=== PATIENT | male | born 1960 | race Caucasian/White ===

== ENCOUNTER 2019-05-16 17:47 | Emergency (ER) | payer SELFPAY | END 2019-05-16 18:42 | disposition left against medical advice (07) | LOC: ER 05-26 13:35 | PROVIDERS: Emergency Provider Family Medicine; Family Provider Family Medicine | DX: Z53.21 Procedure and treatment not carried out due to patient leaving prior to being seen by health care provider (principal) | CPT/HCPCS: 99281 ==

== ENCOUNTER → 2020-08-29 16:24 | Outpatient (BNVA) | payer SELFPAY | PROVIDERS: Family Provider Family Medicine; Visit Provider Internal Medicine Cardiovascular Disease | DX: I10 Essential (primary) hypertension (principal); I50.9 Heart failure, unspecified; I50.42 Chronic combined systolic (congestive) and diastolic (congestive) heart failure; E78.5 Hyperlipidemia, unspecified; F17.200 Nicotine dependence, unspecified, uncomplicated; J43.9 Emphysema, unspecified; K21.9 Gastro-esophageal reflux disease without esophagitis | CPT/HCPCS: 80053; 83735; 83880; 84443; 85025 ==

== ENCOUNTER 2020-09-29 08:29 | Outpatient (CLI) | payer SELFPAY ==
--- NOTE | 2020-09-29 08:45 | USCV_ITS ---
Anurag Diaz Age: 59 Gender: M : 1960 Exam Date: 09/29/2020 08:51 Ordering Phys: Anuja Yao MD ([email or web address]) Technologist: Virgie Zhang Exam Location: [facility] [place] Indication: heart failure, unspecified BP: 121 / 84 HR: 68 Rhythm: Sinus Technical Quality: Good MEASUREMENTS (Male / Female) Normal Values 2D ECHO LV Diastolic Diameter PLAX 5.8 cm 4.2 - 5.9 / 3.9 - 5.3 cm LV Systolic Diameter PLAX 4.7 cm IVS Diastolic Thickness 0.8 cm 0.6 - 1.0 / 0.6 - 0.9 cm IVS Systolic Thickness 1.1 cm LVPW Diastolic Thickness 1.2 cm 0.6 - 1.0 / 0.6 - 0.9 cm LVPW Systolic Thickness 1.6 cm LVOT Diameter 2.0 cm LV Ejection Fraction 2D Teich 39.7 % LV Ejection Fraction MOD 2C 35.9 % LV Ejection Fraction 2C AL 36.6 % LA Diameter 2.4 cm LA Width 2.8 cm LA Height 4.3 cm RA Width 4.1 cm RA Height 3.8 cm Aorta at Sinotubular Diameter 4.0 cm M-MODE LV Diastolic Diameter MM 6.3 cm 4.2 - 5.9 / 3.9 - 5.3 cm LV Systolic Diameter MM 4.9 cm LV Ejection Fraction MM Teich 43.8 % IVS Diastolic Thickness MM 0.6 cm 0.6 - 1.0 / 0.6 - 0.9 cm IVS Systolic Thickness MM 0.9 cm LVPW Diastolic Thickness MM 1.2 cm 0.6 - 1.0 / 0.6 - 0.9 cm LVPW Systolic Thickness MM 1.7 cm Aortic Annulus Diameter 3.9 cm LA Ao Ratio MM 0.7 MV E Point Septal Separation 1.6 cm DOPPLER AV Peak Velocity 158.0 cm/s LVOT Peak Velocity 90.0 cm/s AV Area Cont Eq vti 1.8 cm squared AV Area Cont Eq pk 1.8 cm squared MV Peak Velocity 132.0 cm/s MV Area PHT 3.9 cm squared Mitral E to A Ratio 1.1 MV E' Velocity 56.0 cm/s Mitral E to MV E' Ratio 16.2 Mitral E to LV E' Lateral Ratio 14.6 Mitral E to LV E' Septal Ratio 18.1 PV Peak Velocity 64.0 cm/s RV Acceleration Time 0.1 s RV Ejection Time 0.3 s RV AcT/ET 0.4 FINDINGS Left Ventricle Mildly dilated left ventricle. Moderately decreased left ventricular systolic function. Left ventricular ejection fraction is estimated at 30%. Moderate global hypokinesis. Grade II diastolic dysfunction, moderately elevated filling pressures. Abnormal septal motion consistent with conduction abnormality. Right Ventricle Normal right ventricular size and systolic function. Normal right ventricle systolic pressure. Right Atrium Normal right atrial size. Right atrial pressure estimated at 3 mmHg. Left Atrium Mildly increased left atrial size. Mitral Valve Mildly thickened mitral valve. No mitral valve stenosis. Mild mitral valve regurgitation. Aortic Valve Structurally normal trileaflet aortic valve. No aortic valve stenosis. No aortic valve regurgitation. Tricuspid Valve Structurally normal tricuspid valve. Trace tricuspid valve regurgitation. Pulmonic Valve Structurally normal pulmonic valve. No pulmonary valve stenosis. Pericardium No pericardial effusion. Aorta Normal size aortic root and proximal ascending aorta. Normal descending aorta size. Normal-sized inferior vena cava with normal respiratory variation. CONCLUSIONS 1. Mildly dilated left ventricle. Moderately decreased left ventricular systolic function. Left ventricular ejection fraction is estimated at 30%. Moderate global hypokinesis. Grade II diastolic dysfunction, moderately elevated filling pressures. 2. Normal right ventricular size and systolic function. 3. Mildly increased left atrial size. 4. Mild mitral valve regurgitation. 5. When compared to previous echocardiogram dated 08/07/2018, left ocular systolic function may have improved slightly Anuja Yao MD (Electronically Signed) Final Date: 04 October 2020 12:36 S
== END 2020-09-29 08:30 | disposition home or self-care (01) ==
PROVIDERS: PCP Internal Medicine Cardiovascular Disease; Visit Provider Internal Medicine Cardiovascular Disease
DX: I50.9 Heart failure, unspecified (principal); I34.0 Nonrheumatic mitral (valve) insufficiency
CPT/HCPCS: C8929

== ENCOUNTER → 2020-11-23 12:59 | Outpatient (BNVA) | payer MEDICAID, SELFPAY | PROVIDERS: PCP Internal Medicine Cardiovascular Disease; Visit Provider Thoracic Surgery (Cardiothoracic Vascular Surgery) | DX: I42.9 Cardiomyopathy, unspecified (principal) | CPT/HCPCS: 87635 ==

== ENCOUNTER 2020-11-28 16:21 | Observation (INO) | payer MEDICAID, SELFPAY ==
[2020-11-23 12:02] VITALS: BMI 25.8
--- NOTE | 2020-11-23 12:07 | ECG_ITS ---
[facility] Test Date: 2020-11-23 Pat Name: Anurag Diaz Department: Room: Gender: Male Attendant Child Activity: : 1960 Requested By: Glo Kumar Order Number: [id number] Antony MD: Anuja Yao M.D. Measurements Intervals [place] Rate: 64 P: 25 ME: 172 QRS: -50 QRSD: 125 T: -83 QT: 395 QTc: 410 Interpretive Statements SINUS RHYTHM LEFT AXIS DEVIATION [QRS AXIS < -30] MODERATE INTRAVENTRICULAR CONDUCTION DELAY MODERATE T-WAVE ABNORMALITY, CONSIDER LATERAL ISCHEMIA MODERATE T-WAVE ABNORMALITY, CONSIDER INFERIOR ISCHEMIA Compared to ECG 08/06/2018 22:40:05 Intraventricular conduction delay now present Possible ischemia now present Ventricular premature complex(es) no longer present Atrial abnormality no longer present T-wave abnormality still present Electronically Signed On 11-24-2020 10:38:12 CDT by Anuja Yao M.D. [email or web address]
--- NOTE | 2020-11-23 12:39 | ANES.PREANE2 ---
Pre-Anesthetic Assessment Pre-Anesthetic Assessment: Height/Weight: Height 1.75 m Weight 79.379 kg Preop Diagnosis: heart failure Proposed Procedure: Operation Date: 11/28/20 10:45 Proposed Procedures p Defibrillator Placement(Not Applicable) - Shane Pineda MD Familial anesthetic complications: None Social: Social History: Tobacco and No alcohol Exam: Pre-Anes Outpt Exam: alert, oriented x 3, clear to auscultation bilaterally and regular rate & rhythm Airway: Cervical ROM: WNL MP: 1 Dentition: Full CV/HEM: CV/HEM: CHF and HTN Comments: EF 30% GI: GI: GERD Metabolic: Metabolic: Hyperlipidemia Anesthetic Plan: ASA status: 4 Anesthesia: MAC Risk of > 500 ml blood loss (7ml/kg in children): No PFSH Anesthesia PFSH: Medical History Dyslipidemia GERD (gastroesophageal reflux disease) Heart failure Smoker Family History Sister Heart disease Father Myocardial infarct Social History Smoking and tobacco status: current every day smoker cigarettes Packs smoked per day: 1.5 Alcohol intake: never Data Anesthesia CBC & Chem 7: 11/23/20 12:18 11/23/20 12:18 Cardiac Studies: Echocardiogram 09/29/20
[2020-11-23 12:48] LABS: Basophils # 0.1 10^3/uL (0.0-0.1); Basophils % 0.6 %; Eosinophils # 0.2 10^3/uL (0.0-0.8); Eosinophils % 2.1 %; Hematocrit 50.4 % (42.0-52.0); Hemoglobin 16.9 g/dL (11.7-16.6); Lymphocytes # 1.7 10^3/uL (0.8-4.8); Lymphocytes % 21.8 %; Mean Corpuscular HGB Conc 33.5 g/dL (30.0-36.0); Mean Corpuscular Hemoglobin 32.1 pg (28.0-34.0); Mean Corpuscular Volume 95.8 fl (80-94); Mean Platelet Volume 9.6 fL (7.4-10.4); Monocytes # 0.7 10^3/uL (0.2-0.9); Monocytes % 9.2 %; Neutrophils # 5.14 10^3/uL (1.8-7.7); Nucleated Red Blood Cells % 0 %; Platelet Count 222 10^3/cmm (130-400); Red Blood Count 5.26 10^6/uL (4.1-5.3); Red Cell Distribution Width 12.7 % (12.1-15.1); White Blood Count 7.8 10^3/uL (4.0-10.0)
[2020-11-23 13:16] LABS: Alanine Aminotransferase 19 U/L (0-41); Albumin Level 4.7 g/dL (3.5-5.2); Alkaline Phosphatase 50 IU/L (40-130); Anion Gap 14.2 (5-19); Aspartate Amino Transferase 20 U/L (0-40); Blood Urea Nitrogen 12 mg/dL (6-20); Calcium 9.8 mg/dL (8.5-10.5); Carbon Dioxide 30 mmol/L (22-29); Chloride 98 mmol/L (98-107); Creatinine Clr Calc Pharmacy 119.2044; Globulin 3.1 g/dL (1.3-4.6); Glomerular Filtration Rate 115.4 mL/min (90-130); Glucose 87 mg/dL (65-115); Osmolality Calculated 283 mOsm/kg (285-295); Potassium 5.2 mmol/L (3.5-5.1); Sodium 137 mmol/L (136-145); Total Bilirubin 0.4 mg/dL (0.15-1.2); Total Protein 7.8 g/dL (6.6-8.7)
[2020-11-23 14:33] LABS: Urine Appearance Clear (CLEAR); Urine Color Yellow (Yellow)
[2020-11-23 14:34] LABS: Add Urine Microscopic? YES; Bilirubin Urine Neg (Negative); Blood Urine 2+ (Negative); Glucose Urine UA Norm (Normal); Ketones Urine Negative (Negative); Leukocyte Esterase Urine Negative (Negative); Nitrate Urine Negative (Negative); Protein Urine Neg (Negative); Specific Gravity, Urine 1.015 (1.005-1.030); Urobilinogen Urine Norm (Negative); pH Urine 6 (5-7)
[2020-11-23 14:41] LABS: Add Urine Culture? No; RBC Urine 0-4 /hpf (0-2)
[2020-11-28] VITALS (9 sets, daily range): BP systolic 109–130; BP diastolic 67–100; PULSE 67–92; RESP 15–18; TEMP 36.2–36.6; O2SAT 94–100
--- NOTE | 2020-11-28 | SCC_ITS ---
Procedure Done: AICD implantation 155.6 seconds of fluoroscopic guidance, for a cumulative dose of 29.87 mGy, was provided to Dr. Pineda by the radiology department. C-arm images of the chest were saved for the patient's permanent record. MTDD
--- NOTE | 2020-11-28 10:02 | XR_ITS ---
WS: [id number] XR chest 1V portable [id number] REASON FOR EXAM: Preop for AICD implantation/cardiomyopathy FINDINGS: Compared to 08/06/2018 the enlarged cardiac silhouette has resolved with a normal heart size at this t kika. (CT at 08/06/2018 demonstrated cardiomegaly and pericardial effusion.) There is mild tortuosity the thoracic aorta. Calcified granulomatous disease with no active pulmonary parenchymal or pleural disease identified. The bony thorax is intact. XR/XR chest 1V portable [id number] IMPRESSION: No acute chest abnormality. Previously enlarged cardiac silhouette resolved as above.
--- NOTE | 2020-11-28 10:02 | SC_ITS ---
WS: [id number] C-arm FL for Pacemaker REASON FOR EXAM: AICD implantation FINDINGS: 2 images during AICD implantation. Battery pack placed in the anterolateral left chest wall. Transven ous left subclavian leads to the right atrium and right ventricle. SC/C-arm FL for Pacemaker IMPRESSION: AICD implantation as above.
[2020-11-28] MEDS: sodium chloride 0.9% 1,000 ML 30 ML IV (10:25)
--- NOTE | 2020-11-28 12:55 | P.ANESUD_ITS ---
Pre-Anesthetic Update Pre-Anesthetic Assessment: Date of Surgery/Procedure: 11/28/20 Preop Mirna gnosis: Medically refractory cardiomyopathy Proposed Procedure: Operation Date: 11/28/20 10:45 Proposed Procedures p Defibrillator Placement(Not Applicable) - Shane Pineda MD Any changes to Pre-Anesthetic Assessment?: No Last Intake: Intake Last Liquid Date 11/27/20 Last Liquid Time 23:00 Last Solid Date 11/27/20 Last Solid Time 22:00 Vitals: Temperature 97.9 F 11/28/20 10:15 Temperature Source Temporal Artery S can 11/28/20 10:15 Pulse Rate 79 11/28/20 10:15 Respiratory Rate 16 11/28/20 10:15 Blood Pressure 119/77 11/28/20 10:15 Blood Pressure Layla n 91 11/28/20 10:15 Pulse Oximetry 96 11/28/20 10:15 Oxygen Delivery Me thod 11/28/20 10:15 Exam: Pre-Anes Outpt Exam: alert, oriented x 3, clear to auscultation bilaterally and regular rate & rhythm Cardiac Studies: Echocardiogram 09/29/20
--- NOTE | 2020-11-28 12:55 | W.PM.OPSUD ---
Surgery/Procedure H&P Update DATE OF PROCEDURE: November 28, 2020 DATE H&P PERFORMED: 11/24/20 H&P UPDATE INFORMATION: I have reviewed H&P completed within last 30 days, I have examined patient prior to procedure and No changes to prior documentation PREOP DIAGNOSIS: Medically refractory cardiomyopathy PLANNED PROCEDURE: Operation Date: 11/28/20 10:45 Proposed Procedures p Defibrillator Placement(Not Applicable) - Shane Pineda MD
[2020-11-28] MEDS: lidocaine 1% INJ 20 mL SUBCUT (13:28)
[2020-11-28] MEDS: ceFAZolin 1,000 mg SDV 1000 MG IRRIGATION (13:28)
--- NOTE | 2020-11-28 14:37 | PM.OP ---
Operative Report Date of procedure: November 28, 2020 Pre-op Diagnosis: Medically refractory cardiomyopathy Post-op diagnosis: same Procedure Done: AICD implantation Implants: AICD generator Atrial and ventricular leads Pathology: none sent Surgeon: Shane Pineda Anesthesia: MAC and Local Complications: None: Post procedure chest x-ray pending Condition: stable Disposition: PACU Brief History: Mr. Diaz is a 60-year-old gentleman with likely refractory cardiomyopathy. He has a documented ejection fraction of less than 30% as noted from echocardiogram as well as Lexiscan. AICD implantation has been recommended by Dr. Yao as a cardioprotective mechanism. Rationale was carefully discussed. He does wish to proceed. Appropriate consents have been reviewed and signed. Procedure: Procedure: Mr. Diaz was taken to the OR suite and placed in the supine position over a shoulder roll. He received conscious sedation with continuous anesthesia monitoring by. His entire chest was sterilely prepped and draped. 1% lidocaine was infiltrated in the left subclavicular region. While in Trendelenburg position, utilizing modified seldinger technique, a guidewire was placed in the left subclavian vein. This was confirmed in position by fluoroscopy. Next, after infiltration with lidocaine, a subcutaneous pocket was created beginning from the exit point of the guidewire and extending laterally and inferiorly. Cautery was utilized to create the pocket just above the pectoralis musculature. Hemostasis was confirmed. An antibiotic-soaked sponge was placed in the wound. A dilator and tear-away sheath was placed over the guidewire and advanced under fluoroscopy. Guidewire and dilator were removed. Next using a combination of curved and straight stylettes, the right ventricular lead was placed in position by fluoroscopy. The distal screw was extended. Interrogation was then performed confirming appropriate parameters. The tear-away sheath was then removed and the ventricular lead was sewn to the floor of the subcutaneous pocket. Next, atrial lead was placed in a similar fashion with fluoroscopic guidance. Generator was brought into the field, and after confirmation of hemostasis in the subcutaneous pocket, the leads was connected to the generator with appropriate capture. The entire system was interrogated by fluoroscopy. Leads and generator were secured in the pocket. Sponge and needle count was correct. The wound was then closed in 2 layers of 3-0 Vicryl suture. Skin was reapproximated in a subcuticular manner with 4-0 Monocryl suture. A pressure dressing was applied. The left arm was placed in a sling. The patient had equal breath sounds bilaterally. Mr. Diaz was then transferred to the PACU, where chest x-ray is currently pending. I did equal opportunity counselor with the family at the completion of the procedure. Following are the specifics of this system: Right ventricular lead is a 62 cm and model 6935M. Serial number [id number] Ventricular lead had sensing of 8.1 mV with an impedance of 535 ohms. Threshold was 0.7 V Atrial lead is 52 cm and model #[id number]. Serial number #[id number] Atrial lead had a sensing of 7.9 mV and an impedance of 612 ohms. Threshold was 0.5 V [employer] generator: Model # [id number] Serial #[id number]
[2020-11-28] MEDS: fentaNYL 50 mcg/mL INJ 2mL IVP (15:24)
--- NOTE | 2020-11-28 15:26 | SUR.PHASEII ---
1500 fentanyl 50mcg given and iv leaking and not patent
--- NOTE | 2020-11-28 16:12 | ANE.PACU2 ---
Inpatient post-anesthesia follow up: Airway intact: Yes Vital signs: Temperature 97.8 F Pulse Rate 67 Respiratory Rate 16 Blood Pressure 130/86 Pulse Oximetry 99 Oxygen Delivery Me thod Room Air Oxygen Flow Rate Fraction of Inspir ed Oxygen Hydration adequate: Yes Nausea and vomiting: No Pain level: 2 Mental status: Baseline
[2020-11-28] MEDS: nicotine 21 mg Patch 1 PATCH TRANSDERMA (17:59)
[2020-11-28] MEDS: HYDROcodone-acetaminophen 5-325 mg Tablet 1 TAB PO ×2 (18:00→22:02)
[2020-11-28] MEDS: ceFAZolin 1,000 MG in sodium chloride 0.9% (plus) 50 ML 100 MG IV (21:09)
[2020-11-29 00:31] VITALS: BP 125/79; PULSE 80; RESP 18; TEMP 36.6; O2SAT 95
[2020-11-29] MEDS: HYDROcodone-acetaminophen 5-325 mg Tablet 1 TAB PO ×2 (02:11→06:34)
[2020-11-29 04:00] VITALS: BP 122/76; PULSE 80; RESP 18; TEMP 36.7; O2SAT 96
[2020-11-29] MEDS: ceFAZolin 1,000 MG in sodium chloride 0.9% (plus) 50 ML 100 MG IV (04:09)
[2020-11-29 06:00] VITALS: PULSE 67
--- NOTE | 2020-11-29 06:08 | PC.NURSE ---
PACEMAKER Pressure dressing removed with island dressing left in place. Pacemaker interrogation done
--- NOTE | 2020-11-29 06:51 | PM.DCS ---
Discharge Providers Date of Admission: 11/28/20 16:21 Date of Discharge: November 29, 2020 Attending Provider at Admission: Shane Pineda MD Attending Provider at Discharge: Shane Pineda MD Primary Care Provider: Luis Miguel Jenkins MD Diagnoses at Discharge Discharge Diagnosis (1) Cardiomyopathy: Status: Acute Reason for Visit Reason for Visit: Cardiomyopathy Hospital Course Hospital Course Mr. Diaz is a 60-year-old gentleman who was referred to our service for AICD implantation due to medically refractory cardiomyopathy felt to be ischemic as original etiology. He has been carefully evaluated by Dr. Yao. He was electively admitted on November 28 underwent dual-lead AICD implantation. Postoperatively, he is convalesced on the surgical bedolla where he has continued to do well. Surgical site is clean and dry. Postop discomfort is under good control. Interrogation of the device this morning reveals appropriate parameters. He will be discharged home today in stable condition. Physical Exam Chest: COMMONS NORMALS: normal inspection of the chest OTHER: Surgical site is clean and dry. Minimal swelling. Resp: COMMON NORMALS: normal respiratory effort and clear to auscultation bilaterally EFFORT & INSPECTION: Yes able to speak in complete sentences and Yes symmetric chest movement AUSCULTATION: clear to auscultation bilaterally Cardio: COMMON NORMALS: regular rate, regular rhythm and S1 normal heart sound present RATE: regular rate RHYTHM: regular rhythm HEART SOUNDS: S1 normal heart sound present Extremity: COMMON NORMALS: no clubbing, cyanosis or edema Discharge Data Data Completed and Pending: Completed Studies During Hospitalization Category Date Time Status XR chest 1V demetrius ble [id number] Routine Exams 11/28/20 10:02 Completed Vitals: Last Vital Signs Temp 98.0 F 11/29/20 04:00 Pulse 67 11/29/20 06:00 Resp 18 11/29/20 04:00 BP 122/76 11/29/20 04:00 Pulse Ox 96 11/29/20 04:00 Discharge Plan Discharge Patient Disposition: Home Condition: Stable Prescriptions: New hydrocodone-acetaminophen 5-325 mg Tablet 1 tab PO Q6H PRN (Reason: Moderate Pain) Qty: 12 RF: 0 Continued furosemide 20 mg tablet 20 mg PO DAILY PRN (Reason: edema) Qty: 30 RF: 6 metoprolol succinate 50 mg tablet extended release 24 hr 50 mg PO DAILY Qty: 30 RF: 5 simvastatin 20 mg tablet 20 mg PO DAILY Qty: 30 RF: 6 albuterol sulfate 90 mcg/actuation HFA aerosol inhaler 2 puff INHALATION Q6H PRN (Reason: Shortness Of Breath) RF: 0 omeprazole 20 mg capsule,delayed release(DR/EC) 20 mg PO DAILY RF: 0 lisinopril 5 mg tablet 5 mg PO DAILY RF: 0 aspirin [Aspirin Low Dose] 81 mg Tablet,Delayed Release (Dr/Ec) 81 mg PO DAILY RF: 0 Discharge Orders: Discharge Order (Routine); Ordered 11/29/20 Ordered By: Shane Pineda Referrals: [facility] [Provider Group] - 1 week (Pacemaker clinic) Discharge Diet: Usual diet Discharge Activity: Limit activity as instructed Patient Instructions: Opioid Safety Activity Restrictions/Additional Instructions: May remove bandage in 2 days May begin daily showers in 2 days No swimming or tub baths x 2 weeks No ointments on incision Report drainage, redness, heat, increased pain, or swelling to clinic Do not raise left arm above eye level for 1 week No heavy lifting or pulling with left arm x1 week Discharge Attestations Time Spent in Discharge Care*: less than 30 min Specific Discharge Activities: educating patient, discussing with family preservation caseworker/social workers/dc planners, documenting/other paperwork and evaluating patient/reviewing data Time Spent in Smoking Cessation: 3 to 10 minutes Status at Discharge: Cognitive status at discharge: cognitively intact, Behavioral status at discharge: cooperative, Functional status at discharge: independent ambulation Overall status at discharge: patient is back to baseline Quality Metrics Clinical Quality Measures During this hospital stay, did patient experience: None Coding Level of Care Code Acute g DC note Diagnoses Cardiomyopathy I42.9
[2020-11-29 08:00] VITALS: BP 120/78; PULSE 68; RESP 18; TEMP 36.4; O2SAT 94
[2020-11-29] MEDS: aspirin 81 mg EC Tablet PO (08:06)
[2020-11-29] MEDS: atorvastatin 40 mg Tablet 20 MG PO (08:06)
[2020-11-29] MEDS: nicotine 21 mg Patch 1 PATCH TRANSDERMA (08:06)
--- NOTE | 2020-11-29 09:07 | PC.NURSE ---
discharge instructions given to patient and patient verbalized understanding of instructions. patient's meds sent to pharmacy. patient walked to private vehicle with spouse.
[2020-11-29 09:08] VITALS: BP 120/78; PULSE 68; RESP 18; TEMP 36.4; O2SAT 94
--- NOTE | 2020-11-30 09:36 | PC.SOCIAL ---
discharge follow up call made. patient is feeling good, reports he is slightly sore. patient given discharge follow up appointment with Karen Plata. patient picked up prescriptions and is taking as prescribed. instructed patient to not lift or pull for the next week. patient reports he hasn't had a cigarette for 48 hours.
--- NOTE | 2020-12-02 16:38 | PC.RESP ---
SMOKING CESSATION INFORMATION SENT TO PATIENT.
== END 2020-11-29 09:09 | disposition home or self-care (01) ==
LOC: MEDSURG 16:21
PROVIDERS: Admitting Provider Thoracic Surgery (Cardiothoracic Vascular Surgery); PCP Internal Medicine Cardiovascular Disease; Visit Provider Thoracic Surgery (Cardiothoracic Vascular Surgery)
PROC: 0JH608Z Insertion of Defibrillator Generator into Chest Subcutaneous Tissue and Fascia, Open Approach (ICD-10-PCS; CPT 33249; principal; 2020-11-28 10:35)
DX: I42.9 Cardiomyopathy, unspecified (principal); I11.0 Hypertensive heart disease with heart failure; I50.9 Heart failure, unspecified; K21.9 Gastro-esophageal reflux disease without esophagitis; E78.5 Hyperlipidemia, unspecified; F17.210 Nicotine dependence, cigarettes, uncomplicated; Z82.49 Family history of ischemic heart disease and other diseases of the circulatory system; Z79.82 Long term (current) use of aspirin
CPT/HCPCS: 33249; 36415; 71045; 76000; 80053; 81001; 85025; 93005; C1721; C1777; C1779; G0378; J0690; J2704; J3010; J7030

== ENCOUNTER 2020-12-29 18:30 | Emergency (ER) | payer MEDICAID, SELFPAY ==
[2020-12-29 19:09] VITALS: BP 125/70; PULSE 72; RESP 16; TEMP 36.6; O2SAT 98; BMI 25.8
[2020-12-29 19:52] LABS: Basophils % 0.4 %; Eosinophils # 0.2 10^3/uL (0.0-0.8); Eosinophils % 3.4 %; Hemoglobin 14.4 g/dL (11.7-16.6); Lymphocytes # 1.5 10^3/uL (0.8-4.8); Lymphocytes % 20.7 %; Mean Corpuscular HGB Conc 35.1 g/dL (30.0-36.0); Mean Corpuscular Hemoglobin 32.4 pg (28.0-34.0); Mean Corpuscular Volume 92.1 fl (80-94); Mean Platelet Volume 9.8 fL (7.4-10.4); Monocytes # 0.9 10^3/uL (0.2-0.9); Monocytes % 12.3 %; Neutrophils # 4.44 10^3/uL (1.8-7.7); Neutrophils % 62.8 %; Nucleated Red Blood Cells % 0 %; Platelet Count 179 10^3/cmm (130-400); Red Blood Count 4.45 10^6/uL (4.1-5.3); Red Cell Distribution Width 12.4 % (12.1-15.1); White Blood Count 7.1 10^3/uL (4.0-10.0)
[2020-12-29 20:13] VITALS: BP 118/75; PULSE 74; RESP 18; O2SAT 95
[2020-12-29 20:13] LABS: Alanine Aminotransferase 13 U/L (0-41); Albumin Level 4.5 g/dL (3.5-5.2); Alkaline Phosphatase 50 IU/L (40-130); Anion Gap 12.6 (5-19); Aspartate Amino Transferase 16 U/L (0-40); Blood Urea Nitrogen 14 mg/dL (6-20); Calcium 9.3 mg/dL (8.5-10.5); Carbon Dioxide 26 mmol/L (22-29); Chloride 102 mmol/L (98-107); Creatinine Clr Calc Pharmacy 119.2044; Globulin 2.2 g/dL (1.3-4.6); Glomerular Filtration Rate 115.4 mL/min (90-130); Glucose 92 mg/dL (65-115); Lactic Sepsis W/Reflex 1.1 mmol/L (0.5-2.2); Osmolality Calculated 282 mOsm/kg (285-295); Potassium 4.6 mmol/L (3.5-5.1); Sodium 136 mmol/L (136-145); Total Bilirubin 0.3 mg/dL (0.15-1.2); Total Protein 6.7 g/dL (6.6-8.7)
--- NOTE | 2020-12-29 21:16 | XRR_ITS ---
PROCEDURE INFORMATION: Exam: XR Chest Exam date and time: 12/29/2020 9:16 PM Age: 60 years old Clinical indication: Pain; Left-sided; Prior surgery; Surgery date: <1 month; Surgery type: Pacemaker; Additional info: Chest pain, ivdc concern TECHNIQUE: Imaging protocol: XR of the chest. Views: 1 view. COMPARISON: CR XR chest 1V portable [id number] 11/28/2020 10:01 AM FINDINGS: Lungs: Mildly hyperinflated lungs. No consolidation. Pleural spaces: Unremarkable. No pleural effusion. No pneumothorax. Heart/Mediastinum: Interval placement of a 2 lead AICD/pacer device within the left chest wall. No cardiomegaly. Bones/joints: Unremarkable. XR/XR chest 1V portable [id number] IMPRESSION: No acute findings. Radiation Dose CTDIVOL = (mGy): DLP = (mGy-cm)
--- NOTE | 2020-12-29 21:17 | ED_ITS ---
HPI - Skin/Abscess/Foreign Bdy General: Chief complaint: Skin/Abscess/Foreign Body Stated complaint: oozing green from defibulator Time Seen by Provider: 12/29/20 21:10 History of Present Illness: HPI narrative: Patient comes to the emergency department the assistance of his spouse. He had a IV DC placed approximately on or about 28 November at this facility by cardiology. He had a history of cardiomyopathy with a decreased ejection fraction. He states that since that time he has noted some small amount of drainage from the incision site. States he has been keeping it open and clean but there is been still some persistent redness along the incision site with small amount of drainage. He states he is not been manipulating or messing with the pacemaker. He denies any fevers or chills or other constitutional complaints. He still very active. He states the defibrillator has not fired. He denies any ongoing chest pain shortness of breath etc. He saw his primary care doctor in the last 24 hours who consulted the freight delivery driver and they have started him on antibiotics. He is taken his second dose this evening. His still insisted he come to the emergency department. Associated symptoms: Reports no associated symptoms; Deny chills, fever(s), nausea or vomiting Review of Systems Const: Denies: fever(s) or chills Eyes: Denies: change in vision Card: Denies: chest pain, palpitations, irregular heart rhythm or edema GI: Denies: abdominal pain, nausea or vomiting Musc: Denies: neck pain, back pain, extremity pain or extremity swelling Skin/Breast: Reports: surgical incision Neuro: Denies: headache(s), numbness in extremities, weakness in extremities or dizziness Dwight/Lymph: Denies: easy bleeding or petechiae PFSH ED PFSH: Medical History Dyslipidemia GERD (gastroesophageal reflux disease) Heart failure Smoker Surgical History AICD (automatic cardioverter/defibrillator) present Family History Sister Heart disease Father Myocardial infarct Social History Alcohol intake: never Physical Exam Const: COMMON NORMALS: no acute distress, average body habitus and patient oriented x3 HENMT: MOUTH: Normal oral and palatal mucosa present Eye: COMMON NORMALS: Equal, round and reactive pupils present and no scleral icterus PUPIL: Yes Equal, round and reactive pupils present Neck/C-Spine: COMMON NORMALS: full ROM, no lymphadenopathy and no JVD Lymph: LYMPHATIC: no lymphadenopathy noted Chest: OTHER: Examination of the chest reveals obvious bio medical technician implanted in the left upper chest. The area is nontender. The in the surgical incision is superior to the implanted device. There is minimal erythema along the margin and just superior to the margin of the skin incision. The lateral 2 cm of the incision is slightly dehisced but only superficially. There is no active drainage. Resp: COMMON NORMALS: normal respiratory effort, No retractions and clear to auscultation bilaterally AUSCULTATION: clear to auscultation bilaterally Cardio: COMMON NORMALS: no JVD, regular rhythm and No murmurs present (Cardio) RHYTHM: regular rhythm Back/Pelvis: COMMON NORMALS: thoracic and lumbar spine normal to inspection and thoraco-lumbar ROM normal Extremity: COMMON NORMALS: normal to inspection and full ROM Neuro: COMMON NORMALS: patient oriented x3, moves all extremities, no focal motor deficits and no sensory deficits noted Skin: COMMON NORMALS: turgor normal and no petechiae NARRATIVE SKIN EXAM: Skin over the incision site noted in the chest exam. GENERAL SKIN EXAM: turgor normal Course Reevaluation(s): Reevaluation #1: Patient is clinical examination is reassuring. Does not appear to have any significant cellulitis he does have a small amount of incision erythema which may represent superficial cellulitis or certainly could be a retained suture causing some of his irritation. He is just started on Bactrim and has had received his second dose this evening. His white blood count is also normal I do not see anything to suggest that he has a significant abscess etc. at this time he requires removal of his bio medical technician. I have advised him to continue the current antibiotic regimen. He should give it at least another 48 hours of antibiotic coverage before determination whether he needs to be reevaluated and his coverage broadened. He voiced understanding of recommendations and plan of care. Stable for discharge at this time. Vital Signs: Vital signs: Vital Signs Temperature 97.8 F 12/29/20 19:09 Pulse Rate 74 12/29/20 20:13 Respiratory Rate 18 10/14/21 20:13 Blood Pressure 118/75 10/14/21 20:13 Pulse Oximetry 95 12/29/20 20:13 MDM - Skin/Abscess/Foreign Bdy Lab Data: Labs: Lab Results 12/29/20 12/29/20 12/29/20 19:40 19:40 19:40 WBC 7.1 10^3/uL 10^3/ uL (4.0-10.0) RBC 4.45 10^6/uL 10^6 /uL (4.1-5.3) Hgb 14.4 g/dL g/dL (11.7-16.6) Hct 41.0 % L % (42.0-52.0) MCV 92.1 fl fl (80-94) MCH 32.4 pg pg (28.0-34.0) MCHC 35.1 g/dL g/dL (30.0-36.0) RDW 12.4 % % (12.1-15.1) Plt Count 179 10^3/cmm 10^3 /cmm (130-400) MPV 9.8 fL fL (7.4-10.4) Neut % (Auto) 62.8 % % Lymph % (Auto) 20.7 % % [place] % (Auto) 12.3 % % Eos % (Auto) 3.4 % % Baso % (Auto) 0.4 % % Neut # (Auto) 4.44 10^3/uL 10^3 /uL (1.8-7.7) Lymph # (Auto) 1.5 10^3/uL 10^3/ uL (0.8-4.8) [place] # (Auto) 0.9 10^3/uL 10^3/ uL (0.2-0.9) Eos # (Auto) 0.2 10^3/uL 10^3/ uL (0.0-0.8) Baso # (Auto) 0.0 10^3/uL 10^3/ uL (0.0-0.1) Nucleated RBC % (a uto) 0 % % Nucleated RBCs # 0.0 /100WBC /100W BC Sodium 136 mmol/L mmol/L (136-145) Potassium 4.6 mmol/L mmol/L (3.5-5.1) Chloride 102 mmol/L mmol/L (98-107) Carbon Dioxide 26 mmol/L mmol/L (22-29) Anion Gap 12.6 (5-19) BUN 14 mg/dL mg/dL (6-20) Creatinine 0.7 mg/dL mg/dL (0.7-1.2) GFR Calculation 115.4 mL/min mL/m in (90-130) Glucose 92 mg/dL mg/dL (65-115) Calculated Osmolal ity 282 mOsm/kg L mOs m/kg (285-295) Lactic Acid 1.1 mmol/L mmol/L (0.5-2.2) Calcium 9.3 mg/dL mg/dL (8.5-10.5) Total Bilirubin 0.3 mg/dL mg/dL (0.15-1.2) AST 16 U/L U/L (0-40) ALT 13 U/L U/L (0-41) Alkaline Phosphata se 50 IU/L IU/L (40-130) Total Protein 6.7 g/dL g/dL (6.6-8.7) Albumin 4.5 g/dL g/dL (3.5-5.2) Globulin 2.2 g/dL g/dL (1.3-4.6) Discharge Plan Discharge Condition: Stable Prescriptions: No Action furosemide 20 mg tablet 20 mg PO DAILY PRN (Reason: edema) Qty: 30 RF: 6 metoprolol succinate 50 mg tablet extended release 24 hr 50 mg PO DAILY Qty: 30 RF: 5 simvastatin 20 mg tablet 20 mg PO DAILY Qty: 30 RF: 6 albuterol sulfate 90 mcg/actuation HFA aerosol inhaler 2 puff INHALATION Q6H PRN (Reason: Shortness Of Breath) RF: 0 omeprazole 20 mg capsule,delayed release(DR/EC) 20 mg PO DAILY RF: 0 lisinopril 5 mg tablet 5 mg PO DAILY RF: 0 aspirin [Aspirin Low Dose] 81 mg Tablet,Delayed Release (Dr/Ec) 81 mg PO DAILY RF: 0 hydrocodone-acetaminophen 5-325 mg Tablet 1 tab PO Q6H PRN (Reason: Moderate Pain) Qty: 12 RF: 0 nicotine 21 mg/24 hr patch 24 hour 1 patch transdermal DAILY Qty: 28 RF: 0 Discharge Orders: Discharge ED (Routine); Ordered 12/29/20 Ordered By: Eric Roberts Referrals: Senia Hansen FNP [Primary Care Provider] - Discharge Diet: Usual diet Discharge Activity: Resume usual activity Activity Restrictions/Additional Instructions: Continue the antibiotics that you have been prescribed. Continue to monitor the area of concern on a daily basis for any increasing redness, pain etc. Should you start having fever, increasing redness return to this or the nearest emergency department for reevaluation. We do not expect significant improvement for at least 2 to 3 days after beginning your antibiotics. Coding Level of Care Code ED Curb And Gutter Laborer for Pardeep Fwjeannine Exam Comprehensive
[2020-12-29 22:11] VITALS: BP 122/75; PULSE 74; RESP 18; O2SAT 97
== END 2020-12-29 22:00 ==
PROVIDERS: Nurse Practitioner Family; Emergency Provider Emergency Medicine; PCP Nurse Practitioner Family
DX: T81.49XA Infection following a procedure, other surgical site, initial encounter (principal); Z79.82 Long term (current) use of aspirin; E78.5 Hyperlipidemia, unspecified; F17.200 Nicotine dependence, unspecified, uncomplicated
CPT/HCPCS: 71045; 80053; 83605; 85025; 87040; 99281

== ENCOUNTER 2021-01-05 08:13 | Outpatient (CLI) | payer MEDICAID, SELFPAY | END 2021-01-05 08:14 | disposition home or self-care (01) | LOC: WOUND 08:14 | PROVIDERS: PCP Nurse Practitioner Family; Visit Provider Emergency Medicine | DX: T81.31XA Disruption of external operation (surgical) wound, not elsewhere classified, initial encounter (principal); Y83.8 Other surgical procedures as the cause of abnormal reaction of the patient, or of later complication, without mention of misadventure at the time of the procedure; Z87.891 Personal history of nicotine dependence | CPT/HCPCS: 11042; G0463 ==

== ENCOUNTER 2021-01-12 08:51 | Outpatient (CLI) | payer MEDICAID, SELFPAY | END 2021-01-12 08:52 | disposition home or self-care (01) | LOC: WOUND 08:52 | PROVIDERS: PCP Nurse Practitioner Family; Visit Provider Nurse Practitioner Family | DX: T81.31XA Disruption of external operation (surgical) wound, not elsewhere classified, initial encounter (principal); Y83.8 Other surgical procedures as the cause of abnormal reaction of the patient, or of later complication, without mention of misadventure at the time of the procedure; Z87.891 Personal history of nicotine dependence | CPT/HCPCS: 11042 ==

== ENCOUNTER 2021-01-13 10:44 | Day surgery (SDC) | payer BC, MEDICAID, SELFPAY ==
[2021-01-12 15:56] VITALS: BMI 26.2
--- NOTE | 2021-01-13 | SCC_ITS ---
Procedure Done: Removal of AICD generator and leads 13.4 seconds of fluoroscopic guidance, for a cumulative dose of 2.01 mGy, was provided to Dr. Pineda by the radiology department. C-arm images of the chest were saved for the patient's permanent record. [facility]
[2021-01-13 11:18] VITALS: BP 124/81; PULSE 60; RESP 16; TEMP 36.2; O2SAT 97
[2021-01-13] MEDS: sodium chloride 0.9% 1,000 ML 30 ML IV (11:50)
--- NOTE | 2021-01-13 11:55 | W.PM.OPSUD ---
Surgery/Procedure H&P Update DATE OF PROCEDURE: January 13, 2021 DATE H&P PERFORMED: 01/03/21 H&P UPDATE INFORMATION: I have reviewed H&P completed within last 30 days, I have examined patient prior to procedure and Changes to prior documentation as noted here CHANGES TO PREVIOUS DOCUMENTATION: Continued separation of the lateral margins of the original incisional insertion site. There hasnow been exposed a portion of the generator. Therefore, I have recommended exploration and probably explantation, though depending upon findings, there is a possibility that we may place generator in a Tyvek sleeve and perform submuscular implantation in an attempt to salvage the system. This was carefully discussed with Mr. Diaz and family. They are in agreement. Appropriate consents have been reviewed and signed. PREOP DIAGNOSIS: Status post AICD implantation with wound dehiscence and generator exposure PLANNED PROCEDURE: Operation Date: 01/13/21 12:10 Proposed Procedures p Defibrillator Removal(Not Applicable) - Shane Pineda MD
--- NOTE | 2021-01-13 11:57 | SC_ITS ---
WS: [id number] Exam: C-arm FL for Pacemaker Date/Time of Exam: 01/13/2021 11:57 AM Reason For Exam: defib Limited C-arm images of the chest are submitted for evaluation. The image labeled #1 shows cardiac le ads along the left margin and the inferior border of the heart. No other significant finding on this limited series.
--- NOTE | 2021-01-13 12:02 | ANES.PREANE2 ---
Pre-Anesthetic Assessment Pre-Anesthetic Assessment: Height/Weight: Height 1.75 m Weight 80.739 kg Temp Pulse Resp BP Pulse Ox 97.2 F L 60 16 124/81 97 01/13/21 11:18 01/13/21 11:18 01/13/21 11:18 01/13/21 11:18 01/13/21 11:18 Preop Diagnosis: Status post AICD implantation with wound dehiscence and generator exposure Proposed Procedure: Operation Date: 01/13/21 12:10 Proposed Procedures p Defibrillator Removal(Not Applicable) - Shane Pineda MD Was Beta Octaviano taken within 24 hours: Yes Was Clonidine taken within 24 hours: N/A Last intake: Intake Last Liquid Date 01/12/21 Last Liquid Time 23:00 Last Solid Date 01/12/21 Last Solid Time 20:00 Social: Social History: Alcohol and No tobacco Exam: Pre-Anes Outpt Exam: alert, oriented x 3, clear to auscultation bilaterally and regular rate & rhythm Airway: Submandibular: WNL Cervical ROM: WNL MP: 2 Dentition: Chipped Additional comments: Missing several Pulmonary: Pulmonary: COPD CV/HEM: CV/HEM: CHF (EF 30%) and HTN Comments: AICD GI: GI: GERD Metabolic: Metabolic: Hyperlipidemia Anesthetic Plan: ASA status: 3 Anesthesia: Choice Risk of > 500 ml blood loss (7ml/kg in children): No Meds/Allergies Current Medications: Current Medications Generic Name Dose Route Start Last Admin Trade Name Freq PRN Reason Stop Dose Admin Sodium Chloride 1,000 mls @ 30 ml s/hr 01/13/21 11:00 01/13/21 11:50 Sodium Chloride 0.9% IV 01/14/21 10:59 30 mls/hr .Q24H XUAN Administration PFSH Anesthesia PFSH: Medical History Dyslipidemia GERD (gastroesophageal reflux disease) Heart failure Smoker Surgical History AICD (automatic cardioverter/defibrillator) present Family History Sister Heart disease Father Myocardial infarct Social History Smoking and tobacco status: former smoker Alcohol intake: never History of recent travel: No Data Anesthesia Cardiac Studies: Echocardiogram 09/29/20
[2021-01-13] MEDS: vancomycin 1,000 MG in sodium chloride 0.9% 250 ML 250 MG IV (12:15)
[2021-01-13] MEDS: ceFAZolin 1,000 mg SDV 1000 MG IRRIGATION (13:05)
[2021-01-13] MEDS: lidocaine 1% INJ 20 mL XX (13:06)
[2021-01-13 13:30] VITALS: BP 124/74; PULSE 70; RESP 20; TEMP 36.2; O2SAT 97
[2021-01-13 13:35] VITALS: BP 119/80; PULSE 61; RESP 23; O2SAT 96
[2021-01-13 13:40] VITALS: BP 119/77; PULSE 65; RESP 12; O2SAT 99
[2021-01-13 13:45] VITALS: BP 152/93; PULSE 68; RESP 15; TEMP 36.2; O2SAT 100
[2021-01-13 14:01] VITALS: RESP 19; O2SAT 95
[2021-01-13] MEDS: morphine 4 mg/mL SDV 1 mL IVP (14:01)
--- NOTE | 2021-01-13 15:18 | P.OP_ITS ---
Operative Report Date of procedure: January 13, 2021 Pre-op Diagnosis: Status post AICD implantation with wound dehiscence and generator exposure Post-op diagnosis: same Procedure Done: Removal of AICD generator and leads Specimens removed/disposition: AICD generator and leads. Cultures of wound pocket and leads. Tissue culture of pocket pseudocapsule. Surgeon: Shane Pineda Anesthesia: MAC and Local Condition: stable Disposition: same day Brief History: Mr. Diaz is a 60-year-old gentleman with cardiomyopathy and is status post AICD generator, atrial and ventricular lead placement on November 28. He subs he developed early breakdown of the lateral margin of his AICD incision with subsequent exposure of the generator despite wound care management through our wound care services as well as oral antibiotics. 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 Despite meticulous wound care attention, the wound further dehisced down to where the generator was exposed in the pocket. Therefore, I recommended removal of the system. Rationale was carefully discussed. Details of risk of procedure reviewed. Appropriate consents have been reviewed and signed. Procedure: Mr. Diaz was taken to the operating room suite carefully position. Appropriate IV establishment was confirmed. He underwent IV conscious sedation with anesthesia monitoring. His entire upper left chest was sterilely prepped and draped. He received 1 g vancomycin preoperatively. The exposed portion of the lateral aspect of the wound underwent initial culture with swabs. After completion, 1% lidocaine was infiltrated and the incision was opened with a #15 scalpel blade. This continued down to the pseudocapsule which was opened where there was mildly turbid fluid in the AICD subcutaneous pocket. A second round of cultures were taken at this level. Subsequently, the generator was delivered from the pocket. Leads were released and removed from the generator. Distal fixation tines were reversed on both leads. Retention collars were released on each lead. Supple, Thin axial traction along with continuous fluoroscopic observation, of the atrial and ventricular leads were removed without excessive tension or evidence of myocardial tenting. There was no evidence for purulence in the lead tracts. Following this, utilizing sharp dissection with Metzenbaum scissors as well as the use of cautery, the pseudocapsule was removed from the pectoralis fascia as well as the subcutaneous tissues circumferentially. This material was sent as a third specimen for tissue culture. Hemostasis was confirmed with use of cautery. Wound was irrigated with large amounts of antibiotic laden saline solution. Hemostasis confirmed. Wet-to-dry dressing was then applied to the w ound. Pressure dressing was then applied. Mr. Joe Cotrés procedure well was awakened from conscious sedation and transferred to the PACU in stable condition. I did delinquency counselor with his family completion of the procedure. We have contacted home health services and have confirmed follow-up appointment early next week. We have also initiated arrangements for home health services.
== END 2021-01-13 14:28 | disposition home or self-care (01) ==
PROVIDERS: PCP Nurse Practitioner Family; Visit Provider Thoracic Surgery (Cardiothoracic Vascular Surgery)
PROC: 0JPT0PZ Removal of Cardiac Rhythm Related Device from Trunk Subcutaneous Tissue and Fascia, Open Approach (ICD-10-PCS; CPT 33241; principal; 2021-01-13 12:00)
PROC: (CPT 33241; 2021-01-13 12:00)
DX: T81.31XA Disruption of external operation (surgical) wound, not elsewhere classified, initial encounter (principal); I42.9 Cardiomyopathy, unspecified; K21.9 Gastro-esophageal reflux disease without esophagitis; Z95.810 Presence of automatic (implantable) cardiac defibrillator; Z87.891 Personal history of nicotine dependence; Z82.49 Family history of ischemic heart disease and other diseases of the circulatory system
CPT/HCPCS: 33241; 33272; 76000; 87070; 87075; 87077; 87176; 87186; 87205; 96365; J0690; J2250; J2270; J2704; J3010; J3370; J7030; J7050

== ENCOUNTER → 2021-01-14 11:02 | Day surgery (SDC) | payer BC, MEDICAID, SELFPAY ==
[2021-01-14 10:50] VITALS: BP 131/70; PULSE 71; RESP 17; TEMP 36.4; O2SAT 98
[2021-01-15 09:14] VITALS: BP 118/75; PULSE 59; RESP 18; TEMP 36.6; O2SAT 100
== END ==
PROVIDERS: PCP Nurse Practitioner Family; Visit Provider Thoracic Surgery (Cardiothoracic Vascular Surgery)
DX: T81.31XA Disruption of external operation (surgical) wound, not elsewhere classified, initial encounter (principal); Y83.8 Other surgical procedures as the cause of abnormal reaction of the patient, or of later complication, without mention of misadventure at the time of the procedure

== ENCOUNTER 2021-01-14 11:12 | Emergency (ER) | payer BC, MEDICAID, SELFPAY ==
[2021-01-14 12:18] VITALS: BP 116/76; PULSE 55; RESP 18; TEMP 36.8; O2SAT 99; BMI 25.8
--- NOTE | 2021-01-14 12:23 | PC.NURSE ---
EKG performed in triage and given to ERP Mu.
--- NOTE | 2021-01-14 12:50 | XRR_ITS ---
PROCEDURE INFORMATION: Exam: XR Chest Exam date and time: 01/14/2021 12:50 PM Age: 60 years old Clinical indication: Pain; Chest pressure; Additional info: Chest pain TECHNIQUE: Imaging protocol: XR of the chest. Views: 1 view. Total images: 1 COMPARISON: CR (CHEST, ) 12/29/2020 9:21 PM FINDINGS: Tubes, catheters and devices: Interval removal of a pacemaker. Lungs: No visible active interstitial or alveolar airspace disease. Pleural spaces: Unremarkable. No pleural effusion. No pneumothorax. Heart/Mediastinum: Cardiac structures and configuration with mild cardiomegaly. Bones/joints: Unremarkable. XR/XR chest 1V portable [id number] IMPRESSION: Nonacute. Radiation Dose CTDIVOL = (mGy): DLP = (mGy-cm)
--- NOTE | 2021-01-14 12:50 | ECG_ITS ---
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
--- NOTE | 2021-01-14 13:44 | ED_ITS ---
HPI - Nausea/Vomiting/Diarrhea General: Chief complaint: Nausea/Vomiting/Diarrhea Stated complaint: NAUSEOUS, CLAMMY Time Seen by Provider: 01/14/21 13:24 History of Present Illness: HPI Narrative: Patient is a 60-year-old male who comes to the ED with nausea. Patient was here at the hospital earlier this morning to have wound repacked and bandaged. Patient had a pacemaker that ended up getting infected and that had to be removed. He now has dressing changes on wound daily and is scheduled to have his wound dressing changed tomorrow as well. This morning he was here at the hospital and he had his wound dressing changed out. He thinks having that done today made him feel nauseous and generalized malaise. Patient also says he took his prescribed Bactrim and hydrocodone this morning before coming to the ED and he thinks that might of onset well with the stomach. Here in the ED he says the symptoms have completely resolved. He does not have any more nausea this does not feel unwell now. Denies any fever, chest pain or shortness of breath. Associated nausea: Yes Associated symtoms: Reports malaise and nausea; Denies change in vision, chest pain, dysuria, fatigue, headache(s) or palpitations Review of Systems Const: Reports: malaise; Denies: fever(s), chills or fatigue Eyes: Denies: change in vision or eye discomfort ENMT: Denies: throat pain, odynophagia, nasal discharge or nasal congestion Card: Denies: chest pain, palpitations, edema, swelling of feet/ankles, dyspnea on exertion or orthopnea Resp: Denies: dyspnea, productive cough or non-productive cough GI: Reports: nausea; Denies: abdominal pain, vomiting, diarrhea, constipation or hematochezia : Denies: flank pain, difficulty urinating, dysuria or hematuria Musc: Denies: neck pain, back pain or extremity swelling Skin/Breast: Denies: rash or new lesions Neuro: Denies: headache(s), numbness in extremities or weakness in extremities PFSH ED PFSH: Medical History Dyslipidemia GERD (gastroesophageal reflux disease) Heart failure Smoker Surgical History AICD (automatic cardioverter/defibrillator) present Family History Sister Heart disease Father Myocardial infarct Social History Smoking and tobacco status: former smoker Alcohol intake: never History of recent travel: No Physical Exam Const: COMMON NORMALS: no acute distress, patient oriented x3 and alert GENERAL APPEARANCE: cooperative and comfortable HENMT: COMMON NORMALS: normocephalic HEAD & SCALP: normocephalic MOUTH: Normal oral and palatal mucosa present THROAT: posterior oropharynx normal and uvula midline Eye: COMMON NORMALS: Equal, round and reactive pupils present and conjunctivae normal CONJUNCTIVA: Yes conjunctivae normal PUPIL: Yes Equal, round and reactive pupils present Neck/C-Spine: COMMON NORMALS: supple GENERAL: Yes normal visual inspection Chest: CHEST: Yes abnormal inspection of the chest (Patient has packing and bandage over left chest wall from pacemaker infecti) OTHER: Patient's bandage on chest wall was not removed since it had just been applied earlier this morning. Resp: COMMON NORMALS: normal respiratory effort, No retractions, No use of accessory muscles and clear to auscultation bilaterally AUSCULTATION: clear to auscultation bilaterally Cardio: COMMON NORMALS: regular rate, regular rhythm, S1 normal heart sound present, S2 normal heart sound present, No gallops present (Cardio), No clicks present (Cardio), No murmurs present (Cardio) and Peripheral pulses 2+ throughout RATE: regular rate RHYTHM: regular rhythm HEART SOUNDS: S1 normal heart sound present and S2 normal heart sound present PERIPHERAL PULSES: Peripheral pulses 2+ throughout GI: COMMON NORMALS: Normal to inspection, nondistended, normoactive bowel sounds present, Soft to palpation, non-tender and no masses PALPATION: Yes Soft to palpation : COMMON NORMALS: Yes no CVA tenderness BLADDER/KIDNEY EXAM: Yes no CVA tenderness Back/Pelvis: COMMON NORMALS: no CVA tenderness Extremity: COMMON NORMALS: normal to inspection Neuro: COMMON NORMALS: patient oriented x3 and moves all extremities SENSORIUM/ORIENTATION: Yes alert Skin: GENERAL SKIN EXAM: dry skin Course Reevaluation(s): Reevaluation #1: Patient says the symptoms have completely resolved. He denies any nausea. Time: 13:51 Vital Signs: Vital signs: Vital Signs Temperature 98.3 F 01/14/21 12:18 Pulse Rate 55 L 10/30/21 12:18 Respiratory Rate 18 01/14/21 12:18 Blood Pressure 116/76 01/14/21 12:18 Pulse Oximetry 99 01/14/21 12:18 MDM - Nausea/Vomiting/Diarrhea MDM Narrative: Medical decision making narrative: Patient is a 60-year-old male who comes to the ED with nausea. Patient was here at the hospital earlier this morning to have wound repacked and bandaged. Patient had a pacemaker that ended up getting infected and that had to be removed. He now has dressing changes on wound daily and is scheduled to have his wound dressing changed tomorrow as well. This morning he was here at the hospital and he had his wound dressing changed out. He thinks having that done today made him feel nauseous and generalized malaise. Patient also says he took his prescribed Bactrim and hydrocodone this morning before coming to the to the hospital for dressing change and he thinks that might have upset stomach. Here in the ED he says the symptoms have completely resolved. He does not have any more nausea this does not feel unwell now. Denies any fever, chest pain or shortness of breath. Vital stable labs were unremarkable, EKG showed no ST segment elevation or depression seen. Chest x-ray showed no acute findings. Patient was discharged home and told to follow-up with his next dressing change tomorrow morning as previously scheduled. Return to ED precautions given. Patient understood agree with plan. Lab Data: Attestation: I reviewed the patient's lab results. Labs: Lab Results 01/14/21 01/14/21 14:40 14:40 WBC 7.9 10^3/uL 10^3/ uL (4.0-10.0) RBC 4.52 10^6/uL 10^6 /uL (4.1-5.3) Hgb 14.2 g/dL g/dL (11.7-16.6) Hct 43.3 % % (42.0-52.0) MCV 95.8 fl H fl (80-94) MCH 31.4 pg pg (28.0-34.0) MCHC 32.8 g/dL g/dL (30.0-36.0) RDW 12.0 % L % (12.1-15.1) Plt Count 191 10^3/cmm 10^3 /cmm (130-400) MPV 9.1 fL fL (7.4-10.4) Neut % (Auto) 77.4 % % Lymph % (Auto) 13.6 % % Jewell % (Auto) 7.1 % % Eos % (Auto) 1.1 % % Baso % (Auto) 0.4 % % Neut # (Auto) 6.13 10^3/uL 10^3 /uL (1.8-7.7) Lymph # (Auto) 1.1 10^3/uL 10^3/ uL (0.8-4.8) Jewell # (Auto) 0.6 10^3/uL 10^3/ uL (0.2-0.9) Eos # (Auto) 0.1 10^3/uL 10^3/ uL (0.0-0.8) Baso # (Auto) 0.0 10^3/uL 10^3/ uL (0.0-0.1) Nucleated RBC % (a uto) 0 % % Nucleated RBCs # 0.0 /100WBC /100W BC Sodium 137 mmol/L mmol/L (136-145) Potassium 4.7 mmol/L mmol/L (3.5-5.1) Chloride 99 mmol/L mmol/L (98-107) Carbon Dioxide 27 mmol/L mmol/L (22-29) Anion Gap 15.7 (5-19) BUN 16 mg/dL mg/dL (6-20) Creatinine 0.8 mg/dL mg/dL (0.7-1.2) GFR Calculation 98.9 mL/min mL/mi n (90-130) Glucose 91 mg/dL mg/dL (65-115) Calculated Osmolal ity 285 mOsm/kg mOsm/ kg (285-295) Calcium 9.3 mg/dL mg/dL (8.5-10.5) Imaging Data^: CXR: Attestation: I personally reviewed and interpreted this imaging study as follows: My impression: Chest x-ray?no acute findings seen. [facility] [address] [id number] ReportSigned Patient: Marla Diaz #: [id number]: 0 2Acct#:[id number]/Sex: 60 / MADM Date: 01/14/21Loc: ERRoom/Bed:Attending Dr: Ordering Provider/Ordering MD: Yoko Fitzpatrick MD Date of Service: 01/14/21 Procedure(s): XR chest 1V portable [id number] Accession Number(s): [id number] Report Number: [id number] PROCEDURE INFORMATION: Exam: XR Chest Exam date and time: 01/14/2021 12:50 PM Age: 60 years old Clinical indication: Pain; Chest pressure; Additional info: Chest pain TECHNIQUE: Imaging protocol: XR of the chest. Views: 1 view. Total images: 1 COMPARISON: CR (CHEST, ) 12/29/2020 9:21 PM FINDINGS: Tubes, catheters and devices: Interval removal of a pacemaker. Lungs: No visible active interstitial or alveolar airspace disease. Pleural spaces: Unremarkable. No pleural effusion. No pneumothorax. Heart/Mediastinum: Cardiac structures and configuration with mild cardiomegaly. Bones/joints: Unremarkable. XR/XR chest 1V portable [id number] IMPRESSION: Nonacute. Radiation Dose CTDIVOL = (mGy): DLP = (mGy-cm) Dictated By:Hannah Chao By:Hannah Chao Date/Time:01/14/21 1622DD/ 1250 EKG Data^: EKG 1: Attestation: I personally reviewed and interpreted this EKG as follows: EKG interpretation date: 01/14/21 Interpretation: Normal sinus bradycardia. Rate [address] segment elevation or depression seen. Discharge Plan Discharge Patient Disposition: Home Clinical Impression: Nausea Condition: Stable Prescriptions: No Action furosemide 20 mg tablet 20 mg PO DAILY PRN (Reason: edema) Qty: 30 RF: 6 metoprolol succinate 50 mg tablet extended release 24 hr 50 mg PO DAILY Qty: 30 RF: 5 simvastatin 20 mg tablet 20 mg PO DAILY Qty: 30 RF: 6 albuterol sulfate 90 mcg/actuation HFA aerosol inhaler 2 puff INHALATION Q6H PRN (Reason: Shortness Of Breath) RF: 0 omeprazole 20 mg capsule,delayed release(DR/EC) 20 mg PO DAILY RF: 0 lisinopril 5 mg tablet 5 mg PO DAILY RF: 0 aspirin [Aspirin Low Dose] 81 mg Tablet,Delayed Release (Dr/Ec) 81 mg PO DAILY RF: 0 hydrocodone-acetaminophen 5-325 mg tablet 1 tab PO Q8H PRN (Reason: pain) Qty: 20 RF: 0 Bactrim DS 800-160 mg tablet 1 tab PO BID Qty: 20 RF: 0 Discharge Orders: Discharge ED (Routine); Ordered 01/14/21 Ordered By: Luis Miguel Longo Referrals: Senia Hansen FNP [Primary Care Provider] - Discharge Diet: Regular Discharge Activity: Resume usual activity Activity Restrictions/Additional Instructions: Follow-up with medical provider as directed. Return to have dressing change tomorrow at your scheduled appointment. Continue taking all previously prescribed medications. Return to the ER or your medical provider if condition worsens. Please read and understand discharge instructions. Thank you for choosing [facility] for your healthcare needs today. Please realize this is an emergency room and that we are providing you with a medical screening exam and this may not be complete and all inclusive of all the testing and or work up that you may need to determine your ailment or severity of your illness. It is very important that you follow up as instructed or that you return to the Emergency Department should you have concerns or if your condition changes or worsens in any way. Coding Level of Care Code ED Finish Painter for P[facility] Vargas Exam Comprehensive
[2021-01-14 14:50] LABS: Basophils % 0.4 %; Eosinophils # 0.1 10^3/uL (0.0-0.8); Eosinophils % 1.1 %; Hematocrit 43.3 % (42.0-52.0); Hemoglobin 14.2 g/dL (11.7-16.6); Lymphocytes # 1.1 10^3/uL (0.8-4.8); Lymphocytes % 13.6 %; Mean Corpuscular HGB Conc 32.8 g/dL (30.0-36.0); Mean Corpuscular Hemoglobin 31.4 pg (28.0-34.0); Mean Corpuscular Volume 95.8 fl (80-94); Mean Platelet Volume 9.1 fL (7.4-10.4); Monocytes # 0.6 10^3/uL (0.2-0.9); Monocytes % 7.1 %; Neutrophils # 6.13 10^3/uL (1.8-7.7); Neutrophils % 77.4 %; Nucleated Red Blood Cells % 0 %; Platelet Count 191 10^3/cmm (130-400); Red Blood Count 4.52 10^6/uL (4.1-5.3); White Blood Count 7.9 10^3/uL (4.0-10.0)
[2021-01-14 15:11] LABS: Anion Gap 15.7 (5-19); Blood Urea Nitrogen 16 mg/dL (6-20); Calcium 9.3 mg/dL (8.5-10.5); Carbon Dioxide 27 mmol/L (22-29); Chloride 99 mmol/L (98-107); Creatinine Clr Calc Pharmacy 104.3038; Glomerular Filtration Rate 98.9 mL/min (90-130); Glucose 91 mg/dL (65-115); Osmolality Calculated 285 mOsm/kg (285-295); Potassium 4.7 mmol/L (3.5-5.1); Sodium 137 mmol/L (136-145)
== END 2021-01-14 15:30 | disposition home or self-care (01) ==
PROVIDERS: Emergency Medicine; Emergency Provider Physician Assistant; PCP Nurse Practitioner Family
DX: R11.2 Nausea with vomiting, unspecified (principal); R19.7 Diarrhea, unspecified; Z98.890 Other specified postprocedural states; Z79.02 Long term (current) use of antithrombotics/antiplatelets; Z79.899 Other long term (current) drug therapy
CPT/HCPCS: 71045; 80048; 85025; 93005; 99282

== ENCOUNTER 2021-01-16 10:47 | Outpatient (CLI) | payer BC, MEDICAID, SELFPAY | END 2021-01-16 10:48 | disposition home or self-care (01) | LOC: WOUND 10:48 | PROVIDERS: PCP Nurse Practitioner Family; Visit Provider Emergency Medicine | DX: T81.31XS Disruption of external operation (surgical) wound, not elsewhere classified, sequela (principal) | CPT/HCPCS: 99212; A6219 ==

== ENCOUNTER 2021-01-17 09:17 | Outpatient (CLI) | payer BC, SELFPAY | END 2021-01-17 09:18 | disposition home or self-care (01) | PROVIDERS: PCP Nurse Practitioner Family; Visit Provider Thoracic Surgery (Cardiothoracic Vascular Surgery) | DX: T81.89XA Other complications of procedures, not elsewhere classified, initial encounter (principal); Y83.8 Other surgical procedures as the cause of abnormal reaction of the patient, or of later complication, without mention of misadventure at the time of the procedure | CPT/HCPCS: A6219; G0463 ==

== ENCOUNTER 2021-01-18 13:57 | Outpatient (CLI) | payer BC, SELFPAY | END 2021-01-18 13:58 | disposition home or self-care (01) | LOC: WOUND 13:58 | PROVIDERS: PCP Nurse Practitioner Family; Visit Provider Thoracic Surgery (Cardiothoracic Vascular Surgery) | DX: T81.31XA Disruption of external operation (surgical) wound, not elsewhere classified, initial encounter (principal); Y83.8 Other surgical procedures as the cause of abnormal reaction of the patient, or of later complication, without mention of misadventure at the time of the procedure; Z87.891 Personal history of nicotine dependence | CPT/HCPCS: 11042; 97605 ==

== ENCOUNTER 2021-01-20 13:38 | Outpatient (CLI) | payer BC, SELFPAY | END 2021-01-20 13:39 | disposition home or self-care (01) | LOC: WOUND 13:39 | PROVIDERS: PCP Nurse Practitioner Family; Visit Provider Surgery | DX: T81.31XS Disruption of external operation (surgical) wound, not elsewhere classified, sequela (principal) | CPT/HCPCS: A6250 ==

== ENCOUNTER 2021-01-24 14:31 | Outpatient (CLI) | payer BC, MEDICAID, SELFPAY | END 2021-01-24 14:32 | disposition home or self-care (01) | LOC: WOUND 14:31 | PROVIDERS: PCP Nurse Practitioner Family; Visit Provider Thoracic Surgery (Cardiothoracic Vascular Surgery) | DX: T81.31XA Disruption of external operation (surgical) wound, not elsewhere classified, initial encounter (principal); Y83.8 Other surgical procedures as the cause of abnormal reaction of the patient, or of later complication, without mention of misadventure at the time of the procedure; Z87.891 Personal history of nicotine dependence | CPT/HCPCS: 11042; A6250 ==

== ENCOUNTER 2021-01-31 13:59 | Outpatient (CLI) | payer BC, MEDICAID, SELFPAY | END 2021-01-31 14:00 | disposition home or self-care (01) | LOC: WOUND 14:01 | PROVIDERS: PCP Nurse Practitioner Family; Visit Provider Thoracic Surgery (Cardiothoracic Vascular Surgery) | DX: T81.31XA Disruption of external operation (surgical) wound, not elsewhere classified, initial encounter (principal); Y83.8 Other surgical procedures as the cause of abnormal reaction of the patient, or of later complication, without mention of misadventure at the time of the procedure; Z87.891 Personal history of nicotine dependence | CPT/HCPCS: 97597 ==

== ENCOUNTER 2021-02-15 14:38 | Outpatient (CLI) | payer BC, MEDICAID, SELFPAY | END 2021-02-15 14:39 | disposition home or self-care (01) | LOC: WOUND 14:39 | PROVIDERS: PCP Nurse Practitioner Family; Visit Provider Nurse Practitioner Family | DX: Z09 Encounter for follow-up examination after completed treatment for conditions other than malignant neoplasm (principal); Z87.891 Personal history of nicotine dependence | CPT/HCPCS: 99212 ==

== ENCOUNTER → 2021-06-09 10:15 | Outpatient (BNVA) | payer BC, MEDICAID, SELFPAY | PROVIDERS: PCP Nurse Practitioner Family; Visit Provider Internal Medicine Cardiovascular Disease | DX: I50.9 Heart failure, unspecified (principal); E78.5 Hyperlipidemia, unspecified; J43.9 Emphysema, unspecified; Z87.891 Personal history of nicotine dependence | CPT/HCPCS: 99214 ==

== ENCOUNTER → 2021-07-07 08:27 | Outpatient (BNVA) | payer BC, MEDICAID, SELFPAY | PROVIDERS: PCP Nurse Practitioner Family; Visit Provider Thoracic Surgery (Cardiothoracic Vascular Surgery) | DX: I42.9 Cardiomyopathy, unspecified (principal); F17.210 Nicotine dependence, cigarettes, uncomplicated | CPT/HCPCS: 99213 ==

== ENCOUNTER → 2021-10-09 07:59 | Outpatient (BNVA) | payer BC, MEDICAID, SELFPAY | PROVIDERS: PCP Nurse Practitioner Family; Referring Provider Nurse Practitioner Family; Visit Provider Specialist | DX: M17.0 Bilateral primary osteoarthritis of knee (principal); M25.561 Pain in right knee; M25.562 Pain in left knee | CPT/HCPCS: 73560; 73565; 99204 ==

== ENCOUNTER 2021-10-10 05:41 | Day surgery (SDC) | payer BC, MEDICAID, SELFPAY ==
[2021-10-09 10:40] VITALS: BMI 24.9
[2021-10-10 06:08] VITALS: BP 128/76; PULSE 70; RESP 18; TEMP 36.7; O2SAT 97
--- NOTE | 2021-10-10 06:22 | P.HP_ITS ---
Providers/Chief Complaint Admitting Physician: Dr. 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 AICD implantation is been recommended. This was initially performed back on November 28, 2020. He septa developed a localized infection that eventually proceeded down to the generator itself with exposure requiring explantation on January 13, 2021. 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 He now returns for attempt at placement of another AICD. Unfortunately, he has now resumed smoking up to 2 packs/day. Otherwise, he is feeling well. Review of Systems Const: Denies: fever(s) or change in appetite Card: Reports: dyspnea on exertion; Denies: irregular heart rhythm or orthopnea Resp: Reports: non-productive cough; Denies: productive cough or hemoptysis GI: Denies: nausea or vomiting Musc: Reports: neck pain; Denies: extremity pain Dwight/Lymph: Denies: easy bruising or easy bleeding Medications/Allergies Home Medications Medication Instructions Recorded Confirmed Last Taken Type albuterol sulfate 90 mcg/actuation 2 puff INHALATION Q6H PRN 03/25/19 10/09/21 1 Month Ago History aerosol inhaler ~12/14/20 omeprazole 20 mg capsule,delayed 20 mg PO DAILY cap 03/25/19 10/10/21 10/09/21 History release furosemide 20 mg tablet 20 mg PO DAILY PRN #30 tab 08/29/20 10/10/21 10/09/21 Rx aspirin 81 mg tablet,delayed 81 mg PO DAILY 11/23/20 10/09/21 10/09/21 History release (Avelino Low Dose Aspirin) metoprolol succinate 50 mg See Rx Instructions .ROUTE 02/21/21 10/10/21 10/09/21 Rx tablet,extended release 24 hr .COMPLEX #90 tab simvastatin 20 mg tablet 20 mg PO DAILY #30 tab 05/08/21 10/10/21 10/09/21 Rx lisinopril 5 mg tablet 7.5 mg PO DIRECTED #45 tab 07/20/21 10/10/21 10/09/21 Rx meloxicam 15 mg tablet 15 mg PO DAILY 10/09/21 10/10/2122 History Allergies Allergy/AdvReac Type Severity Reaction Status Date / Time No Known Allergies Allergy Verified 10/09/21 10:37 PFSH Acute PFSH: Medical History Dyslipidemia GERD (gastroesophageal reflux disease) Heart failure Smoker Surgical History AICD (automatic cardioverter/defibrillator) present Family History Sister Heart disease Father Myocardial infarct Social History Smoking and tobacco status: current every day smoker cigarettes Packs smoked per day: 1.5 Years cigarettes smoked: 50 Alcohol intake: never History of recent travel: No Vitals/I&O/Wt Last Vital Signs Temp 98.0 F 10/10/21 06:08 Pulse 70 10/10/21 06:08 Resp 18 10/10/21 06:08 BP 128/76 10/10/21 06:08 Pulse Ox 97 10/10/21 06:08 Weight last 48 hrs Weight 169 lb Physical Exam HENMT: COMMON NORMALS: normocephalic, atraumatic, hearing grossly normal bilaterally, external ears normal and Normal external nose present Neck/C-Spine: COMMON NORMALS: full ROM, no lymphadenopathy and No carotid bruits Chest: COMMONS NORMALS: normal palpation of entire chest wall OTHER: Previous AICD implantation site is well-healed Resp: COMMON NORMALS: normal respiratory effort, No use of accessory muscles and clear to auscultation bilaterally Cardio: COMMON NORMALS: regular rate, regular rhythm, S1 normal heart sound present and No murmurs present (Cardio) GI: COMMON NORMALS: Normal to inspection, nondistended, normoactive bowel sounds present Extremity: COMMON NORMALS: no clubbing, cyanosis or edema Neuro: COMMON NORMALS: patient oriented x3, moves all extremities, no focal motor deficits, no sensory deficits noted and gait normal Psych: COMMON NORMALS: mental status grossly normal and Normal thought process present A&P Assessment and plan (1) Cardiomyopathy: 60-year-old gentleman with medically refractory cardiomyopathy status post AICD implantation November 28, 2020 with subsequent dehiscence requiring explantation January 13, 2021. He continues to be followed by our cardiology service. He now represents for reattempt at AICD implantation. Unfortunately, he has resumed smoking up to 2 packs/day. I had a very careful, venessa, and detailed discussion with Mr. Diaz and his that he must completely refrain from all work duties until he is released from our service which may require several weeks. He is also refrain from any activities which require exposure to excessive heat, particularly in our current weather. Meticulous wound care will be required along with activity restrictions as have been previously discussed and reemphasized. He states he will comply. He states he will not smoke after today, though he clearly has a strong aroma of tobacco on today's exam. Again, rationale for AICD implantation was reviewed. Details and risks of the procedure were carefully and frankly discussed. Risks reviewed include the possibility of , stroke, heart attack, major bleeding, infection, pneumonia, pneumothorax requiring chest tube, organ failure, failure to benefit, migration of the leads requiring revision, prolonged hospital stay, pain after the procedure, need for further procedures, inability to complete the procedure, and possible need for long-term followup. All questions were answered. Appropriate consents have been provided for review and signature. He will stay overnight on outpatient basis for postoperative parenteral antibiotics and reinterrogation of his system tomorrow morning. Status: Acute Attestations Medical Necessity Statement*: Medically refractory cardiomyopathy with ejection fraction of 20 to 30% Coding Level of Care Code Acute Pharmacist Assistant for [facility] Diagnoses Cardiomyopathy I42.9
--- NOTE | 2021-10-10 06:28 | ANES.PREANE2 ---
Pre-Anesthetic Assessment Height/Weight: Height 1.75 m Weight 76.657 kg Temp Pulse Resp BP Pulse Ox 98.0 F 70 18 128/76 97 10/10/21 06:08 10/10/21 06:08 10/10/21 06:08 10/10/21 06:08 10/10/21 06:08 Preop Diagnosis: Cardiomyopathy Operation Date: 10/10/21 07:00 Proposed Procedures p Defibrillator Placement(Not Applicable) - Shane Pineda MD Last intake: Intake Last Liquid Date 10/09/21 Last Liquid Time 22:00 Last Solid Date 10/09/21 Last Solid Time 22:00 Pulmonary Chronic Obstructive Pulmonary Disease (emphysema) CV/HEM Hypertension 09/29/2020 Echocardiagram CONCLUSIONS ?1. Mildly dilated left ventricle. Moderately decreased left ventricular systolic function. Left ventricular ejection ?fraction is estimated at 30%.? Moderate global hypokinesis.? Grade II diastolic dysfunction, moderately elevated filling pressures. ?2. Normal right ventricular size and systolic function. ?3. Mildly increased left atrial size. ?4. Mild mitral valve regurgitation. ?5. When compared to previous echocardiogram dated 08/07/2018, left ocular systolic function may have improved slight # Lexiscan MPI (07/2018): Medium-size area of old myocardial infarction versus artifact noted in basal to distal inferoseptal wall. ?Medium-size area of old myocardial infarction versus artifact noted in basal to mid anterior wall. ?This study is negative for ischemia. LVEF-23%. # Echo (07/2018):? Moderately increased left ventricular cavity size. Severely decreased left ventricular systolic function. Global left ?ventricular hypokinesis. Left ventricular ejection fraction is estimated at 25 %. Grade IV/IV diastolic dysfunction ?(irreversible restrictive filling pattern), severely elevated filling pressures.? GI Gastroesophageal Reflux Disease Metabolic Hyperlipidemia Anesthetic Plan ASA status: 4 Anesthesia: MAC Risk of > 500 ml blood loss (7ml/kg in children): No Medications/Allergies Home Medications Medication Instructions Recorded Confirmed Last Taken Type albuterol sulfate 90 mcg/actuation 2 puff INHALATION Q6H PRN 03/25/19 10/09/21 1 Month Ago History aerosol inhaler ~12/14/20 omeprazole 20 mg capsule,delayed 20 mg PO DAILY cap 03/25/19 10/10/21 10/09/21 History release furosemide 20 mg tablet 20 mg PO DAILY PRN #30 tab 08/29/20 10/10/21 10/09/21 Rx aspirin 81 mg tablet,delayed 81 mg PO DAILY 11/23/20 10/09/21 10/09/21 History release (Avelino Low Dose Aspirin) metoprolol succinate 50 mg See Rx Instructions .ROUTE 02/21/21 10/10/21 10/09/21 Rx tablet,extended release 24 hr .COMPLEX #90 tab simvastatin 20 mg tablet 20 mg PO DAILY #30 tab 05/08/21 10/10/21 10/09/21 Rx lisinopril 5 mg tablet 7.5 mg PO DIRECTED #45 tab 07/20/21 10/10/21 10/09/21 Rx meloxicam 15 mg tablet 15 mg PO DAILY 10/09/21 10/10/21 10/09/21 History Allergies Allergy/AdvReac Type Severity Reaction Status Date / Time No Known Allergies Allergy Verified 10/09/21 10:37 [facility] Anesthesia Medical History Dyslipidemia GERD (gastroesophageal reflux disease) Heart failure Smoker Surgical History AICD (automatic cardioverter/defibrillator) present Family History Sister Heart disease Father Myocardial infarct Social History Smoking and tobacco status: current every day smoker cigarettes Packs smoked per day: 1.5 Years cigarettes smoked: 50 Alcohol intake: never History of recent travel: No Data Anesthesia Cardiac Studies: Echocardiogram 09/29/20
[2021-10-10 06:37] LABS: Add Urine Microscopic? NO; Charge for UA Resulting for Rev
[2021-10-10 06:39] LABS: Basophils % 0.5 %; Eosinophils # 0.2 10^3/uL (0.0-0.8); Eosinophils % 3.7 %; Hematocrit 47.8 % (42.0-52.0); Hemoglobin 16.1 g/dL (11.7-16.6); Lymphocytes # 1.6 10^3/uL (0.8-4.8); Lymphocytes % 27.4 %; Mean Corpuscular HGB Conc 33.7 g/dL (30.0-36.0); Mean Corpuscular Hemoglobin 31.9 pg (28.0-34.0); Mean Corpuscular Volume 94.8 fl (80-94); Mean Platelet Volume 9.7 fL (7.4-10.4); Monocytes # 0.6 10^3/uL (0.2-0.9); Monocytes % 10.4 %; Neutrophils # 3.27 10^3/uL (1.8-7.7); Neutrophils % 57.8 %; Nucleated Red Blood Cells % 0 %; Platelet Count 205 10^3/cmm (130-400); Red Blood Count 5.04 10^6/uL (4.1-5.3); Red Cell Distribution Width 12.5 % (12.1-15.1); White Blood Count 5.7 10^3/uL (4.0-10.0)
[2021-10-10 07:04] LABS: Blood Urea Nitrogen 21 mg/dL (6-20); Calcium 9.2 mg/dL (8.5-10.5); Carbon Dioxide 25 mmol/L (22-29); Chloride 102 mmol/L (98-107); Creatinine Clr Calc Pharmacy 102.7727; Glomerular Filtration Rate 98.9 mL/min (90-130); Glucose 101 mg/dL (65-115); Osmolality Calculated 287 mOsm/kg (285-295); Sodium 137 mmol/L (136-145)
[2021-10-10 07:06] LABS: Bilirubin Urine Neg (Negative); Blood Urine Neg (Negative); Glucose Urine UA Norm (Normal); Ketones Urine Negative (Negative); Leukocyte Esterase Urine Negative (Negative); Nitrate Urine Negative (Negative); Protein Urine Neg (Negative); Urine Appearance Clear (CLEAR); Urine Color Yellow (Yellow); Urobilinogen Urine Norm (Negative); pH Urine 5 (5-7)
[2021-10-10 07:16] LABS: Anion Gap 14.8 (5-19); Potassium 4.8 mmol/L (3.5-5.1)
--- NOTE | 2021-10-10 07:18 | SUR.PREOP ---
surgery cancelled as rep not here with device
--- NOTE | 2021-10-10 13:54 | ANE.PACU2 ---
Inpatient post-anesthesia follow up: Airway intact: Yes Vital signs: Temperature 98.0 F Pulse Rate 70 Respiratory Rate 18 Blood Pressure 128/76 Pulse Oximetry 97 Oxygen Delivery Me thod Room Air Oxygen Flow Rate Fraction of Inspir ed Oxygen Hydration adequate: Yes Nausea and vomiting: No Pain level: 1 Mental status: Baseline
== END 2021-10-10 09:25 | disposition home or self-care (01) ==
PROVIDERS: PCP Nurse Practitioner Family; Visit Provider Thoracic Surgery (Cardiothoracic Vascular Surgery)
PROC: 0JH608Z Insertion of Defibrillator Generator into Chest Subcutaneous Tissue and Fascia, Open Approach (ICD-10-PCS; CPT 33249; principal; 2021-10-10 07:00)
DX: I42.9 Cardiomyopathy, unspecified (principal); Z53.9 Procedure and treatment not carried out, unspecified reason; E78.5 Hyperlipidemia, unspecified; K21.9 Gastro-esophageal reflux disease without esophagitis; I50.9 Heart failure, unspecified; F17.210 Nicotine dependence, cigarettes, uncomplicated
CPT/HCPCS: 36415; 80048; 81003; 85025; J2704; J3010

== ENCOUNTER 2021-10-24 06:13 | Observation (INO) | payer BC, MEDICAID, SELFPAY ==
[2021-10-23 10:36] VITALS: BMI 25.1
[2021-10-24] VITALS (17 sets, daily range): BP systolic 126–144; BP diastolic 77–99; PULSE 66–83; RESP 16–18; TEMP 36.3–36.6; O2SAT 95–100; BMI 25.1
--- NOTE | 2021-10-24 | SCC_ITS ---
Procedure done: Automatic implantable cardiac defibrillator implantation 134.0 seconds of fluoroscopic guidance, for a cumulative dose of 37.52 mGy, was provided to Dr. Pineda by the radiology department. C-arm images of the chest were saved for the patient's permanent record. [facility]
--- NOTE | 2021-10-24 06:13 | SC_ITS ---
WS: [id number] C-ARM RADIOGRAPHS CHEST; 4 IMAGES HISTORY: Defibrillator implantation COMPARISON: None available. Intraoperative imaging during defibrillator placement an implantation. Defibrillator wires are noted over the midline. Defibrillator generator projects over the LEFT upper thorax. SC/C-arm FL for Pacemaker IMPRESSION: Intraoperative imaging during defibrillator placement.
[2021-10-24] MEDS: sodium chloride 0.9% 1,000 ML 30 ML IV (06:44)
[2021-10-24] MEDS: vancomycin 1,500 MG/300 ML PIGGYBACK 200 MG IV ×2 (06:45→17:27)
--- NOTE | 2021-10-24 07:37 | W.PM.OPSUD ---
Surgery/Procedure H&P Update DATE OF PROCEDURE: October 24, 2021 DATE H&P PERFORMED: 10/10/21 H&P UPDATE INFORMATION: I have reviewed H&P completed within last 30 days, I have examined patient prior to procedure and No changes to prior documentation PREOP DIAGNOSIS: Medically refractory cardiomyopathy PLANNED PROCEDURE: Operation Date: 10/24/21 07:45 Proposed Procedures p Defibrillator Placement/cardio myop(Not Applicable) - Shane Pineda MD
--- NOTE | 2021-10-24 07:38 | ANES.PREANE2 ---
Pre-Anesthetic Assessment Height/Weight: Height 1.75 m Weight 77.111 kg O2 Del Method 10/24/21 06:20 Preop Diagnosis: Cardiomyopathy Operation Date: 10/24/21 07:45 Proposed Procedures p Defibrillator Placement/cardio myop(Not Applicable) - Shane Pineda MD Familial anesthetic complications: none Was Beta Octaviano taken within 24 hours: Yes Was Clonidine taken within 24 hours: N/A Last intake: Intake Last Liquid Date 10/23/21 Last Liquid Time 23:00 Last Solid Date 10/23/21 Last Solid Time 23:00 Social Alcohol (6 beers a day ) and Tobacco Uses marijuana Exam alert, oriented x 3 and regular rate & rhythm Diminished lungs b/l Airway Submandibular: within normal limits Cervical ROM: within normal limits Mallampati: Class II Dentition: chipped Comments: Comments: Very poor dentition, multiple chips, missing teeth CV/HEM 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 Mildly dilated left ventricle. Moderately decreased left ventricular systolic function. Left ventricular ejection ?fraction is estimated at 30%.? Moderate global hypokinesis.? Grade II diastolic dysfunction, moderately elevated filling pressures. ?2. Normal right ventricular size and systolic function. ?3. Mildly increased left atrial size. ?4. Mild mitral valve regurgitation. ?5. When compared to previous echocardiogram dated 08/07/2018, left ocular systolic function may have improved slight # Lexiscan MPI (07/2018): Medium-size area of old myocardial infarction versus artifact noted in basal to distal inferoseptal wall. ?Medium-size area of old myocardial infarction versus artifact noted in basal to mid anterior wall. ?This study is negative for ischemia. LVEF-23%. # Echo (07/2018):? Moderately increased left ventricular cavity size. Severely decreased left ventricular systolic function. Global left ?ventricular hypokinesis. Left ventricular ejection fraction is estimated at 25 %. Grade IV/IV diastolic dysfunction ?(irreversible restrictive filling pattern), severely elevated filling pressures.? None reported Hepatic None reported GI Gastroesophageal Reflux Disease (Well controlled ) Metabolic Hyperlipidemia Musc/skel Osteoarthritis/DJD Neuropsych Denies hx of stroke or seizure Anesthetic Plan ASA status: 4 Anesthesia: Anesthesia Evaluation and MAC Other: We discussed risk and benefits of general anesthesia including PONV, sore throat (sometimes severe), corneal abrasion, positioning and peripheral nerve injuries, life threatening allergic reaction, post operative ICU admission requiring prolonged intubation, aspiration, stroke, heart attack, , and rare incidences of recall. Patient consents to proceed with general anesthesia. Risk of > 500 ml blood loss (7ml/kg in children): No Medications/Allergies Home Medications Medication Instructions Recorded Confirmed Last Taken Type albuterol sulfate 90 mcg/actuation 2 puff inhalation Q6H PRN 03/25/19 10/24/21 1 Month Ago History aerosol inhaler Shortness Of Breath ~12/14/20 omeprazole 20 mg capsule,delayed 20 mg PO DAILY 03/25/19 10/24/21 10/23/21 History release furosemide 20 mg tablet 20 mg PO DAILY PRN edema #30 tabs 08/29/20 10/23/21 10/09/21 Rx aspirin 81 mg tablet,delayed 81 mg PO DAILY 11/23/20 10/24/21 10/22/21 History release (Avelino Low Dose Aspirin) metoprolol succinate 50 mg See Rx Instructions .Route 02/21/21 10/24/21 10/23/21 Rx tablet,extended release 24 hr .COMPLEX #90 tabs simvastatin 20 mg tablet 20 mg PO DAILY #30 tabs 05/08/21 10/24/21 10/23/21 Rx lisinopril 5 mg tablet 7.5 mg PO DIRECTED #45 tabs 07/20/21 10/24/21 10/23/21 Rx meloxicam 15 mg tablet 15 mg PO DAILY 10/09/21 10/24/21 10/09/21 History Allergies Allergy/AdvReac Type Severity Reaction Status Date / Time No Known Allergies Allergy Verified 10/09/21 10:37 Current Medications Generic Name Dose Route Start Last Admin Trade Name Freq PRN Reason Stop Dose Admin Vancomycin/PEG/NADA/Lysine/Water 1,500 mg in 300 mls @ 200 mls/hr 10/24/21 06:13 10/24/21 06:45 Vancocin IV 10/24/21 07:42 200 mls/hr 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 Administration Protocol Sodium Chloride 1,000 mls @ 30 mls/hr 10/24/21 06:15 10/24/21 06:44 Sodium Chloride 0.9% IV 10/25/21 06:14 30 mls/hr .Q24H XUAN Administration PFSH Anesthesia Medical History Dyslipidemia GERD (gastroesophageal reflux disease) Heart failure Smoker Surgical History AICD (automatic cardioverter/defibrillator) present Family History Sister Heart disease Father Myocardial infarct Social History Smoking and tobacco status: current every day smoker cigarettes Packs smoked per day: 1.5 Years cigarettes smoked: 50 Alcohol intake: never History of recent travel: No Data Anesthesia Cardiac Studies: Echocardiogram 09/29/20
[2021-10-24] MEDS: ceFAZolin 1,000 mg SDV 1000 MG IRRIGATION (08:22)
[2021-10-24] MEDS: lidocaine 2% INJ 20 mL (08:34)
--- NOTE | 2021-10-24 10:06 | PC.CHAP ---
Pastoral Care Encounter/Spiritual Assessment Type of Contact [] Declined silk screener visit [] Patient/Family/Request visit [] Outpatient visit [] Follow-up visit [] Physician referral [] Code/Alert [x] Routine visit [] Staff referral [] Actively dying [] Patient sleeping [] Family support [] [x] Out of room [] Palliative care [] [] Receiving care in room [] Pre-surgical visit [] Trauma [] Long length of stay [] ICU visit [] Other: Relational/Emotional Strength [] Patient feels connected with others/family/visitors/staff [] Distress [] Loneliness/isolation [] Abandonment Spirituality of Patient [] Person of Yani [] Attends Jainism of their Yani [] Believes in Prayer [] Reads Bible or Scientologist materials [] There are Spiritual issues to be addressed Manganese Wheeler Interventions [] Prayer [] Active listening [] Non-anxious presence [] Spiritual/emotional support [] Crisis/trauma care [] Spiritual counseling [] Bereavement support [] Provided bereavement packet [] Provided Bible/devotional materials [] Provided toy/stuffed animal, coloring book to patient or family member [] Provided Communion [] Anointing/[place] [] Salvation [] Completed spiritual assessment [] Other: Impact on Illness or Injury [] Angry [] Fearful [] Anxious [] Often cries [] Exhaustion [] Unable to work [] Unable to attend synagogue [] Unable to walk/stand [] Unable to read [] Unable to drive [] Unable to eat/drink [] Unable to sleep [] Unable to be with family [] Patient intubated [] Other: Summary Time spent with patient
[2021-10-24] MEDS: hyDRALAzine 20 mg/mL INJ 1 mL 5 MG IVP (10:19)
--- NOTE | 2021-10-24 10:19 | PM.OP ---
Operative Report Date of procedure: October 24, 2021 Pre-op diagnosis: Preop Diagnosis Cardiomyopathy Post-op diagnosis: same Procedure done: Automatic implantable cardiac defibrillator implantation Implants: AICD generator Atrial and ventricular leads Pathology: none sent Surgeon: Shane Pineda Anesthesia: MAC and Local Complications: None: Post procedure chest x-ray pending Condition: stable Disposition: PACU Brief History: Mr. Diaz is a pleasant 61-year-old gentleman with medically refractory cardiomyopathy and an ejection fraction of 25 to 30%. He is status post AICD implantation November 28, 2020 developed a device pocket infection with subsequent required explantation on January 13. 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 He now represents for planned attempt at reimplantation. Activity restrictions were again carefully discussed preoperatively. Details of risk the procedure were carefully reviewed. Proper consents were signed. Procedure: Procedure: Mr. Diaz was taken to the OR suite and placed in the supine position over a shoulder roll. He received conscious sedation with continuous anesthesia monitoring by. His entire chest was sterilely prepped and draped. 1% lidocaine was infiltrated in the left subclavicular region. While in Trendelenburg position, utilizing modified seldinger technique, a guidewire was placed in the left subclavian vein. This was confirmed in position by fluoroscopy. Next, after infiltration with lidocaine, a subcutaneous pocket was created beginning from the exit point of the guidewire and extending laterally and inferiorly. Cautery was utilized to create the pocket just above the pectoralis musculature. Hemostasis was confirmed. An antibiotic-soaked sponge was placed in the wound. A dilator and tear-away sheath was placed over the guidewire and advanced under fluoroscopy. Guidewire and dilator were removed. Next using a combination of curved and straight stylettes, the right ventricular lead was placed in position by fluoroscopy. The distal screw was extended. Interrogation was then performed confirming appropriate parameters. The tear-away sheath was then removed and the ventricular lead was sewn to the floor of the subcutaneous pocket. Next, atrial lead was placed in a similar fashion with fluoroscopic guidance. Generator was brought into the field, and after confirmation of hemostasis in the subcutaneous pocket, the leads was connected to the generator with appropriate capture. The entire system was interrogated by fluoroscopy. Leads and generator were secured in the pocket. Sponge and needle count was correct. The wound was then closed in 2 layers of 3-0 Vicryl suture. Skin was reapproximated in a subcuticular manner with 4-0 Monocryl suture. A pressure dressing was applied. The left arm was placed in a sling. The patient had equal breath sounds bilaterally. He was then transferred to the PACU, where chest x-ray is currently pending. I did camp counselor with his at the completion of the procedure. Following are the specifics of this system: Right ventricular lead is 62 cm and model 6935M. Serial number [id number] Atrial lead is 52 cm and model 5076. Serial number [id number] Atrial lead had a sensing of 7.3 mV with an impedance of Biehler 96 ohms and a threshold of 1.1 V Ventricular lead had a sensing of 16.0 mV with an impedance of 876 ohms and a threshold of 0.7 V [place] Antibodies AICD generator: Model # [id number] Serial # [id number]
[2021-10-24] MEDS: morphine 4 mg/mL SDV 1 mL 2 MG IVP (11:04)
[2021-10-24] MEDS: oxyCODONE-APAP 5-325 mg Tablet 1 TAB PO ×3 (12:20→22:03)
--- NOTE | 2021-10-24 13:46 | PHA.FALL ---
A Pharmacy Consult Was Conducted For Anurag Diaz Jr Due To: Harris Fall Scale Risk Level: High Fall Risk On 10/24/21 10:47 And A Medication Fall Risk Score Greater Than 10. The Recommendations Are As Follows: BEERS LIST: alprazolam: Older adults have increased sensitivity to benzodiazepines and decreased metabolism of long-acting agents. In general, all benzodiazepines increase risk of cognitive impairment, delirium, falls, fractures, and motor vehicle accidents in older adults.May be appropriate for seizure disorders, rapid eye movement sleep disorders, benzodiazepine withdrawal, ethanol withdrawal, severe generalized anxiety disorder, periprocedural anesthesia, end-of-life care MEDICATIONS WITH POSSIBLE ADVERSE EFFECTS: effects could be compounded in combination, increasing risk of fall . lisinopril: Neurologic: Dizziness (12% to 19% ), lopressor: Neurologic: Dizziness (10% ) Morphine: Neurologic: Common: Dizziness (6% ), Lightheadedness, Somnolence (3% or greater ); Serious: Musculoskeletal: Myoclonus Oxycodone: Neurologic: Dizziness (1.6% to 5.7% ), Somnolence (Up to 8.8% ) Tramadol: Dizziness (7% to 33% ), Insomnia (1% to 10.9% ), Somnolence (4% to 25% )
[2021-10-24] MEDS: TRAMadol 50 mg Tablet PO (14:15)
--- NOTE | 2021-10-24 14:28 | ANE.PACU2 ---
Inpatient post-anesthesia follow up: Airway intact: Yes Vital signs: Temperature 97.3 F Pulse Rate 83 Respiratory Rate 18 Blood Pressure 141/89 Pulse Oximetry 100 Oxygen Delivery Me thod Room Air Oxygen Flow Rate Fraction of Inspir ed Oxygen Hydration adequate: Yes Nausea and vomiting: No Pain level: 4 Mental status: Baseline
[2021-10-24] MEDS: nicotine 21 mg Patch 1 PATCH TRANSDERMA (14:37)
[2021-10-24] MEDS: lisinopril 5 mg Tablet PO (17:27)
[2021-10-25 00:47] VITALS: BP 126/86; PULSE 65; RESP 16; TEMP 36.7; O2SAT 97
[2021-10-25 02:32] VITALS: RESP 18; O2SAT 95
[2021-10-25] MEDS: oxyCODONE-APAP 5-325 mg Tablet 1 TAB PO (02:32)
[2021-10-25 05:09] VITALS: BP 110/72; PULSE 63; RESP 14; TEMP 36.6; O2SAT 93
[2021-10-25] MEDS: lisinopril 2.5 mg Tablet PO (05:59)
[2021-10-25] MEDS: vancomycin 1,500 MG/300 ML PIGGYBACK 200 MG IV (05:59)
[2021-10-25 06:00] VITALS: PULSE 87
--- NOTE | 2021-10-25 06:48 | PM.DCS ---
Discharge Providers Date of Admission: 10/24/21 06:13 Date of Discharge: October 25, 2021 Attending Provider at Admission: Shane Pineda MD Attending Provider at Discharge: Shane Pineda MD Primary Care Provider: EFRAÍN Granda Reason for Visit Reason for Visit: cardio myopathy Hospital Course Hospital Course Mr. Diaz was electively admitted for planned AICD implantation. He has severe medically refractory cardiomyopathy with an ejection fraction of 25 to 30%. He originally had an AICD device implanted in November of last year but developed device pocket infection with very early heavy activity after his implantation. The device had to be removed about 1 month later. He underwent dual-lead AICD implantation on October 24, 2021. Postoperative, he has done well. Device interrogation this morning reveals appropriate function. Incision line is clean and dry. No evidence for fluid collection in the device pocket. He was treated with vancomycin prophylactically in the perioperative period. Discharge instructions and strict activity limitations have been carefully discussed with Mr. Diaz. He will be discharged to home today in stable condition. He will follow-up in my clinic in 1 week. Physical Exam Chest: COMMONS NORMALS: normal inspection of the chest and normal palpation of entire chest wall Resp: COMMON NORMALS: normal respiratory effort and clear to auscultation bilaterally AUSCULTATION: clear to auscultation bilaterally Cardio: COMMON NORMALS: regular rate, regular rhythm, S1 normal heart sound present and No murmurs present (Cardio) RATE: regular rate RHYTHM: regular rhythm HEART SOUNDS: S1 normal heart sound present Discharge Data Studies Completed and Pending Radiology Impressions C-Arm Fluoroscopy 10/24/21 06:13 IMPRESSION: Intraoperative imaging during defibrillator placement. Procedures Performed Dual-lead AICD implantation on October 24, 2021 Vitals Last Vital Signs Temp 98 F 10/25/21 05:09 Pulse 87 10/25/21 06:00 Resp 14 10/25/21 05:09 BP 110/72 10/25/21 05:09 Pulse Ox 93 10/25/21 05:09 O2 Del Method 10/24/21 12:25 Discharge Plan Discharge Patient Disposition: Home Condition: Stable Prescriptions: New oxycodone-acetaminophen 5-325 mg Tablet 1 tab PO Q6H PRN (Reason: Moderate Pain) Qty: 16 0RF sulfamethoxazole-trimethoprim [Bactrim DS] 800-160 mg tablet 1 tab PO BID Qty: 6 0RF Continued furosemide 20 mg tablet 20 mg PO DAILY PRN (Reason: edema) Qty: 30 6RF albuterol sulfate 90 mcg/actuation HFA aerosol inhaler 2 puff INHALATION Q6H PRN (Reason: Shortness Of Breath) omeprazole 20 mg capsule,delayed release(DR/EC) 20 mg PO DAILY meloxicam 15 mg tablet 15 mg PO DAILY metoprolol succinate 50 mg tablet extended release 24 hr See Rx Instructions .ROUTE .COMPLEX Qty: 90 3RF Dose Instruction: TAKE ONE TABLET BY MOUTH ONCE DAILY Rx Instructions: TAKE ONE TABLET BY MOUTH ONCE DAILY simvastatin 20 mg tablet 20 mg PO DAILY Qty: 30 6RF lisinopril 5 mg tablet 7.5 mg PO DIRECTED Qty: 45 3RF Rx Instructions: 2.5mg (0.5 tab) in AM and 5mg (1 tab) in PM aspirin [Avelino Low Dose Aspirin] 81 mg Tablet,Delayed Release (Dr/Ec) 81 mg PO DAILY Discharge Orders: Discharge Order (Routine); Ordered 10/25/21 Ordered By: Shane Pineda Referrals: Shane Pineda MD [Physician] - 1 week Discharge Diet: Usual diet Discharge Activity: Limit activity as instructed Patient Instructions: Opioid Safety Activity Restrictions/Additional Instructions: May remove bandage in 2 days. May begin daily showers without bandage in 2 days Dry incision completely after showers and may recover to prevent irritation from clothing Do not raise left hand above eye level for 1 week Do not perform any heavy lifting with left upper extremity for 2 weeks Report any redness, swelling, increasing pain, or drainage from incision Take antibiotics until completed Discharge Attestations Time Spent in Discharge Care*: less than 30 min Specific Discharge Activities: educating patient, discussing with case investigator/social workers/dc planners, documenting/other paperwork and evaluating patient/reviewing data Time Spent in Smoking Cessation: 3 to 10 minutes Status at Discharge: Cognitive status at discharge: cognitively intact, Behavioral status at discharge: cooperative, Functional status at discharge: independent ambulation, Overall status at discharge: patient is back to baseline Quality Metrics Clinical Quality Measures [ No reported AMI, CVA or VTE this stay] Coding Level of Care Code Acute Chg FW DC note
[2021-10-25 07:21] VITALS: BP 135/88; PULSE 64; RESP 18; O2SAT 98
== END 2021-10-25 08:51 | disposition home or self-care (01) ==
LOC: MEDSURG 13:22
PROVIDERS: Admitting Provider Thoracic Surgery (Cardiothoracic Vascular Surgery); PCP Nurse Practitioner Family; Visit Provider Thoracic Surgery (Cardiothoracic Vascular Surgery)
PROC: 0JH608Z Insertion of Defibrillator Generator into Chest Subcutaneous Tissue and Fascia, Open Approach (ICD-10-PCS; CPT 33249; principal; 2021-10-24 07:45)
DX: I42.9 Cardiomyopathy, unspecified (principal); E78.5 Hyperlipidemia, unspecified; K21.9 Gastro-esophageal reflux disease without esophagitis; I50.9 Heart failure, unspecified; F17.210 Nicotine dependence, cigarettes, uncomplicated; Z82.49 Family history of ischemic heart disease and other diseases of the circulatory system
CPT/HCPCS: 33270; 76000; C1721; C1777; C1779; G0378; J0360; J0690; J2250; J2270; J2704; J3010; J3370; J3490; J7030

== ENCOUNTER → 2021-11-02 10:28 | Outpatient (BNVA) | payer BC, MEDICAID, SELFPAY | PROVIDERS: PCP Nurse Practitioner Family; Visit Provider Nurse Practitioner Family | DX: Z95.810 Presence of automatic (implantable) cardiac defibrillator (principal) | CPT/HCPCS: 93283; 99214 ==

== ENCOUNTER 2021-11-29 19:40 | Emergency (ER) | payer BC, MEDICAID, SELFPAY ==
[2021-11-29 20:05] VITALS: BP 106/59; PULSE 99; RESP 16; TEMP 36.7; O2SAT 96; BMI 25.1
--- NOTE | 2021-11-29 20:12 | CTR_ITS ---
PROCEDURE INFORMATION: Exam: CT Head Without Contrast Exam date and time: 11/29/2021 8:39 PM Age: 61 years old Clinical indication: Stroke-like symptoms; Other: Severe AGUILA. ; Additional info: C/O severe AGUILA with fever. Discharged from outside facility yesterday for subdural hemorrhage. TECHNIQUE: Imaging protocol: Computed tomography of the head without contrast. Radiation optimization: All CT scans at this facility use at least one of these dose optimization techniques: automated exposure control; mA and/or kV adjustment per patient size (includes targeted exams where dose is matched to clinical indication); or iterative reconstruction. COMPARISON: No relevant prior studies available. RADIATION DOSE METRICS: Total DLP (mGy-cm): 1217.68 FINDINGS: Brain: A 3.3 cm area of hemorrhage is present in the anterior right frontal lobe, with moderate surrounding edema. A small right frontoparietal convexity subdural hematoma is also seen measuring up to 2.[address] evidence of acute infarction. No midline shift. A vertical linear radiodense CT artifact is seen just left of midline in the brain. Cerebral ventricles: No ventriculomegaly. Paranasal sinuses: Visualized sinuses are unremarkable. No fluid levels. Mastoid air cells: Visualized mastoid air cells are well aerated. Bones/joints: Unremarkable. No acute fracture. Soft tissues: Unremarkable. CT/CT head wo con* [id number] IMPRESSION: Right frontal lobe hemorrhage and small right frontoparietal convexity subdural hematoma. No midline shift.
--- NOTE | 2021-11-29 23:51 | W.ED.HA ---
Documented by User: MIGEL San 11/30/21 13:23 HPI - Headache General: Chief Complaint: Headache Stated Complaint: FEVER , CHILLS POST HEAD BLEED Time Seen by Provider: 11/29/21 23:40 History of Present Illness: Patient is a 61-year-old male comes to the ED with headache post head trauma. Several days ago he had a fall from the back of a truck hit his head and had loss of consciousness. He was hospitalized at [facility] in [place] for a subdural hemorrhage and was released yesterday. He had not been having any headaches since injury, but today woke up and he had a bad headache. Headache goes all around the top of his head. He rates it currently a 6 out of 10. Headache has episodes where it is more sharp and painful. Light makes headache worse. Patient says he has been sleeping a lot since released from hospital. He took some Tylenol at around 6 PM tonight because he also had a fever at home. Denies any new onset of neuro symptoms. Denies any new trauma or head injury to cause headache. Denies any cough, nasal congestion or drainage, sore throat, chest pain, shortness of breath, abdominal pain, nausea/vomiting, bladder or bowel symptoms. Associated symptoms: Reports fever(s); Deny chest pain, nausea, rash or vomiting Review of Systems Const: Reports: fever(s); Denies: chills or fatigue Eyes: Reports: photophobia; Denies: change in vision or eye discomfort ENMT: Denies: throat pain, odynophagia, nasal discharge or nasal congestion Card: Denies: chest pain, palpitations, edema, swelling of feet/ankles, dyspnea on exertion or orthopnea Resp: Denies: dyspnea, productive cough or non-productive cough GI: Denies: abdominal pain, nausea, vomiting, diarrhea, constipation or hematochezia : Denies: flank pain, difficulty urinating, dysuria or hematuria Musc: Denies: neck pain, back pain or extremity swelling Skin/Breast: Denies: rash or new lesions Neuro: Reports: headache(s); Denies: numbness in extremities or weakness in extremities [facility] ED PFSH: Medical History Dyslipidemia GERD (gastroesophageal reflux disease) Heart failure Smoker Surgical History AICD (automatic cardioverter/defibrillator) present Family History Sister Heart disease Father Myocardial infarct Social History Smoking and tobacco status: former smoker Alcohol intake: never History of recent travel: No Physical Exam Const: COMMON NORMALS: patient oriented x3 and alert GENERAL APPEARANCE: cooperative HENMT: COMMON NORMALS: normocephalic HEAD & SCALP: normocephalic MOUTH: Normal oral and palatal mucosa present THROAT: posterior oropharynx normal and uvula midline Eye: COMMON NORMALS: Equal, round and reactive pupils present and EOMs intact bilaterally GENERAL EYE: appearance normal, both eyes and all related structures PUPIL: Yes Equal, round and reactive pupils present Neck/C-Spine: COMMON NORMALS: supple GENERAL: Yes normal visual inspection Lymph: LYMPHATIC: no lymphadenopathy noted Resp: COMMON NORMALS: normal respiratory effort, No retractions, No use of accessory muscles and clear to auscultation bilaterally AUSCULTATION: clear to auscultation bilaterally Cardio: COMMON NORMALS: regular rate, regular rhythm, S1 normal heart sound present, S2 normal heart sound present, No gallops present (Cardio), No clicks present (Cardio), No murmurs present (Cardio) and Peripheral pulses 2+ throughout RATE: regular rate RHYTHM: regular rhythm HEART SOUNDS: S1 normal heart sound present and S2 normal heart sound present PERIPHERAL PULSES: Peripheral pulses 2+ throughout GI: COMMON NORMALS: Normal to inspection, nondistended, normoactive bowel sounds present, Soft to palpation, non-tender and no masses PALPATION: Yes Soft to palpation : COMMON NORMALS: Yes no CVA tenderness BLADDER/KIDNEY EXAM: Yes no CVA tenderness Back/Pelvis: COMMON NORMALS: no CVA tenderness Extremity: GENERAL: Yes normal exam except as noted Neuro: COMMON NORMALS: patient oriented x3, CN's II-XII intact bilaterally, moves all extremities, no focal motor deficits and no sensory deficits noted SENSORIUM/ORIENTATION: Yes alert SENSORY EXAM: Yes extremities (intact) MOTOR EXAM: 5/5 motor strength present throughout Skin: COMMON NORMALS: no rashes or lesions noted GENERAL SKIN EXAM: no rashes or lesions noted and dry skin Course Vital Signs: Vital signs: Vital Signs Temperature 98.0 F 11/29/21 20:05 Pulse Rate 75 09/15/22 02:53 Respiratory Rate 18 11/30/21 02:53 Blood Pressure 111/67 11/30/21 02:53 Pulse Oximetry 97 11/30/21 02:53 Oxygen Delivery Me thod 11/30/21 02:17 MDM - Headache Lab Data I reviewed the patient's lab results. : 11/29/21 00:07 11/29/21 00:[address] 11/29/21 20:12 IMPRESSION: Right frontal lobe hemorrhage and small right frontoparietal convexity subdural hematoma. No midline shift. ADDENDUM: 11/29/212109 Bethany Zachary was informed of exam results at 11/29/2021 9:09 PM CDT. Laboratory Results WBC 9.8 10^3/uL (4.0-10.0) 11/29/21 00:07 RBC 4.86 10^6/uL (4.1-5.3) 11/29/21 00:07 Hgb 15.3 g/dL (11.7-16.6) 11/29/21 00:07 Hct 44.9 % (42.0-52.0) 11/29/21 00:07 MCV 92.4 fl (80-94) 11/29/21 00:07 MCH 31.5 pg (28.0-34.0) 11/29/21 00:07 MCHC 34.1 g/dL (30.0-36.0) 11/29/21 00:07 RDW 12.5 % (12.1-15.1) 11/29/21 00:07 Plt Count 240 10^3/cmm (130-400) 11/29/21 00:07 MPV 9.5 fL (7.4-10.4) 11/29/21 00:07 Neut % (Auto) 68.2 % 11/29/21 00:07 Lymph % (Auto) 17.3 % 11/29/21 00:07 [place] % (Auto) 11.8 % 11/29/21 00:07 Eos % (Auto) 1.6 % 11/29/21 00:07 Baso % (Auto) 0.6 % 11/29/21 00:07 Neut # (Auto) 6.71 10^3/uL (1.8-7.7) 11/29/21 00:07 Lymph # (Auto) 1.7 10^3/uL (0.8-4.8) 11/29/21 00:07 [place] # (Auto) 1.2 10^3/uL (0.2-0.9) H 11/29/21 00:07 Eos # (Auto) 0.2 10^3/uL (0.0-0.8) 11/29/21 00:07 Baso # (Auto) 0.1 10^3/uL (0.0-0.1) 11/29/21 00:07 Nucleated RBC % (auto) 0 % 11/29/21 00:07 Nucleated RBCs # 0.0 /100WBC 11/29/21 00:07 Sodium 130 mmol/L (136-145) L 11/29/21 00:07 Potassium 4.8 mmol/L (3.5-5.1) 11/29/21 00:07 Chloride 95 mmol/L (98-107) L 11/29/21 00:07 Carbon Dioxide 22 mmol/L (22-29) 11/29/21 00:07 Anion Gap 17.8 (5-19) 11/29/21 00:07 BUN 21 mg/dL (8-23) 11/29/21 00:07 Creatinine 0.8 mg/dL (0.7-1.2) 11/29/21 00:07 GFR Calculation 98.6 mL/min (90-130) 11/29/21 00:07 Glucose 112 mg/dL (65-115) 11/29/21 00:07 Calculated Osmolality 274 mOsm/kg (285-295) L 11/29/21 00:07 Calcium 9.3 mg/dL (8.5-10.5) 11/29/21 00:07 Total Bilirubin 1.0 mg/dL (0.15-1.2) 11/29/21 00:07 AST 23 U/L (0-40) 11/29/21 00:07 ALT 21 U/L (0-41) 11/29/21 00:07 Alkaline Phosphatase 51 U/L (40-130) 11/29/21 00:07 Total Protein 7.4 g/dL (6.6-8.7) 11/29/21 00:07 Albumin 4.1 g/dL (3.5-5.2) 11/29/21 00:07 Globulin 3.3 g/dL (1.3-4.6) 11/29/21 00:07 SARS-CoV-2 Ag (Rapid) Negative (Negative) 11/30/21 01:37 Discharge Plan Discharge Patient Disposition: Home Clinical Impression: Postconcussion syndrome, Traumatic brain injury, Headache, Hyponatremia, Subdural hematoma, ICH (intracerebral hemorrhage) Condition: Stable Prescriptions: New Reglan 10 mg tablet 10 mg PO Q6H PRN (Reason: headache) Qty: 20 0RF Rx Instructions: take with 25 mg benadryl No Action albuterol sulfate 90 mcg/actuation HFA aerosol inhaler 2 puff INHALATION Q6H PRN (Reason: Shortness Of Breath) omeprazole 20 mg capsule,delayed release(DR/EC) 20 mg PO DAILY mupirocin 2 % ointment 1 applic topical BID Qty: 15 0RF Rx Instructions: Use for 7 days then stop meloxicam 15 mg tablet 15 mg PO DAILY simvastatin 20 mg tablet 20 mg PO DAILY Qty: 90 3RF metoprolol succinate 50 mg tablet extended release 24 hr See Rx Instructions .ROUTE .COMPLEX Qty: 90 3RF Dose Instruction: TAKE ONE TABLET BY MOUTH ONCE DAILY Rx Instructions: TAKE ONE TABLET BY MOUTH ONCE DAILY lisinopril 5 mg tablet 7.5 mg PO DIRECTED Qty: 45 3RF Rx Instructions: 2.5mg (0.5 tab) in AM and 5mg (1 tab) in PM furosemide 20 mg tablet 20 mg PO DAILY PRN (Reason: edema) Qty: 30 6RF aspirin [Avelino Low Dose Aspirin] 81 mg Tablet,Delayed Release (Dr/Ec) 81 mg PO DAILY oxycodone-acetaminophen 5-325 mg Tablet 1 tab PO Q6H PRN (Reason: Moderate Pain) Qty: 16 0RF Bactrim DS 800-160 mg tablet 1 tab PO BID Qty: 6 0RF Discharge Orders: Discharge ED (Routine); Ordered 11/30/21 Ordered By: Zachary Sims Discharge Diet: Usual diet Activity Restrictions/Additional Instructions: Thank you for visiting the emergency department. You were seen evaluated for headache and fever. The exact cause of your symptoms is unclear though likely related to prior head injury and postconcussive syndrome. In discussion with neurosurgery at [facility] your imaging appears similar. We are pleased that you had improvement with treatment. I will prescribe medication to help with headache, you should take Reglan with 25 mg of Benadryl as well as Tylenol 650 mg to 1000 mg not to exceed 4 g in a day. Also ensure that you are staying hydrated. Please follow-up with your primary care provider and have repeat labs done within 1 week to assess sodium. Return to the emergency department for worsening symptoms, new neurologic deficits, uncontrolled headache, or anything else that you are concerned about a feel needs emergency department evaluation. Sign Out Sign Out Data: Patient Sign Out occurred on 11/30/21 at 00:59. Patient's care was discussed, and care was transferred from to Zachary Sims MD. Coding Level of Care Code ED Data Sciences Director for Chg Fwd Exam Comprehensive Documented by User: Zachary Sims MD 11/30/21 04:20 HPI - Headache General: Chief Complaint: Headache Stated Complaint: FEVER , CHILLS POST HEAD BLEED Time Seen by Provider: 11/29/21 23:40 [facility] ED PFSH: Medical History Dyslipidemia GERD (gastroesophageal reflux disease) Heart failure Smoker Surgical History AICD (automatic cardioverter/defibrillator) present Family History Sister Heart disease Father Myocardial infarct Social History Smoking and tobacco status: former smoker Alcohol intake: never History of recent travel: No Course Vital Signs: Vital signs: Vital Signs Temperature 98.0 F 11/29/21 20:05 Pulse Rate 75 11/30/21 02:53 Respiratory Rate 18 11/30/21 02:53 Blood Pressure 111/67 11/30/21 02:53 Pulse Oximetry 97 11/30/21 02:53 Oxygen Delivery Me thod 11/30/21 02:17 MDM - Headache Medical Decision Making I discussed this case with MIGEL San. I have reviewed laboratory studies, imaging and personally reevaluated the patient and reperformed olmedo portions of E/M. I have reviewed documentation. I discussed case with Dr. Johnson with the neurosurgery service at [facility] in [facility] who reviewed patient's CT scan from today and it is grossly similar compared to prior. Upon reassessment patient still with headache and additional treatment ordered with significant improvement in symptoms. Based on patient history, evaluation, and testing as interpreted the most likely cause of the patient's condition is headache associated with prior traumatic brain injury The results of ED evaluation were discussed with the patient including prescriptions and/or symptomatic cares (if applicable) including appropriate and responsible use, followup plan, and return precautions. The patient verbalized understanding and felt safe for discharge. Patient discharged in satisfactory condition. Strict return precautions given. Zachary Sims MD Emergency Medicine Lab Data : 11/29/21 00:07 11/29/21 00:[address] 11/29/21 20:12 IMPRESSION: Right frontal lobe hemorrhage and small right frontoparietal convexity subdural hematoma. No midline shift. ADDENDUM: 11/29/212109 Zachary Sims was informed of exam results at 11/29/2021 9:09 PM CDT. Laboratory Results WBC 9.8 10^3/uL (4.0-10.0) 11/29/21 00:07 RBC 4.86 10^6/uL (4.1-5.3) 11/29/21 00:07 Hgb 15.3 g/dL (11.7-16.6) 11/29/21 00:07 Hct 44.9 % (42.0-52.0) 11/29/21 00:07 MCV 92.4 fl (80-94) 11/29/21 00:07 MCH 31.5 pg (28.0-34.0) 11/29/21 00:07 MCHC 34.1 g/dL (30.0-36.0) 11/29/21 00:07 RDW 12.5 % (12.1-15.1) 11/29/21 00:07 Plt Count 240 10^3/cmm (130-400) 11/29/21 00:07 MPV 9.5 fL (7.4-10.4) 11/29/21 00:07 Neut % (Auto) 68.2 % 11/29/21 00:07 Lymph % (Auto) 17.3 % 11/29/21 00:07 [place] % (Auto) 11.8 % 11/29/21 00:07 Eos % (Auto) 1.6 % 11/29/21 00:07 Baso % (Auto) 0.6 % 11/29/21 00:07 Neut # (Auto) 6.71 10^3/uL (1.8-7.7) 11/29/21 00:07 Lymph # (Auto) 1.7 10^3/uL (0.8-4.8) 11/29/21 00:07 [place] # (Auto) 1.2 10^3/uL (0.2-0.9) H 11/29/21 00:07 Eos # (Auto) 0.2 10^3/uL (0.0-0.8) 11/29/21 00:07 Baso # (Auto) 0.1 10^3/uL (0.0-0.1) 11/29/21 00:07 Nucleated RBC % (auto) 0 % 11/29/21 00:07 Nucleated RBCs # 0.0 /100WBC 11/29/21 00:07 Sodium 130 mmol/L (136-145) L 11/29/21 00:07 Potassium 4.8 mmol/L (3.5-5.1) 11/29/21 00:07 Chloride 95 mmol/L (98-107) L 11/29/21 00:07 Carbon Dioxide 22 mmol/L (22-29) 11/29/21 00:07 Anion Gap 17.8 (5-19) 11/29/21 00:07 BUN 21 mg/dL (8-23) 11/29/21 00:07 Creatinine 0.8 mg/dL (0.7-1.2) 11/29/21 00:07 GFR Calculation 98.6 mL/min (90-130) 11/29/21 00:07 Glucose 112 mg/dL (65-115) 11/29/21 00:07 Calculated Osmolality 274 mOsm/kg (285-295) L 11/29/21 00:07 Calcium 9.3 mg/dL (8.5-10.5) 11/29/21 00:07 Total Bilirubin 1.0 mg/dL (0.15-1.2) 11/29/21 00:07 AST 23 U/L (0-40) 11/29/21 00:07 ALT 21 U/L (0-41) 11/29/21 00:07 Alkaline Phosphatase 51 U/L (40-130) 11/29/21 00:07 Total Protein 7.4 g/dL (6.6-8.7) 11/29/21 00:07 Albumin 4.1 g/dL (3.5-5.2) 11/29/21 00:07 Globulin 3.3 g/dL (1.3-4.6) 11/29/21 00:07 SARS-CoV-2 Ag (Rapid) Negative (Negative) 11/30/21 01:37 Discharge Plan Discharge Patient Disposition: Home Clinical Impression: Postconcussion syndrome, Traumatic brain injury, Headache, Hyponatremia, Subdural hematoma, ICH (intracerebral hemorrhage) Condition: Stable Prescriptions: New Reglan 10 mg tablet 10 mg PO Q6H PRN (Reason: headache) Qty: 20 0RF Rx Instructions: take with 25 mg benadryl No Action albuterol sulfate 90 mcg/actuation HFA aerosol inhaler 2 puff INHALATION Q6H PRN (Reason: Shortness Of Breath) omeprazole 20 mg capsule,delayed release(DR/EC) 20 mg PO DAILY mupirocin 2 % ointment 1 applic topical BID Qty: 15 0RF Rx Instructions: Use for 7 days then stop meloxicam 15 mg tablet 15 mg PO DAILY simvastatin 20 mg tablet 20 mg PO DAILY Qty: 90 3RF metoprolol succinate 50 mg tablet extended release 24 hr See Rx Instructions .ROUTE .COMPLEX Qty: 90 3RF Dose Instruction: TAKE ONE TABLET BY MOUTH ONCE DAILY Rx Instructions: TAKE ONE TABLET BY MOUTH ONCE DAILY lisinopril 5 mg tablet 7.5 mg PO DIRECTED Qty: 45 3RF Rx Instructions: 2.5mg (0.5 tab) in AM and 5mg (1 tab) in PM furosemide 20 mg tablet 20 mg PO DAILY PRN (Reason: edema) Qty: 30 6RF aspirin [Avelino Low Dose Aspirin] 81 mg Tablet,Delayed Release (Dr/Ec) 81 mg PO DAILY oxycodone-acetaminophen 5-325 mg Tablet 1 tab PO Q6H PRN (Reason: Moderate Pain) Qty: 16 0RF Bactrim DS 800-160 mg tablet 1 tab PO BID Qty: 6 0RF Discharge Orders: Discharge ED (Routine); Ordered 11/30/21 Ordered By: Zachary Sims Discharge Diet: Usual diet Activity Restrictions/Additional Instructions: Thank you for visiting the emergency department. You were seen evaluated for headache and fever. The exact cause of your symptoms is unclear though likely related to prior head injury and postconcussive syndrome. In discussion with neurosurgery at [facility] your imaging appears similar. We are pleased that you had improvement with treatment. I will prescribe medication to help with headache, you should take Reglan with 25 mg of Benadryl as well as Tylenol 650 mg to 1000 mg not to exceed 4 g in a day. Also ensure that you are staying hydrated. Please follow-up with your primary care provider and have repeat labs done within 1 week to assess sodium. Return to the emergency department for worsening symptoms, new neurologic deficits, uncontrolled headache, or anything else that you are concerned about a feel needs emergency department evaluation. Sign Out Sign Out Data: Patient Sign Out occurred on 11/30/21 at 00:59. Patient's care was discussed, and care was transferred from to Zachary Sims MD. Coding Level of Care Code ED Data Sciences Director for Pardeep Fwd Exam Comprehensive
[2021-11-29] MEDS: HYDROcodone-acetaminophen 7.5-325 mg Tablet 1 TAB PO (23:58)
[2021-11-30 00:12] LABS: Basophils # 0.1 10^3/uL (0.0-0.1); Basophils % 0.6 %; Eosinophils # 0.2 10^3/uL (0.0-0.8); Eosinophils % 1.6 %; Hematocrit 44.9 % (42.0-52.0); Hemoglobin 15.3 g/dL (11.7-16.6); Lymphocytes # 1.7 10^3/uL (0.8-4.8); Lymphocytes % 17.3 %; Mean Corpuscular HGB Conc 34.1 g/dL (30.0-36.0); Mean Corpuscular Hemoglobin 31.5 pg (28.0-34.0); Mean Corpuscular Volume 92.4 fl (80-94); Mean Platelet Volume 9.5 fL (7.4-10.4); Monocytes # 1.2 10^3/uL (0.2-0.9); Monocytes % 11.8 %; Neutrophils # 6.71 10^3/uL (1.8-7.7); Neutrophils % 68.2 %; Nucleated Red Blood Cells % 0 %; Platelet Count 240 10^3/cmm (130-400); Red Blood Count 4.86 10^6/uL (4.1-5.3); Red Cell Distribution Width 12.5 % (12.1-15.1); White Blood Count 9.8 10^3/uL (4.0-10.0)
[2021-11-30 00:37] LABS: Alanine Aminotransferase 21 U/L (0-41); Albumin Level 4.1 g/dL (3.5-5.2); Alkaline Phosphatase 51 U/L (40-130); Anion Gap 17.8 (5-19); Aspartate Amino Transferase 23 U/L (0-40); Blood Urea Nitrogen 21 mg/dL (8-23); Calcium 9.3 mg/dL (8.5-10.5); Carbon Dioxide 22 mmol/L (22-29); Chloride 95 mmol/L (98-107); Creatinine Clr Calc Pharmacy 101.7561; Globulin 3.3 g/dL (1.3-4.6); Glomerular Filtration Rate 98.6 mL/min (90-130); Glucose 112 mg/dL (65-115); Osmolality Calculated 274 mOsm/kg (285-295); Potassium 4.8 mmol/L (3.5-5.1); Sodium 130 mmol/L (136-145); Total Protein 7.4 g/dL (6.6-8.7)
[2021-11-30] MEDS: sodium chloride 0.9% 1,000 ML 999 ML IV (01:29)
[2021-11-30] MEDS: dexamethasone 10 mg/mL INJ IVP (01:29)
[2021-11-30] MEDS: diphenhydrAMINE 50 mg/mL SDV 1mL 12.5 MG IVP (01:30)
[2021-11-30] MEDS: metoclopramide 5 mg/mL SDV 2 mL IVP (01:32)
[2021-11-30 02:17] VITALS: BP 118/64; PULSE 80; RESP 18; O2SAT 96
[2021-11-30 02:23] LABS: SARS Covid-2 Antigen Negative (Negative)
[2021-11-30 02:53] VITALS: BP 111/67; PULSE 75; RESP 18; O2SAT 97
== END 2021-11-30 02:54 | disposition home or self-care (01) ==
PROVIDERS: Physician Assistant; Emergency Provider Emergency Medicine
DX: S06.5X9A Traumatic subdural hemorrhage with loss of consciousness of unspecified duration, initial encounter (principal); S06.9X9A Unspecified intracranial injury with loss of consciousness of unspecified duration, initial encounter; F07.81 Postconcussional syndrome; R51.9 Headache, unspecified; I50.9 Heart failure, unspecified; E78.5 Hyperlipidemia, unspecified; Z79.82 Long term (current) use of aspirin; Z87.891 Personal history of nicotine dependence; Z95.810 Presence of automatic (implantable) cardiac defibrillator; V58.2XXA Person on outside of pick-up truck or van injured in noncollision transport accident in nontraffic accident, initial encounter
CPT/HCPCS: 70450; 80053; 85025; 87426; 96361; 96374; 96375; 99285; J1100; J1200; J2765; J7030

== ENCOUNTER 2022-08-21 14:40 | Emergency (ER) | payer BC, MEDICAID, SELFPAY ==
[2022-08-21 14:49] VITALS: BP 102/65; PULSE 61; RESP 18; TEMP 36.5; O2SAT 95; BMI 28.8
--- NOTE | 2022-08-21 14:57 | XRR_ITS ---
PROCEDURE INFORMATION: Exam: XR Chest Exam date and time: 08/21/2022 3:09 PM Age: 61 years old Clinical indication: Shortness of breath; Prior surgery; Surgery date: 6+ months; Surgery type: Pacer; Additional info: SOB TECHNIQUE: Imaging protocol: Radiologic exam of the chest. Views: 1 view. COMPARISON: CR XR chest 1V portable [id number] 01/14/2021 1:44 PM FINDINGS: Tubes, catheters and devices: AICD/pacer device noted in the left chest wall. Lungs: No consolidation. Pleural spaces: No pleural effusion. No pneumothorax. Heart/Mediastinum: No cardiomegaly. Bones/joints: ACDF hardware noted in the cervical spine. Visualized osseous structures are intact. XR/XR chest 1V portable [id number] IMPRESSION: No acute findings.
[2022-08-21 15:21] LABS: Basophils % 0.5 %; Eosinophils # 0.1 10^3/uL (0.0-0.8); Eosinophils % 1.2 %; Hematocrit 44.5 % (42.0-52.0); Hemoglobin 14.6 g/dL (11.7-16.6); Lymphocytes # 1.2 10^3/uL (0.8-4.8); Mean Corpuscular HGB Conc 32.8 g/dL (30.0-36.0); Mean Corpuscular Hemoglobin 31.3 pg (28.0-34.0); Mean Corpuscular Volume 95.3 fl (80-94); Mean Platelet Volume 9.8 fL (7.4-10.4); Monocytes # 0.5 10^3/uL (0.2-0.9); Neutrophils # 4.77 10^3/uL (1.8-7.7); Nucleated Red Blood Cells % 0 %; Platelet Count 186 10^3/cmm (130-400); Red Blood Count 4.67 10^6/uL (4.1-5.3); Red Cell Distribution Width 13.6 % (12.1-15.1); White Blood Count 6.6 10^3/uL (4.0-10.0)
[2022-08-21 15:51] LABS: Alanine Aminotransferase 18 U/L (0-41); Albumin Level 4.4 g/dL (3.5-5.2); Alkaline Phosphatase 46 U/L (40-130); Anion Gap 14.1 (5-19); Aspartate Amino Transferase 21 U/L (0-40); Blood Urea Nitrogen 22 mg/dL (8-23); Calcium 8.9 mg/dL (8.5-10.5); Carbon Dioxide 27 mmol/L (22-29); Chloride 102 mmol/L (98-107); Globulin 2.4 g/dL (1.3-4.6); Glomerular Filtration Rate 76.2 mL/min (90-130); Glucose 85 mg/dL (65-115); NT Pro B Type Natriuretic Pept 739 pg/mL (0-125); Osmolality Calculated 291 mOsm/kg (285-295); Potassium 4.1 mmol/L (3.5-5.1); Sodium 139 mmol/L (136-145); Total Bilirubin 0.5 mg/dL (0.15-1.2); Total Protein 6.8 g/dL (6.6-8.7)
--- NOTE | 2022-08-21 16:28 | ECG_ITS ---
[facility] Test Date: 2022-08-21 Pat Name: Anurag Diaz Department: Room: Gender: Male Cytotechnologist: : 1960 Requested By: Hoda Lincoln Order Number: [id number] Antony MD: Anuja Yao M.D. Measurements Intervals [place] Rate: 72 P: 67 IL: 223 QRS: 239 QRSD: 133 T: 0 QT: 386 QTc: 424 Interpretive Statements ELECTRONIC ATRIAL PACEMAKER INTRAVENTRICULAR CONDUCTION DELAY [130+ ms QRS DURATION] POSSIBLE RIGHT VENTRICULAR HYPERTROPHY [SOME/ALL OF: PROMINENT R IN V1, LATE TRANSITION, RAD, ALVERTO, SSS] LATERAL MYOCARDIAL INFARCTION , OF INDETERMINATE AGE [40+ ms Q WAVE AND/OR ST/T ABNORMALITY IN I/aVL/V5/V6] Compared to ECG 01/14/2021 12:23:31 Myocardial infarct finding now present T-wave abnormality no longer present Possible ischemia no longer present Electronically Signed On 08-21-2022 16:49:18 CDT by Anuja Yao M.D. [email or web address]
[2022-08-21 16:39] LABS: Troponin(5th) Baseline 19 ng/L (0-15)
--- NOTE | 2022-08-21 17:35 | ED_ITS ---
HPI - SOB/Dyspnea General: Chief Complaint: Shortness of Breath/Dyspnea Stated Complaint: sob, weakness Time Seen by Provider: 08/21/22 17:35 History of Present Illness: HPI Narrative: Patient complains of increasing intermittent short of breath over the last 3 weeks. Patient does have a pacemaker and with a low ejection fraction so is not for sure if is not his heart. Patient says he was started on Zoloft about 3 weeks ago by time this started. Patient does have symptoms of classical sleep apnea such as waking up feeling fatigued waking up with a headache snoring and gasping for breath in melanite. MD elicited complaint: shortness of breath Pertinent past history: congestive heart failure Onset (ago): week(s) (Worsening for the last 3 weeks) Timing: intermittent Severity: mild Exacerbating factors: lying flat Relieving factors: nothing Known history of: congestive heart failure Treatment prior to arrival: none Review of Systems General: Reports: 10 or more systems reviewed and unremarkable except in HPI and below PFSH ED PFSH: Medical History Dyslipidemia GERD (gastroesophageal reflux disease) Heart failure Smoker Surgical History AICD (automatic cardioverter/defibrillator) present Family History Sister Heart disease Father Myocardial infarct Social History Smoking and tobacco status: former smoker Alcohol intake: never Substance/Drug Use: former Physical Exam Const: COMMON NORMALS: no acute distress, average body habitus, patient oriented x3, no limitations, healthy appearing, alert and well nourished HENMT: COMMON NORMALS: normocephalic, atraumatic, hearing grossly normal bilaterally, external ears normal, Normal external nose present and moist oral mucous membranes HEAD & SCALP: normocephalic and atraumatic NOSE: Normal external nose present EXTERNAL EAR: Yes external ears normal Eye: COMMON NORMALS: Equal, round and reactive pupils present, EOMs intact bilaterally, conjunctivae normal and no scleral icterus CONJUNCTIVA: Yes conjunctivae normal PUPIL: Yes Equal, round and reactive pupils present Neck/C-Spine: COMMON NORMALS: full ROM, no lymphadenopathy, supple, no meningeal signs, no JVD and Thyroid normal THYROID: Thyroid normal Lymph: LYMPHATIC: no lymphadenopathy noted Chest: COMMONS NORMALS: normal inspection of the chest and normal palpation of entire chest wall Resp: COMMON NORMALS: normal respiratory effort, No retractions and No use of accessory muscles Cardio: COMMON NORMALS: no JVD GI: COMMON NORMALS: Normal to inspection, nondistended, normoactive bowel sounds present, Soft to palpation, non-tender, No hepatosplenomegaly present and no masses PALPATION: Yes Soft to palpation and Yes No hepatosplenomegaly present : COMMON NORMALS: Yes no CVA tenderness BLADDER/KIDNEY EXAM: Yes no CVA tenderness Back/Pelvis: COMMON NORMALS: no CVA tenderness Neuro: COMMON NORMALS: patient oriented x3 SENSORIUM/ORIENTATION: Yes alert MENINGEAL SIGNS: Yes no meningeal signs Course Vital Signs: Vital signs: Vital Signs Temperature 97.7 F 08/21/22 14:49 Pulse Rate 62 08/21/22 17:51 Respiratory Rate 16 08/21/22 17:51 Blood Pressure 154/91 08/21/22 17:51 Pulse Oximetry 96 08/21/22 17:51 Oxygen Delivery Me thod Room Air 08/21/22 17:51 MDM - SOB/Dyspnea Medical Decision Making Patient presented to the ER with worsening shortness of breath and signs of sleep apnea. Patient does have a cardiac history of CHF with low ejection frac tion. Lab work was obtained and imaging was obtained which showed benign findings. Except for BNP of 739 but patient has been higher and his chest x-ray is negative. This was explained to the patient and upon further talking to the patient sounds like he may have been recently started on Zoloft and having signs and symptoms of sleep apnea. Patient will be referred back to his PCP for further work-up and evaluation. Differential Diagnosis Unlikely acute exacerbation of chronic obstructive airways disease, congestive heart failure, community acquired pneumonia, asthma with exacerbation or pulmonary embolism Medical Records I reviewed the patient's medical records. Lab Data I reviewed the patient's lab results. 08/21/22 15:15 08/21/22 15:15 Labs/Radiology: Radiology Impressions Chest X-Ray 08/21/22 14:57 IMPRESSION: No acute findings. Laboratory Results WBC 6.6 10^3/uL (4.0-10.0) 08/21/22 15:15 RBC 4.67 10^6/uL (4.1-5.3) 08/21/22 15:15 Hgb 14.6 g/dL (11.7-16.6) 08/21/22 15:15 Hct 44.5 % (42.0-52.0) 08/21/22 15:15 MCV 95.3 fl (80-94) H 08/21/22 15:15 MCH 31.3 pg (28.0-34.0) 08/21/22 15:15 MCHC 32.8 g/dL (30.0-36.0) 08/21/22 15:15 RDW 13.6 % (12.1-15.1) 08/21/22 15:15 Plt Count 186 10^3/cmm (130-400) 08/21/22 15:15 MPV 9.8 fL (7.4-10.4) 08/21/22 15:15 Neut % (Auto) 72.0 % 08/21/22 15:15 Lymph % (Auto) 18.0 % 08/21/22 15:15 [place] % (Auto) 8.0 % 08/21/22 15:15 Eos % (Auto) 1.2 % 08/21/22 15:15 Baso % (Auto) 0.5 % 08/21/22 15:15 Neut # (Auto) 4.77 10^3/uL (1.8-7.7) 08/21/22 15:15 Lymph # (Auto) 1.2 10^3/uL (0.8-4.8) 08/21/22 15:15 [place] # (Auto) 0.5 10^3/uL (0.2-0.9) 08/21/22 15:15 Eos # (Auto) 0.1 10^3/uL (0.0-0.8) 08/21/22 15:15 Baso # (Auto) 0.0 10^3/uL (0.0-0.1) 08/21/22 15:15 Nucleated RBC % (auto) 0 % 08/21/22 15:15 Nucleated RBCs # 0.0 /100WBC 08/21/22 15:15 Sodium 139 mmol/L (136-145) 08/21/22 15:15 Potassium 4.1 mmol/L (3.5-5.1) 08/21/22 15:15 Chloride 102 mmol/L (98-107) 08/21/22 15:15 Carbon Dioxide 27 mmol/L (22-29) 08/21/22 15:15 Anion Gap 14.1 (5-19) 08/21/22 15:15 BUN 22 mg/dL (8-23) 08/21/22 15:15 Creatinine 1.0 mg/dL (0.7-1.2) 08/21/22 15:15 GFR Calculation 76.2 mL/min (90-130) L 08/21/22 15:15 Glucose 85 mg/dL (65-115) 08/21/22 15:15 Calculated Osmolality 291 mOsm/kg (285-295) 08/21/22 15:15 Calcium 8.9 mg/dL (8.5-10.5) 08/21/22 15:15 Total Bilirubin 0.5 mg/dL (0.15-1.2) 08/21/22 15:15 AST 21 U/L (0-40) 08/21/22 15:15 ALT 18 U/L (0-41) 08/21/22 15:15 Alkaline Phosphatase 46 U/L (40-130) 08/21/22 15:15 Troponin T Baseline 19 ng/L (0-15) H 08/21/22 15:15 Troponin T 120 Minute 20.39 ng/L (0-15) H 08/21/22 17:18 Delta Troponin T 1.39 ABS# (0-10) 08/21/22 17:18 NT-Pro-B Natriuret Pep 739 pg/mL (0-125) H 08/21/22 15:15 Total Protein 6.8 g/dL (6.6-8.7) 08/21/22 15:15 Albumin 4.4 g/dL (3.5-5.2) 08/21/22 15:15 Globulin 2.4 g/dL (1.3-4.6) 08/21/22 15:15 EKG Data EKG 1: I personally reviewed and interpreted this EKG as follows: EKG Interpretation Date: 08/21/22 EKG interpretation time: 17:27 Prior EKG tracings: not available for review Interpretation: EKG shows electronic atrial pacemaker, ventricular rate 73 bpm, [place] interval 231, QRS 142, QTc 429, left axis deviation, left bundle branch block, Discharge Plan Discharge Patient Disposition: Home Clinical Impression: Shortness of breath, Snoring Fatigue Qualifiers: Fatigue type: unspecified Qualified Code(s): R53.83 - Other fatigue Condition: Stable Prescriptions: No Action albuterol sulfate 90 mcg/actuation HFA aerosol inhaler 2 puff INHALATION Q6H PRN (Reason: Shortness Of Breath) omeprazole 20 mg capsule,delayed release(DR/EC) 20 mg PO DAILY pregabalin 100 mg capsule 100 mg PO TID meloxicam 15 mg tablet 15 mg PO DAILY simvastatin 20 mg tablet 20 mg PO DAILY Qty: 90 3RF metoprolol succinate 50 mg tablet extended release 24 hr See Rx Instructions .ROUTE .COMPLEX Qty: 90 3RF Dose Instruction: TAKE ONE TABLET BY MOUTH ONCE DAILY Rx Instructions: TAKE ONE TABLET BY MOUTH ONCE DAILY lisinopril 5 mg tablet 5 mg PO DAILY Qty: 90 3RF furosemide 20 mg tablet 20 mg PO DAILY PRN (Reason: edema) Qty: 90 1RF aspirin [Avelino Low Dose Aspirin] 81 mg Tablet,Delayed Release (Dr/Ec) 81 mg PO DAILY Discharge Orders: Discharge ED (Routine); Ordered 08/21/22 Ordered By: Santana Jim Referrals: Senia Hansen FNP [Primary Care Provider] - Patient Instructions: Shortness of Breath (ED), Obstructive Sleep Apnea Activity Restrictions/Additional Instructions: Your work-up to the ER was essentially benign. Upon further discussion it sounds like he may have sleep apnea. Please follow-up with your family practice doctor for further evaluation and treatment as you may benefit from a referral to a sleep study and/or a small engine mechanic. Coding Level of Care Code ED Rehabilitation Program Manager for Pardeep Vargas
[2022-08-21 17:47] LABS: Troponin 5 2HR 20.39 ng/L (0-15)
[2022-08-21 17:48] LABS: Troponin 5 2HR Delta 1.39 ABS# (0-10)
[2022-08-21 17:51] VITALS: BP 154/91; PULSE 62; RESP 16; O2SAT 96
[2022-08-21 18:51] VITALS: BP 128/76; PULSE 60; RESP 17; O2SAT 96
== END 2022-08-21 18:51 | disposition home or self-care (01) ==
PROVIDERS: Physician Assistant; Emergency Provider Emergency Medicine; PCP Nurse Practitioner Family
DX: R06.02 Shortness of breath (principal); R53.83 Other fatigue; R06.83 Snoring
CPT/HCPCS: 36415; 71045; 80053; 83880; 84484; 85025; 93005; 99285

== ENCOUNTER → 2022-09-03 14:52 | Outpatient (BNVA) | payer BC, MEDICAID, SELFPAY | PROVIDERS: PCP Nurse Practitioner Family; Visit Provider Specialist | DX: M17.0 Bilateral primary osteoarthritis of knee (principal) | CPT/HCPCS: 73560; 73565 ==

== ENCOUNTER 2023-07-23 13:26 | Inpatient (IN) | payer BC, SELFPAY ==
[2023-07-23] VITALS (8 sets, daily range): BP systolic 85–124; BP diastolic 59–67; PULSE 90–112; RESP 16–22; TEMP 36.7–36.8; O2SAT 94–99; BMI 27.3
--- NOTE | 2023-07-23 13:31 | ECG_ITS ---
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 Measurements Intervals [place] Rate: 90 P: 0 DE: 0 QRS: 257 QRSD: 126 T: 269 QT: 354 QTc: 435 Interpretive Statements ATRIAL FIBRILLATION INDETERMINATE AXIS MODERATE INTRAVENTRICULAR CONDUCTION DELAY [105+ ms QRS DURATION, 80+ ms Q/S IN V1/V2, NO Q AND 60+ ms R IN I/aVL/V5/V6] ST DEVIATION AND MODERATE T-WAVE ABNORMALITY, CONSIDER LATERAL ISCHEMIA [-0.1+ mV T-WAVE IN I/aVL/V5/V6] Compared to ECG 08/21/2022 16:28:05 Indeterminate axis now present.T-wave abnormality now present Possible ischemia now present. Atrial-paced complex(es) or rhythm no longer present Atrial abnormality no longer present Myocardial infarct finding no longer present Electronically Signed On 07-23-2023 22:56:49 CDT by London Vines M.D. [id number]
--- NOTE | 2023-07-23 13:38 | XRR_ITS ---
PROCEDURE INFORMATION: Exam: XR Chest Exam date and time: 07/23/2023 1:43 PM Age: 62 years old Clinical indication: Shortness of breath; Prior surgery; Surgery date: 6+ months; Surgery type: Defib; Additional info: SOB TECHNIQUE: Imaging protocol: Radiologic exam of the chest. Views: 1 view. COMPARISON: CR XR chest 1V portable [id number] 08/21/2022 3:09 PM FINDINGS: Tubes, catheters and devices: New stable intact pacemaker/AICD hardware. Lungs: Unremarkable. No consolidation. Pleural spaces: Unremarkable. No pleural effusion. No pneumothorax. Heart/Mediastinum: There is borderline enlargement of the cardiac silhouette. Bones/joints: Unremarkable. XR/XR chest 1V portable [id number] IMPRESSION: No acute findings. Borderline cardiomegaly.
--- NOTE | 2023-07-23 13:48 | ED_ITS ---
HPI - SOB/Dyspnea 2 General: Chief Complaint: Shortness of Breath/Dyspnea Stated Complaint: sob, fatigue, nausea Time Seen by Provider: 07/23/23 13:40 Source: patient Mode of arrival: ambulatory Limitations: no limitations History of Present Illness: HPI Narrative: 62-year-old male with history of chronic smoking and emphysema and cardiomyopathy states he had increasing shortness of breath for the last week he states it has been severe especially with exertion because of minute panic attacks states this morning he felt like he could not breath and denies any severe pain denies any cough or fevers had some slight wheezing he does use an inhaler at home. Associated symptoms: Deny abdominal pain, chest pain, fever(s), nausea or vomiting Review of Systems 2 Const: Reports: fatigue; Denies: fever(s) or chills ENMT: Denies: throat pain or dental pain Card: Denies: chest pain Resp: Reports: dyspnea GI: Denies: abdominal pain, nausea, vomiting or diarrhea Musc: Denies: neck pain or back pain Skin/Breast: Denies: rash Neuro: Denies: headache(s) PFSH ED 2 PFSH: Medical History Heart failure GERD (gastroesophageal reflux disease) Dyslipidemia Smoker Surgical History AICD (automatic cardioverter/defibrillator) present Family History Sister Heart disease Father Myocardial infarct Social History Smoking and tobacco/nicotine status: former use of tobacco/nicotine Alcohol intake: never Substance/Drug Use: current Substance/Drug use frequency: daily Physical Exam 2 Const: COMMON NORMALS: no acute distress, patient oriented x3 and healthy appearing HENMT: COMMON NORMALS: normocephalic and atraumatic HEAD & SCALP: n ormocephalic and atraumatic Eye: COMMON NORMALS: conjunctivae normal CONJUNCTIVA: Yes conjunctivae normal Neck/C-Spine: COMMON NORMALS: full ROM and supple Chest: COMMONS NORMALS: normal inspection of the chest Resp: COMMON NORMALS: normal respiratory effort, No retractions and No use of accessory muscles AUSCULTATION: wheezes Cardio: COMMON NORMALS: regular rate and No murmurs present (Cardio) RATE: regular rate RHYTHM: abnormal rhythm irregularly irregular GI: COMMON NORMALS: Normal to inspection, nondistended, normoactive bowel sounds present, Soft to palpation, non-tender and no masses PALPATION: Yes Soft to palpation Extremity: COMMON NORMALS: normal to inspection and full ROM Neuro: COMMON NORMALS: patient oriented x3, moves all extremities and no focal motor deficits Psych: COMMON NORMALS: mental status grossly normal, Normal thought process present and cooperative THOUGHT PROCESS: Normal thought process present Skin: COMMON NORMALS: no rashes or lesions noted and no wounds GENERAL SKIN EXAM: no rashes or lesions noted Course 2 Vital Signs: Vital signs: Vital Signs Temperature 98.0 F 07/23/23 13:31 Pulse Rate 94 07/23/23 15:03 Respiratory Rate 18 07/23/23 14:04 Blood Pressure 124/65 07/23/23 15:03 Pulse Oximetry 94 07/23/23 15:03 Oxygen Delivery Me thod Room Air 07/23/23 15:03 MDM - SOB/Dyspnea Medical Decision Making Patient presents here with new onset A-fib he has been having exertional dyspnea as well CTA showed no signs of PE spoke to hospitalist will admit to trend his troponins and to admit for his new onset A-fib. Medical Records I reviewed the patient's medical records. Lab Data I reviewed the patient's lab results. 07/23/23 13:52 07/23/23 13:52 Labs/Radiology: Radiology Impressions Chest X-Ray 07/23/23 13:38 IMPRESSION: No acute findings. Borderline cardiomegaly. Chest CTA 07/23/23 14:49 IMPRESSION: 1. No pulmonary embolism. 2. Slightly increased moderate cardiomegaly. 3. Additional details as above. COMMENTS: The presence of pulmonary emphysema on CT is an independent risk factor for lung cancer. In the absence of a history or active diagnosis of lung cancer, it is recommended that this patient with emphysema be evaluated for enrollment in a low dose CT lung cancer screening program. Laboratory Results WBC 5.83 10^3/uL (3.29-11.43) 07/23/23 13:52 RBC 3.93 10^6/uL (3.85-5.65) 07/23/23 13:52 Hgb 11.90 g/dL (11.27-16.99) 07/23/23 13:52 Hct 35.9 % (37-53) L 07/23/23 13:52 MCV 91.3 fl (82-101) 07/23/23 13:52 MCH 30.3 pg (27-33) 07/23/23 13:52 MCHC 33.1 g/dL (30-55) 07/23/23 13:52 RDW 13.8 % (12.1-15.1) 07/23/23 13:52 Plt Count 139 10^3/cmm (157-399) L 07/23/23 13:52 MPV 10.5 fL (7.4-10.4) H 07/23/23 13:52 Neut % (Auto) 82.1 % 07/23/23 13:52 Lymph % (Auto) 9.6 % 07/23/23 13:52 [place] % (Auto) 7.2 % 07/23/23 13:52 Eos % (Auto) 0.5 % 07/23/23 13:52 Baso % (Auto) 0.3 % 07/23/23 13:52 Neut # (Auto) 4.78 10^3/uL (1.8-7.7) 07/23/23 13:52 Lymph # (Auto) 0.6 10^3/uL (0.8-4.8) L 07/23/23 13:52 [place] # (Auto) 0.4 10^3/uL (0.2-0.9) 07/23/23 13:52 Eos # (Auto) 0.0 10^3/uL (0.0-0.8) 07/23/23 13:52 Baso # (Auto) 0.0 10^3/uL (0.0-0.1) 07/23/23 13:52 Nucleated RBC % (auto) 0 % 07/23/23 13:52 Nucleated RBCs # 0.0 /100WBC 07/23/23 13:52 PT 14.70 SECONDS (12.1-14.9) 07/23/23 13:52 INR 1.12 (0.8-1.2) 07/23/23 13:52 D-Dimer 2.06 ug/mLFEU (0-0.59) H 07/23/23 13:52 Sodium 136 mmol/L (136-145) 07/23/23 13:52 Potassium 4.0 mmol/L (3.5-5.1) 07/23/23 13:52 Chloride 100 mmol/L (98-107) 07/23/23 13:52 Carbon Dioxide 25 mmol/L (22-29) 07/23/23 13:52 Anion Gap 15.0 (5-19) 07/23/23 13:52 BUN 23 mg/dL (8-23) 07/23/23 13:52 Creatinine 0.8 mg/dL (0.7-1.2) 07/23/23 13:52 GFR Calculation 98.3 mL/min (90-130) 07/23/23 13:52 Glucose 134 mg/dL (65-115) H 07/23/23 13:52 Calculated Osmolality 288 mOsm/kg (285-295) 07/23/23 13:52 Lactic Acid 1.6 mmol/L (0.5-2.2) 07/23/23 13:52 Calcium 8.6 mg/dL (8.5-10.5) 07/23/23 13:52 Total Bilirubin 0.8 mg/dL (0.15-1.2) 07/23/23 13:52 AST 24 U/L (0-40) 07/23/23 13:52 ALT 49 U/L (0-41) H 07/23/23 13:52 Alkaline Phosphatase 51 U/L (40-130) 07/23/23 13:52 Troponin T Baseline 21 ng/L (0-15) H 07/23/23 13:52 NT-Pro-B Natriuret Pep 4135 pg/mL (0-125) H 07/23/23 13:52 Total Protein 5.8 g/dL (6.6-8.7) L 07/23/23 13:52 Albumin 3.7 g/dL (3.5-5.2) 07/23/23 13:52 Globulin 2.1 g/dL (1.3-4.6) 07/23/23 13:52 Lipase 16 U/L (13-60) 07/23/23 13:52 Urine Color Yellow (Yellow) 07/23/23 14:23 Urine Appearance Clear (CLEAR) 07/23/23 14:23 Urine pH 5 (5-7) 07/23/23 14:23 Ur Specific [place] 1.030 (1.005-1.030) 07/23/23 14:23 Urine Protein 1+ (Negative) H 07/23/23 14:23 Urine Glucose (UA) Norm (Normal) 07/23/23 14:23 Urine Ketones Negative (Negative) 07/23/23 14:23 Urine Blood Neg (Negative) 07/23/23 14:23 Urine Nitrate Negative (Negative) 07/23/23 14:23 Urine Bilirubin 1+ (Negative) H 07/23/23 14:23 Urine Urobilinogen 1 mg/dL (Negative) H 07/23/23 14:23 Ur Leukocyte Esterase Negative (Negative) 07/23/23 14:23 Urine RBC 0-4 /hpf (0-2) H 07/23/23 14:23 Urine WBC 0-4 /hpf (0-5) H 07/23/23 14:23 Ur Squamous Epith Cells 0-4 /hpf (0-5) H 07/23/23 14:23 Amorphous Sediment 1+ /hpf 07/23/23 14:23 Urine Bacteria Trace /hpf (NONE) 07/23/23 14:23 Urine Mucus 2+ /hpf 07/23/23 14:23 All radiology interpretation(s) finalized by discharge EKG Data EKG 1: I personally reviewed and interpreted this EKG as follows: EKG Interpretation Date: 07/23/23 EKG interpretation time: 13:31 Interpretation: afib hr [address] elevation qrs 126 qt c 402 EKG 2: I personally reviewed and interpreted this EKG as follows: EKG Interpretation Date: 07/23/23 EKG interpretation time: 15:50 Interpretation: afib hr [address] elevation qrs 125 qtc 418 Discharge Plan Discharge Patient Disposition: Placed in Observation Clinical Impression: New onset a-fib, Acute dyspnea Condition: Stable Prescriptions: No Action albuterol sulfate 90 mcg/actuation HFA aerosol inhaler 2 puff INHALATION Q6H PRN (Reason: Shortness Of Breath) omeprazole 20 mg capsule,delayed release(DR/EC) 20 mg PO DAILY sertraline [Zoloft] 100 mg tablet 200 mg PO DAILY meloxicam 15 mg tablet 15 mg PO DAILY metoprolol succinate 50 mg tablet extended release 24 hr 50 mg PO DAILY Qty: 90 3RF furosemide 20 mg tablet 20 mg PO DAILY PRN (Reason: edema) Qty: 90 3RF lisinopril 5 mg tablet 5 mg PO DAILY Qty: 90 3RF aspirin [Avelino Low Dose Aspirin] 81 mg Tablet,Delayed Release (Dr/Ec) 81 mg PO DAILY simvastatin 20 mg tablet 20 mg PO QPM tamsulosin 0.4 mg capsule 0.4 mg PO DAILY buspirone 10 mg tablet 10 mg PO TID PRN (Reason: Anxiety) ipratropium bromide 0.02 % solution 2.5 ml inhalation Q6H PRN (Reason: Shortness Of Breath) Symbicort 160-4.5 mcg/actuation HFA aerosol inhaler 2 puff INHALATION BID Referrals: Senia Hansen FNP [Primary Care Provider] - Coding Level of Care Code ED Injection Molding Machine Setter for Pardeep Vargas
[2023-07-23] MEDS: sodium chloride 0.9% 1,000 ML 999 ML IV (13:58)
[2023-07-23 14:28] LABS: Basophils % 0.3 %; Eosinophils % 0.5 %; Hematocrit 35.9 % (37-53); Lymphocytes # 0.6 10^3/uL (0.8-4.8); Lymphocytes % 9.6 %; Mean Corpuscular HGB Conc 33.1 g/dL (30-55); Mean Corpuscular Hemoglobin 30.3 pg (27-33); Mean Corpuscular Volume 91.3 fl (82-101); Mean Platelet Volume 10.5 fL (7.4-10.4); Monocytes # 0.4 10^3/uL (0.2-0.9); Monocytes % 7.2 %; Neutrophils # 4.78 10^3/uL (1.8-7.7); Neutrophils % 82.1 %; Nucleated Red Blood Cells % 0 %; Platelet Count 139 10^3/cmm (157-399); Red Blood Count 3.93 10^6/uL (3.85-5.65); Red Cell Distribution Width 13.8 % (12.1-15.1); White Blood Count 5.83 10^3/uL (3.29-11.43)
[2023-07-23 14:46] LABS: INR 1.12 (0.8-1.2)
[2023-07-23 14:48] LABS: D Dimer 2.06 ug/mLFEU (0-0.59)
--- NOTE | 2023-07-23 14:49 | CTR_ITS ---
PROCEDURE INFORMATION: Exam: CTA Chest With Contrast Exam date and time: 07/23/2023 3:11 PM Age: 62 years old Clinical indication: Shortness of breath; Prior surgery; Surgery date: 6+ months; Surgery type: Pacer; Additional info: SOB TECHNIQUE: Imaging protocol: Computed tomographic angiography of the chest with contrast. Exam focused on the arteries. 3D rendering (Not supervised by radiologist): MIP and/or 3D reconstructed images were created by the technologist. Radiation optimization: All CT scans at this facility use at least one of these dose optimization techniques: automated exposure control; mA and/or kV adjustment per patient size (includes targeted exams where dose is matched to clinical indication); or iterative reconstruction. Contrast material: OMNI 350; Contrast volume: 80 ml; Contrast route: INTRAVENOUS (IV); COMPARISON: CT angio chest PE protcl [id number] 08/06/2018 5:24 PM RADIATION DOSE METRICS: Total DLP (mGy-cm): 463 FINDINGS: Tubes, catheters and devices: New left pacemaker/AICD with leads projecting satisfactorily in central veins and right heart. Pulmonary arteries: Normal. No pulmonary emboli. Aorta: The aorta and systemic arteries are grossly unremarkable, but they are not opacified due to technique, so dissection cannot be excluded. Lungs: Unchanged mild bilateral bullous emphysema. Slightly increased atelectasis in both lower and dependent lungs. Otherwise, unremarkable. Pleural spaces: New tiny bilateral pleural effusions. No pneumothorax. Heart: Slightly increased moderate cardiomegaly. No evidence of right heart strain. The right ventricular to left ventricular ratio is 0.9. Coronary arteries: Unchanged small amount of coronary artery calcification. Lymph nodes: Unremarkable. No enlarged lymph nodes. Intraperitoneal space: Small amount of free intraperitoneal fluid in the upper abdomen is slightly decreased. No free air. Bones/joints: Unremarkable. No acute fracture. Soft tissues: Otherwise, unremarkable visualized body wall. Otherwise, unremarkable soft tissues. CT/CT angio chest PE protcl [id number] IMPRESSION: 1. No pulmonary embolism. 2. Slightly increased moderate cardiomegaly. 3. Additional details as above. COMMENTS: The presence of pulmonary emphysema on CT is an independent risk factor for lung cancer. In the absence of a history or active diagnosis of lung cancer, it is recommended that this patient with emphysema be evaluated for enrollment in a low dose CT lung cancer screening program.
[2023-07-23 14:51] LABS: Lactic Sepsis W/Reflex 1.6 mmol/L (0.5-2.2)
[2023-07-23 14:52] LABS: Troponin(5th) Baseline 21 ng/L (0-15)
[2023-07-23 15:00] LABS: Add Urine Microscopic? YES; Bilirubin Urine 1+ (Negative); Blood Urine Neg (Negative); Glucose Urine UA Norm (Normal); Ketones Urine Negative (Negative); Leukocyte Esterase Urine Negative (Negative); Nitrate Urine Negative (Negative); Protein Urine 1+ (Negative); Urine Appearance Clear (CLEAR); Urine Color Yellow (Yellow); Urobilinogen Urine 1 mg/dL (Negative); pH Urine 5 (5-7)
[2023-07-23 15:01] LABS: Bacteria Urine TRACE /hpf; Mucus Urine 2+ /hpf; RBC Urine 0-4 /hpf (0-2); Squamous Epithelial Cell Urine 0-4 /hpf (0-5); WBC Urine 0-4 /hpf (0-5)
[2023-07-23 15:02] LABS: Alanine Aminotransferase 49 U/L (0-41); Albumin Level 3.7 g/dL (3.5-5.2); Alkaline Phosphatase 51 U/L (40-130); Aspartate Amino Transferase 24 U/L (0-40); Blood Urea Nitrogen 23 mg/dL (8-23); Calcium 8.6 mg/dL (8.5-10.5); Carbon Dioxide 25 mmol/L (22-29); Chloride 100 mmol/L (98-107); Creatinine Clr Calc Pharmacy 101.9769; Globulin 2.1 g/dL (1.3-4.6); Glomerular Filtration Rate 98.3 mL/min (90-130); Glucose 134 mg/dL (65-115); Lipase 16 U/L (13-60); NT Pro B Type Natriuretic Pept 4135 pg/mL (0-125); Osmolality Calculated 288 mOsm/kg (285-295); Sodium 136 mmol/L (136-145); Total Bilirubin 0.8 mg/dL (0.15-1.2); Total Protein 5.8 g/dL (6.6-8.7)
[2023-07-23 15:02] LABS: Add Urine Culture? No; Amorphous Sediment Urine 1+ /hpf
[2023-07-23] MEDS: iohexol 350 mg/mL 500 mL Btl (per mL) IV (15:21)
--- NOTE | 2023-07-23 15:50 | ECG_ITS ---
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 Measurements Intervals [place] Rate: 87 P: 0 IN: 0 QRS: 230 QRSD: 125 T: -58 QT: 374 QTc: 450 Interpretive Statements ATRIAL FIBRILLATION MODERATE INTRAVENTRICULAR CONDUCTION DELAY [105+ ms QRS DURATION, 80+ ms Q/S IN V1/V2, NO Q AND 60+ ms R IN I/aVL/V5/V6] POSSIBLE RIGHT VENTRICULAR HYPERTROPHY [SOME/ALL OF: PROMINENT R IN V1, LATE TRANSITION, RAD, ALVERTO, SSS] ST DEVIATION AND MODERATE T-WAVE ABNORMALITY, CONSIDER LATERAL ISCHEMIA [-0.1+ mV T-WAVE IN I/aVL/V5/V6] Compared to ECG 07/23/2023 13:31:12 Indeterminate axis no longer present T-wave abnormality still present Possible ischemia still present Electronically Signed On 07-23-2023 23:10:19 CDT by London Vines M.D. [id number]
--- NOTE | 2023-07-23 16:46 | P.HP_ITS ---
Providers/Chief Complaint 2 Primary Care Provider: EFRAÍN Granda Chief Complaint: sob, fatigue, nausea History of Present Illness Anurag Diaz Jr is a 62 year old male with history of reduced ejection fraction EF 30% heart failure, presented with chief complaint of worsening shortness of breath. Patient has been experiencing shortness of breath on minimal activities after walking a few steps, in the ER he has been diagnosed with new onset A-fib heart rate is well-controlled, clinically does not look fluid overloaded No active chest pain Patient stating that he has neuropathy he uses marijuana he would not call his chest discomfort some pain, he is hemodynamically stable, Hospice has been requested to admit him for new onset A-fib with dyspnea on minimal exertion. CTA did not show any signs of PE Review of Systems 2 Const: Reports: fatigue; Denies: fever(s) Eyes: Denies: change in vision ENMT: Denies: throat pain Card: Reports: irregular heart rhythm Resp: Reports: dyspnea GI: Denies: abdominal pain Medications/Allergies Home Medications Medication Instructions Recorded Confirmed Last Taken Type albuterol sulfate 90 mcg/actuation 2 puff inhalation Q6H PRN 03/25/19 07/23/23 1 Month Ago History aerosol inhaler Shortness Of Breath ~12/14/20 omeprazole 20 mg capsule,delayed 20 mg PO DAILY 03/25/19 07/23/23 07/23/23 History release aspirin 81 mg tablet,delayed 81 mg PO DAILY 11/23/20 07/23/23 07/23/23 History release (Avelino Low Dose Aspirin) meloxicam 15 mg tablet 15 mg PO DAILY 10/09/21 07/23/23 07/23/23 History metoprolol succinate 50 mg 50 mg PO DAILY #90 tabs 11/12/22 07/23/23 07/23/23 Rx tablet,extended release 24 hr furosemide 20 mg tablet 20 mg PO DAILY PRN edema #90 tabs 12/11/22 07/23/23 Unknown Rx sertraline 100 mg tablet (Zoloft) 200 mg PO DAILY 03/27/23 07/23/23 07/23/23 History lisinopril 5 mg tablet 5 mg PO DAILY #90 tabs 03/28/23 07/23/23 07/23/23 Rx budesonide-formoterol HFA 160 2 puff inhalation BID 07/23/23 07/23/23 07/23/23 History mcg-4.5 mcg/actuation aerosol inhaler (Symbicort) buspirone 10 mg tablet 10 mg PO TID PRN Anxiety 07/23/23 07/23/23 Unknown History ipratropium bromide 0.02 % 2.5 ml inhalation Q6H PRN 07/23/23 07/23/23 Unknown History solution for inhalation Shortness Of Breath simvastatin 20 mg tablet 20 mg PO QPM 07/23/23 07/23/23 07/22/23 History tamsulosin 0.4 mg capsule 0.4 mg PO DAILY 07/23/23 07/23/23 07/22/23 History Allergies Allergy/AdvReac Type Severity Reaction Status Date / Time No Known Allergies Allergy Verified 07/05/23 12:37 PFSH Acute 2 PFSH: Medical History Sleep apnea Heart failure GERD (gastroesophageal reflux disease) Dyslipidemia Smoker Surgical History (Updated 07/23/23 @ 18:53 by Sha Murray MD) History of colon resection Dr. Álvarez History of inguinal hernia repair 20+ years ago AICD (automatic cardioverter/defibrillator) present Family History Sister Heart disease Father Myocardial infarct Social History Smoking and tobacco/nicotine status: former use of tobacco/nicotine Alcohol intake: never Substance/Drug Use: current Substance/Drug use frequency: daily Vitals/I&O/Wt Last Vital Signs Temp 98.0 F 07/23/23 13:31 Pulse 94 07/23/23 15:03 Resp 18 07/23/23 14:04 BP 124/65 07/23/23 15:03 Pulse Ox 94 07/23/23 15:03 O2 Del Method Room Air 07/23/23 15:03 07/23/23 07/23/23 07/23/23 06:59 14:59 22:59 Intake Total 1000 / 1000 Balance 1000 / 1000 Weight last 48 hrs Weight 79.832 kg Physical Exam 2 Narrative: Pleasant cooperative No active sign of heart failure You sepsis A-fib without RVR Pleasant cooperative Bilateral breath sounds Awake and alert Nonfocal neuroexam Currently on room air Appears stated age Data 07/23/23 13:52 07/23/23 13:52 Micro: Microbiology 07/23/23 14:00 Blood Culture - Preliminary Blood SPECIMEN COLLECTED 07/23/23 13:52 Blood Culture - Preliminary Blood SPECIMEN COLLECTED A&P Assessment and plan (1) Cardiomyopathy: Qualifiers: Cardiomyopathy type: dilated Qualified Code(s): I42.0 - Dilated cardiomyopathy (2) AICD (automatic cardioverter/defibrillator) present: (3) New onset a-fib: (4) GERD (gastroesophageal reflux disease): (5) Acute dyspnea: (6) Smoker: Plan New onset A-fib Not in RVR Start Eliquis Gerson Vascor 5 Rate control medication will be metoprolol Check TSH mag and D-dimer Rule out PE Reduced ejection fraction heart failure without acute exacerbation Echo showed EF 30% Patient likely has untreated sleep apnea Does not use oxygen or CPAP at night Does use marijuana for neuropathy Cardiac diet Full code Attestations 2 Medical Necessity Statement*: Most likely will be discharged within 48 hours Diagnoses Dilated cardiomyopathy I42.0 Cardiomyopathy type: dilated AICD (automatic cardioverter/defibrillator) present Z95.810 New onset a-fib I48.91 GERD (gastroesophageal reflux disease) K21.9 Acute dyspnea R06.00 Smoker F17.200
--- NOTE | 2023-07-23 17:05 | USCV_ITS ---
Joe Anurag Age: 62 Gender: M : 1960 Exam Date: 07/23/2023 18:01 Ordering Phys: Sha Murray MD Technologist: Jose G Gill Exam Location: [facility] – [place] Indication: CHF, Emphysema, long smoking history, quit 2021 after pacer/defibrillator. BP: 124 / 65 HR: 98 Rhythm: paced, atrial fibrillation Technical Quality: Adequate MEASUREMENTS (Male / Female) Normal Values 2D ECHO LV Diastolic Diameter PLAX 5.7 cm 4.2 - 5.9 / 3.9 - 5.3 cm IVS Diastolic Thickness 1.1 cm 0.6 - 1.0 / 0.6 - 0.9 cm IVS Systolic Thickness 1.3 cm LVPW Diastolic Thickness 0.9 cm 0.6 - 1.0 / 0.6 - 0.9 cm LVPW Systolic Thickness 1.4 cm LVOT Diameter 2.2 cm LV Ejection Fraction 2D Teich 17.0 % LV Ejection Fraction MOD 2C 28.5 % LV Ejection Fraction 2C AL 28.2 % LA Diameter 4.7 cm LA Sys Volume AL 129.7 cm cubed LA Sys Volume Index AL 65.4 cm cubed/m squared Aorta at Sinotubular Diameter 3.3 cm IVC Diameter 2.2 cm M-MODE LA Ao Ratio MM 1.7 AV Cusp Separation MM 2.0 cm DOPPLER AV Peak Velocity 155.0 cm/s LVOT Peak Velocity 101.0 cm/s AV Area Cont Eq vti 1.9 cm squared AV Area Cont Eq pk 2.5 cm squared MV Peak Velocity 155.0 cm/s MV Area PHT 3.9 cm squared Mitral E to A Ratio 0.0 TV Peak Velocity 252.0 cm/s TR Peak Velocity 268.0 cm/s TR Peak Gradient 28.7 mmHg TV Peak E Velocity 75.0 cm/s Right Atrial Pressure 10.0 mmHg Pulmonary Artery Systolic Pressu 38.7 mmHg PV Peak Velocity 75.0 cm/s FINDINGS Left Ventricle Severe diffuse hypokinesia of the left ventricle. Moderately dilated LV cavity. LV ejection fraction of 28% by MOD. Right Ventricle Normal RV size and ejection fraction. Defibrillator wire in the right ventricle Right Atrium Mildly increased right atrial size. Left Atrium Mildly increased left atrial size. Mitral Valve Mild mitral annular calcification. Moderate mitral valve regurgitation. Aortic Valve Thickened aortic valve. Tricuspid Valve Mild tricuspid valve regurgitation. Estimated pulmonary artery peak systolic pressure 39 mmHg Pulmonic Valve Pulmonic valve not well visualized. Pericardium No pericardial effusion. Aorta Normal aortic annulus size. IVC Normal inferior vena cava. CONCLUSIONS Severe diffuse hypokinesia of the left ventricle. Moderately dilated LV cavity. LV ejection fraction of 28% by MOD. Possibly normal RV size and ejection fraction Mild biatrial enlargement. Mild mitral annular calcification. Mild tricuspid valve regurgitation. Moderate mitral valve regurgitation. Estimated pulmonary artery peak systolic pressure 39 mmHg There is no pericardial effusion. There are no intracardiac masses. Defibrillator wire in the right ventricle Compared to the study from 09/29/2020, there may not be significant change Dr London Vines MD [facility] (Electronically Signed) Final Date: 23 Jul 2023 21:15 S
[2023-07-23 17:07] LABS: Troponin 5 2HR 22.36 ng/L (0-15); Troponin 5 2HR Delta 1.36 ABS# (0-10)
[2023-07-23 17:43] LABS: Glucose Point of Care 147 mg/dL (70-110)
--- NOTE | 2023-07-23 19:25 | USCV_ITS ---
Anurag Diaz Age: 62 Gender: M : 1960 Exam Date: 07/23/2023 20:58 Ordering Phys: Sha Murray MD Technologist: ZA Exam Location: [facility] – [place] Indication: chronic smoking, emphysema, SOB, mild BLE edema. No history of DVT per patient. HISTORY: chronic smoking, emphysema, SOB, mild BLE edema. No history of DVT per patient. PROCEDURES: Venous duplex imaging was performed in bilateral lower extremities. The following venous structures were evaluated: common femoral vein, profunda vein, proximal portion of the greater saphenous vein, superficial femoral vein, and the popliteal vein. In addition, the posterior tibial and peroneal veins were evaluated. FINDINGS: Normal 2-D Doppler and augmentation and compressibility throughout the lower extremity venous structures. Additional imaging through the proximal calf veins also reveals no thrombus. Limited evaluation of the greater saphenous vein is patent with no thrombus. CONCLUSIONS No DVT bilateral lower extremities. Dr. Dedra Lea DO (Electronically Signed) Final Date: 24 Jul 2023 07:24 S
[2023-07-23 20:08] LABS: Troponin 5 6HR 21.14 ng/L (0-15); Troponin 5 6HR Delta 0.14 ng/L (0-12)
[2023-07-23 20:18] LABS: Thyroid Stimulating Hormone 1.75 uIU/mL (0.27-4.20)
[2023-07-23 20:20] LABS: Estmated Average Glucose 123; Hemoglobin A1C 5.9 % (4.0-6.0)
[2023-07-23] MEDS: apixaban 5 mg Tablet PO (20:45)
[2023-07-23] MEDS: metoprolol tartrate 25 mg Tablet PO (20:45)
[2023-07-23 21:51] LABS: Glucose Point of Care 136 mg/dL (70-110)
[2023-07-23] MEDS: acetaminophen 500 mg Tablet PO (22:35)
[2023-07-23] MEDS: albuterol 2.5 mg/3 mL Neb INHALATION (23:39)
[2023-07-24] VITALS (12 sets, daily range): BP systolic 95–129; BP diastolic 69–86; PULSE 84–122; RESP 17–26; TEMP 36.2–36.9; O2SAT 89–99
[2023-07-24] MEDS: hyDROXYzine 25 mg Capsule PO (00:21)
[2023-07-24 01:13] LABS: Vitamin B12 340 pg/mL (232-1245)
[2023-07-24 05:38] LABS: Basophils % 0.1 %; Eosinophils # 0.1 10^3/uL (0.0-0.8); Eosinophils % 1.2 %; Hematocrit 39.4 % (37-53); Lymphocytes # 0.9 10^3/uL (0.8-4.8); Lymphocytes % 11.7 %; Mean Corpuscular HGB Conc 32.5 g/dL (30-55); Mean Corpuscular Hemoglobin 30.1 pg (27-33); Mean Corpuscular Volume 92.7 fl (82-101); Mean Platelet Volume 10.4 fL (7.4-10.4); Monocytes # 0.5 10^3/uL (0.2-0.9); Monocytes % 6.4 %; Neutrophils # 6.19 10^3/uL (1.8-7.7); Neutrophils % 80.3 %; Nucleated Red Blood Cells % 0 %; Platelet Count 154 10^3/cmm (157-399); Red Blood Count 4.25 10^6/uL (3.85-5.65); Red Cell Distribution Width 14.2 % (12.1-15.1)
[2023-07-24] MEDS: albuterol 2.5 mg/3 mL Neb INHALATION ×3 (05:43→19:23)
[2023-07-24 06:04] LABS: Anion Gap 16.6 (5-19); Blood Urea Nitrogen 22 mg/dL (8-23); C Reactive Protein 7.1 mg/L (0.0-4.9); Calcium 8.8 mg/dL (8.5-10.5); Carbon Dioxide 23 mmol/L (22-29); Chloride 102 mmol/L (98-107); Creatinine Clr Calc Pharmacy 119.5314; Glomerular Filtration Rate 114.6 mL/min (90-130); Glucose 131 mg/dL (65-115); Osmolality Calculated 289 mOsm/kg (285-295); Phosphorus 3.8 mg/dL (2.5-4.5); Potassium 4.6 mmol/L (3.5-5.1); Sodium 137 mmol/L (136-145)
[2023-07-24] MEDS: amiodarone 200 mg Tablet 400 MG PO ×2 (08:03→18:17)
[2023-07-24] MEDS: apixaban 5 mg Tablet PO ×2 (08:04→20:43)
[2023-07-24] MEDS: FUROsemide 20 mg Tablet PO (08:04)
[2023-07-24] MEDS: sennosides-docusate Tablet 1 TAB PO (08:04)
[2023-07-24] MEDS: aspirin 81 mg EC Tablet PO (08:04)
[2023-07-24] MEDS: pantoprazole DR 40 mg Tablet PO (08:04)
[2023-07-24] MEDS: tamsulosin 0.4 mg Capsule 0.400000000000000022 MG PO (08:04)
--- NOTE | 2023-07-24 08:54 | PC.CHAP ---
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 [] Patient/Family/Request visit [] Outpatient visit [] Follow-up visit [] Physician referral [] Code/Alert [x] Routine visit [] Staff referral [] Actively dying [] Patient sleeping [] Family support [] [] Out of room [] Palliative care [] [] Receiving care in room [] Pre-surgical visit [] Trauma [] Long length of stay [] ICU visit [] Other: Relational/Emotional Strength [x] Patient feels connected with others/family/visitors/staff [] Distress [] Loneliness/isolation [] Abandonment Spirituality of Patient [x] Person of Yani [] Attends Congregational of their Yani [x] Believes in Prayer [] Reads Bible or Yazidi materials [] There are Spiritual issues to be addressed Profile Shaper Operator Interventions [x] Prayer [x] Active listening [] Non-anxious presence [x] Spiritual/emotional support [] Crisis/trauma care [] Spiritual counseling [] Bereavement support [] Provided bereavement packet [] Provided Bible/devotional materials [] Provided toy/stuffed animal, coloring book to patient or family member [] Provided Communion [] Anointing/[place] [] Salvation [x] Completed spiritual assessment [] Other: Impact on Illness or Injury [] Angry [] Fearful [] Anxious [] Often cries [] Exhaustion [] Unable to work [] Unable to attend yarsani [] Unable to walk/stand [] Unable to read [] Unable to drive [] Unable to eat/drink [] Unable to sleep [] Unable to be with family [] Patient intubated [] Other: Summary Time spent with patient 5 min
--- NOTE | 2023-07-24 09:54 | PM.DCS ---
Discharge Providers Date of Admission: 07/23/23 17:33 Date of Discharge: July 24, 2023 Attending Provider at Admission: Sha Murray MD Attending Provider at Discharge: Sha Murray MD Primary Care Provider: EFRAÍN Granda Diagnoses at Discharge Discharge Diagnosis (1) Cardiomyopathy: Status: Acute Qualifiers: Cardiomyopathy type: dilated Qualified Code(s): I42.0 - Dilated cardiomyopathy (2) AICD (automatic cardioverter/defibrillator) present: Status: Acute (3) New onset a-fib: Status: Acute (4) GERD (gastroesophageal reflux disease): Status: Acute (5) Acute dyspnea: Status: Acute (6) Smoker: Status: Acute Reason for Visit Reason for Visit: sob, fatigue, nausea Hospital Course Hospital Course 62-year male with systolic CHF, reduced ejection fraction of 30% status post AICD present to the hospital for dyspnea on exertion, he was diagnosed with A-fib, he was put on Eliquis 5 mg twice a day along metoprolol however his blood pressure stays on the softer side we decided to put him on amiodarone 400 mg twice daily for 7 days and then 400 mg daily. Patient uses marijuana for his neuropathy. 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 I have counseled him regarding the side effects of using Eliquis. Watch for GI bleed and avoid falls and cuts. He is not requiring oxygen, D-dimer was high, CT chest did not show PE, venous Doppler did not show DVT. Patient is full code. Clinically does not look fluid overloaded he does take Lasix 20 mg daily. Physical Exam Narrative: Pleasant cooperative Euvolemic A-fib without RVR Hemodynamic stable Currently on room air Nonfocal neuroexam Discharge Data Studies Completed and Pending Completed Studies During Hospitalization Category Date Time Status CTA chest [CT angio chest PE protcl [id number]] Stat Cat Scan 07/23/23 14:49 Completed XR chest 1V portable [id number] Stat Exams 07/23/23 13:38 [place] [id number] Routine Ultrasound 07/23/23 19:25 Completed CV. echo complete* [id number] Stat Ultrasound 07/23/23 17:05 Completed Pending at discharge Category Date Time Status Blood Culture Stat Lab 07/23/23 14:00 Results Radiology Impressions Chest X-Ray 07/23/23 13:38 IMPRESSION: No acute findings. Borderline cardiomegaly. Chest CTA 07/23/23 14:49 IMPRESSION: 1. No pulmonary embolism. 2. Slightly increased moderate cardiomegaly. 3. Additional details as above. COMMENTS: The presence of pulmonary emphysema on CT is an independent risk factor for lung cancer. In the absence of a history or active diagnosis of lung cancer, it is recommended that this patient with emphysema be evaluated for enrollment in a low dose CT lung cancer screening program. Laboratory Results WBC 7.70 10^3/uL (3.29-11.43) 07/24/23 05:13 RBC 4.25 10^6/uL (3.85-5.65) 07/24/23 05:13 Hgb 12.80 g/dL (11.27-16.99) 07/24/23 05:13 Hct 39.4 % (37-53) 07/24/23 05:13 MCV 92.7 fl (82-101) 07/24/23 05:13 MCH 30.1 pg (27-33) 07/24/23 05:13 MCHC 32.5 g/dL (30-55) 07/24/23 05:13 RDW 14.2 % (12.1-15.1) 07/24/23 05:13 Plt Count 154 10^3/cmm (157-399) L 07/24/23 05:13 MPV 10.4 fL (7.4-10.4) 07/24/23 05:13 Neut % (Auto) 80.3 % 07/24/23 05:13 Lymph % (Auto) 11.7 % 07/24/23 05:13 [place] % (Auto) 6.4 % 07/24/23 05:13 Eos % (Auto) 1.2 % 07/24/23 05:13 Baso % (Auto) 0.1 % 07/24/23 05:13 Neut # (Auto) 6.19 10^3/uL (1.8-7.7) 07/24/23 05:13 Lymph # (Auto) 0.9 10^3/uL (0.8-4.8) 07/24/23 05:13 [place] # (Auto) 0.5 10^3/uL (0.2-0.9) 07/24/23 05:13 Eos # (Auto) 0.1 10^3/uL (0.0-0.8) 07/24/23 05:13 Baso # (Auto) 0.0 10^3/uL (0.0-0.1) 07/24/23 05:13 Nucleated RBC % (auto) 0 % 07/24/23 05:13 Nucleated RBCs # 0.0 /100WBC 07/24/23 05:13 PT 14.70 SECONDS (12.1-14.9) 07/23/23 13:52 INR 1.12 (0.8-1.2) 07/23/23 13:52 D-Dimer 2.06 ug/mLFEU (0-0.59) H 07/23/23 13:52 Sodium 137 mmol/L (136-145) 07/24/23 05:13 Potassium 4.6 mmol/L (3.5-5.1) 07/24/23 05:13 Chloride 102 mmol/L (98-107) 07/24/23 05:13 Carbon Dioxide 23 mmol/L (22-29) 07/24/23 05:13 Anion Gap 16.6 (5-19) 07/24/23 05:13 BUN 22 mg/dL (8-23) 07/24/23 05:13 Creatinine 0.7 mg/dL (0.7-1.2) 07/24/23 05:13 GFR Calculation 114.6 mL/min (90-130) 07/24/23 05:13 Glucose 131 mg/dL (65-115) H 07/24/23 05:13 POC Glucose 136 mg/dL (70-110) H 07/23/23 21:48 Estimat Average Glucose 123 07/23/23 13:52 Hemoglobin A1c 5.9 % (4.0-6.0) 07/23/23 13:52 Calculated Osmolality 289 mOsm/kg (285-295) 07/24/23 05:13 Lactic Acid 1.6 mmol/L (0.5-2.2) 07/23/23 13:52 Calcium 8.8 mg/dL (8.5-10.5) 07/24/23 05:13 Phosphorus 3.8 mg/dL (2.5-4.5) 07/24/23 05:13 Magnesium 2.0 mg/dL (1.7-2.3) 07/24/23 05:13 Total Bilirubin 0.8 mg/dL (0.15-1.2) 07/23/23 13:52 AST 24 U/L (0-40) 07/23/23 13:52 ALT 49 U/L (0-41) H 07/23/23 13:52 Alkaline Phosphatase 51 U/L (40-130) 07/23/23 13:52 Troponin T Baseline 21 ng/L (0-15) H 07/23/23 13:52 Troponin T 120 Minute 22.36 ng/L (0-15) H 07/23/23 16:22 Delta Troponin T 1.36 ABS# (0-10) 07/23/23 16:22 Troponin T Hi Sens 6Hr 21.14 ng/L (0-15) H 07/23/23 19:30 Troponin T Hi Sens 6Hr Delta 0.14 ng/L (0-12) 07/23/23 19:30 C-Reactive Protein 7.1 mg/L (0.0-4.9) H 07/24/23 05:13 NT-Pro-B Natriuret Pep 4135 pg/mL (0-125) H 07/23/23 13:52 Total Protein 5.8 g/dL (6.6-8.7) L 07/23/23 13:52 Albumin 3.7 g/dL (3.5-5.2) 07/23/23 13:52 Globulin 2.1 g/dL (1.3-4.6) 07/23/23 13:52 Lipase 16 U/L (13-60) 07/23/23 13:52 Vitamin B12 340 pg/mL (232-1245) 07/23/23 19:30 TSH 1.75 uIU/mL (0.27-4.20) 07/23/23 19:30 Urine Color Yellow (Yellow) 07/23/23 14:23 Urine Appearance Clear (CLEAR) 07/23/23 14:23 Urine pH 5 (5-7) 07/23/23 14:23 Ur Specific [place] 1.030 (1.005-1.030) 07/23/23 14:23 Urine Protein 1+ (Negative) H 07/23/23 14:23 Urine Glucose (UA) Norm (Normal) 07/23/23 14:23 Urine Ketones Negative (Negative) 07/23/23 14:23 Urine Blood Neg (Negative) 07/23/23 14:23 Urine Nitrate Negative (Negative) 07/23/23 14:23 Urine Bilirubin 1+ (Negative) H 07/23/23 14:23 Urine Urobilinogen 1 mg/dL (Negative) H 07/23/23 14:23 Ur Leukocyte Esterase Negative (Negative) 07/23/23 14:23 Urine RBC 0-4 /hpf (0-2) H 07/23/23 14:23 Urine WBC 0-4 /hpf (0-5) H 07/23/23 14:23 Ur Squamous Epith Cells 0-4 /hpf (0-5) H 07/23/23 14:23 Amorphous Sediment 1+ /hpf 07/23/23 14:23 Urine Bacteria Trace /hpf (NONE) 07/23/23 14:23 Urine Mucus 2+ /hpf 07/23/23 14:23 Vitals Last Vital Signs Temp 97.5 F L 07/24/23 08:08 Pulse 121 H 07/24/23 08:08 Resp 17 07/24/23 08:08 BP 119/72 07/24/23 08:08 Pulse Ox 99 07/24/23 08:08 O2 Del Method Room Air 07/24/23 08:08 O2 Flow Rate 2 07/23/23 23:48 Discharge Plan Discharge Patient Disposition: Home Condition: Stable Prescriptions: New Eliquis 5 mg Tablet 5 mg PO BID@0900,2100 Qty: 120 2RF amiodarone [Pacerone] 200 mg Tablet 400 mg PO BID Qty: 60 3RF Rx Instructions: 400 mg twice daily for 7 days then 400 mg daily metoprolol succinate [Toprol XL] 25 mg tablet extended release 24 hr 12.5 mg PO DAILY Qty: 60 1RF Continued albuterol sulfate 90 mcg/actuation HFA aerosol inhaler 2 puff INHALATION Q6H PRN (Reason: Shortness Of Breath) omeprazole 20 mg capsule,delayed release(DR/EC) 20 mg PO DAILY sertraline [Zoloft] 100 mg tablet 200 mg PO DAILY furosemide 20 mg tablet 20 mg PO DAILY PRN (Reason: edema) Qty: 90 3RF lisinopril 5 mg tablet 5 mg PO DAILY Qty: 90 3RF aspirin [Avelino Low Dose Aspirin] 81 mg Tablet,Delayed Release (Dr/Ec) 81 mg PO DAILY simvastatin 20 mg tablet 20 mg PO QPM tamsulosin 0.4 mg capsule 0.4 mg PO DAILY buspirone 10 mg tablet 10 mg PO TID PRN (Reason: Anxiety) ipratropium bromide 0.02 % solution 2.5 ml inhalation Q6H PRN (Reason: Shortness Of Breath) Symbicort 160-4.5 mcg/actuation HFA aerosol inhaler 2 puff INHALATION BID Discontinued meloxicam 15 mg tablet 15 mg PO DAILY metoprolol succinate 50 mg tablet extended release 24 hr 50 mg PO DAILY Qty: 90 3RF Referrals: Karen Plata FNP [Nurse Practitioner] - 2 weeks Senia Hansen FNP [Primary Care Provider] - Discharge Diet: Cardiac Discharge Activity: Limit activity as instructed Patient Instructions: Opioid Safety Activity Restrictions/Additional Instructions: Please avoid cuts and falls, you will be on a blood thinner Watch for any sign of dark-colored stools which could be a side effect of Eliquis which could present with dark-colored stools in that scenario stop taking Eliquis You probably will need an EGD to rule out if there is any stomach ulcer which is bleeding with use of Eliquis If your blood pressure stays above 110/90 mmHg please take metoprolol succinate at a lower dose along amiodarone If your blood pressure stays below 110/90 just take amiodarone and avoid metoprolol Discharge Attestations Time Spent in Discharge Care*: greater than 30 min Status at Discharge: Cognitive status at discharge: cognitively intact, Behavioral status at discharge: cooperative, Quality Metrics Clinical Quality Measures [ No reported AMI, CVA or VTE this stay] Coding Level of Care Code Acute Code for Chg Fwd Diagnoses Dilated cardiomyopathy I42.0 Cardiomyopathy type: dilated AICD (automatic cardioverter/defibrillator) present Z95.810 New onset a-fib I48.91 GERD (gastroesophageal reflux disease) K21.9 Acute dyspnea R06.00 Smoker F17.200
--- NOTE | 2023-07-24 10:39 | P.PN_ITS ---
Subjective 2 Subjective: There was plan to discharge him today when I evaluate the patient patient's heart rate was below 100 however on ambulation it got worse, discharge planning was discontinued Patient was given digoxin He has also been switched to amiodarone and low-dose metoprolol succinate He gets symptomatic with A-fib RVR Vitals/I&O/Wt Last Vital Signs Temp 97.5 F L 07/24/23 08:08 Pulse 121 H 07/24/23 08:08 Resp 17 07/24/23 08:08 BP 119/72 07/24/23 08:08 Pulse Ox 99 07/24/23 08:08 O2 Del Method Room Air 07/24/23 08:08 O2 Flow Rate 2 07/23/23 23:48 07/23/23 07/24/23 07/24/23 22:59 06:59 14:59 Intake Total 240 / 1240 240 / 1480 480 / 480 Balance 240 / 1240 240 / 1480 480 / 480 Weight last 48 hrs Weight 84.595 kg Weight 84.187 kg Weight 79.832 kg Physical Exam 2 Narrative: Clinically euvolemic A-fib RVR Pleasant cough This is sitting Sitting at the bedside Anxious appearing Abdomen soft Lower extremity no edema Data 07/24/23 05:13 07/24/23 05:13 Micro: Microbiology 07/23/23 14:00 Blood Culture - Preliminary Blood SPECIMEN COLLECTED 07/23/23 13:52 Blood Culture - Preliminary Blood SPECIMEN COLLECTED A&P Assessment and plan (1) Cardiomyopathy: Qualifiers: Cardiomyopathy type: dilated Qualified Code(s): I42.0 - Dilated cardiomyopathy (2) AICD (automatic cardioverter/defibrillator) present: (3) New onset a-fib: (4) Emphysema of lung: (5) Acute dyspnea: (6) Atrial fibrillation with RVR: Plan New onset A-fib At rest heart rate stays controlled however on ambulation gets worse Given him 250 Discharge planning discontinue Added digoxin and amiodarone Metoprolol dose changed to 12.5 mg extended release Magnesium is 2 potassium is above 4 No signs of PE or DVT Plan to watch him here 1 more day If he is asymptomatic with his current regimen we will see if we need to cardiovert him I will keep him n.p.o. after midnight Continue cardiac diet Continue Lasix Attestations 2 Medical Necessity Statement*: Continue medical management Diagnoses Dilated cardiomyopathy I42.0 Cardiomyopathy type: dilated AICD (automatic cardioverter/defibrillator) present Z95.810 New onset a-fib I48.91 Emphysema of lung J43.9 Acute dyspnea R06.00 Atrial fibrillation with RVR I48.91
[2023-07-24] MEDS: digoxin 250 mcg/ml INJ 2 mL 500 MCG IVP (11:07)
[2023-07-24] MEDS: guaiFENesin-dextromethorphan UDC 10 mL PO (18:55)
--- NOTE | 2023-07-24 20:21 | XRR_ITS ---
PROCEDURE INFORMATION: Exam: XR Chest Exam date and time: 07/24/2023 10:28 PM Age: 62 years old Clinical indication: Shortness of breath; Additional info: SOB TECHNIQUE: Imaging protocol: Radiologic exam of the chest. Views: 1 view. COMPARISON: CT angio chest PE protcl [id number] 07/23/2023 3:11 PM FINDINGS: Tubes, catheters and devices: Left-sided AICD device. Lungs: Irregular opacities in the right lung base. Pleural spaces: Unremarkable. No pleural effusion. No pneumothorax. Heart/Mediastinum: Unremarkable. No cardiomegaly. Bones/joints: Unremarkable. XR/XR chest 1V portable [id number] IMPRESSION: Irregular opacities in the right lung base.
[2023-07-24] MEDS: FUROsemide 10 mg/mL SDV 2mL 20 MG IVP (20:42)
[2023-07-24] MEDS: acetaminophen 500 mg Tablet PO (20:42)
[2023-07-24] MEDS: methylPREDNISolone sod succ 125 mg/2 mL INJ IVP (20:42)
[2023-07-24 21:45] LABS: NT Pro B Type Natriuretic Pept 3496 pg/mL (0-125)
[2023-07-25] VITALS (16 sets, daily range): BP systolic 93–124; BP diastolic 65–86; PULSE 80–108; RESP 16–30; TEMP 36.1–36.7; O2SAT 93–100
[2023-07-25] MEDS: ipratropium-albuterol 3 mL Neb INHALATION ×4 (02:03→20:05)
[2023-07-25 05:42] LABS: Anion Gap 13.7 (5-19); Blood Urea Nitrogen 15 mg/dL (8-23); Calcium 8.8 mg/dL (8.5-10.5); Carbon Dioxide 28 mmol/L (22-29); Chloride 101 mmol/L (98-107); Creatinine Clr Calc Pharmacy 93.8535; Glomerular Filtration Rate 85.8 mL/min (90-130); Glucose 145 mg/dL (65-115); Osmolality Calculated 289 mOsm/kg (285-295); Potassium 4.7 mmol/L (3.5-5.1); Sodium 138 mmol/L (136-145)
--- NOTE | 2023-07-25 07:42 | PM.PN ---
Subjective Subjective: Patient is still in A-fib with heart rate fluctuating between 98-1 16 at rest which gets worse on ambulation Spoke with reporting analyst Dr. Spence Patient will need evaluation of symptomatic A-fib will probably need electrical cardioversion Patient is currently n.p.o. No active chest pain or shortness of breath Vitals/I&O/Wt Last Vital Signs Temp 97.9 F 07/25/23 07:30 Pulse 108 H 07/25/23 07:30 Resp 30 H 07/25/23 07:30 BP 116/86 07/25/23 07:30 Pulse Ox 94 07/25/23 07:30 O2 Del Method Room Air 07/25/23 04:00 O2 Flow Rate 2 07/25/23 02:05 07/24/23 07/25/23 07/25/23 22:59 06:59 14:59 Intake Total 1179.419 / 2339.419 0 / 2339.419 Output Total 400 / 400 Balance 1179.419 / 2339.419 -400 / 1939.419 Weight last 48 hrs Weight 86.409 kg Weight 84.595 kg Weight 84.187 kg Weight 79.832 kg Physical Exam Narrative: Patient clinically euvolemic GCS 15 A-fib RVR Pleasant cooperative Nonfocal neuroexam Afebrile S1-S2 abdomen soft Currently on room air Data 07/24/23 05:13 07/25/23 05:02 Micro: Microbiology 07/23/23 14:00 Blood Culture - Preliminary Blood NEGATIVE TO DATE 07/23/23 13:52 Blood Culture - Preliminary Blood NEGATIVE TO DATE A&P Assessment and plan (1) Cardiomyopathy: Qualifiers: Cardiomyopathy type: dilated Qualified Code(s): I42.0 - Dilated cardiomyopathy (2) AICD (automatic cardioverter/defibrillator) present: (3) New onset a-fib: (4) Atrial fibrillation with RVR: (5) Acute dyspnea: (6) Smoker: Plan Symptomatic A-fib with RVR Dyspnea on exertion No active confusion chest pain or shortness of breath at rest Patient gets symptomatic with minimal exertion N.p.o. for today Will need evaluation for electrocardioversion Continue Eliquis along amiodarone, Will resume low-dose Lasix p.o. regimen at this point Considering reduced ejection fraction continue metoprolol succinate at a lower dose as well Patient is not hypotensive Patient was given 1 dose of digoxin which did not improve his heart rate In consideration of cardioversion I would hold off on resuming p.o. digoxin until he has been evaluated by reporting analyst Full code Attestations Medical Necessity Statement*: Continue medical management Coding Level of Care Code Acute Code for Chg Fwd Diagnoses Dilated cardiomyopathy I42.0 Cardiomyopathy type: dilated AICD (automatic cardioverter/defibrillator) present Z95.810 New onset a-fib I48.91 Atrial fibrillation with RVR I48.91 Acute dyspnea R06.00 Smoker F17.200
[2023-07-25] MEDS: budesonide 0.5 mg/2 mL Neb INHALATION ×2 (07:46→20:05)
[2023-07-25 08:15] LABS: Magnesium 1.8 mg/dL (1.7-2.3)
--- NOTE | 2023-07-25 08:26 | P.CONIM_ITS ---
Providers/Reason For Consult 2 Consulting Physician/Specialty*: Justin Spence MD/ Cardiology Reason for Consult*: Atrial fibrillation with RVR Requesting Physician: Dr Murray Attending Physician: Sha Murray MD Primary Care Provider: EFRAÍN Granda History of Present Illness History of Present Illness Anurag Diaz Jr is a 62 year old male with past medical history of nonischemic cardiomyopathy, ICD in place who presented to hospital with palpitations and shortness of breath. Also feeling significantly tired. He was found to be in A-fib with RVR. Echo shows EF of 28%. At rest heart rates were improved yesterday however on minimal exertion may cause him to feel with RVR. Review of Systems 2 Const: Reports: fatigue; Denies: fever(s) Eyes: Denies: change in vision ENMT: Denies: throat pain Card: Reports: irregular heart rhythm Resp: Reports: dyspnea GI: Denies: abdominal pain Medications/Allergies Home Medications Medication Instructions Recorded Confirmed Last Taken Type albuterol sulfate 90 mcg/actuation 2 puff inhalation Q6H PRN 03/25/19 07/23/23 1 Month Ago History aerosol inhaler Shortness Of Breath ~12/14/20 omeprazole 20 mg capsule,delayed 20 mg PO DAILY 03/25/19 07/23/23 07/23/23 History release aspirin 81 mg tablet,delayed 81 mg PO DAILY 11/23/20 07/23/23 07/23/23 History release (Avelino Low Dose Aspirin) sertraline 100 mg tablet (Zoloft) 200 mg PO DAILY 03/27/23 07/23/23 07/23/23 History lisinopril 5 mg tablet 5 mg PO DAILY #90 tabs 03/28/23 07/23/23 07/23/23 Rx buspirone 10 mg tablet 10 mg PO TID PRN Anxiety 07/23/23 07/23/23 Unknown History ipratropium bromide 0.02 % 2.5 ml inhalation Q6H PRN 07/23/23 07/23/23 Unknown History solution for inhalation Shortness Of Breath simvastatin 20 mg tablet 20 mg PO QPM 07/23/23 07/23/23 07/22/23 History tamsulosin 0.4 mg capsule 0.4 mg PO DAILY 07/23/23 07/23/23 07/22/23 History amiodarone 200 mg tablet (Pacerone) 400 mg (2 x 200 mg) PO BID #60 tabs 07/24/23 Unknown Rx apixaban 5 mg tablet (Eliquis) 5 mg PO BID@0900,2100 #120 tabs 07/24/23 Unknown Rx metoprolol succinate 25 mg 12.5 mg (1/2 x 25 mg) PO DAILY #60 07/24/23 Unknown Rx tablet,extended release 24 hr tabs (Toprol XL) amoxicillin 875 mg-potassium 1 tab PO BID #10 tabs 07/26/23 Unknown Rx clavulanate 125 mg tablet budesonide-formoterol HFA 160 2 puff inhalation BID #10.2 grams 07/26/23 Unknown Rx mcg-4.5 mcg/actuation aerosol inhaler (Symbicort) furosemide 20 mg tablet 20 mg PO DAILY PRN edema #90 tabs 07/26/23 Unknown Rx methylprednisolone 4 mg tablets in See Rx Instructions PO .COMPLEX 07/26/23 Unknown Rx a dose pack (Medrol (Fabio)) #21 ea Allergies Allergy/AdvReac Type Severity Reaction Status Date / Time No Known Allergies Allergy Verified 07/05/23 12:37 Current Medications Generic Name Dose Route Start Last Admin Trade Name Freq PRN Reason Stop Dose Admin Acetaminophen 500 mg 07/23/23 19:25 07/24/23 20:42 Acetaminophen 500 Mg Tablet PO 500 mg Q4H PRN Administration fever Albuterol Sulfate 2.5 mg 07/23/23 19:29 07/24/23 19:23 Albuterol 2.5 Mg/3 Ml Neb INHALATION 2.5 mg Q6H PRN Administration Shortness Of Breath Albuterol/Ipratropium 3 ml 07/23/23 19:25 07/25/23 07:46 Ipratropium-Albuterol 3 Ml Neb INHALATION 3 ml Q6H PRN Administration SHORTNESS OF BREATH Amiodarone HCl 400 mg 07/24/23 09:00 07/24/23 18:17 Amiodarone 200 Mg Tablet PO 400 mg BID XUAN Administration Apixaban 5 mg 07/23/23 21:00 07/24/23 20:43 Apixaban 5 Mg Tablet PO 5 mg BID@0900,2100 XUAN Administration Aspirin 81 mg 07/24/23 09:00 07/24/23 08:04 Aspirin 81 Mg Ec Tablet PO 81 mg DAILY XUAN Administration Budesonide 0.5 mg 07/25/23 08:00 07/25/23 07:46 Budesonide 0.5 Mg/2 Ml Neb INHALATION 0.5 mg BID.RESPIRATORY XUAN Administration Furosemide 20 mg 07/24/23 08:00 07/24/23 08:04 Furosemide 20 Mg Tablet PO 20 mg DAILY@0800 XUAN Administration Guaifenesin/Dextromethorphan 10 ml 07/24/23 18:35 07/24/23 18:55 Guaifenesin-Dextromethorphan Udc 10 Ml PO 10 ml Q4H PRN Administration COUGH Amiodarone HCl/Dextrose 360 mg in 200 mls @ 0 mls/hr 07/24/23 13:07 07/24/23 22:31 Nexterone IV 0.5 mg/min .Q0M XUAN 16.67 mls/hr Titration Protocol Per Protocol Pantoprazole Sodium 40 mg 07/24/23 09:00 07/24/23 08:[address] 40 Mg Tablet PO 40 mg DAILY XUAN Administration Senna/Docusate Sodium 1 tab 07/24/23 09:00 07/24/23 08:04 Sennosides-Docusate Tablet PO 1 tab DAILY XUAN Administration Tamsulosin HCl 0.4 mg 07/24/23 09:00 07/24/23 08:04 Tamsulosin 0.4 Mg Capsule PO 0.4 mg DAILY XUAN Administration PFSH Acute 2 PFSH: Medical History Acute dyspnea New onset a-fib Cardiomyopathy Sleep apnea Heart failure GERD (gastroesophageal reflux disease) Dyslipidemia Smoker Surgical History (Updated 07/27/23 @ 00:01 by CARSON Santos) History of colon resection Dr. Álvarez History of inguinal hernia repair 20+ years ago AICD (automatic cardioverter/defibrillator) present Family History Sister Heart disease Father Myocardial infarct Social History Smoking and tobacco/nicotine status: former use of tobacco/nicotine Alcohol intake: never Substance/Drug Use: current Substance/Drug use frequency: daily Vitals/I&O/Wt Last Vital Signs Temp 97.9 F 07/25/23 07:30 Pulse 96 05/09/24 08:06 Resp 20 H 07/25/23 07:48 BP 116/86 07/25/23 07:30 Pulse Ox 96 07/25/23 07:48 O2 Del Method Nasal Cannula 07/25/23 07:48 O2 Flow Rate 2 07/25/23 07:48 07/24/23 07/25/23 07/25/23 22:59 06:59 14:59 Intake Total 1179.419 / 2339.419 0 / 2339.419 Output Total 400 / 400 Balance 1179.419 / 2339.419 -400 / 1939.419 Weight last 48 hrs Weight 190 lb 8 oz Weight 186 lb 8 oz Weight 185 lb 9.6 oz Weight 176 lb Physical Exam 2 Narrative: GENERAL: Patient is alert, awake and oriented x3. [] NECK: No jugular vein distension. [] HEENT: No cyanosis. No icterus. No pallor. [] HEART: Tachycardia, irregularly irregular LUNGS: Clear to auscultate bilaterally. [] CENTRAL NERVOUS SYSTEM: Grossly nonfocal. [] EXTREMITIES: Lower extremities with 1+ edema bilaterally. Data 07/26/23 04:24 07/26/23 04:24 Micro: Microbiology 07/23/23 14:00 Blood Culture - Preliminary Blood NEGATIVE TO DATE 07/23/23 13:52 Blood Culture - Preliminary Blood NEGATIVE TO DATE A&P Assessment and plan (1) Cardiomyopathy: Qualifiers: Cardiomyopathy type: dilated Qualified Code(s): I42.0 - Dilated cardiomyopathy (2) AICD (automatic cardioverter/defibrillator) present: (3) New onset a-fib: (4) Atrial fibrillation with RVR: (5) Acute dyspnea: (6) Smoker: Plan Patient was found to have atrial fibrillation with RVR. No formal previous diagnosis. He is still in RVR. Continue amiodarone and Eliquis. Keep n.p.o.. Plan for TAZ/cardioversion Thank you for involving us with care of this patinet. We will continue to follow. Please call with questions. Consult Attestations 2 Medical Necessity Statement: Care expected to cross 2 midnights. Coding Level of Care Code Acute Code for [facility] Fwd Diagnoses Dilated cardiomyopathy I42.0 Cardiomyopathy type: dilated AICD (automatic cardioverter/defibrillator) present Z95.810 New onset a-fib I48.91 Atrial fibrillation with RVR I48.91 Acute dyspnea R06.00 Smoker F17.200
[2023-07-25] MEDS: sennosides-docusate Tablet 1 TAB PO (09:19)
[2023-07-25] MEDS: tamsulosin 0.4 mg Capsule 0.400000000000000022 MG PO (09:19)
[2023-07-25] MEDS: aspirin 81 mg EC Tablet PO (09:19)
[2023-07-25] MEDS: apixaban 5 mg Tablet PO ×2 (09:20→20:24)
[2023-07-25] MEDS: metoprolol succinate ER (24 HR) 25 mg Tablet 12.5 MG PO (09:20)
[2023-07-25] MEDS: amiodarone 200 mg Tablet 400 MG PO ×2 (09:20→18:21)
[2023-07-25] MEDS: pantoprazole DR 40 mg Tablet PO (09:20)
[2023-07-25] MEDS: FUROsemide 20 mg Tablet PO (09:20)
--- NOTE | 2023-07-25 11:52 | W.PM.OPSUD ---
Surgery/Procedure H&P Update DATE OF PROCEDURE: July 25, 2023 DATE H&P PERFORMED: 07/25/23 H&P UPDATE INFORMATION: I have reviewed H&P completed within last 30 days, I have examined patient prior to procedure and No changes to prior documentation PREOP DIAGNOSIS: Atrial fibrillation PRIMARY INDICATION FOR PROCEDURE: Atrial fibrillation PLANNED PROCEDURE: Operation Date: 07/25/23 12:00 Proposed Procedures p TAZ(Not Applicable) - Justin Spence M.D s Cardioversion(Not Applicable) - Justin Spence M.D Anesthesia team available for procedure
[2023-07-25] MEDS: sodium chloride 0.9% 1,000 ML 30 ML IV (11:58)
--- NOTE | 2023-07-25 12:00 | USCV_ITS ---
Anurag Diaz Age: 62 Gender: M : 1960 Exam Date: 07/25/2023 12:11 Ordering Phys: Justin Spence M.D ([email or web address]) Technologist: Salomón Rajan Exam Location: [facility] [place] Indication: card conversion BP: / HR: Rhythm: Sinus Technical Quality: MEASUREMENTS (Male / Female) Normal Values Medications Per anesthesia team. Complications None. Proc. Components After anesthesia team sedated patient, we proceeded with advancing TAZ probe. FINDINGS Left Ventricle LV systolic function appears to be severely reduced Right Ventricle Normal in size and function. Right Atrium Normal in size Left Atrium Dilated. LA Appendage No left atrial appendage thrombus seen. IA Septum Normal. Mitral Valve Structurally normal. Aortic Valve Structurally normal. Tricuspid Valve Grossly normal Pulmonic Valve Appears to be normal Pericardium Normal Aorta Normal in size CONCLUSIONS LV systolic function is severely reduced Left atrial dilation No left atrial appendage thrombus seen Justin Spence MD (Electronically Signed) Final Date: 28 Jul 2023 10:17 S
--- NOTE | 2023-07-25 12:53 | P.PCN_ITS ---
Procedure Note: Date of procedure: 07/25/23 Pre-procedure diagnosis: Atrial fibrillation with RVR Post-procedure diagnosis: other (Normal sinus rhythm) Procedure: Procedure detail: After anesthesia team sedated patient, we proceeded with t ransesophageal echocardiogram. No left atrial appendage thrombus was seen. We then performed successful cardioversion with 1 shock of 200 J. He was confirmed to be in normal sinus rhythm. Performing Provider: Justin Spence Complications: None Condition: stable Disposition: floor Coding Level of Care Code Acute Code for Pardeep Vargas
--- NOTE | 2023-07-25 18:02 | ECG_ITS ---
[facility] Test Date: 2023-07-25 Pat Name: Anurag Diaz Department: Room: 105 Gender: Male [employer]: : 1960 Requested By: Justin Spence Order Number: [id number] Antony MD: Justin Spence M.D. Measurements Intervals [place] Rate: 107 P: 67 PA: 200 QRS: 5 QRSD: 133 T: 66 QT: 349 QTc: 467 Interpretive Statements SINUS TACHYCARDIA LEFT ATRIAL ENLARGEMENT [-0.15mV P-WAVE IN V1/V2] INTRAVENTRICULAR CONDUCTION DELAY [130+ ms QRS DURATION] Compared to ECG 07/23/2023 15:50:25 Atrial fibrillation no longer present T-wave abnormality no longer present Possible ischemia no longer present Electronically Signed On 07-26-2023 9:21:58 CDT by Justin Spence M.D. [id number]
[2023-07-25] MEDS: metoprolol tartrate 25 mg Tablet 37.5 MG PO (20:23)
[2023-07-26] VITALS (7 sets, daily range): BP systolic 98–122; BP diastolic 64–76; PULSE 77–92; RESP 18–22; TEMP 36.5–36.8; O2SAT 91–97
[2023-07-26] MEDS: acetaminophen 500 mg Tablet PO (00:06)
[2023-07-26] MEDS: ipratropium-albuterol 3 mL Neb INHALATION (02:58)
[2023-07-26 04:39] LABS: Basophils % 0.2 %; Eosinophils # 0.1 10^3/uL (0.0-0.8); Eosinophils % 1.1 %; Hematocrit 40.7 % (37-53); Lymphocytes # 0.6 10^3/uL (0.8-4.8); Lymphocytes % 6.9 %; Mean Corpuscular HGB Conc 30.5 g/dL (30-55); Mean Corpuscular Hemoglobin 30.5 pg (27-33); Mean Platelet Volume 10.3 fL (7.4-10.4); Monocytes # 0.5 10^3/uL (0.2-0.9); Monocytes % 6.3 %; Neutrophils # 7.14 10^3/uL (1.8-7.7); Neutrophils % 85.3 %; Nucleated Red Blood Cells % 0 %; Platelet Count 174 10^3/cmm (157-399); Red Blood Count 4.07 10^6/uL (3.85-5.65); Red Cell Distribution Width 14.7 % (12.1-15.1); White Blood Count 8.38 10^3/uL (3.29-11.43)
[2023-07-26 04:56] LABS: Anion Gap 16.2 (5-19); Blood Urea Nitrogen 27 mg/dL (8-23); Calcium 8.9 mg/dL (8.5-10.5); Carbon Dioxide 24 mmol/L (22-29); Chloride 101 mmol/L (98-107); Creatinine Clr Calc Pharmacy 76.3595; Glomerular Filtration Rate 68.1 mL/min (90-130); Glucose 144 mg/dL (65-115); Osmolality Calculated 292 mOsm/kg (285-295); Potassium 4.2 mmol/L (3.5-5.1); Sodium 137 mmol/L (136-145)
--- NOTE | 2023-07-26 07:29 | P.DS_ITS ---
Discharge Providers Date of Admission: 07/25/23 11:15 Date of Discharge: July 26, 2023 Attending Provider at Admission: Sha Murray MD Attending Provider at Discharge: Sha Murray MD Primary Care Provider: EFRAÍN Granda Diagnoses at Discharge Discharge Diagnosis (1) Cardiomyopathy: Status: Acute Qualifiers: Cardiomyopathy type: dilated Qualified Code(s): I42.0 - Dilated cardiomyopathy (2) AICD (automatic cardioverter/defibrillator) present: Status: Acute (3) New onset a-fib: Status: Acute (4) Atrial fibrillation with RVR: Status: Acute (5) Acute dyspnea: Status: Acute (6) Smoker: Status: Acute Reason for Visit Reason for Visit: sob, fatigue, nausea Hospital Course Hospital Course 62-year male with systolic CHF, reduced ejection fraction of 30% status post AICD present to the hospital for dyspnea on exertion, he was diagnosed with new onset A-fib, he was put on Eliquis 5 mg twice a day along metoprolol however his blood pressure stays on the softer side we decided to put him on amiodarone 400 mg twice daily for 7 days and then 400 mg daily. Patient was getting symptomatic with his A-fib, decision was made to do cardioversion, status post cardioversion patient converted to sinus rhythm, patient uses marijuana for his neuropathy. 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 I have counseled him regarding the side effects of using Eliquis. Watch for GI bleed and avoid falls and cuts. He is not requiring oxygen will go for home oxygen evaluation before discharge, D-dimer was high, CTA chest did not show PE, venous Doppler did not show DVT. Patient is full code. Clinically does not look fluid overloaded he does take La six 20 mg daily. Which I have asked him to increase it to 40 mg daily for a few days, will also add levofloxacin for 5 days for irregular opacities of lower lung lobe Physical Exam Narrative: Awake and alert Sinus rhythm Hemodynamic stable Anxious appearing No active wheezing S1, S2 Discharge Data Studies Completed and Pending Completed Studies During Hospitalization Category Date Time Status CTA chest [CT angio chest PE protcl [id number]] Stat Cat Scan 07/23/23 14:49 Completed XR chest 1V portable [id number] Routine Exams 07/24/23 20:21 Completed XR chest 1V portable [id number] Stat Exams 07/23/23 13:38 [place] [id number] Routine Ultrasound 07/23/23 19:25 Completed CV. echo complete* [id number] Stat Ultrasound 07/23/23 17:05 Completed Pending at discharge Category Date Time Status Blood Culture Stat Lab 07/23/23 14:00 Results CV. echo transesophageal [id number] Routine Ultrasound 07/25/23 12:00 Taken Radiology Impressions Chest CTA 07/23/23 14:49 IMPRESSION: 1. No pulmonary embolism. 2. Slightly increased moderate cardiomegaly. 3. Additional details as above. COMMENTS: The presence of pulmonary emphysema on CT is an independent risk factor for lung cancer. In the absence of a history or active diagnosis of lung cancer, it is recommended that this patient with emphysema be evaluated for enrollment in a low dose CT lung cancer screening program. Chest X-Ray 07/24/23 20:21 IMPRESSION: Irregular opacities in the right lung base. Laboratory Results WBC 8.38 10^3/uL (3.29-11.43) 07/26/23 04:24 RBC 4.07 10^6/uL (3.85-5.65) 07/26/23 04:24 Hgb 12.40 g/dL (11.27-16.99) 07/26/23 04:24 Hct 40.7 % (37-53) 07/26/23 04:24 MCV 100.0 fl (82-101) 07/26/23 04:24 MCH 30.5 pg (27-33) 07/26/23 04:24 MCHC 30.5 g/dL (30-55) 07/26/23 04:24 RDW 14.7 % (12.1-15.1) 07/26/23 04:24 Plt Count 174 10^3/cmm (157-399) 07/26/23 04:24 MPV 10.3 fL (7.4-10.4) 07/26/23 04:24 Neut % (Auto) 85.3 % 07/26/23 04:24 Lymph % (Auto) 6.9 % 07/26/23 04:24 Zavala % (Auto) 6.3 % 07/26/23 04:24 Eos % (Auto) 1.1 % 07/26/23 04:24 Baso % (Auto) 0.2 % 07/26/23 04:24 Neut # (Auto) 7.14 10^3/uL (1.8-7.7) 07/26/23 04:24 Lymph # (Auto) 0.6 10^3/uL (0.8-4.8) L 07/26/23 04:24 Zavala # (Auto) 0.5 10^3/uL (0.2-0.9) 07/26/23 04:24 Eos # (Auto) 0.1 10^3/uL (0.0-0.8) 07/26/23 04:24 Baso # (Auto) 0.0 10^3/uL (0.0-0.1) 07/26/23 04:24 Nucleated RBC % (auto) 0 % 07/26/23 04:24 Nucleated RBCs # 0.0 /100WBC 07/26/23 04:24 PT 14.70 SECONDS (12.1-14.9) 07/23/23 13:52 INR 1.12 (0.8-1.2) 07/23/23 13:52 D-Dimer 2.06 ug/mLFEU (0-0.59) H 07/23/23 13:52 Sodium 137 mmol/L (136-145) 07/26/23 04:24 Potassium 4.2 mmol/L (3.5-5.1) 07/26/23 04:24 Chloride 101 mmol/L (98-107) 07/26/23 04:24 Carbon Dioxide 24 mmol/L (22-29) 07/26/23 04:24 Anion Gap 16.2 (5-19) 07/26/23 04:24 BUN 27 mg/dL (8-23) H 07/26/23 04:24 Creatinine 1.1 mg/dL (0.7-1.2) 07/26/23 04:24 GFR Calculation 68.1 mL/min (90-130) L 07/26/23 04:24 Glucose 144 mg/dL (65-115) H 07/26/23 04:24 POC Glucose 136 mg/dL (70-110) H 07/23/23 21:48 Estimat Average Glucose 123 07/23/23 13:52 Hemoglobin A1c 5.9 % (4.0-6.0) 07/23/23 13:52 Calculated Osmolality 292 mOsm/kg (285-295) 07/26/23 04:24 Lactic Acid 1.6 mmol/L (0.5-2.2) 07/23/23 13:52 Calcium 8.9 mg/dL (8.5-10.5) 07/26/23 04:24 Phosphorus 3.8 mg/dL (2.5-4.5) 07/24/23 05:13 Magnesium 1.8 mg/dL (1.7-2.3) 07/25/23 05:02 Total Bilirubin 0.8 mg/dL (0.15-1.2) 07/23/23 13:52 AST 24 U/L (0-40) 07/23/23 13:52 ALT 49 U/L (0-41) H 07/23/23 13:52 Alkaline Phosphatase 51 U/L (40-130) 07/23/23 13:52 Troponin T Baseline 21 ng/L (0-15) H 07/23/23 13:52 Troponin T 120 Minute 22.36 ng/L (0-15) H 07/23/23 16:22 Delta Troponin T 1.36 ABS# (0-10) 07/23/23 16:22 Troponin T Hi Sens 6Hr 21.14 ng/L (0-15) H 07/23/23 19:30 Troponin T Hi Sens 6Hr Delta 0.14 ng/L (0-12) 07/23/23 19:30 C-Reactive Protein 7.1 mg/L (0.0-4.9) H 07/24/23 05:13 NT-Pro-B Natriuret Pep 3496 pg/mL (0-125) H 07/24/23 05:13 Total Protein 5.8 g/dL (6.6-8.7) L 07/23/23 13:52 Albumin 3.7 g/dL (3.5-5.2) 07/23/23 13:52 Globulin 2.1 g/dL (1.3-4.6) 07/23/23 13:52 Lipase 16 U/L (13-60) 07/23/23 13:52 Vitamin B12 340 pg/mL (232-1245) 07/23/23 19:30 TSH 1.75 uIU/mL (0.27-4.20) 07/23/23 19:30 Urine Color Yellow (Yellow) 07/23/23 14:23 Urine Appearance Clear (CLEAR) 07/23/23 14:23 Urine pH 5 (5-7) 07/23/23 14:23 Ur Specific [place] 1.030 (1.005-1.030) 07/23/23 14:23 Urine Protein 1+ (Negative) H 07/23/23 14:23 Urine Glucose (UA) Norm (Normal) 07/23/23 14:23 Urine Ketones Negative (Negative) 07/23/23 14:23 Urine Blood Neg (Negative) 07/23/23 14:23 Urine Nitrate Negative (Negative) 07/23/23 14:23 Urine Bilirubin 1+ (Negative) H 07/23/23 14:23 Urine Urobilinogen 1 mg/dL (Negative) H 07/23/23 14:23 Ur Leukocyte Esterase Negative (Negative) 07/23/23 14:23 Urine RBC 0-4 /hpf (0-2) H 07/23/23 14:23 Urine WBC 0-4 /hpf (0-5) H 07/23/23 14:23 Ur Squamous Epith Cells 0-4 /hpf (0-5) H 07/23/23 14:23 Amorphous Sediment 1+ /hpf 07/23/23 14:23 Urine Bacteria Trace /hpf (NONE) 07/23/23 14:23 Urine Mucus 2+ /hpf 07/23/23 14:23 Vitals Last Vital Signs Temp 98.3 F 07/26/23 03:41 Pulse 92 07/26/23 04:12 Resp 18 07/26/23 03:41 BP 109/76 07/26/23 03:41 Pulse Ox 97 07/26/23 03:41 O2 Del Method Nasal Cannula 07/26/23 03:41 O2 Flow Rate 3 07/26/23 03:41 Discharge Plan Discharge Patient Disposition: Home Condition: Stable Prescriptions: New amoxicillin-pot clavulanate 875-125 mg tablet 1 tab PO BID Qty: 10 0RF Eliquis 5 mg Tablet 5 mg PO BID@0900,2100 Qty: 120 2RF amiodarone [Pacerone] 200 mg Tablet 400 mg PO BID Qty: 60 3RF Rx Instructions: 400 mg twice daily for 7 days then 400 mg daily metoprolol succinate [Toprol XL] 25 mg tablet extended release 24 hr 12.5 mg PO DAILY Qty: 60 1RF methylprednisolone [Medrol (Fabio)] 4 mg tablets,dose pack See Rx Instructions .ROUTE .COMPLEX Qty: 21 0RF Rx Instructions: orally per package directions Continued albuterol sulfate 90 mcg/actuation HFA aerosol inhaler 2 puff INHALATION Q6H PRN (Reason: Shortness Of Breath) omeprazole 20 mg capsule,delayed release(DR/EC) 20 mg PO DAILY sertraline [Zoloft] 100 mg tablet 200 mg PO DAILY lisinopril 5 mg tablet 5 mg PO DAILY Qty: 90 3RF aspirin [Avelino Low Dose Aspirin] 81 mg Tablet,Delayed Release (Dr/Ec) 81 mg PO DAILY simvastatin 20 mg tablet 20 mg PO QPM tamsulosin 0.4 mg capsule 0.4 mg PO DAILY buspirone 10 mg tablet 10 mg PO TID PRN (Reason: Anxiety) ipratropium bromide 0.02 % solution 2.5 ml inhalation Q6H PRN (Reason: Shortness Of Breath) furosemide 20 mg tablet 20 mg PO DAILY PRN (Reason: edema) Qty: 90 3RF Symbicort 160-4.5 mcg/actuation HFA aerosol inhaler 2 puff INHALATION BID Qty: 10.2 2RF Discontinued meloxicam 15 mg tablet 15 mg PO DAILY metoprolol succinate 50 mg tablet extended release 24 hr 50 mg PO DAILY Qty: 90 3RF Discharge Orders: Discharge Order (Routine); Ordered 07/26/23 Ordered By: Sha Murray Referrals: Karen Plata FNP [Nurse Practitioner] - 08/06/23 1:30 pm Senia Hansen FNP [Primary Care Provider] - 07/31/23 1:30 pm Discharge Diet: Cardiac Discharge Activity: Limit activity as instructed Patient Instructions: Metoprolol (By mouth) (Lopressor, Toprol XL), Amiodarone (By mouth) (Cordarone, Pacerone), Apixaban (By mouth) (Eliquis), Opioid Safety Activity Restrictions/Additional Instructions: Please avoid cuts and falls, you will be on a blood thinner Watch for any sign of dark-colored stools which could be a side effect of Eliquis which could present with dark-colored stools in that scenario stop taking Eliquis You probably will need an EGD to rule out if there is any stomach ulcer which is bleeding with use of Eliquis If your blood pressure stays above 110/90 mmHg please take metoprolol succinate at a lower dose along amiodarone If your blood pressure stays below 110/90 just take amiodarone and avoid metoprolol Discharge Attestations Time Spent in Discharge Care*: greater than 30 min Status at Discharge: Cognitive status at discharge: cognitively intact , Behavioral status at discharge: cooperative , Quality Metrics Clinical Quality Measures [ No reported AMI, CVA or VTE this stay] Coding Level of Care Code Acute Code for Chg Fwd Diagnoses Dilated cardiomyopathy I42.0 Cardiomyopathy type: dilated AICD (automatic cardioverter/defibrillator) present Z95.810 New onset a-fib I48.91 Atrial fibrillation with RVR I48.91 Acute dyspnea R06.00 Smoker F17.200
--- NOTE | 2023-07-26 07:50 | XR_ITS ---
WS: [id number] Portable AP upright chest, 07/26/2023 Clinical Data: increased SOB Comparison: Portable chest, 07/24/2023 Findings: The right basilar opacities have cleared almost entirely. There is a small residual right p leural effusion. The heart remains enlarged. There is minimal pulmonary vascular congestion unchanged . The cardiac pacemaker remains in the same position. No pneumonia or pneumothorax is present. There are no nodules or masses. Monitor leads are on the chest wall. XR/XR chest 1V portable [id number] Impression: 1. Significant clearing of right basilar opacity. 2. No change in cardiomegaly and position of cardiac pacemaker and defibrillato r.
--- NOTE | 2023-07-26 07:51 | PC.NURSE ---
Rounding performed with Dr Murray. Received verbal orders for CXR, Home O2 eval. and onetime dose of Xanax 0.25 PO now.
--- NOTE | 2023-07-26 07:52 | P.PN_ITS ---
Subjective 2 Subjective: Patient is staying in normal sinus rhythm after cardioversion yesterday. We had increased metoprolol dose to 37.5 mg twice daily. Vitals/I&O/Wt Last Vital Signs Temp 98.3 F 07/26/23 03:41 Pulse 92 07/26/23 04:12 Resp 18 07/26/23 03:41 BP 109/76 07/26/23 03:41 Pulse Ox 97 07/26/23 03:41 O2 Del Method Nasal Cannula 07/26/23 03:41 O2 Flow Rate 3 07/26/23 03:41 07/25/23 07/26/23 07/26/23 22:59 06:59 14:59 Intake Total 480 / 680 0 / 680 Output Total 400 / 800 Balance 80 / -120 0 / -120 Weight last 48 hrs Weight 188 lb 2 oz Weight 190 lb 8 oz Physical Exam 2 Narrative: GENERAL: Patient is alert, awake and oriented x3. [] NECK: No jugular vein distension. [] HEENT: No cyanosis. No icterus. No pallor. [] HEART: Regular rate and rhythm LUNGS: Clear to auscultate bilaterally. [] CENTRAL NERVOUS SYSTEM: Grossly nonfocal. [] EXTREMITIES: Lower extremities with 1+ edema bilaterally. Data 07/26/23 04:24 07/26/23 04:24 A&P Assessment and plan (1) Cardiomyopathy: Qualifiers: Cardiomyopathy type: dilated Qualified Code(s): I42.0 - Dilated cardiomyopathy (2) AICD (automatic cardioverter/defibrillator) present: (3) New onset a-fib: (4) Atrial fibrillation with RVR: (5) Acute dyspnea: (6) Smoker: Plan Patient is staying in sinus rhythm. Uptitrate metoprolol to 25 twice daily at discharge. Continue Eliquis and amiodarone. Follow-up with cardiology office Attestations 2 Medical Necessity Statement*: Care expected to cross 2 midnights. Coding Level of Care Code Acute Code for [facility] Fwd Diagnoses Dilated cardiomyopathy I42.0 Cardiomyopathy type: dilated AICD (automatic cardioverter/defibrillator) present Z95.810 New onset a-fib I48.91 Atrial fibrillation with RVR I48.91 Acute dyspnea R06.00 Smoker F17.200
[2023-07-26] MEDS: sennosides-docusate Tablet 1 TAB PO (07:59)
[2023-07-26] MEDS: tamsulosin 0.4 mg Capsule 0.400000000000000022 MG PO (07:59)
[2023-07-26] MEDS: aspirin 81 mg EC Tablet PO (07:59)
[2023-07-26] MEDS: ALPRAZolam 0.5 mg Tablet 0.25 MG PO (07:59)
[2023-07-26] MEDS: pantoprazole DR 40 mg Tablet PO (07:59)
[2023-07-26] MEDS: amiodarone 200 mg Tablet 400 MG PO (08:00)
[2023-07-26] MEDS: FUROsemide 20 mg Tablet PO (08:00)
[2023-07-26] MEDS: metoprolol tartrate 25 mg Tablet 37.5 MG PO (08:03)
[2023-07-26] MEDS: apixaban 5 mg Tablet PO (08:03)
[2023-07-26] MEDS: albuterol 2.5 mg/3 mL Neb INHALATION (08:35)
[2023-07-26] MEDS: budesonide 0.5 mg/2 mL Neb INHALATION (08:35)
[2023-07-26 09:25] LABS: ABG PCO2 38.6 mmHg (35-45); ABG PH Result 7.45 (7.35-7.45); Base Excess ABG 2.6 mmol/L (-2.0-2.0); Blood Gas Allen Test Pos; Blood Gas Operator Identificat glc; Blood Gas Sample Site Radial, left; Blood Gas Sample Type Arterial; HCO3 ABG 26.7 mmol/L (22-26); Oxygen Device ROOM AIR; PO2 ABG 72.5 mmHg (80.0-100.0); PO2 FiO2 Ratio Arterial Blood 0
[2023-07-26] MEDS: FUROsemide 10 mg/mL SDV 2mL 20 MG IVP (10:06)
[2023-07-26] MEDS: levoFLOXacin 750 mg Tablet PO (10:07)
--- NOTE | 2023-07-26 11:05 | PC.NURSE ---
Patient is able to lie in bed and rest presently.
--- NOTE | 2023-07-26 13:17 | PC.NURSE ---
Patient discharged to home. Information given regarding medications, follow-up appts and disease processes. Patient and spouse verbalized complete understanding. New medications sent to [facility]. Spouse will hot die picker prior to leaving. Patient taken by wheelchair to private vehicle.
== END 2023-07-26 12:45 | disposition home or self-care (01) | DRG 309 ==
LOC: ER 16:51 → MEDSURG 07-24 07:07 → CSU 07-24 13:46
PROVIDERS: Family Medicine; Internal Medicine; Admitting Provider Internal Medicine; Emergency Provider Emergency Medicine; PCP Nurse Practitioner Family; Visit Provider Internal Medicine
PROC: 5A2204Z Restoration of Cardiac Rhythm, Single (ICD-10-PCS; CPT 93312; principal; 2023-07-25 12:00)
PROC: 5A2204Z Restoration of Cardiac Rhythm, Single (ICD-10-PCS; 2023-07-25 12:00)
DX: I48.91 Unspecified atrial fibrillation (principal); I50.22 Chronic systolic (congestive) heart failure; I42.0 Dilated cardiomyopathy; Z95.810 Presence of automatic (implantable) cardiac defibrillator; J43.9 Emphysema, unspecified; Z72.0 Tobacco use; R06.00 Dyspnea, unspecified; G62.9 Polyneuropathy, unspecified; Z79.82 Long term (current) use of aspirin; K21.9 Gastro-esophageal reflux disease without esophagitis
CPT/HCPCS: 36415; 36416; 36600; 71045; 71275; 80048; 80053; 81001; 82607; 82803; 82962; 83036; 83605; 83690; 83735; 83880; 84100; 84443; 84484; 85025; 85378; 85610; 86140; 87040; 92960; 93005; 93306; 93312; 93320; 93325; 93970; 94640; 94760; 96376; 99285; A4222; G0378; J0283; J1160; J1940; J2704; J2919; J7030; J7613; J7626; Q9967

== ENCOUNTER → 2023-08-06 13:53 | Outpatient (BNVA) | payer BC, MEDICAID, SELFPAY | PROVIDERS: PCP Nurse Practitioner Family; Visit Provider Nurse Practitioner Family | DX: I48.91 Unspecified atrial fibrillation (principal) | CPT/HCPCS: 93005 ==

== ENCOUNTER 2023-11-04 06:21 | Inpatient (IN) | payer BC, SELFPAY ==
[2023-11-04] VITALS (171 sets, daily range): BP systolic 89–134; BP diastolic 56–87; PULSE 60–98; RESP 10–33; TEMP 35.1–36.3; O2SAT 83–100; BMI 25.2; BMI 24.3
--- NOTE | 2023-11-04 06:25 | XRR_ITS ---
PROCEDURE INFORMATION: Exam: XR Chest Exam date and time: 11/04/2023 6:31 AM Age: 63 years old Clinical indication: Pain; Shortness of breath; Chest pressure; Prior surgery; Surgery date: 6+ months; Surgery type: Pacer; Patient HX: C/O severe cp with SOB. History of chf. TECHNIQUE: Imaging protocol: Radiologic exam of the chest. Views: 1 view. COMPARISON: CR XR chest 1V portable [id number] 07/26/2023 9:31 AM FINDINGS: Tubes, catheters and devices: Stable dual lead electronic cardiac device projecting over the left chest. Lungs: Consolidative airspace opacity in the right perihilar lung. Pleural spaces: No large pleural effusion. No distinct pneumothorax. Heart/Mediastinum: Cardiomediastinal silhouette is midline and stable in size. Bones/joints: Osseous structures are unchanged. XR/XR chest 1V portable [id number] IMPRESSION: Consolidative airspace opacity in the right perihilar lung. This may represent chronic lung markings or edema but is compatible with an infectious infiltrate.
--- NOTE | 2023-11-04 06:25 | ECG_ITS ---
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 Measurements Intervals [place] Rate: 94 P: 73 UT: 201 QRS: -19 QRSD: 184 T: 73 QT: 427 QTc: 536 Interpretive Statements SINUS RHYTHM POSSIBLE LEFT ATRIAL ENLARGEMENT [-0.1mV P-WAVE IN V1/V2] INTERVENTRICULAR CONDUCTION DELAY Compared to ECG 08/06/2023 14:07:03 Atrial-paced complex(es) or rhythm no longer present Left-axis deviation no longer present Electronically Signed On 11-04-2023 12:07:59 CDT by Justin Spence M.D. [id number]
--- NOTE | 2023-11-04 06:30 | ECG_ITS ---
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 Measurements Intervals [place] Rate: 90 P: 67 MN: 220 QRS: 245 QRSD: 186 T: 76 QT: 441 QTc: 541 Interpretive Statements SINUS RHYTHM INTERVENTRICULAR CONDUCTION DELAY Electronically Signed On 11-04-2023 12:07:32 CDT by Justin Spence M.D. [id number]
[2023-11-04 06:42] LABS: Basophils # 0.1 10^3/uL (0.0-0.1); Basophils % 0.4 %; Eosinophils # 0.2 10^3/uL (0.0-0.8); Hematocrit 47.9 % (37-53); Lymphocytes # 1.8 10^3/uL (0.8-4.8); Lymphocytes % 8.5 %; Mean Corpuscular HGB Conc 32.6 g/dL (30-55); Mean Corpuscular Hemoglobin 30.5 pg (27-33); Mean Corpuscular Volume 93.7 fl (82-101); Mean Platelet Volume 9.5 fL (7.4-10.4); Monocytes # 1.5 10^3/uL (0.2-0.9); Monocytes % 6.8 %; Neutrophils # 17.82 10^3/uL (1.8-7.7); Neutrophils % 82.5 %; Nucleated Red Blood Cells % 0 %; Platelet Count 302 10^3/cmm (157-399); Red Blood Count 5.11 10^6/uL (3.85-5.65); Red Cell Distribution Width 13.5 % (12.1-15.1); White Blood Count 21.59 10^3/uL (3.29-11.43)
--- NOTE | 2023-11-04 06:43 | ECG_ITS ---
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 Measurements Intervals [place] Rate: 90 P: 63 HI: 229 QRS: 230 QRSD: 189 T: 76 QT: 437 QTc: 537 Interpretive Statements SINUS RHYTHM WITH FIRST DEGREE AV BLOCK INDETERMINATE AXIS INTRAVENTRICULAR CONDUCTION DELAY [130+ ms QRS DURATION] Compared to ECG 11/04/2023 06:30:13 First degree AV block now present Indeterminate axis now present Intraventricular conduction delay now present Ventricular-paced complex(es) or rhythm no longer present Electronically Signed On 11-04-2023 12:02:52 CDT by Justin Spence M.D. [id number]
[2023-11-04 06:46] LABS: ABG PH Result 7.23 (7.35-7.45); Arterial Blood Gas Hematocrit 46.5 % (42-52); Base Excess ABG -3.4 mmol/L (-2.0-2.0); Blood Gas Allen Test Pos; Blood Gas Sample Site Brachial, right; Blood Gas Sample Type Arterial; HCO3 ABG 25.4 mmol/L (22-26); Oxygen Device OXY MASK; PO2 ABG 63.5 mmHg (80.0-100.0)
[2023-11-04 06:47] LABS: ABG PCO2 60.1 mmHg (35-45)
--- NOTE | 2023-11-04 06:54 | ED_ITS ---
HPI - SOB/Dyspnea 2 General: Chief Complaint: Shortness of Breath/Dyspnea Stated Complaint: CP, SOB Time Seen by Provider: 11/04/23 06:25 Source: patient and EMS Mode of arrival: EMS Limitations: no limitations History of Present Illness: HPI Narrative: 63-year-old male has a history of conges tive heart failure, emphysema patient states he woke up at 4:00 with severe shortness of breath along with severe pain all over including chest pain. Patient's pulse ox on room air was in the 70s he is on a nonrebreather currently we will change him to a BiPAP. He denies any fever denies any cough. Associated symptoms: Deny abdominal pain, chest pain, fever(s), nausea or vomiting Related Data Home Medications Medication Instructions Recorded Confirmed albuterol sulfate 90 mcg/actuation 2 puff inhalation Q6H PRN 03/25/19 11/04/23 aerosol inhaler Shortness Of Breath omeprazole 20 mg capsule,delayed 20 mg PO DAILY 03/25/19 11/04/23 release aspirin 81 mg tablet,delayed 81 mg PO DAILY 11/23/20 11/04/23 release (Avelino Low Dose Aspirin) sertraline 100 mg tablet (Zoloft) 200 mg PO DAILY 03/27/23 11/04/23 buspirone 10 mg tablet 10 mg PO TID PRN Anxiety 07/23/23 11/04/23 ipratropium bromide 0.02 % 2.5 ml inhalation Q6H PRN 07/23/23 11/04/23 solution for inhalation Shortness Of Breath tamsulosin 0.4 mg capsule 0.4 mg PO DAILY 07/23/23 11/04/23 amiodarone 200 mg tablet (Pacerone) 400 mg PO DAILY 11/04/23 11/04/23 metoprolol succinate 50 mg 50 mg PO DAILY 11/04/23 11/04/23 tablet,extended release 24 hr Previous Rx's Medication Instructions Recorded lisinopril 5 mg tablet 5 mg PO DAILY #90 tabs 03/28/23 budesonide-formoterol HFA 160 2 puff inhalation BID #10.2 grams 07/26/23 mcg-4.5 mcg/actuation aerosol inhaler (Symbicort) furosemide 20 mg tablet 20 mg PO DAILY PRN edema #90 tabs 07/26/23 simvastatin 20 mg tablet 20 mg PO QPM #90 tabs 10/11/23 apixaban 5 mg tablet (Eliquis) See Rx Instructions .Route 10/16/23 .COMPLEX #90 tabs Allergies Allergy/AdvReac Type Severity Reaction Status Date / Time No Known Allergies Allergy Verified 11/04/23 06:35 Review of Systems 2 Const: Denies: fever(s), chills, body aches or change in appetite ENMT: Denies: throat pain or dental pain Card: Denies: chest pain Resp: Denies: dyspnea GI: Denies: abdominal pain, nausea, vomiting or diarrhea Musc: Denies: neck pain or back pain Skin/Breast: Denies: rash Neuro: Denies: headache(s) PFSH ED 2 PFSH: Medical History Hypertension Depression with anxiety BPH (benign prostatic hyperplasia) COPD (chronic obstructive pulmonary disease) History of cardioversion Acute dyspnea New onset a-fib Cardiomyopathy Sleep apnea Heart failure GERD (gastroesophageal reflux disease) Dyslipidemia Smoker Surgical History History of colon resection Dr. Álvarez History of inguinal hernia repair 20+ years ago AICD (automatic cardioverter/defibrillator) present Family History Sister Heart disease Father Myocardial infarct Social History Smoking and tobacco/nicotine status: current every day tobacco/nicotine user cigarettes Packs smoked per day: 1.5 Years cigarettes smoked: 50 Alcohol intake: former Substance/Drug Use: current Substance/Drug use frequency: daily Physical Exam 2 Const: COMMON NORMALS: patient oriented x3 GENERAL APPEARANCE: diaphoretic HENMT: COMMON NORMALS: normocephalic and atraumatic HEAD & SCALP: n ormocephalic and atraumatic Neck/C-Spine: COMMON NORMALS: full ROM and supple Chest: COMMONS NORMALS: normal inspection of the chest Resp: COMMON NORMALS: No retractions EFFORT & INSPECTION: Yes tachypneic and Yes respiratory distress AUSCULTATION: rales and wheezes Cardio: COMMON NORMALS: regular rate, regular rhythm and No murmurs present (Cardio) RATE: regular rate RHYTHM: regular rhythm Extremity: COMMON NORMALS: normal to inspection and full ROM Neuro: COMMON NORMALS: patient oriented x3, moves all extremities and no focal motor deficits Psych: COMMON NORMALS: mental status grossly normal, Normal thought process present and cooperative THOUGHT PROCESS: Normal thought process present Skin: COMMON NORMALS: no rashes or lesions noted and no wounds GENERAL SKIN EXAM: no rashes or lesions noted Course 2 Vital Signs: Vital signs: Vital Signs Temperature 97.3 F L 11/04/23 10:15 Pulse Rate 60 11/04/23 11:00 Respiratory Rate 21 H 11/04/23 10:15 Blood Pressure 101/65 11/04/23 11:00 Pulse Oximetry 98 11/04/23 11:00 Oxygen Delivery Me thod BiPAP 11/04/23 11:00 Oxygen Flow Rate 6 11/04/23 06:39 Fraction of Inspir ed Oxygen 40 11/04/23 09:38 MDM - SOB/Dyspnea Medical Decision Making Patient presents here shortness of breath along with chest pain he has been afebrile here but normotensive he did have an elevated white count his lactate is normal. Initially he is having chest pain EKG does show some changes from previous I did consult supervisor motor vehicle assembly Dr. Coreas who reviewed EKGs who agrees he is not an active ST elevation [place] patient's pain is improved. He is currently pain-free he was hypoxic requiring BiPAP CT showed pneumonia did give him IV fluids along with antibiotics spoke to the hospitalist will admit at this time Medical Records I reviewed the patient's medical records. Lab Data I reviewed the patient's lab results. 11/04/23 05:40 11/04/23 05:40 Labs/Radiology: Radiology Impressions Chest X-Ray 11/04/23 06:25 IMPRESSION: Consolidative airspace opacity in the right perihilar lung. This may represent chronic lung markings or edema but is compatible with an infectious infiltrate. Chest CTA 11/04/23 08:59 IMPRESSION: 1. Consolidative opacities in the iqezw-ydjvmub-rdkd-left lung bases. This likely represents multifocal pneumonia. Aspiration pneumonitis could have a similar appearance. 2. Small right and trace left pleural effusions. 3. Mild centrilobular emphysematous changes of the upper lungs. 4. 0.7 cm solid subpleural pulmonary nodule in the anterior right middle lobe (axial series 4, image 51). For patients at low risk (minimal or absent history of smoking and of other known risk factors), recommend CT Chest at 6-12 months, then consider CT Chest at 18-24 months. For patients at high risk (history of smoking or of other known risk factors), recommend CT Chest at 6-12 months, then CT Chest at 18-24 months. (Reference: Meghan) 5. Small amount of fluid in the esophagus. 6. Multi chamber cardiomegaly. COMMENTS: The presence of pulmonary emphysema on CT is an independent risk factor for lung cancer. In the absence of a history or active diagnosis of lung cancer, it is recommended that this patient with emphysema be evaluated for enrollment in a low dose CT lung cancer screening program. REFERENCES: Meghan Salinas, et al. Guidelines for Management of Incidental Pulmonary Nodules Detected on CT Images: From the Fleischner Society 2017. Radiology. 2017;284(1):228-243. Laboratory Results WBC 21.59 10^3/uL (3.29-11.43) H 11/04/23 05:40 RBC 5.11 10^6/uL (3.85-5.65) 11/04/23 05:40 Hgb 15.60 g/dL (11.27-16.99) 11/04/23 05:40 Hct 47.9 % (37-53) 11/04/23 05:40 MCV 93.7 fl (82-101) 11/04/23 05:40 MCH 30.5 pg (27-33) 11/04/23 05:40 MCHC 32.6 g/dL (30-55) 11/04/23 05:40 RDW 13.5 % (12.1-15.1) 11/04/23 05:40 Plt Count 302 10^3/cmm (157-399) 11/04/23 05:40 MPV 9.5 fL (7.4-10.4) 11/04/23 05:40 Neut % (Auto) 82.5 % 11/04/23 05:40 Lymph % (Auto) 8.5 % 11/04/23 05:40 Dyer % (Auto) 6.8 % 11/04/23 05:40 Eos % (Auto) 1.0 % 11/04/23 05:40 Baso % (Auto) 0.4 % 11/04/23 05:40 Neut # (Auto) 17.82 10^3/uL (1.8-7.7) H 11/04/23 05:40 Lymph # (Auto) 1.8 10^3/uL (0.8-4.8) 11/04/23 05:40 Dyer # (Auto) 1.5 10^3/uL (0.2-0.9) H 11/04/23 05:40 Eos # (Auto) 0.2 10^3/uL (0.0-0.8) 11/04/23 05:40 Baso # (Auto) 0.1 10^3/uL (0.0-0.1) 11/04/23 05:40 Nucleated RBC % (auto) 0 % 11/04/23 05:40 Nucleated RBCs # 0.0 /100WBC 11/04/23 05:40 Specimen Type Arterial 11/04/23 06:40 Sample Site Brachial, right 11/04/23 06:40 ABG pH 7.23 (7.35-7.45) L 11/04/23 06:40 ABG pCO2 60.1 mmHg (35-45) H* 11/04/23 06:40 ABG pO2 63.5 mmHg (80.0-100.0) L 11/04/23 06:40 ABG HCO3 25.4 mmol/L (22-26) 11/04/23 06:40 ABG Base Excess -3.4 mmol/L (-2.0-2.0) L 11/04/23 06:40 Osiel Test Pos 11/04/23 06:40 Hematocrit 46.5 % (42-52) 11/04/23 06:40 O2 Delivery Device Oxy mask 11/04/23 06:40 O2 Liters/Min 5.0 % 11/04/23 06:40 Global Technical Writer ID [email or web address] 11/04/23 06:40 Sodium 141 mmol/L (136-145) 11/04/23 05:40 Potassium 3.9 mmol/L (3.5-5.1) 11/04/23 05:40 Chloride 101 mmol/L (98-107) 11/04/23 05:40 Carbon Dioxide 24 mmol/L (22-29) 11/04/23 05:40 Anion Gap 19.9 (5-19) H 11/04/23 05:40 BUN 27 mg/dL (8-23) H 11/04/23 05:40 Creatinine 1.2 mg/dL (0.7-1.2) 11/04/23 05:40 GFR Calculation 61.3 mL/min (90-130) L 11/04/23 05:40 Glucose 227 mg/dL (65-115) H 11/04/23 05:40 Calculated Osmolality 304 mOsm/kg (285-295) H 11/04/23 05:40 Calcium 9.4 mg/dL (8.5-10.5) 11/04/23 05:40 Magnesium 2.1 mg/dL (1.7-2.3) 11/04/23 05:40 Total Bilirubin 0.5 mg/dL (0.15-1.2) 11/04/23 05:40 AST 33 U/L (0-40) 11/04/23 05:40 ALT 30 U/L (0-41) 11/04/23 05:40 Alkaline Phosphatase 59 U/L (40-130) 11/04/23 05:40 Troponin T Baseline 21 ng/L (0-15) H 11/04/23 05:40 Troponin T 120 Minute 34.18 ng/L (0-15) H 11/04/23 07:36 Delta Troponin T 13.18 ABS# (0-10) H* 11/04/23 07:36 NT-Pro-B Natriuret Pep 423 pg/mL (0-125) H 11/04/23 05:40 Total Protein 7.4 g/dL (6.6-8.7) 11/04/23 05:40 Albumin 4.8 g/dL (3.5-5.2) 11/04/23 05:40 Globulin 2.6 g/dL (1.3-4.6) 11/04/23 05:40 TSH 10.88 uIU/mL (0.27-4.20) H 11/04/23 05:40 All radiology interpretation(s) finalized by discharge Critical Care Time 2 Critical Care Time: Critical Care Time: Yes Total Critical Care Time: 40 Attestation: The high probability of a clinically significant, sudden or life threatening deterioration of the patient's resp system(s) required my full and direct attention, intervention and personal management. The critical care time is as shown. This time is in addition to time spent performing any reported procedures but includes the following: [x] Data and vital sign review and interpretation [x] Patient assessment, examination and intervention [x] Documentation [x] Medication orders and management Discharge Plan Discharge Patient Disposition: Admitted As Inpatient Admit Provider: Stewart Gibbons Clinical Impression: Pneumonia, Chest pain Condition: Stable Coding Level of Care Code ED Recovery Agent for Pardeep Vargas
[2023-11-04 07:00] LABS: Troponin(5th) Baseline 21 ng/L (0-15)
[2023-11-04 07:10] LABS: Alanine Aminotransferase 30 U/L (0-41); Albumin Level 4.8 g/dL (3.5-5.2); Alkaline Phosphatase 59 U/L (40-130); Aspartate Amino Transferase 33 U/L (0-40); Blood Urea Nitrogen 27 mg/dL (8-23); Calcium 9.4 mg/dL (8.5-10.5); Carbon Dioxide 24 mmol/L (22-29); Chloride 101 mmol/L (98-107); Creatinine Clr Calc Pharmacy 66.3051; Globulin 2.6 g/dL (1.3-4.6); Glomerular Filtration Rate 61.3 mL/min (90-130); Glucose 227 mg/dL (65-115); NT Pro B Type Natriuretic Pept 423 pg/mL (0-125); Osmolality Calculated 304 mOsm/kg (285-295); Sodium 141 mmol/L (136-145); Total Bilirubin 0.5 mg/dL (0.15-1.2); Total Protein 7.4 g/dL (6.6-8.7)
[2023-11-04 07:11] LABS: Anion Gap 19.9 (5-19); Potassium 3.9 mmol/L (3.5-5.1)
[2023-11-04] MEDS: methylPREDNISolone sod succ 125 mg/2 mL INJ IVP (07:15)
--- NOTE | 2023-11-04 07:15 | PC.NURSE ---
PT RECTAL TEMP 95.2. BEARHUGGER BLANKET PLACED ON PT.
[2023-11-04] MEDS: ondansetron 2 mg/ML SDV 2 mL 4 MG IVP (07:16)
[2023-11-04] MEDS: morphine 4 mg/mL SDV 1 mL IVP (07:16)
[2023-11-04] MEDS: ipratropium-albuterol 3 mL Neb INHALATION ×4 (07:43→23:09)
[2023-11-04 08:07] LABS: Troponin 5 2HR 34.18 ng/L (0-15)
[2023-11-04] MEDS: cefTRIAXone 1,000 mg SDV 1000 MG IVP (08:21)
[2023-11-04] MEDS: azithromycin 500 MG in sodium chloride 0.9% 250 ML 250 MG IV (08:21)
[2023-11-04 08:23] LABS: Troponin 5 2HR Delta 13.18 ABS# (0-10)
--- NOTE | 2023-11-04 08:59 | CTR_ITS ---
PROCEDURE INFORMATION: Exam: CTA Chest With Contrast Exam date and time: 11/04/2023 9:27 AM Age: 63 years old Clinical indication: Shortness of breath; Prior surgery; Surgery date: 6+ months; Surgery type: Pacemaker; Additional info: SOB TECHNIQUE: Imaging protocol: Computed tomographic angiography of the chest with contrast. Exam focused on the arteries. 3D rendering (Not supervised by radiologist): MIP and/or 3D reconstructed images were created by the technologist. Radiation optimization: All CT scans at this facility use at least one of these dose optimization techniques: automated exposure control; mA and/or kV adjustment per patient size (includes targeted exams where dose is matched to clinical indication); or iterative reconstruction. Contrast material: [id number]; Contrast volume: 100 ml; Contrast route: INTRAVENOUS (IV); COMPARISON: CT angio chest PE protcl [id number] 07/23/2023 3:11 PM RADIATION DOSE METRICS: Total DLP (mGy-cm): 467 FINDINGS: Tubes, catheters and devices: Multi lead electronic cardiac device implanted in the left chest. Pulmonary arteries: No evidence of pulmonary artery thromboembolism. Aorta: Mild scattered calcific disease of the thoracic aorta. Thyroid: Partially imaged thyroid is normal in appearance. Lungs: Consolidative opacities in the bzwvl-qyqdnvo-zpcq-left lung bases. Mild centrilobular emphysematous changes of the upper lungs. 0.7 cm solid subpleural pulmonary nodule in the anterior right middle lobe (axial series 4, image 51). Pleural spaces: Small right and trace left pleural effusions. Heart: Multi chamber cardiomegaly. Esophagus: Small amount of fluid in the esophagus. Lymph nodes: No distinct pathologically enlarged lymphadenopathy. Bones/joints: Multilevel spondylosis. No acute osseous findings. Soft tissues: Visualized superficial soft tissues are within normal limits. CT/CT angio chest PE protcl [id number] IMPRESSION: 1. Consolidative opacities in the yxbjb-zdqrglz-qoas-left lung bases. This likely represents multifocal pneumonia. Aspiration pneumonitis could have a similar appearance. 2. Small right and trace left pleural effusions. 3. Mild centrilobular emphysematous changes of the upper lungs. 4. 0.7 cm solid subpleural pulmonary nodule in the anterior right middle lobe (axial series 4, image 51). For patients at low risk (minimal or absent history of smoking and of other known risk factors), recommend CT Chest at 6-12 months, then consider CT Chest at 18-24 months. For patients at high risk (history of smoking or of other known risk factors), recommend CT Chest at 6-12 months, then CT Chest at 18-24 months. (Reference: Meghan) 5. Small amount of fluid in the esophagus. 6. Multi chamber cardiomegaly. COMMENTS: The presence of pulmonary emphysema on CT is an independent risk factor for lung cancer. In the absence of a history or active diagnosis of lung cancer, it is recommended that this patient with emphysema be evaluated for enrollment in a low dose CT lung cancer screening program. REFERENCES: Meghan Salinas, et al. Guidelines for Management of Incidental Pulmonary Nodules Detected on CT Images: From the Fleischner Society 2017. Radiology. 2017;284(1):228-243.
[2023-11-04] MEDS: iohexol 350 mg/mL 500 mL Btl (per mL) IV (09:46)
[2023-11-04] MEDS: sodium chloride 0.9% 1,000 ML 999 ML IV (10:20)
[2023-11-04 11:09] LABS: Lactic Sepsis W/Reflex 1.1 mmol/L (0.5-2.2)
--- NOTE | 2023-11-04 11:24 | P.HP_ITS ---
Providers/Chief Complaint 2 Admitting Physician: Stewart Gibbons MD Primary Care Provider: EFRAÍN Granda Chief Complaint: CP, SOB History of Present Illness Anurag Diaz Jr is a 63 year old male presenting to the emergency department with complaints of severe shortness of breath. He reports he was okay until today, and he became severely short of breath. He thought he was having a panic attack. He reports chest discomfort, in the lower part of his chest or his epigastric area. He reports no significant cough, fever. He reports he was doing okay yesterday. No nausea, vomiting. No issues with blood in stool or black or tarry stool. Does have prior history of myocardial for infarction associated with cocaine use in the distant past. Has known cardiomyopathy with last EF around 28%, atrial fibrillation on amiodarone, COPD with continued use of marijuana but not tobacco, and multiple other medical problems. He has had a defibrillator placed in the past but denies pacemaker placement. In the emergency department he received Rocephin, azithromycin, a breathing treatment, Solu-Medrol, morphine, Zofran, and 2 L of fluid. Review of Systems 2 General: Reports: 10 or more systems reviewed and unremarkable except in HPI and below Card: Reports: chest pain Resp: Reports: dyspnea; Denies: productive cough or non-productive cough GI: Denies: abdominal pain, nausea, vomiting, hematochezia or melena Medications/Allergies Home Medications Medication Instructions Recorded Confirmed Last Taken Type albuterol sulfate 90 mcg/actuation 2 puff inhalation Q6H PRN 03/25/19 11/04/23 1 Month Ago History aerosol inhaler Shortness Of Breath ~12/14/20 omeprazole 20 mg capsule,delayed 20 mg PO DAILY 03/25/19 11/04/23 11/03/23 History release aspirin 81 mg tablet,delayed 81 mg PO DAILY 11/23/20 11/04/23 11/03/23 History release (Avelino Low Dose Aspirin) sertraline 100 mg tablet (Zoloft) 200 mg PO DAILY 03/27/23 11/04/23 11/04/23 History lisinopril 5 mg tablet 5 mg PO DAILY #90 tabs 03/28/23 11/04/23 11/03/23 Rx buspirone 10 mg tablet 10 mg PO TID PRN Anxiety 07/23/23 11/04/23 11/03/23 History ipratropium bromide 0.02 % 2.5 ml inhalation Q6H PRN 07/23/23 11/04/23 Unknown History solution for inhalation Shortness Of Breath tamsulosin 0.4 mg capsule 0.4 mg PO DAILY 07/23/23 11/04/23 11/03/23 History budesonide-formoterol HFA 160 2 puff inhalation BID #10.2 grams 07/26/23 11/04/23 11/03/23 Rx mcg-4.5 mcg/actuation aerosol inhaler (Symbicort) furosemide 20 mg tablet 20 mg PO DAILY PRN edema #90 tabs 07/26/23 11/04/23 Unknown Rx simvastatin 20 mg tablet 20 mg PO QPM #90 tabs 10/11/23 11/04/23 11/03/23 Rx apixaban 5 mg tablet (Eliquis) See Rx Instructions .Route 10/16/23 11/04/23 11/03/23 Rx .COMPLEX #90 tabs amiodarone 200 mg tablet (Pacerone) 400 mg PO DAILY 11/04/23 11/04/23 11/03/23 History metoprolol succinate 50 mg 50 mg PO DAILY 11/04/23 11/04/23 11/03/23 History tablet,extended release 24 hr Allergies Allergy/AdvReac Type Severity Reaction Status Date / Time No Known Allergies Allergy Verified 11/04/23 06:35 PFSH Acute 2 PFSH: Medical History Hypertension Depression with anxiety BPH (benign prostatic hyperplasia) COPD (chronic obstructive pulmonary disease) History of cardioversion Acute dyspnea New onset a-fib Cardiomyopathy Sleep apnea Heart failure GERD (gastroesophageal reflux disease) Dyslipidemia Smoker Surgical History History of colon resection Dr. Álvarez History of inguinal hernia repair 20+ years ago AICD (automatic cardioverter/defibrillator) present Family History Sister Heart disease Father Myocardial infarct Social History Smoking and tobacco/nicotine status: current every day tobacco/nicotine user cigarettes Packs smoked per day: 1.5 Years cigarettes smoked: 50 Alcohol intake: former Substance/Drug Use: current Substance/Drug use frequency: daily Vitals/I&O/Wt Last Vital Signs Temp 97.3 F L 11/04/23 10:15 Pulse 60 11/04/23 11:00 Resp 21 H 11/04/23 10:15 BP 101/65 11/04/23 11:00 Pulse Ox 98 11/04/23 11:00 O2 Del Method BiPAP 11/04/23 11:00 O2 Flow Rate 6 11/04/23 06:39 FiO2 40 11/04/23 09:38 11/03/23 11/04/23 11/04/23 22:59 06:59 14:59 Intake Total 250 / 250 Balance 250 / 250 Weight last 48 hrs Weight 77.564 kg Physical Exam 2 Narrative: General exam is a white male, fully alert, on BiPAP and understandable. Reports his chest discomfort is now gone. HEENT: Atraumatic normocephalic. Pupils equally round. BiPAP is noted Neck is supple no lymphadenopathy thyromegaly Cardiovascular heart sounds are distant, regular, no murmur Lungs bilateral expiratory wheezing right greater than left. Diminished air movement both sides. No crackles. Abdomen is soft nontender positive bowel sounds. No obvious organomegaly exam is deferred Extremities no cyanosis, edema, cap refill brisk Skin no rash Neuro no obvious focal deficits. Data 11/04/23 05:40 11/04/23 05:40 Other Labs: ABG demonstrates pH 7.23, pCO2 60, pO2 63 on 5 L of oxygen. This was prior to his BiPAP. Lactic acid 1.1, calcium 9.4, albumin 4.8 TSH which I had ordered is 10.8 Troponin 21 with repeat of 34 LFTs normal I have ordered a urinalysis Blood cultures were collected Chest CTA demonstrates consolidation right greater than left lung bases with trace pleural effusions, emphysematous change, a pulmonary nodule, cardiomegaly. I reviewed this as well. Chest x-ray demonstrates a cardiac device presumably a defibrillator with a right sided infiltrate. Cardiac device has both atria and ventricular leads. Initial EKG which I reviewed demonstrates what appears to be sinus rhythm with a rate around 90 and a left bundle branch block. Other EKGs seem to show atrial pacing. Previous EKGs demonstrated intraventricular conduction delay but not occluding the left bundle. Last echo July 23, 2023 demonstrated an EF 28%, moderate MR Micro: Microbiology 11/04/23 07:36 Blood Culture - Preliminary Blood SPECIMEN COLLECTED 11/04/23 07:36 Blood Culture - Preliminary Blood SPECIMEN COLLECTED A&P Assessment and plan (1) Acute respiratory failure with hypoxia and hypercapnia: Patient presents with acute respiratory failure with hypoxia and hypercapnia This may be multifactorial. He has apparent pneumonia on chest x-ray, and CT. He has no obvious fluid overload on physical exam although his most recent echo demonstrates an EF of 28%. I will place him on Zosyn secondary to my concern with aspiration secondary to predominance of pneumonia on the right side and the fact that he has some fluid in his esophagus on CT. I will also place him on vancomycin, secondary to his past history of MRSA on culture results. Continue BiPAP and wean off as tolerated. Admission to ICU (2) Pneumonia: See above Sputum culture Respiratory panel Initiate vancomycin and Zosyn Wean BiPAP as tolerated Hold off on further fluids, secondary to his low EF CBC, CMP in the morning (3) Elevated troponin: Troponin is significantly elevated Patient is on apixaban at home, changed to Lovenox full dose anticoagulation here Continue aspirin Holding metoprolol secondary to lower blood pressures Echo was recently done and EF was significantly low. TAZ was done at that time as well. Cardiology consultation secondary to this, arrhythmia Check defibrillator (4) Hyperglycemia: Check hemoglobin A1c (5) Left bundle branch block: Patient with left bundle branch block. This intraventricular conduction delay seems more significant than last EKG in July Cardiology consultation If he does not have a pacemaker component, I need to exclude that his defibrillator is trying to pace him out of a rhythm as there seem to be some atrial paced beats present when his heart rate was higher than 90. (6) Arrhythmia: See notations under left bundle, elevated troponin Magnesium checked and normal. (7) COPD (chronic obstructive pulmonary disease): Patient with evidence of COPD exacerbation He received Solu-Medrol in the ER, continue 60 mg IV every 12 hours DuoNeb every 4 hours Budesonide twice daily Plan Pulmonary nodule. Will need outpatient follow-up Multiple other medical problems as outlined in past medical history full code Full code Lovenox will suffice for DVT prophylaxis Attestations 2 Medical Necessity Statement*: Will need greater than 2 midnight stay for evaluation and treatment of acute COPD exacerbation, respiratory failure, elevated troponin, etc. Critical Care Time: The high probability of a clinically significant, sudden or life threatening deterioration of the patient's [pulmonary, cardiac, infectious] system(s) required my full and direct attention, intervention and personal management. The critical care time is as shown. This time is in addition to time spent performing any reported procedures but includes the following: [x] Data and vital sign review and interpretation [x] Patient assessment, examination and intervention [x] Documentation [x] Medication orders and management Critical Care Time (min): 64 Coding Level of Care Code Critical Care >/= 30 minutes Critical care time (in minutes): 64 The high probability of a clinically significant, sudden or life threatening deterioration, as referenced in this documentation, required my full and direct attention, intervention and personal management. The critical care time shown is in addition to time spent performing any reported separately billable procedures and includes the following: [x] Data and vital sign review and interpretation [x ] Patient assessment, examination and intervention [x] Medication orders and management [x] Patient/Family updates as able [x] Care Coordination and Documentation. Diagnoses Acute respiratory failure with hypoxia and hypercapnia J96.01; J96.02 Pneumonia J18.9 Elevated troponin R79.89 Hyperglycemia R73.9 Left bundle branch block I44.7 Arrhythmia I49.9 COPD (chronic obstructive pulmonary disease) J44.9
[2023-11-04 11:25] LABS: Magnesium 2.1 mg/dL (1.7-2.3); Thyroid Stimulating Hormone 10.88 uIU/mL (0.27-4.20)
[2023-11-04 12:07] LABS: Estmated Average Glucose 123; Hemoglobin A1C 5.9 % (4.0-6.0)
[2023-11-04 12:20] LABS: Bilirubin Urine 1+ (Negative); Blood Urine Neg (Negative); Glucose Urine UA Norm (Normal); Ketones Urine Negative (Negative); Leukocyte Esterase Urine Negative (Negative); Nitrate Urine Negative (Negative); Protein Urine 3+ (Negative); Specific Gravity, Urine 1.025 (1.005-1.030); UA Manual Slide Review YES; Urine Appearance Clear (CLEAR); Urine Color Yellow (Yellow); Urobilinogen Urine 1 mg/dL (Negative); pH Urine 5 (5-7)
[2023-11-04 12:22] LABS: Bacteria Urine TRACE /hpf; Coarse Granular Casts Urine 0-4 /lpf
[2023-11-04 12:23] LABS: Add Urine Culture? No
--- NOTE | 2023-11-04 12:32 | P.PHAVANC_ITS ---
Vancomycin Goal - Goal Vancomycin Goal:: 15-20 mg/L Vancomycin Indication:: Pneumonia (PAST HISTORY OF MRSA) - Therapy Current therapy:: Pip/Tazo Day of therpy:: Day [1]of [] Actual body weight (kg): 165 lb [place] body weight: 70.7 kg Dosing weight (kg): 74.9 - Data Labs: WBC 21.59 10^3/uL (3.29-11.43) H 11/04/23 05:40 RBC 5.11 10^6/uL (3.85-5.65) 11/04/23 05:40 Hgb 15.60 g/dL (11.27-16.99) 11/04/23 05:40 Hct 47.9 % (37-53) 11/04/23 05:40 MCV 93.7 fl (82-101) 11/04/23 05:40 MCH 30.5 pg (27-33) 11/04/23 05:40 MCHC 32.6 g/dL (30-55) 11/04/23 05:40 RDW 13.5 % (12.1-15.1) 11/04/23 05:40 Sodium 141 mmol/L (136-145) 11/04/23 05:40 Potassium 3.9 mmol/L (3.5-5.1) 11/04/23 05:40 Chloride 101 mmol/L (98-107) 11/04/23 05:40 Carbon Dioxide 24 mmol/L (22-29) 11/04/23 05:40 Anion Gap 19.9 (5-19) H 11/04/23 05:40 BUN 27 mg/dL (8-23) H 11/04/23 05:40 Creatinine 1.2 mg/dL (0.7-1.2) 11/04/23 05:40 GFR Calculation 61.3 mL/min (90-130) L 11/04/23 05:40 Last dialysis session:: N/A Treatment plan:: new consult Regimen:: INITIAL DOSE 1250 MG Q18H Follow up:: TROUGH TO BE DRAWN PRIOR TO 4TH DOSE WILL CONTINUE TO MONITOR AND FOLLOW UP DAILY
[2023-11-04] MEDS: piperacillin-tazobactam 3.375 GM in sodium chloride 0.9% (plus) 50 ML IV ×2 (13:00→19:49)
[2023-11-04] MEDS: vancomycin 1,250 MG/250 ML PIGGYBACK 166.67 MG IV (13:00)
[2023-11-04] MEDS: enoxaparin 80 mg/0.8 mL Syringe 70 MG SUBCUT ×2 (13:00→23:50)
[2023-11-04 13:14] LABS: Troponin 5 6HR 56.13 ng/L (0-15)
[2023-11-04 13:19] LABS: Troponin 5 6HR Delta 35.13 ng/L (0-12)
[2023-11-04 13:55] LABS: Adenovirus Not Detected (NOT DETECT); Chlamydia Pneumoniae Not Detected (NOT DETECT); Coronavirus 229E,HKU1,NL63,OC4 Not Detected (NOT DETECT); Human Metapneumovirus Not Detected (NOT DETECT); Human Rhinovirus/Enterovirus Not Detected (NOT DETECT); Influenza A Not Detected (NOT DETECT); Influenza A H1 Not Detected (NOT DETECT); Influenza A H1-2009 Not Detected (NOT DETECT); Influenza A H3 Not Detected (NOT DETECT); Influenza B Not Detected (NOT DETECT); Mycoplasma Pneumoniae Not Detected (NOT DETECT); Parainfluenza Virus Type 1 Not Detected (NOT DETECT); Parainfluenza Virus Type 2 Not Detected (NOT DETECT); Parainfluenza Virus Type 3 Not Detected (NOT DETECT); Parainfluenza Virus Type 4 Not Detected (NOT DETECT); Respiratory Syncytial Virus A Not Detected (NOT DETECT); Respiratory Syncytial Virus B Not Detected (NOT DETECT); SARS-COV-2 Not Detected (NOT DETECT)
--- NOTE | 2023-11-04 14:22 | ECG_ITS ---
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 Measurements Intervals [place] Rate: 59 P: 237 [place]: 250 QRS: 73 QRSD: 185 T: 191 QT: 496 QTc: 495 Interpretive Statements ELECTRONIC ATRIAL PACEMAKER INTRAVENTRICULAR CONDUCTION DELAY [130+ ms QRS DURATION] Compared to ECG 11/04/2023 06:43:44 Sinus rhythm no longer present First degree AV block no longer present Indeterminate axis no longer present Electronically Signed On 11-04-2023 17:04:02 CDT by Justin Spence M.D. [id number]
[2023-11-04] MEDS: methylPREDNISolone sod succ 125 mg/2 mL INJ 60 MG IVP (19:48)
[2023-11-04] MEDS: amiodarone 200 mg Tablet 400 MG PO (19:48)
[2023-11-04] MEDS: aspirin 81 mg Chew Tablet PO (19:49)
[2023-11-04] MEDS: budesonide 0.5 mg/2 mL Neb INHALATION (20:01)
--- NOTE | 2023-11-04 20:54 | P.CONIM_ITS ---
Providers/Reason For Consult 2 Consulting Physician/Specialty*: OFELIA Vines MD/cardiology Reason for Consult*: Patient with elevated troponin T Requesting Physician: Dr. Gibbons Attending Physician: Stewart Gibbons MD Primary Care Provider: EFRAÍN Granda History of Present Illness History of Present Illness Anurag Diaz Jr is a 63 year old male is admitted to the hospital with hypoxic and hypercapnic respiratory failure. He was found to have possible multilobar pneumonia. He also was found to have elevated troponin T. He has a history of cardiomyopathy and atrial fibrillation. Cardiology consult is requested for further cardiac evaluation recommendations. This patient is diagnosed with a nonischemic cardiomyopathy. He apparently had a cardiac catheterization in the past revealing no significant blockages. He had a electrical cardioversion in July of this year after a TAZ. He is on long- term oral anticoagulation. He has no chest pain or chest tightness. He has a baseline shortness of breath with activities. No orthopnea. No leg swelling. He quit drinking a year ago. He has been smoking marijuana. Complaining of severe shaking chills as he gets up in the morning for the last year or so. According to him, this started ever since he quit drinking Patient was found to have elevated troponin T with a 2-hour delta of 13 and a 6- hour delta of 35. Patient has a dual-chamber ICD, implanted here in this hospital. The ICD function was found to be appropriate. No recent ICD discharges. Review of Systems 2 Narrative: CONSTITUTIONAL: No fever or chills. EYES: No blurring of vision or other visual disturbances lately. ENT: No hoarseness of voice, auditory disturbances or sore throat. CARDIOVASCULAR: As mentioned above. RESPIRATORY: Severe COPD GASTROINTESTINAL: No hematemesis or melena. GENITOURINARY: No dysuria or hematuria. INTEGUMENTARY: No skin rashes or history of skin cancer. NEURO: No transient ischemic attacks or amaurosis. PSYCHIATRIC: No history of psychosis or major depression. HEMATOLOGIC: No bleeding disorders or significant anemia. ENDOCRINE: No history of polyuria or polydipsia. MUSCULOSKELETAL: No recent joint pain or swelling. ALLERGY/IMMUNOLOGY: As mentioned above. Medications/Allergies Home Medications Medication Instructions Recorded Confirmed Last Taken Type albuterol sulfate 90 mcg/actuation 2 puff inhalation Q6H PRN 03/25/19 11/04/23 1 Month Ago History aerosol inhaler Shortness Of Breath ~12/14/20 omeprazole 20 mg capsule,delayed 20 mg PO DAILY 03/25/19 11/04/23 11/03/23 History release aspirin 81 mg tablet,delayed 81 mg PO DAILY 11/23/20 11/04/23 11/03/23 History release (Avelino Low Dose Aspirin) sertraline 100 mg tablet (Zoloft) 200 mg PO DAILY 03/27/23 11/04/23 11/04/23 History lisinopril 5 mg tablet 5 mg PO DAILY #90 tabs 03/28/23 11/04/23 11/03/23 Rx buspirone 10 mg tablet 10 mg PO TID PRN Anxiety 07/23/23 11/04/23 11/03/23 History ipratropium bromide 0.02 % 2.5 ml inhalation Q6H PRN 07/23/23 11/04/23 Unknown History solution for inhalation Shortness Of Breath tamsulosin 0.4 mg capsule 0.4 mg PO DAILY 07/23/23 11/04/23 11/03/23 History budesonide-formoterol HFA 160 2 puff inhalation BID #10.2 grams 07/26/23 11/04/23 11/03/23 Rx mcg-4.5 mcg/actuation aerosol inhaler (Symbicort) furosemide 20 mg tablet 20 mg PO DAILY PRN edema #90 tabs 07/26/23 11/04/23 Unknown Rx simvastatin 20 mg tablet 20 mg PO QPM #90 tabs 10/11/23 11/04/23 11/03/23 Rx apixaban 5 mg tablet (Eliquis) See Rx Instructions .Route 10/16/23 11/04/23 11/03/23 Rx .COMPLEX #90 tabs amiodarone 200 mg tablet (Pacerone) 400 mg PO DAILY 11/04/23 11/04/23 11/03/23 History meloxicam 7.5 mg tablet 7.5 mg PO DAILY 11/04/23 11/04/23 Unknown History Allergies Allergy/AdvReac Type Severity Reaction Status Date / Time No Known Allergies Allergy Verified 11/04/23 06:35 Current Medications Generic Name Dose Route Start Last Admin Trade Name Freq PRN Reason Stop Dose Admin Albuterol/Ipratropium 3 ml 11/04/23 16:00 11/04/23 20:01 Ipratropium-Albuterol 3 Ml Neb INHALATION 3 ml Q4H.RESPIRATORY XUAN Administration Amiodarone HCl 400 mg 11/04/23 20:00 11/04/23 19:48 Amiodarone 200 Mg Tablet PO 400 mg DAILY XUAN Administration Aspirin 81 mg 11/04/23 20:00 11/04/23 19:49 Aspirin 81 Mg Chew Tablet PO 81 mg DAILY XUAN Administration Budesonide 0.5 mg 11/04/23 20:00 11/04/23 20:01 Budesonide 0.5 Mg/2 Ml Neb INHALATION 0.5 mg BID.RESPIRATORY XUAN Administration Enoxaparin Sodium 70 mg 11/04/23 12:00 11/04/23 13:00 Enoxaparin 80 Mg/0.8 Ml Syringe SUBCUT 70 mg Q12H XUAN Administration Piperacillin Sod/Tazobactam 50 mls @ 12.5 mls/hr 11/04/23 12:00 11/04/23 19:49 Sod 3.375 gm/ Sodium Chloride IV 12.5 mls/hr Q8H XUAN Administration Vancomycin HCl 1,250 mg in 250 mls @ 166.667 mls/hr 11/04/23 12:00 11/04/23 14:30 Vancocin IV Infused Q18H XUAN Infusion Methylprednisolone Sodium Succinate 60 mg 11/04/23 19:00 11/04/23 19:48 Methylprednisolone Sod Succ 125 Mg/2 Ml Inj IVP 60 mg Q12H XUAN Administration PFSH Acute 2 PFSH: Medical History Hypertension Depression with anxiety BPH (benign prostatic hyperplasia) COPD (chronic obstructive pulmonary disease) History of cardioversion Acute dyspnea New onset a-fib Cardiomyopathy Sleep apnea Heart failure GERD (gastroesophageal reflux disease) Dyslipidemia Smoker Surgical History History of colon resection Dr. Álvarez History of inguinal hernia repair 20+ years ago AICD (automatic cardioverter/defibrillator) present Family History Sister Heart disease Father Myocardial infarct Social History Smoking and tobacco/nicotine status: current every day tobacco/nicotine user cigarettes Packs smoked per day: 1.5 Years cigarettes smoked: 50 Alcohol intake: former Substance/Drug Use: current Substance/Drug use frequency: daily Vitals/I&O/Wt Last Vital Signs Temp 97.0 F L 11/04/23 11:35 Pulse 78 11/04/23 20:35 Resp 23 H 11/04/23 20:35 BP 114/73 11/04/23 20:35 Pulse Ox 90 11/04/23 20:35 O2 Del Method BiPAP 11/04/23 20:04 O2 Flow Rate 6 11/04/23 06:39 FiO2 35 11/04/23 20:07 11/04/23 11/04/23 11/04/23 06:59 14:59 22:59 Intake Total 1979 530 / 2510 Balance 1979 530 / 2510 Weight last 48 hrs Weight 165 lb Weight 171 lb Data 11/04/23 05:40 11/04/23 05:40 Other Labs: Laboratory Last Values WBC 21.59 10^3/uL (3.29-11.43) H 11/04/23 05:40 RBC 5.11 10^6/uL (3.85-5.65) 11/04/23 05:40 Hgb 15.60 g/dL (11.27-16.99) 11/04/23 05:40 Hct 47.9 % (37-53) 11/04/23 05:40 MCV 93.7 fl (82-101) 11/04/23 05:40 MCH 30.5 pg (27-33) 11/04/23 05:40 MCHC 32.6 g/dL (30-55) 11/04/23 05:40 RDW 13.5 % (12.1-15.1) 11/04/23 05:40 Plt Count 302 10^3/cmm (157-399) 11/04/23 05:40 MPV 9.5 fL (7.4-10.4) 11/04/23 05:40 Neut % (Auto) 82.5 % 11/04/23 05:40 Lymph % (Auto) 8.5 % 11/04/23 05:40 [place] % (Auto) 6.8 % 11/04/23 05:40 Eos % (Auto) 1.0 % 11/04/23 05:40 Baso % (Auto) 0.4 % 11/04/23 05:40 Neut # (Auto) 17.82 10^3/uL (1.8-7.7) H 11/04/23 05:40 Lymph # (Auto) 1.8 10^3/uL (0.8-4.8) 11/04/23 05:40 [place] # (Auto) 1.5 10^3/uL (0.2-0.9) H 11/04/23 05:40 Eos # (Auto) 0.2 10^3/uL (0.0-0.8) 11/04/23 05:40 Baso # (Auto) 0.1 10^3/uL (0.0-0.1) 11/04/23 05:40 Nucleated RBC % (auto) 0 % 11/04/23 05:40 Nucleated RBCs # 0.0 /100WBC 11/04/23 05:40 Specimen Type Arterial 11/04/23 06:40 Sample Site Brachial, right 11/04/23 06:40 ABG pH 7.23 (7.35-7.45) L 11/04/23 06:40 ABG pCO2 60.1 mmHg (35-45) H* 11/04/23 06:40 ABG pO2 63.5 mmHg (80.0-100.0) L 11/04/23 06:40 ABG HCO3 25.4 mmol/L (22-26) 11/04/23 06:40 ABG Base Excess -3.4 mmol/L (-2.0-2.0) L 11/04/23 06:40 Osiel Test Pos 11/04/23 06:40 Hematocrit 46.5 % (42-52) 11/04/23 06:40 O2 Delivery Device Oxy mask 11/04/23 06:40 O2 Liters/Min 5.0 % 11/04/23 06:40 Salt Manager ID [email or web address] 11/04/23 06:40 Sodium 141 mmol/L (136-145) 11/04/23 05:40 Potassium 3.9 mmol/L (3.5-5.1) 11/04/23 05:40 Chloride 101 mmol/L (98-107) 11/04/23 05:40 Carbon Dioxide 24 mmol/L (22-29) 11/04/23 05:40 Anion Gap 19.9 (5-19) H 11/04/23 05:40 BUN 27 mg/dL (8-23) H 11/04/23 05:40 Creatinine 1.2 mg/dL (0.7-1.2) 11/04/23 05:40 GFR Calculation 61.3 mL/min (90-130) L 11/04/23 05:40 Glucose 227 mg/dL (65-115) H 11/04/23 05:40 Estimat Average Glucose 123 11/04/23 05:40 Hemoglobin A1c 5.9 % (4.0-6.0) 11/04/23 05:40 Calculated Osmolality 304 mOsm/kg (285-295) H 11/04/23 05:40 Lactic Acid 1.1 mmol/L (0.5-2.2) 11/04/23 10:45 Calcium 9.4 mg/dL (8.5-10.5) 11/04/23 05:40 Magnesium 2.1 mg/dL (1.7-2.3) 11/04/23 05:40 Total Bilirubin 0.5 mg/dL (0.15-1.2) 11/04/23 05:40 AST 33 U/L (0-40) 11/04/23 05:40 ALT 30 U/L (0-41) 11/04/23 05:40 Alkaline Phosphatase 59 U/L (40-130) 11/04/23 05:40 Troponin T Baseline 21 ng/L (0-15) H 11/04/23 05:40 Troponin T 120 Minute 34.18 ng/L (0-15) H 11/04/23 07:36 Delta Troponin T 13.18 ABS# (0-10) H* 11/04/23 07:36 Troponin T Hi Sens 6Hr 56.13 ng/L (0-15) H 11/04/23 12:51 Troponin T Hi Sens 6Hr Delta 35.13 ng/L (0-12) H* 11/04/23 12:51 NT-Pro-B Natriuret Pep 423 pg/mL (0-125) H 11/04/23 05:40 Total Protein 7.4 g/dL (6.6-8.7) 11/04/23 05:40 Albumin 4.8 g/dL (3.5-5.2) 11/04/23 05:40 Globulin 2.6 g/dL (1.3-4.6) 11/04/23 05:40 TSH 10.88 uIU/mL (0.27-4.20) H 11/04/23 05:40 Urine Color Yellow (Yellow) 11/04/23 12:00 Urine Appearance Clear (CLEAR) 11/04/23 12:00 Urine pH 5 (5-7) 11/04/23 12:00 Ur Specific [place] 1.025 (1.005-1.030) 11/04/23 12:00 Urine Protein 3+ (Negative) H 11/04/23 12:00 Urine Glucose (UA) Norm (Normal) 11/04/23 12:00 Urine Ketones Negative (Negative) 11/04/23 12:00 Urine Blood Neg (Negative) 11/04/23 12:00 Urine Nitrate Negative (Negative) 11/04/23 12:00 Urine Bilirubin 1+ (Negative) H 11/04/23 12:00 Urine Urobilinogen 1 mg/dL (Negative) H 11/04/23 12:00 Ur Leukocyte Esterase Negative (Negative) 11/04/23 12:00 Urine RBC None /hpf (0-2) 11/04/23 12:00 Urine WBC None /hpf (0-5) 11/04/23 12:00 Ur Squamous Epith Cells None /hpf (0-5) 11/04/23 12:00 Amorphous Sediment Not Reportable 11/04/23 12:00 Urine Bacteria Trace /hpf (NONE) 11/04/23 12:00 Hyaline Casts 5-10 /lpf H 11/04/23 12:00 Coarse Granular Casts 0-4 /lpf H 11/04/23 12:00 Adenovirus (PCR) Not detected (NOT DETECT) 11/04/23 11:45 C. pneumoniae DNA (PCR) Not detected (NOT DETECT) 11/04/23 11:45 Coronavirus 229E (PCR) Not detected (NOT DETECT) 11/04/23 11:45 Human Metapneumovir PCR Not detected (NOT DETECT) 11/04/23 11:45 Influenza A (H1) PCR Not detected (NOT DETECT) 11/04/23 11:45 Influ A (H1/09) PCR Not detected (NOT DETECT) 11/04/23 11:45 Influenza A (H3) PCR Not detected (NOT DETECT) 11/04/23 11:45 Influenza Type A (PCR) Not detected (NOT DETECT) 11/04/23 11:45 Influenza Type B (PCR) Not detected (NOT DETECT) 11/04/23 11:45 M. pneumoniae (PCR) Not detected (NOT DETECT) 11/04/23 11:45 Parainfluenza 1 (PCR) Not detected (NOT DETECT) 11/04/23 11:45 Parainfluenza 2 (PCR) Not detected (NOT DETECT) 11/04/23 11:45 Parainfluenza 3 (PCR) Not detected (NOT DETECT) 11/04/23 11:45 Parainfluenza 4 (PCR) Not detected (NOT DETECT) 11/04/23 11:45 RSV Type A (PCR) Not detected (NOT DETECT) 11/04/23 11:45 RSV Type B (PCR) Not detected (NOT DETECT) 11/04/23 11:45 Entero/Rhino (PCR) Not detected (NOT DETECT) 11/04/23 11:45 SARS-CoV-2 (PCR) Not detected (NOT DETECT) 11/04/23 11:45 Micro: Microbiology 11/04/23 07:36 Blood Culture - Preliminary Blood SPECIMEN COLLECTED 11/04/23 07:36 Blood Culture - Preliminary Blood SPECIMEN COLLECTED A&P Assessment and plan (1) Elevated troponin: Most likely related to type II PR. Patient is stable with no chest pain. Possibility of coronary event cannot be excluded but my clinical suspicion may be low. (2) Nonischemic congestive cardiomyopathy: Patient is known to have LV ejection fraction of 28% by echocardiogram. He need to be closely monitored for decompensated heart failure. His current symptoms are related to the multilobar pneumonia. (3) Acute respiratory failure with hypoxia and hypercapnia: Most likely related to the multilobar pneumonia. Continue on the current treatment. (4) Intermittent atrial fibrillation: Patient is currently in an AV paced rhythm. The abnormal EKG of LBBB pattern is related to the RV pacing (5) Pneumonia: Patient seems to have multilobar pneumonia. Management as per the primary Qualifiers: Aspiration pneumonia type: unspecified Laterality: bilateral Lung location: unspecified part of lung Pneumonia type: aspiration pneumonia Qualified Code(s): J69.0 - Pneumonitis due to inhalation of food and vomit Plan The abnormal EKG is because of the AV pacing. Elevated troponin T, most likely from type II PR. May consider doing a Myocardial perfusion imaging, once the pneumonia is properly treated and respiratory status is stable. In the meanwhile, he may continue on the current medications. Thank you for the opportunity to evaluate this patient and make these recommendations Consult Attestations 2 Medical Necessity Statement: Patient requires continued hospital stay for close monitoring and further management Coding Level of Care Code 16624 Diagnoses Elevated troponin R79.89 Nonischemic congestive cardiomyopathy I42.0 Acute respiratory failure with hypoxia and hypercapnia J96.01; J96.02 Intermittent atrial fibrillation I48.0 Aspiration pneumonia of both lungs, unspecified aspiration pneumonia type, unspecified part of lung J69.0 Aspiration pneumonia type: unspecified Laterality: bilateral Lung location: unspecified part of lung Pneumonia type: aspiration pneumonia
[2023-11-05] VITALS (100 sets, daily range): BP systolic 87–123; BP diastolic 49–83; PULSE 60–112; RESP 1–30; TEMP 36.1–36.8; O2SAT 82–100; BMI 25.5
[2023-11-05] MEDS: ipratropium-albuterol 3 mL Neb INHALATION ×6 (03:33→23:57)
[2023-11-05 04:05] LABS: Hematocrit 42.2 % (37-53); Lymphocytes # 0.3 10^3/uL (0.8-4.8); Lymphocytes % 2.6 %; Mean Corpuscular Hemoglobin 29.8 pg (27-33); Mean Corpuscular Volume 93.2 fl (82-101); Monocytes # 0.3 10^3/uL (0.2-0.9); Monocytes % 2.1 %; Nucleated Red Blood Cells % 0 %; Platelet Count 204 10^3/cmm (157-399); Red Blood Count 4.53 10^6/uL (3.85-5.65); Red Cell Distribution Width 13.6 % (12.1-15.1); White Blood Count 11.69 10^3/uL (3.29-11.43)
[2023-11-05] MEDS: piperacillin-tazobactam 3.375 GM in sodium chloride 0.9% (plus) 50 ML IV ×3 (04:14→20:25)
[2023-11-05 04:31] LABS: Alanine Aminotransferase 58 U/L (0-41); Albumin Level 4.2 g/dL (3.5-5.2); Alkaline Phosphatase 49 U/L (40-130); Blood Urea Nitrogen 25 mg/dL (8-23); Calcium 8.8 mg/dL (8.5-10.5); Carbon Dioxide 23 mmol/L (22-29); Chloride 101 mmol/L (98-107); Creatinine Clr Calc Pharmacy 87.0966; Globulin 2.7 g/dL (1.3-4.6); Glomerular Filtration Rate 85.5 mL/min (90-130); Glucose 151 mg/dL (65-115); Magnesium 2.1 mg/dL (1.7-2.3); Osmolality Calculated 293 mOsm/kg (285-295); Sodium 138 mmol/L (136-145); Total Bilirubin 0.4 mg/dL (0.15-1.2); Total Protein 6.9 g/dL (6.6-8.7)
[2023-11-05 04:34] LABS: Anion Gap 18.8 (5-19); Potassium 4.8 mmol/L (3.5-5.1)
[2023-11-05 04:35] LABS: Aspartate Amino Transferase 51 U/L (0-40)
[2023-11-05] MEDS: vancomycin 1,250 MG/250 ML PIGGYBACK 166.67 MG IV ×2 (06:06→23:55)
[2023-11-05] MEDS: methylPREDNISolone sod succ 125 mg/2 mL INJ 60 MG IVP (07:45)
--- NOTE | 2023-11-05 07:52 | P.PN_ITS ---
Subjective 2 Subjective: Patient feels much better. Still coughing and wheezing. Does not feel like he needs the BiPAP this morning. No fever noted overnight. Cough is not productive. Medications: Reviewed: Yes Vitals/I&O/Wt Last Vital Signs Temp 97.6 F 11/05/23 05:00 Pulse 78 11/05/23 06:10 Resp 25 H 11/05/23 06:10 BP 102/66 11/05/23 06:10 Pulse Ox 98 11/05/23 06:10 O2 Del Method BiPAP 11/05/23 03:34 O2 Flow Rate 6 11/04/23 06:39 FiO2 35 11/05/23 03:35 11/04/23 11/05/23 11/05/23 22:59 06:59 14:59 Intake Total 530 / 2510 50 / 2560 Output Total 525 / 525 125 / 650 Balance 1984 -1909 Weight last 48 hrs Weight 78.5 kg Weight 74.843 kg Weight 77.564 kg Physical Exam 2 Narrative: General exam no distress, occasional cough, on 2 L of oxygen Neck is supple no lymphadenopathy thyromegaly Cardiovascular heart sounds are distant, regular, no murmur Lungs bilateral expiratory wheezing right greater than left. Diminished air movement both sides. No crackles. Abdomen is soft nontender positive bowel sounds. No obvious organomegaly Extremities no cyanosis, edema, cap refill brisk Data 11/05/23 03:48 11/05/23 03:48 Micro: Microbiology 11/04/23 07:36 Blood Culture - Preliminary Blood NEGATIVE TO DATE 11/04/23 07:36 Blood Culture - Preliminary Blood NEGATIVE TO DATE A&P Assessment and plan (1) Acute respiratory failure with hypoxia and hypercapnia: Patient presents with acute respiratory failure with hypoxia and hypercapnia This may be multifactorial. He has apparent pneumonia on chest x-ray, and CT. He has no obvious fluid overload on physical exam although his most recent echo demonstrates an EF of 28%. I will place him on Zosyn secondary to my concern with aspiration secondary to predominance of pneumonia on the right side and the fact that he has some fluid in his esophagus on CT. I will also place him on vancomycin, secondary to his past history of MRSA on culture results. Overnight oximetry, to see if he qualifies for BiPAP Transfer out of ICU Continue Zosyn and vancomycin Await sputum culture (2) Pneumonia: See above Sputum culture Respiratory panel negative Continue vancomycin and Zosyn Wean BiPAP as tolerated CBC, CMP in the morning Qualifiers: Aspiration pneumonia type: unspecified Laterality: bilateral Lung location: unspecified part of lung Pneumonia type: aspiration pneumonia Qualified Code(s): J69.0 - Pneumonitis due to inhalation of food and vomit (3) Elevated troponin: Troponin is significantly elevated Patient is on apixaban at home, changed to Lovenox full dose anticoagulation here Continue aspirin Resume lisinopril Echo was recently done and EF was significantly low. TAZ was done at that time as well. Cardiology consultation secondary to this, arrhythmia. Appreciate consult. This was reviewed. Likely type II elevation. Consider for nuclear stress test when improved from a respiratory standpoint Defibrillator has been checked. Left bundle secondary to pacing capability of defibrillator generated from right ventricle as per cardiology note Secondary to significant cardiomyopathy with low EF we will reinstate Lasix at 20 mg IV every 24 hours. Check BMP and magnesium tomorrow. (4) Hyperglycemia: A1c was normal (5) Left bundle branch block: Patient with left bundle branch block. This intraventricular conduction delay seems more significant than last EKG in July Cardiology consultation appreciated (6) Arrhythmia: See notations under left bundle, elevated troponin Magnesium checked and normal. (7) COPD (chronic obstructive pulmonary disease): Patient with evidence of COPD exacerbation Add Mucinex Decrease Solu-Medrol to 60 mg every 24 hours Continue DuoNeb every 4 hours Continue budesonide twice daily Plan Pulmonary nodule. Will need outpatient follow-up Multiple other medical problems as outlined in past medical history full code Full code Lovenox will suffice for DVT prophylaxis Attestations 2 Medical Necessity Statement*: Needs continued hospitalization secondary to acute COPD exacerbation, need to institute IV Lasix, continue IV Solu-Medrol, and treatment of pneumonia with IV antibiotics. Diagnoses Acute respiratory failure with hypoxia and hypercapnia J96.01; J96.02 Aspiration pneumonia of both lungs, unspecified aspiration pneumonia type, unspecified part of lung J69.0 Aspiration pneumonia type: unspecified Laterality: bilateral Lung location: unspecified part of lung Pneumonia type: aspiration pneumonia Elevated troponin R79.89 Hyperglycemia R73.9 Left bundle branch block I44.7 Arrhythmia I49.9 COPD (chronic obstructive pulmonary disease) J44.9 Time Spent (min) 22
[2023-11-05] MEDS: budesonide 0.5 mg/2 mL Neb INHALATION ×2 (07:53→20:27)
--- NOTE | 2023-11-05 08:17 | P.PN_ITS ---
Subjective 2 Subjective: Patient is feeling better. No chest pain. Breathing is improving. Vitals/I&O/Wt Last Vital Signs Temp 97.6 F 11/05/23 05:00 Pulse 73 11/05/23 08:06 Resp 22 H 11/05/23 07:53 BP 102/66 11/05/23 06:10 Pulse Ox 96 11/05/23 07:53 O2 Del Method Nasal Cannula 11/05/23 07:53 O2 Flow Rate 2 11/05/23 07:53 FiO2 35 11/05/23 03:35 11/04/23 11/05/23 11/05/23 22:59 06:59 14:59 Intake Total 530 / 2510 50 / 2560 Output Total 525 / 525 125 / 650 Balance 1984 -1909 Weight last 48 hrs Weight 173 lb 1.006 oz Weight 165 lb Weight 171 lb Physical Exam 2 Narrative: GENERAL: Patient is alert, awake and oriented x3. [] NECK: No jugular vein distension. [] HEENT: No cyanosis. No icterus. No pallor. [] HEART: Regular rate and rhythm LUNGS: Clear to auscultate bilaterally. [] CENTRAL NERVOUS SYSTEM: Grossly nonfocal. [] EXTREMITIES: Lower extremities with 1+ edema bilaterally. Data 11/06/23 04:16 11/06/23 04:16 Micro: Microbiology 11/04/23 07:36 Blood Culture - Preliminary Blood NEGATIVE TO DATE 11/04/23 07:36 Blood Culture - Preliminary Blood NEGATIVE TO DATE A&P Assessment and plan (1) Elevated troponin: (2) Nonischemic congestive cardiomyopathy: (3) Acute respiratory failure with hypoxia and hypercapnia: (4) Intermittent atrial fibrillation: (5) Pneumonia: Qualifiers: Aspiration pneumonia type: unspecified Laterality: bilateral Lung location: unspecified part of lung Pneumonia type: aspiration pneumonia Qualified Code(s): J69.0 - Pneumonitis due to inhalation of food and vomit Plan Troponin elevation likely secondary to demand ischemia. Patient is chest pain- free. Plan for stress test today. Continue diuretics. Antibiotic therapy per primary team. Thank you for involving us with care of this patient. Will continue to follow. Please call with questions. Attestations 2 Medical Necessity Statement*: Care expected to cross 2 midnights. Coding Level of Care Code Acute Code for g Fwd Diagnoses Elevated troponin R79.89 Nonischemic congestive cardiomyopathy I42.0 Acute respiratory failure with hypoxia and hypercapnia J96.01; J96.02 Intermittent atrial fibrillation I48.0 Aspiration pneumonia of both lungs, unspecified aspiration pneumonia type, unspecified part of lung J69.0 Aspiration pneumonia type: unspecified Laterality: bilateral Lung location: unspecified part of lung Pneumonia type: aspiration pneumonia
[2023-11-05] MEDS: aspirin 81 mg Chew Tablet PO (09:11)
[2023-11-05] MEDS: guaiFENesin 600 mg Tablet PO ×2 (09:11→17:48)
[2023-11-05] MEDS: FUROsemide 10 mg/mL SDV 2mL 20 MG IVP (09:11)
[2023-11-05] MEDS: amiodarone 200 mg Tablet 400 MG PO (09:11)
[2023-11-05] MEDS: sertraline 100 mg Tablet 200 MG PO (09:12)
[2023-11-05] MEDS: pantoprazole DR 40 mg Tablet PO (09:12)
[2023-11-05] MEDS: tamsulosin 0.4 mg Capsule PO (09:12)
--- NOTE | 2023-11-05 09:38 | ECG_ITS ---
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 Interpretive Statements Lexiscan/sestamibi/sestamibi stress test PROCEDURE: At the baseline, the EKG revealed normal sinus rhythm with possible left atrial enlargement. Left axis deviation. Nonspecific IVCD. Nonspecific ST-T changes in the anterolateral leads. The baseline heart was 69 bpm with a blood pressue of 115/69 mm of Hg Lexiscan was infused over a period of 20 seconds. A total of 0.4 milligrams of Lexiscan was infused. The stress phase was continued for a total of 5 minutes. Heart rate at the end of the stress phase was 78 bpm with a blood pressure 113/85 mm of Hg. The EKG at the peak infusion revealed no significant changes. Sestamibi was injected 20 seconds after the Lexiscan infusion. Lung unchanged pre/post procedure; Intraprocedure shortess of breath; Symptoms resoled by discharge Heart rate at the end of the recovery phase was 77 bpm with a blood pressure of 122/86 mm of Hg. CONCLUSION: 1. No significant EKG changes with the LexiScan infusion 2. No LexiScan induced chest pain or cardiac arrhythmia 3. Normal blood pressure and heart rate response 4. Sestamibi/sestamibi perfusion scan pending; see separate report. Electronically Signed On 11-08-2023 8:57:55 CDT by London Vines M.D. [email or web address]
--- NOTE | 2023-11-05 11:33 | PC.NURSE ---
1115 Transfered patient to [facility] via wheelchair. 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 Patient alert and awake with no c/o's.
[2023-11-05] MEDS: lisinopril 5 mg Tablet PO (11:46)
[2023-11-05] MEDS: enoxaparin 80 mg/0.8 mL Syringe 70 MG SUBCUT ×2 (11:46→23:55)
[2023-11-05] MEDS: atorvastatin 40 mg Tablet PO (17:48)
--- NOTE | 2023-11-05 20:34 | PC.RESP ---
overnight pulse ox started on patient at 2036. Patient is on baseline room air at this time.
[2023-11-06] VITALS (8 sets, daily range): BP systolic 104–119; BP diastolic 58–79; PULSE 69–86; RESP 16–20; TEMP 36.7–36.8; O2SAT 90–98
[2023-11-06] MEDS: piperacillin-tazobactam 3.375 GM in sodium chloride 0.9% (plus) 50 ML IV (04:14)
[2023-11-06] MEDS: ipratropium-albuterol 3 mL Neb INHALATION (04:50)
[2023-11-06 05:27] LABS: Basophils % 0.1 %; Hematocrit 42.7 % (37-53); Lymphocytes # 0.4 10^3/uL (0.8-4.8); Mean Corpuscular HGB Conc 28.8 g/dL (30-55); Mean Corpuscular Volume 104.1 fl (82-101); Mean Platelet Volume 9.7 fL (7.4-10.4); Monocytes # 0.6 10^3/uL (0.2-0.9); Monocytes % 6.7 %; Neutrophils # 7.52 10^3/uL (1.8-7.7); Nucleated Red Blood Cells % 0 %; Platelet Count 179 10^3/cmm (157-399); White Blood Count 8.55 10^3/uL (3.29-11.43)
[2023-11-06 05:54] LABS: Alanine Aminotransferase 43 U/L (0-41); Albumin Level 3.2 g/dL (3.5-5.2); Alkaline Phosphatase 39 U/L (40-130); Blood Urea Nitrogen 23 mg/dL (8-23); Calcium 8.3 mg/dL (8.5-10.5); Carbon Dioxide 18 mmol/L (22-29); Chloride 106 mmol/L (98-107); Creatinine Clr Calc Pharmacy 88.1886; Globulin 2.8 g/dL (1.3-4.6); Glomerular Filtration Rate 85.5 mL/min (90-130); Glucose 112 mg/dL (65-115); Osmolality Calculated 286 mOsm/kg (285-295); Sodium 136 mmol/L (136-145); Total Bilirubin 0.4 mg/dL (0.15-1.2)
[2023-11-06 05:56] LABS: Anion Gap 16.4 (5-19); Aspartate Amino Transferase 31 U/L (0-40); Potassium 4.4 mmol/L (3.5-5.1)
[2023-11-06 06:14] LABS: Magnesium 2.1 mg/dL (1.7-2.3)
[2023-11-06] MEDS: regadenoson 0.4 Mg/5 ml Syringe IVP (07:38)
[2023-11-06] MEDS: LORazepam 2 mg/mL INJ 1 mL 0.5 MG IVP (08:05)
--- NOTE | 2023-11-06 08:48 | PC.NURSE ---
Pt returned back to unit after stress test at 0842. Patient resting comfortably at this time.
[2023-11-06] MEDS: amiodarone 200 mg Tablet 400 MG PO (08:53)
[2023-11-06] MEDS: guaiFENesin 600 mg Tablet PO (08:53)
[2023-11-06] MEDS: tamsulosin 0.4 mg Capsule PO (08:53)
[2023-11-06] MEDS: pantoprazole DR 40 mg Tablet PO (08:53)
[2023-11-06] MEDS: lisinopril 5 mg Tablet PO (08:53)
[2023-11-06] MEDS: sertraline 100 mg Tablet 200 MG PO (08:53)
[2023-11-06] MEDS: aspirin 81 mg Chew Tablet PO (08:53)
[2023-11-06] MEDS: methylPREDNISolone sod succ 125 mg/2 mL INJ 60 MG IVP (08:54)
--- NOTE | 2023-11-06 08:56 | P.PN_ITS ---
Subjective 2 Subjective: Patient is doing well. no chest pain. Vitals/I&O/Wt Last Vital Signs Temp 98.3 F 11/06/23 04:00 Pulse 77 11/06/23 07:49 Resp 17 11/06/23 04:50 BP 106/66 11/06/23 07:49 Pulse Ox 95 11/06/23 04:50 O2 Del Method Room Air 11/06/23 04:50 O2 Flow Rate 2 11/05/23 11:03 FiO2 35 11/05/23 03:35 11/05/23 11/06/23 11/06/23 22:59 06:59 14:59 Intake Total 290 / 1310 780 / 2090 290 / 290 Output Total 1250 / 2400 1200 / 3600 Balance -960 / -1090 -420 / -1510 290 / 290 Weight last 48 hrs Weight 170 lb Weight 173 lb 1.006 oz Weight 165 lb Physical Exam 2 Narrative: GENERAL: Patient is alert, awake and oriented x3. [] NECK: No jugular vein distension. [] HEENT: No cyanosis. No icterus. No pallor. [] HEART: Regular rate and rhythm LUNGS: Clear to auscultate bilaterally. [] CENTRAL NERVOUS SYSTEM: Grossly nonfocal. [] EXTREMITIES: Lower extremities with 1+ edema bilaterally. Data 11/06/23 04:16 11/06/23 04:16 Micro: Microbiology 11/04/23 21:20 Gram Stain - Final Sputum - Expectorated Sputum 11/04/23 07:36 Blood Culture - Preliminary Blood NEGATIVE TO DATE 11/04/23 07:36 Blood Culture - Preliminary Blood NEGATIVE TO DATE A&P Assessment and plan (1) Elevated troponin: (2) Nonischemic congestive cardiomyopathy: (3) Acute respiratory failure with hypoxia and hypercapnia: (4) Intermittent atrial fibrillation: (5) Pneumonia: Qualifiers: Aspiration pneumonia type: unspecified Laterality: bilateral Lung location: unspecified part of lung Pneumonia type: aspiration pneumonia Qualified Code(s): J69.0 - Pneumonitis due to inhalation of food and vomit Plan Patient's stress test showing 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 No significant ischemia. Continue medical therapy Thank you for involving us with care of this patient. Please call with questions. Attestations 2 Medical Necessity Statement*: Care expected to cross 2 midnights. Coding Level of Care Code Acute Code for Chg Fwd Diagnoses Elevated troponin R79.89 Nonischemic congestive cardiomyopathy I42.0 Acute respiratory failure with hypoxia and hypercapnia J96.01; J96.02 Intermittent atrial fibrillation I48.0 Aspiration pneumonia of both lungs, unspecified aspiration pneumonia type, unspecified part of lung J69.0 Aspiration pneumonia type: unspecified Laterality: bilateral Lung location: unspecified part of lung Pneumonia type: aspiration pneumonia
[2023-11-06] MEDS: FUROsemide 20 mg Tablet PO (09:17)
--- NOTE | 2023-11-06 09:39 | NMCV_ITS ---
NM sang perf SPECT r/s* [id number] Anurag Diaz Age: 63 Gender: M : 1960 Exam Date: 11/06/2023 06:33 Ordering Phys: Stewart Gibbons MD Technologist: KYRA Bearden Exam Location: [facility] Indications: Cardiomyopathy, SOB, CP STRESS TEST Please see separate stress test report in [facility] for full findings IMAGE PROTOCOL Rest/Stress 1 Lexiscan Day Radiopharmaceutical Dose (mCi) Administration Site Administered by Rest: Tc-99m 10.7 IV KYRA Bearden Sestamibi Stress:Tc-99m 32.6 IV KYRA Bearden Sestamibi Rest: 06-Nov-2023 60 Discovery 630 Stress: 06-Nov-2023 30 Discovery 630 0.4mg Lexiscan. Images obtained in supine and prone position. SPECT RESULTS Technical Quality: Poor Raw Data Analysis: Adequate Image Corrections: Patient motion artifact - motion correction applied to both stress and rest images Summed Stress Score: 12 Summed Rest Score: 16 Summed Difference Score: 0 PERFUSION FINDINGS Moderate area of moderately decreased tracer uptake involving the mid and apical inferior, mid inferoseptal, apical septal and LV apex. No significant reversibility was noted in these regions. Small area of slightly decreased tracer uptake was noted in the basal inferior and mid anteroseptal regions. No significant reversibility was noted in these regions as well FUNCTIONAL RESULTS (calculated via Gated SPECT) Stress Image LV EF (%): 28 Stress EDV (mL):299 TID: 1.01 Stress ESV (mL):215 FUNCTIONAL FINDINGS: Segmental wall motion analysis revealed a severe diffuse hypokinesia of the left ventricle with an ejection fraction of 28%. IMPRESSIONS 1. Myocardial perfusion imaging revealing moderate area of minimal to moderately decreased persistent tracer uptake involving the inferior, inferoseptal, anteroseptal and apical regions, suggestive of myocardial scarring in the distribution of the right coronary artery/left tiny descending artery. 2. Severely diminished LV ejection fraction of 28%. 3. LV wall motion analysis revealed severe diffuse hypokinesis left- ventricule. 4. Markedly elevated LV cavity with an end-systolic volume of 215 mL Low probability for coronary ischemia, based on the above findings. The features may suggest nonischemic form of cardiomyopathy. Clinical correlation is recommended Dr London Vines MD FACC (Electronically Signed) Final Date: 06 November 2023 09:58 S
--- NOTE | 2023-11-06 10:27 | PM.DCS ---
Discharge Providers Date of Admission: 11/04/23 10:33 Date of Discharge: November 06, 2023 Attending Provider at Admission: Stewart Gibbons MD Attending Provider at Discharge: Stewart Gibbons MD Primary Care Provider: EFRAÍN Granda Diagnoses at Discharge Discharge Diagnosis (1) Elevated troponin: Status: Acute (2) Nonischemic congestive cardiomyopathy: Status: Acute (3) Acute respiratory failure with hypoxia and hypercapnia: Status: Acute (4) Intermittent atrial fibrillation: Status: Acute (5) Pneumonia: Status: Acute Qualifiers: Aspiration pneumonia type: unspecified Laterality: bilateral Lung location: unspecified part of lung Pneumonia type: aspiration pneumonia Qualified Code(s): J69.0 - Pneumonitis due to inhalation of food and vomit Reason for Visit Reason for Visit: SARA OLIVARES Hospital Course Hospital Course Patient is a 63-year-old white male who presented to the hospital short of breath. He was found of a COPD exacerbation, pneumonia right greater than left, and an elevated troponin. He has a past history of a nonischemic cardiomyopathy. He was given IV antibiotics consisting of vancomycin and Zosyn. Vancomycin was initiated secondary to his past history of MRSA. He was given IV steroids. Aspirin was initiated. Statin was continued. With this treatment he improved significantly. Cardiology was consulted secondary to his defibrillator, and escalated troponin. A nuclear stress test was performed, which demonstrated no reversible ischemia, and a fixed defect mainly inferiorly. It was thought he could be safely discharged home, with doxycycline and Augmentin for his pneumonia. He will finish up a 4-day course of prednisone. He will continue his statin, aspirin, Eliquis and follow-up with cardiology regarding his low EF in 2 weeks. He was referred to pulmonary secondary to an incidental pulmonary nodule that was found. He will see his primary care provider in 3 to 5 days. He was given an opportunity to ask questions, and agreed with the plan. I encouraged him to take his Lasix daily. I clarified his Eliquis dose. Physical Exam Narrative: General Exam no distress Neck is supple Cardiovascular regular rate and rhythm Lungs coarse at the bases with occasional wheeze Abdomen is soft positive bowel sounds Extremities no cyanosis clubbing knee or edema Discharge Data Studies Completed and Pending Completed Studies During Hospitalization Category Date Time Status CTA chest [CT angio chest PE protcl [id number]] Stat Cat Scan 11/04/23 08:59 Completed Sestamibi Stress Test Request Routine Exams 11/05/23 09:38 Draft XR chest 1V portable [id number] Stat Exams 11/04/23 06:25 Completed NM sang perf SPECT r/s* [id number] Routine Nuc Med 11/06/23 09:39 Completed Pending at discharge Category Date Time Status Blood Culture Stat Lab 11/04/23 07:36 Results Sputum Culture and Gram Stain Routine Lab 11/04/23 21:20 Results Vancomycin Trough Routine Lab 11/06/23 17:00 Ordered Radiology Impressions Chest X-Ray 11/04/23 06:25 IMPRESSION: Consolidative airspace opacity in the right perihilar lung. This may represent chronic lung markings or edema but is compatible with an infectious infiltrate. Chest CTA 11/04/23 08:59 IMPRESSION: 1. Consolidative opacities in the pwjil-hlynmkr-cixj-left lung bases. This likely represents multifocal pneumonia. Aspiration pneumonitis could have a similar appearance. 2. Small right and trace left pleural effusions. 3. Mild centrilobular emphysematous changes of the upper lungs. 4. 0.7 cm solid subpleural pulmonary nodule in the anterior right middle lobe (axial series 4, image 51). For patients at low risk (minimal or absent history of smoking and of other known risk factors), recommend CT Chest at 6-12 months, then consider CT Chest at 18-24 months. For patients at high risk (history of smoking or of other known risk factors), recommend CT Chest at 6-12 months, then CT Chest at 18-24 months. (Reference: Meghan) 5. Small amount of fluid in the esophagus. 6. Multi chamber cardiomegaly. COMMENTS: The presence of pulmonary emphysema on CT is an independent risk factor for lung cancer. In the absence of a history or active diagnosis of lung cancer, it is recommended that this patient with emphysema be evaluated for enrollment in a low dose CT lung cancer screening program. REFERENCES: Meghan Salinas et al. Guidelines for Management of Incidental Pulmonary Nodules Detected on CT Images: From the Fleischner Society 2017. Radiology. 2017;284(1):228-243. Laboratory Results WBC 8.55 10^3/uL (3.29-11.43) 11/06/23 04:16 RBC 4.10 10^6/uL (3.85-5.65) 11/06/23 04:16 Hgb 12.30 g/dL (11.27-16.99) 11/06/23 04:16 Hct 42.7 % (37-53) 11/06/23 04:16 MCV 104.1 fl (82-101) H 11/06/23 04:16 MCH 30.0 pg (27-33) 11/06/23 04:16 MCHC 28.8 g/dL (30-55) L D 11/06/23 04:16 RDW 14.0 % (12.1-15.1) 11/06/23 04:16 Plt Count 179 10^3/cmm (157-399) 11/06/23 04:16 MPV 9.7 fL (7.4-10.4) 11/06/23 04:16 Neut % (Auto) 88.0 % 11/06/23 04:16 Lymph % (Auto) 5.0 % 11/06/23 04:16 Thayer % (Auto) 6.7 % 11/06/23 04:16 Eos % (Auto) 0.0 % 11/06/23 04:16 Baso % (Auto) 0.1 % 11/06/23 04:16 Neut # (Auto) 7.52 10^3/uL (1.8-7.7) 11/06/23 04:16 Lymph # (Auto) 0.4 10^3/uL (0.8-4.8) L 11/06/23 04:16 [place]ayer # (Auto) 0.6 10^3/uL (0.2-0.9) 11/06/23 04:16 Eos # (Auto) 0.0 10^3/uL (0.0-0.8) 11/06/23 04:16 Baso # (Auto) 0.0 10^3/uL (0.0-0.1) 11/06/23 04:16 Nucleated RBC % (auto) 0 % 11/06/23 04:16 Nucleated RBCs # 0.0 /100WBC 11/06/23 04:16 Specimen Type Arterial 11/04/23 06:40 Sample Site Brachial, right 11/04/23 06:40 ABG pH 7.23 (7.35-7.45) L 11/04/23 06:40 ABG pCO2 60.1 mmHg (35-45) H* 11/04/23 06:40 ABG pO2 63.5 mmHg (80.0-100.0) L 11/04/23 06:40 ABG HCO3 25.4 mmol/L (22-26) 11/04/23 06:40 ABG Base Excess -3.4 mmol/L (-2.0-2.0) L 11/04/23 06:40 Osiel Test Pos 11/04/23 06:40 Hematocrit 46.5 % (42-52) 11/04/23 06:40 O2 Delivery Device Oxy mask 11/04/23 06:40 O2 Liters/Min 5.0 % 11/04/23 06:40 Municipal Services Manager ID [email or web address] 11/04/23 06:40 Sodium 136 mmol/L (136-145) 11/06/23 04:16 Potassium 4.4 mmol/L (3.5-5.1) 11/06/23 04:16 Chloride 106 mmol/L (98-107) 11/06/23 04:16 Carbon Dioxide 18 mmol/L (22-29) L 11/06/23 04:16 Anion Gap 16.4 (5-19) 11/06/23 04:16 BUN 23 mg/dL (8-23) 11/06/23 04:16 Creatinine 0.9 mg/dL (0.7-1.2) 11/06/23 04:16 GFR Calculation 85.5 mL/min (90-130) L 11/06/23 04:16 Glucose 112 mg/dL (65-115) 11/06/23 04:16 Estimat Average Glucose 123 11/04/23 05:40 Hemoglobin A1c 5.9 % (4.0-6.0) 11/04/23 05:40 Calculated Osmolality 286 mOsm/kg (285-295) 11/06/23 04:16 Lactic Acid 1.1 mmol/L (0.5-2.2) 11/04/23 10:45 Calcium 8.3 mg/dL (8.5-10.5) L 11/06/23 04:16 Magnesium 2.1 mg/dL (1.7-2.3) 11/06/23 04:16 Total Bilirubin 0.4 mg/dL (0.15-1.2) 11/06/23 04:16 AST 31 U/L (0-40) 11/06/23 04:16 ALT 43 U/L (0-41) H 11/06/23 04:16 Alkaline Phosphatase 39 U/L (40-130) L 11/06/23 04:16 Troponin T Baseline 21 ng/L (0-15) H 11/04/23 05:40 Troponin T 120 Minute 34.18 ng/L (0-15) H 11/04/23 07:36 Delta Troponin T 13.18 ABS# (0-10) H* 11/04/23 07:36 Troponin T Hi Sens 6Hr 56.13 ng/L (0-15) H 11/04/23 12:51 Troponin T Hi Sens 6Hr Delta 35.13 ng/L (0-12) H* 11/04/23 12:51 NT-Pro-B Natriuret Pep 423 pg/mL (0-125) H 11/04/23 05:40 Total Protein 6.0 g/dL (6.6-8.7) L 11/06/23 04:16 Albumin 3.2 g/dL (3.5-5.2) L 11/06/23 04:16 Globulin 2.8 g/dL (1.3-4.6) 11/06/23 04:16 TSH 10.88 uIU/mL (0.27-4.20) H 11/04/23 05:40 Urine Color Yellow (Yellow) 11/04/23 12:00 Urine Appearance Clear (CLEAR) 11/04/23 12:00 Urine pH 5 (5-7) 11/04/23 12:00 Ur Specific [place] 1.025 (1.005-1.030) 11/04/23 12:00 Urine Protein 3+ (Negative) H 11/04/23 12:00 Urine Glucose (UA) Norm (Normal) 11/04/23 12:00 Urine Ketones Negative (Negative) 11/04/23 12:00 Urine Blood Neg (Negative) 11/04/23 12:00 Urine Nitrate Negative (Negative) 11/04/23 12:00 Urine Bilirubin 1+ (Negative) H 11/04/23 12:00 Urine Urobilinogen 1 mg/dL (Negative) H 11/04/23 12:00 Ur Leukocyte Esterase Negative (Negative) 11/04/23 12:00 Urine RBC None /hpf (0-2) 11/04/23 12:00 Urine WBC None /hpf (0-5) 11/04/23 12:00 Ur Squamous Epith Cells None /hpf (0-5) 11/04/23 12:00 Amorphous Sediment Not Reportable 11/04/23 12:00 Urine Bacteria Trace /hpf (NONE) 11/04/23 12:00 Hyaline Casts 5-10 /lpf H 11/04/23 12:00 Coarse Granular Casts 0-4 /lpf H 11/04/23 12:00 Adenovirus (PCR) Not detected (NOT DETECT) 11/04/23 11:45 C. pneumoniae DNA (PCR) Not detected (NOT DETECT) 11/04/23 11:45 Coronavirus 229E (PCR) Not detected (NOT DETECT) 11/04/23 11:45 Human Metapneumovir PCR Not detected (NOT DETECT) 11/04/23 11:45 Influenza A (H1) PCR Not detected (NOT DETECT) 11/04/23 11:45 Influ A (H1/09) PCR Not detected (NOT DETECT) 11/04/23 11:45 Influenza A (H3) PCR Not detected (NOT DETECT) 11/04/23 11:45 Influenza Type A (PCR) Not detected (NOT DETECT) 11/04/23 11:45 Influenza Type B (PCR) Not detected (NOT DETECT) 11/04/23 11:45 M. pneumoniae (PCR) Not detected (NOT DETECT) 11/04/23 11:45 Parainfluenza 1 (PCR) Not detected (NOT DETECT) 11/04/23 11:45 Parainfluenza 2 (PCR) Not detected (NOT DETECT) 11/04/23 11:45 Parainfluenza 3 (PCR) Not detected (NOT DETECT) 11/04/23 11:45 Parainfluenza 4 (PCR) Not detected (NOT DETECT) 11/04/23 11:45 RSV Type A (PCR) Not detected (NOT DETECT) 11/04/23 11:45 RSV Type B (PCR) Not detected (NOT DETECT) 11/04/23 11:45 Entero/Rhino (PCR) Not detected (NOT DETECT) 11/04/23 11:45 SARS-CoV-2 (PCR) Not detected (NOT DETECT) 11/04/23 11:45 Vitals Last Vital Signs Temp 98.3 F 11/06/23 04:00 Pulse 82 11/06/23 09:04 Resp 20 H 11/06/23 09:04 BP 119/79 11/06/23 09:04 Pulse Ox 95 11/06/23 09:04 O2 Del Method Room Air 11/06/23 09:04 O2 Flow Rate 2 11/05/23 11:03 FiO2 35 11/05/23 03:35 Discharge Plan Discharge Patient Disposition: Home Condition: Stable Prescriptions: New Eliquis 5 mg tablet 5 mg PO BID Qty: 60 0RF Mucinex 600 mg Tablet Extended Release 12hr 600 mg PO BID Qty: 14 0RF prednisone 20 mg tablet 40 mg PO DAILY 4 Days Qty: 8 0RF doxycycline hyclate 100 mg capsule 100 mg PO BID 8 Days Qty: 16 0RF amoxicillin-pot clavulanate 875-125 mg tablet 1 tab PO BID Qty: 16 0RF Continued albuterol sulfate 90 mcg/actuation HFA aerosol inhaler 2 puff INHALATION Q6H PRN (Reason: Shortness Of Breath) omeprazole 20 mg capsule,delayed release(DR/EC) 20 mg PO DAILY sertraline [Zoloft] 100 mg tablet 200 mg PO DAILY lisinopril 5 mg tablet 5 mg PO DAILY Qty: 90 3RF simvastatin 20 mg tablet 20 mg PO QPM Qty: 90 3RF aspirin [Avelino Low Dose Aspirin] 81 mg Tablet,Delayed Release (Dr/Ec) 81 mg PO DAILY tamsulosin 0.4 mg capsule 0.4 mg PO DAILY buspirone 10 mg tablet 10 mg PO TID PRN (Reason: Anxiety) ipratropium bromide 0.02 % solution 2.5 ml inhalation Q6H PRN (Reason: Shortness Of Breath) budesonide-formoterol [Symbicort] 160-4.5 mcg/actuation HFA aerosol inhaler 2 puff INHALATION BID Qty: 10.2 2RF amiodarone [Pacerone] 200 mg tablet 400 mg PO DAILY Changed furosemide 20 mg tablet 20 mg PO DAILY Qty: 30 3RF Discontinued Eliquis 5 mg tablet See Rx Instructions .ROUTE .COMPLEX Qty: 90 3RF Dose Instruction: TAKE 1 TABLET BY MOUTH TWICE DAILY, AT 9:00AM AND 9:00PM Rx Instructions: TAKE 1 TABLET BY MOUTH TWICE DAILY, AT 9:00AM AND 9:00PM meloxicam 7.5 mg Tablet 7.5 mg PO DAILY Discharge Orders: Discharge Order (Routine); Ordered 11/06/23 Ordered By: Stewart Gibbons Referrals: Glo Isbell MD [Physician] - Karen Plata FNP [Nurse Practitioner] - 2 weeks Senia Hansen FNP [Primary Care Provider] - 4-7 days Discharge Diet: Cardiac Discharge Activity: Increase activity as tolerated Patient Instructions: Bacterial Pneumonia (GEN), Opioid Safety Activity Restrictions/Additional Instructions: Take all medicine as prescribed Follow-up with cardiology in 2 weeks Follow-up with your primary care provider in 4 to 7 days Return for any concerns Please arrange pulmonary follow-up, regarding pulmonary nodule. I discussed this with the patient as well. Finish entire course of antibiotics If any significant diarrhea occurs that does not stop with antibiotic treatment seek evaluation. Stop smoking marijuana. No nicotine. Stop your meloxicam. Discharge Attestations Time Spent in Discharge Care*: greater than 30 min Status at Discharge: Cognitive status at discharge: cognitively intact, Behavioral status at discharge: cooperative, Quality Metrics Clinical Quality Measures [ No reported AMI, CVA or VTE this stay] Coding Level of Care Code 09428 Total time (in minutes) for Discharge: 31 Diagnoses Elevated troponin R79.89 Nonischemic congestive cardiomyopathy I42.0 Acute respiratory failure with hypoxia and hypercapnia J96.01; J96.02 Intermittent atrial fibrillation I48.0 Aspiration pneumonia of both lungs, unspecified aspiration pneumonia type, unspecified part of lung J69.0 Aspiration pneumonia type: unspecified Laterality: bilateral Lung location: unspecified part of lung Pneumonia type: aspiration pneumonia
--- NOTE | 2023-11-06 12:22 | PC.NURSE ---
This RN went over the discharge instructions and follow up appts with the pt. This RN educated pt and his on tri-pod breathing and purse breathing techniques. This RN provided education on all new medications, diagnosis, and COPD warning signs.
== END 2023-11-06 12:21 | disposition home or self-care (01) | DRG 190 ==
LOC: ER 06:56 → ICU 10:33 → MEDSURG 11-05 11:25
PROVIDERS: Emergency Medicine; Admitting Provider Internal Medicine; Emergency Provider Emergency Medicine; PCP Nurse Practitioner Family; Visit Provider Internal Medicine
DX: J44.1 Chronic obstructive pulmonary disease with (acute) exacerbation (principal); J69.0 Pneumonitis due to inhalation of food and vomit; J96.02 Acute respiratory failure with hypercapnia; J96.01 Acute respiratory failure with hypoxia; I42.8 Other cardiomyopathies; I50.22 Chronic systolic (congestive) heart failure; I11.0 Hypertensive heart disease with heart failure; I48.0 Paroxysmal atrial fibrillation; F32.A Depression, unspecified; F41.9 Anxiety disorder, unspecified; G47.33 Obstructive sleep apnea (adult) (pediatric); K21.9 Gastro-esophageal reflux disease without esophagitis; E78.5 Hyperlipidemia, unspecified; F17.210 Nicotine dependence, cigarettes, uncomplicated; R73.9 Hyperglycemia, unspecified; I44.7 Left bundle-branch block, unspecified; R91.8 Other nonspecific abnormal finding of lung field; R79.89 Other specified abnormal findings of blood chemistry; Z95.810 Presence of automatic (implantable) cardiac defibrillator; Z79.4 Long term (current) use of insulin; Z79.82 Long term (current) use of aspirin; Z79.01 Long term (current) use of anticoagulants; Z11.52 Encounter for screening for COVID-19; Z90.49 Acquired absence of other specified parts of digestive tract
CPT/HCPCS: 36415; 36600; 71045; 71275; 78452; 80053; 81001; 82803; 83036; 83605; 83735; 83880; 84443; 84484; 85025; 87040; 87070; 87205; 87486; 87581; 87633; 93005; 93017; 94640; 94660; 94762; 96365; 96372; 96374; 96375; 96376; 99291; A9500; J0456; J0696; J1650; J1940; J2060; J2270; J2405; J2543; J2785; J2919; J3370; J7030; J7050; J7626; Q9967

== ENCOUNTER 2024-02-17 13:43 | Emergency (ER) | payer BC, MEDICAID, SELFPAY ==
--- NOTE | 2024-02-17 13:46 | XRR_ITS ---
PROCEDURE INFORMATION: Exam: XR Chest Exam date and time: 02/17/2024 1:57 PM Age: 63 years old Clinical indication: Pain; Angina pectoris; Additional info: Cp TECHNIQUE: Imaging protocol: Radiologic exam of the chest. Views: 1 view. COMPARISON: CT angio chest PE protcl [id number] 11/04/2023 9:27 AM FINDINGS: Lungs: No focal consolidation. Pleural spaces: No evidence of pneumothorax. No evidence of pleural effusion. Heart/Mediastinum: Cardiomediastinal silhouette is within normal limits. Left subclavian approach dual-chamber pacemaker ICD. Bones/joints: No evidence of acute osseous abnormality. Cervical fusion hardware noted. XR/XR chest 1V portable [id number] IMPRESSION: 1. No acute cardiopulmonary abnormality.
--- NOTE | 2024-02-17 13:48 | ECG_ITS ---
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 Measurements Intervals [place] Rate: 65 P: 111 MD: 231 QRS: 231 QRSD: 190 T: 75 QT: 456 QTc: 476 Interpretive Statements ELECTRONIC ATRIAL PACEMAKER INDETERMINATE AXIS INTRAVENTRICULAR CONDUCTION DELAY [130+ ms QRS DURATION] Compared to ECG 11/04/2023 14:22:06 Indeterminate axis now present Electronically Signed On 02-18-2024 21:38:16 CLASS B TRUCK DRIVER by Justin Spence M.D. [email or web address]
[2024-02-17 13:57] VITALS: BP 111/72; PULSE 64; RESP 18; TEMP 37.1; O2SAT 96
[2024-02-17 14:35] LABS: Basophils % 0.2 %; Eosinophils % 0.5 %; Hematocrit 40.3 % (37-53); Lymphocytes # 0.7 10^3/uL (0.8-4.8); Lymphocytes % 8.1 %; Mean Corpuscular HGB Conc 31.5 g/dL (30-55); Mean Corpuscular Hemoglobin 28.5 pg (27-33); Mean Corpuscular Volume 90.6 fl (82-101); Mean Platelet Volume 9.4 fL (7.4-10.4); Monocytes # 0.5 10^3/uL (0.2-0.9); Monocytes % 5.9 %; Neutrophils # 7.32 10^3/uL (1.8-7.7); Nucleated Red Blood Cells % 0 %; Platelet Count 184 10^3/cmm (157-399); Red Blood Count 4.45 10^6/uL (3.85-5.65); Red Cell Distribution Width 14.1 % (12.1-15.1); White Blood Count 8.62 10^3/uL (3.29-11.43)
[2024-02-17 14:53] LABS: Troponin(5th) Baseline 22 ng/L (0-15)
[2024-02-17 14:54] LABS: Alanine Aminotransferase 43 U/L (0-41); Albumin Level 4.3 g/dL (3.5-5.2); Alkaline Phosphatase 44 U/L (40-130); Anion Gap 14.3 (5-19); Aspartate Amino Transferase 33 U/L (0-40); Blood Urea Nitrogen 20 mg/dL (8-23); Calcium 8.8 mg/dL (8.5-10.5); Carbon Dioxide 26 mmol/L (22-29); Chloride 99 mmol/L (98-107); Creatinine Clr Calc Pharmacy 83.8206; Glomerular Filtration Rate 85.5 mL/min (90-130); Glucose 106 mg/dL (65-115); Lipase 25 U/L (13-60); Osmolality Calculated 283 mOsm/kg (285-295); Potassium 4.3 mmol/L (3.5-5.1); Sodium 135 mmol/L (136-145); Total Bilirubin 0.5 mg/dL (0.15-1.2); Total Protein 6.3 g/dL (6.6-8.7)
--- NOTE | 2024-02-17 15:46 | ECG_ITS ---
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 Measurements Intervals [place] Rate: 63 P: 107 DC: 252 QRS: 109 QRSD: 196 T: -31 QT: 479 QTc: 491 Interpretive Statements ELECTRONIC ATRIAL PACEMAKER INDETERMINATE AXIS INTRAVENTRICULAR CONDUCTION DELAY [130+ ms QRS DURATION] Compared to ECG 02/17/2024 13:48:21 No significant changes Electronically Signed On 02-18-2024 21:57:29 RENTAL REPRESENTATIVE by Justin Spence M.D. [email or web address]
[2024-02-17 16:00] VITALS: BP 110/58; PULSE 61; RESP 12; O2SAT 96
--- NOTE | 2024-02-17 16:00 | ED_ITS ---
HPI - Chest Pain 2 General: Chief Complaint: Chest Pain Stated Complaint: CP Time Seen by Provider: 02/17/24 15:31 Source: patient Mode of arrival: ambulatory Limitations: no limitations History of Present Illness: 63-year-old male states over the last fe w weeks he has been having sharp chest pain states he is also had a cough and some mild dyspnea he states he gets shooting pains across his chest that are worse with palpation and movement. He denies any fever denies any diaphoresis. Associated symptoms: Reports dyspnea; Deny abdominal pain, fever(s), nausea or vomiting Related Data Home Medications Medication Instructions Recorded Confirmed omeprazole 20 mg capsule,delayed 20 mg PO DAILY 03/25/19 02/17/24 release aspirin 81 mg tablet,delayed 81 mg PO DAILY 11/23/20 02/17/24 release (Avelino Low Dose Aspirin) sertraline 100 mg tablet (Zoloft) 200 mg PO DAILY 03/27/23 02/17/24 buspirone 10 mg tablet 10 mg PO TID PRN Anxiety 07/23/23 02/17/24 ropinirole 1 mg tablet 1 mg PO BID 02/17/24 02/17/24 Previous Rx's Medication Instructions Recorded lisinopril 5 mg tablet 5 mg PO DAILY #90 tabs 03/28/23 simvastatin 20 mg tablet 20 mg PO QPM #90 tabs 10/11/23 apixaban 5 mg tablet (Eliquis) 5 mg PO BID #60 tabs 11/06/23 amiodarone 200 mg tablet (Pacerone) 400 mg (2 x 200 mg) PO DAILY #180 12/11/23 tabs Allergies Allergy/AdvReac Type Severity Reaction Status Date / Time No Known Allergies Allergy Verified 02/17/24 14:00 Review of Systems 2 Const: Denies: fever(s), chills, body aches or change in appetite ENMT: Denies: throat pain or dental pain Card: Reports: chest pain Resp: Reports: dyspnea and non-productive cough GI: Denies: abdominal pain, nausea, vomiting or diarrhea Musc: Denies: neck pain or back pain Skin/Breast: Denies: rash Neuro: Denies: headache(s) PFSH ED 2 PFSH: Medical History Hypertension Depression with anxiety BPH (benign prostatic hyperplasia) COPD (chronic obstructive pulmonary disease) History of cardioversion Acute dyspnea New onset a-fib Cardiomyopathy Sleep apnea Heart failure GERD (gastroesophageal reflux disease) Dyslipidemia Smoker Surgical History History of colon resection Dr. Álvarez History of inguinal hernia repair 20+ years ago AICD (automatic cardioverter/defibrillator) present Family History Sister Heart disease Father Myocardial infarct Social History Smoking and tobacco/nicotine status: former use of tobacco/nicotine Alcohol intake: former Substance/Drug Use: current Substance/Drug use frequency: daily Physical Exam 2 Const: COMMON NORMALS: no acute distress, patient oriented x3 and healthy appearing HENMT: COMMON NORMALS: normocephalic and atraumatic HEAD & SCALP: n ormocephalic and atraumatic Eye: COMMON NORMALS: conjunctivae normal CONJUNCTIVA: Yes conjunctivae normal Neck/C-Spine: COMMON NORMALS: full ROM and supple Chest: COMMONS NORMALS: normal inspection of the chest OTHER: chest wall tenderness Resp: COMMON NORMALS: normal respiratory effort, No retractions, No use of accessory muscles and clear to auscultation bilaterally AUSCULTATION: clear to auscultation bilaterally Cardio: COMMON NORMALS: regular rate, regular rhythm and No murmurs present (Cardio) RATE: regular rate RHYTHM: regular rhythm GI: COMMON NORMALS: Normal to inspection, nondistended, normoactive bowel sounds present, Soft to palpation, non-tender and no masses PALPATION: Yes Soft to palpation Extremity: COMMON NORMALS: normal to inspection and full ROM Neuro: COMMON NORMALS: patient oriented x3, moves all extremities and no focal motor deficits Psych: COMMON NORMALS: mental status grossly normal, Normal thought process present and cooperative THOUGHT PROCESS: Normal thought process present Skin: COMMON NORMALS: no rashes or lesions noted and no wounds GENERAL SKIN EXAM: no rashes or lesions noted Course 2 Vital Signs: Vital signs: Vital Signs Temperature 98.7 F 02/17/24 13:57 Pulse Rate 64 02/17/24 17:30 Respiratory Rate 19 H 02/17/24 17:00 Blood Pressure 96/76 02/17/24 17:30 Pulse Oximetry 93 02/17/24 17:30 Oxygen Delivery Me thod Room Air 12/02/24 17:30 MDM - Chest Pain Medical Decision Making Patient presents for chest pains atypical in nature likely muscular 2-hour troponins unchanged no signs of ACS chest x-ray is normal is no signs of PE or dissection he is stable for discharge follow-up with PCP return if worsening. Medical Records I reviewed the patient's medical records. Lab Data I reviewed the patient's lab results. 02/17/24 14:28 02/17/24 14:28 Radiology Impressions Chest X-Ray 02/17/24 13:46 IMPRESSION: 1. No acute cardiopulmonary abnormality. Laboratory Results WBC 8.62 10^3/uL (3.29-11.43) 02/17/24 14: RBC 4.45 10^6/uL (3.85-5.65) 02/17/24 14:28 Hgb 12.70 g/dL (11.27-16.99) 02/17/24 14: Hct 40.3 % (37-53) 02/17/24 14: MCV 90.6 fl (82-101) 02/17/24 14:28 MCH 28.5 pg (27-33) 02/17/24 14:28 MCHC 31.5 g/dL (30-55) 02/17/24 14:28 RDW 14.1 % (12.1-15.1) 02/17/24 14:28 Plt Count 184 10^3/cmm (157-399) 02/17/24 14:28 MPV 9.4 fL (7.4-10.4) 02/17/24 14:28 Neut % (Auto) 85.0 % 02/17/24 14:28 Lymph % (Auto) 8.1 % 02/17/24 14:28 [place] % (Auto) 5.9 % 02/17/24 14:28 Eos % (Auto) 0.5 % 02/17/24 14:28 Baso % (Auto) 0.2 % 02/17/24 14: Neut # (Auto) 7.32 10^3/uL (1.8-7.7) 02/17/24 14:28 Lymph # (Auto) 0.7 10^3/uL (0.8-4.8) L 02/17/24 14:28 [place] # (Auto) 0.5 10^3/uL (0.2-0.9) 02/17/24 14:28 Eos # (Auto) 0.0 10^3/uL (0.0-0.8) 02/17/24 14:28 Baso # (Auto) 0.0 10^3/uL (0.0-0.1) 02/17/24 14:28 Nucleated RBC % (auto) 0 % 02/17/24 14:28 Nucleated RBCs # 0.0 /100WBC 02/17/24 14:28 Sodium 135 mmol/L (136-145) L 02/17/24 14:28 Potassium 4.3 mmol/L (3.5-5.1) 02/17/24 14:28 Chloride 99 mmol/L (98-107) 02/17/24 14:28 Carbon Dioxide 26 mmol/L (22-29) 02/17/24 14:28 Anion Gap 14.3 (5-19) 02/17/24 14:28 BUN 20 mg/dL (8-23) 02/17/24 14:28 Creatinine 0.9 mg/dL (0.7-1.2) 02/17/24 14:28 GFR Calculation 85.5 mL/min (90-130) L 02/17/24 14:28 Glucose 106 mg/dL (65-115) 02/17/24 14:28 Calculated Osmolality 283 mOsm/kg (285-295) L 02/17/24 14:28 Calcium 8.8 mg/dL (8.5-10.5) 02/17/24 14:28 Total Bilirubin 0.5 mg/dL (0.15-1.2) 02/17/24 14:28 AST 33 U/L (0-40) 02/17/24 14:28 ALT 43 U/L (0-41) H 02/17/24 14:28 Alkaline Phosphatase 44 U/L (40-130) 02/17/24 14:28 Troponin T Baseline 22 ng/L (0-15) H 02/17/24 14:28 Troponin T 120 Minute 21.68 ng/L (0-15) H 02/17/24 16:46 Delta Troponin T -0.32 ABS# (0-10) L 02/17/24 16:46 Total Protein 6.3 g/dL (6.6-8.7) L 02/17/24 14:28 Albumin 4.3 g/dL (3.5-5.2) 02/17/24 14:28 Globulin 2.0 g/dL (1.3-4.6) 02/17/24 14:28 Lipase 25 U/L (13-60) 02/17/24 14:28 All radiology interpretation(s) finalized by discharge EKG Data EKG 1: I personally reviewed and interpreted this EKG as follows: EKG interpretation date: 02/17/24 EKG interpretation time: 15:51 Interpretation: paced hr [address] elevation qrs 196 qtc 486 Discharge Plan Discharge Patient Disposition: Home Clinical Impression: Chest pain Condition: Stable Prescriptions: No Action omeprazole 20 mg capsule,delayed release(DR/EC) 20 mg PO DAILY sertraline [Zoloft] 100 mg tablet 200 mg PO DAILY lisinopril 5 mg tablet 5 mg PO DAILY Qty: 90 3RF simvastatin 20 mg tablet 20 mg PO QPM Qty: 90 3RF amiodarone [Pacerone] 200 mg tablet 400 mg PO DAILY Qty: 180 3RF aspirin [Avelino Low Dose Aspirin] 81 mg Tablet,Delayed Release (Dr/Ec) 81 mg PO DAILY ropinirole 1 mg tablet 1 mg PO BID buspirone 10 mg tablet 10 mg PO TID PRN (Reason: Anxiety) Eliquis 5 mg tablet 5 mg PO BID Qty: 60 0RF Discharge Orders: Discharge ED (Routine); Ordered 02/17/24 Ordered By: Anthony Tamez Referrals: Senia Hansen FNP [Primary Care Provider] - 4-7 days Discharge Diet: Advance as tolerated Discharge Activity: Resume usual activity Patient Instructions: Chest Pain (ED) Coding Level of Care Code ED Hydroelectric Production Manager for Pardeep Vargas
[2024-02-17 16:30] VITALS: BP 90/60; PULSE 63; RESP 17; O2SAT 94
[2024-02-17] MEDS: aspirin 81 mg Chew Tablet 324 MG PO (16:43)
[2024-02-17 17:00] VITALS: BP 93/63; PULSE 61; RESP 19; O2SAT 93
[2024-02-17 17:30] VITALS: BP 96/76; PULSE 64; O2SAT 93
[2024-02-17 17:31] LABS: Troponin 5 2HR 21.68 ng/L (0-15)
[2024-02-17 17:37] LABS: Troponin 5 2HR Delta -0.32 ABS# (0-10)
== END 2024-02-17 18:07 | disposition home or self-care (01) ==
PROVIDERS: Emergency Provider Emergency Medicine; PCP Nurse Practitioner Family
DX: R07.9 Chest pain, unspecified (principal); Z79.82 Long term (current) use of aspirin; Z79.01 Long term (current) use of anticoagulants; Z87.891 Personal history of nicotine dependence; J44.9 Chronic obstructive pulmonary disease, unspecified; E78.5 Hyperlipidemia, unspecified; I10 Essential (primary) hypertension
CPT/HCPCS: 36415; 71045; 80053; 83690; 84484; 85025; 93005; 99285

== ENCOUNTER 2024-04-26 12:29 | Emergency (ER) | payer BC, MEDICAID, SELFPAY ==
[2024-04-26 12:32] VITALS: BP 97/62; PULSE 72; RESP 17; TEMP 36.4; O2SAT 98; BMI 21.7
[2024-04-26 15:23] LABS: Basophils % 0.1 %; Eosinophils % 0.2 %; Hematocrit 35.9 % (37-53); Lymphocytes # 0.3 10^3/uL (0.8-4.8); Lymphocytes % 3.6 %; Mean Corpuscular Hemoglobin 27.1 pg (27-33); Mean Corpuscular Volume 84.7 fl (82-101); Mean Platelet Volume 9.3 fL (7.4-10.4); Monocytes # 0.7 10^3/uL (0.2-0.9); Monocytes % 7.8 %; Neutrophils # 8.11 10^3/uL (1.8-7.7); Neutrophils % 87.5 %; Nucleated Red Blood Cells % 0 %; Platelet Count 260 10^3/cmm (157-399); Red Blood Count 4.24 10^6/uL (3.85-5.65); Red Cell Distribution Width 14.9 % (12.1-15.1); White Blood Count 9.26 10^3/uL (3.29-11.43)
[2024-04-26 15:49] LABS: Alanine Aminotransferase 151 U/L (0-41); Albumin Level 3.5 g/dL (3.5-5.2); Alkaline Phosphatase 63 U/L (40-130); Anion Gap 19.1 (5-19); Aspartate Amino Transferase 58 U/L (0-40); Blood Urea Nitrogen 18 mg/dL (8-23); Calcium 8.5 mg/dL (8.5-10.5); Carbon Dioxide 23 mmol/L (22-29); Chloride 98 mmol/L (98-107); Globulin 3.1 g/dL (1.3-4.6); Glomerular Filtration Rate 136.5 mL/min (90-130); Glucose 105 mg/dL (65-115); Magnesium 1.9 mg/dL (1.7-2.3); NT Pro B Type Natriuretic Pept 1650 pg/mL (0-125); Osmolality Calculated 284 mOsm/kg (285-295); Potassium 4.1 mmol/L (3.5-5.1); Sodium 136 mmol/L (136-145); Total Bilirubin 0.8 mg/dL (0.15-1.2); Total Protein 6.6 g/dL (6.6-8.7)
--- NOTE | 2024-04-26 16:31 | XRR_ITS ---
PROCEDURE INFORMATION: Exam: XR Chest Exam date and time: 04/26/2024 5:01 PM Age: 63 years old Clinical indication: Shortness of breath; Prior surgery; Surgery date: 6+ months; Surgery type: Defibulator; Additional info: SOB; Pneumonia; Chest congestion TECHNIQUE: Imaging protocol: Radiologic exam of the chest. Views: 1 view. COMPARISON: CR XR chest 1V portable [id number] 02/17/2024 1:57 PM FINDINGS: Tubes, catheters and devices: Stable left subclavian AICD. Lungs: Left perihilar interstitial and airspace opacities. Pleural spaces: Unremarkable. No pleural effusion. No pneumothorax. Heart/Mediastinum: Stable cardiomediastinal silhouette. Bones/joints: Unremarkable. XR/XR chest 1V portable [id number] IMPRESSION: Left perihilar opacities likely represent infiltrate.
--- NOTE | 2024-04-26 16:34 | W.ED.WEAKNES ---
HPI - Weakness General: Chief complaint: Weakness Stated complaint: abdominal pain Time Seen by Provider: 04/26/24 16:23 History of Present Illness: This patient is a 63-year-old presenting with abdominal pain. He was recently discharged from [facility] in [place] after a week of admission with CHF, pneumonia and during which time he was intubated and had a cardiac arrest. He had medications changed around and has a defibrillator in place. He was discharged on Saturday and since then has had some difficulty with abdominal discomfort and vomiting. He feels like his breathing has gotten somewhat worse as well. He is concerned that he has swelling coming back in his ankles. He denies fever. He does not think he could have the flu as he has been trying to stay isolated. He denies chest pain. He denies any prior episodes of this type of abdominal pain. He was put on amoxicillin/clavulanate for pneumonia and he wonders if perhaps that is causing his abdominal pain. He notes that his belly pain seems to be worse when he takes that. He was also started on Entresto and spironolactone. He had his lisinopril stopped. PFSH ED PFSH: Medical History Hypertension Depression with anxiety BPH (benign prostatic hyperplasia) COPD (chronic obstructive pulmonary disease) History of cardioversion Acute dyspnea New onset a-fib Cardiomyopathy Sleep apnea Heart failure GERD (gastroesophageal reflux disease) Dyslipidemia Smoker Surgical History History of colon resection Dr. Álvarez History of inguinal hernia repair 20+ years ago AICD (automatic cardioverter/defibrillator) present Family History Sister Heart disease Father Myocardial infarct Social History Smoking and tobacco/nicotine status: former use of tobacco/nicotine Alcohol intake: former Substance/Drug Use: current Substance/Drug use frequency: daily Physical Exam Const: COMMON NORMALS: no acute distress, patient oriented x3, no limitations and alert GENERAL APPEARANCE: cooperative and comfortable HENMT: HEAD & SCALP: normal to inspection FACE & SINUS: normal facial exam Eye: GENERAL EYE: appearance normal, both eyes and all related structures Neck/C-Spine: COMMON NORMALS: supple, no meningeal signs and no JVD Chest: COMMONS NORMALS: normal inspection of the chest Resp: COMMON NORMALS: normal respiratory effort, No use of accessory muscles and clear to auscultation bilaterally AUSCULTATION: clear to auscultation bilaterally Cardio: COMMON NORMALS: no JVD, regular rate, regular rhythm and No murmurs present (Cardio) RATE: regular rate RHYTHM: regular rhythm GI: COMMON NORMALS: Normal to inspection, nondistended, normoactive bowel sounds present, Soft to palpation and non-tender INSPECTION: Yes normal to inspection AUSCULTATION: Yes normoactive bowel sounds PALPATION: Yes Soft to palpation Back/Pelvis: COMMON NORMALS: thoracic and lumbar spine normal to inspection Extremity: COMMON NORMALS: normal to inspection Neuro: COMMON NORMALS: patient oriented x3, moves all extremities, no focal motor deficits and no sensory deficits noted SENSORIUM/ORIENTATION: Yes alert MENINGEAL SIGNS: Yes no meningeal signs Psych: COMMON NORMALS: mental status grossly normal, cooperative and normal affect Skin: COMMON NORMALS: no rashes or lesions noted and turgor normal GENERAL SKIN EXAM: no rashes or lesions noted and turgor normal Course Vital Signs: Vital signs: Vital Signs Temperature 97.5 F L 04/26/24 12:32 Pulse Rate 75 04/26/24 16:55 Respiratory Rate 17 04/26/24 12:32 Blood Pressure 112/71 04/26/24 16:55 Pulse Oximetry 95 04/26/24 16:55 Oxygen Delivery Me thod Room Air 04/26/24 16:55 MDM - Weakness Medical Decision Making This patient appears fairly comfortable. His respirations are nonlabored. His lungs are actually pretty clear. His O2 sat was 98% on room air on arrival. Blood pressures have been running low. In the ED he was 97 systolic and then 112 systolic. He also showed me his blood pressures from home and he is had some as low was in the 80s. He was told that was not unexpected with the new medications. He has had some episodes of feeling quite lightheaded with standing but has not had syncope. He overall feels tired. His BNP is slightly elevated which is not surprising with his history. His other labs look quite good. I did get a COVID/flu/RSV swab which is still pending. Chest x-ray does not show infiltrates. His abdominal exam is really quite benign. I suspect that his symptoms may be a combination of all the new medications and some anxiety. He has had a history of prior surgery on his abdomen having had a colon resection for diverticulitis in the remote past. Lab Data 04/26/24 15:08 04/26/24 15:08 Laboratory Results WBC 9.26 10^3/uL (3.29-11.43) 04/26/24 15:08 RBC 4.24 10^6/uL (3.85-5.65) 04/26/24 15:08 Hgb 11.50 g/dL (11.27-16.99) 04/26/24 15:08 Hct 35.9 % (37-53) L 04/26/24 15:08 MCV 84.7 fl (82-101) 04/26/24 15:08 MCH 27.1 pg (27-33) 04/26/24 15:08 MCHC 32.0 g/dL (30-55) 04/26/24 15:08 RDW 14.9 % (12.1-15.1) 04/26/24 15:08 Plt Count 260 10^3/cmm (157-399) 04/26/24 15:08 MPV 9.3 fL (7.4-10.4) 04/26/24 15:08 Neut % (Auto) 87.5 % 04/26/24 15:08 Lymph % (Auto) 3.6 % 04/26/24 15:08 [place] % (Auto) 7.8 % 04/26/24 15:08 Eos % (Auto) 0.2 % 04/26/24 15:08 Baso % (Auto) 0.1 % 04/26/24 15:08 Neut # (Auto) 8.11 10^3/uL (1.8-7.7) H 04/26/24 15:08 Lymph # (Auto) 0.3 10^3/uL (0.8-4.8) L 04/26/24 15:08 [place] # (Auto) 0.7 10^3/uL (0.2-0.9) 04/26/24 15:08 Eos # (Auto) 0.0 10^3/uL (0.0-0.8) 04/26/24 15:08 Baso # (Auto) 0.0 10^3/uL (0.0-0.1) 04/26/24 15:08 Nucleated RBC % (auto) 0 % 04/26/24 15:08 Nucleated RBCs # 0.0 /100WBC 04/26/24 15:08 Sodium 136 mmol/L (136-145) 04/26/24 15:08 Potassium 4.1 mmol/L (3.5-5.1) 04/26/24 15:08 Chloride 98 mmol/L (98-107) 04/26/24 15:08 Carbon Dioxide 23 mmol/L (22-29) 04/26/24 15:08 Anion Gap 19.1 (5-19) H 04/26/24 15:08 BUN 18 mg/dL (8-23) 04/26/24 15:08 Creatinine 0.6 mg/dL (0.7-1.2) L 04/26/24 15:08 GFR Calculation 136.5 mL/min (90-130) H 04/26/24 15:08 Glucose 105 mg/dL (65-115) 04/26/24 15:08 Calculated Osmolality 284 mOsm/kg (285-295) L 04/26/24 15:08 Calcium 8.5 mg/dL (8.5-10.5) 04/26/24 15:08 Magnesium 1.9 mg/dL (1.7-2.3) 04/26/24 15:08 Total Bilirubin 0.8 mg/dL (0.15-1.2) 04/26/24 15:08 AST 58 U/L (0-40) H 04/26/24 15:08 ALT 151 U/L (0-41) H 04/26/24 15:08 Alkaline Phosphatase 63 U/L (40-130) 04/26/24 15:08 NT-Pro-B Natriuret Pep 1650 pg/mL (0-125) H 04/26/24 15:08 Total Protein 6.6 g/dL (6.6-8.7) 04/26/24 15:08 Albumin 3.5 g/dL (3.5-5.2) 04/26/24 15:08 Globulin 3.1 g/dL (1.3-4.6) 04/26/24 15:08 Urine Color Yellow (Yellow) 04/26/24 16:59 Urine Appearance Clear (CLEAR) 04/26/24 16:59 Urine pH 5.5 (5-7) 04/26/24 16:59 Ur Specific [place] 1.036 (1.005-1.030) H 04/26/24 16:59 Urine Protein Trace (Negative) A 04/26/24 16:59 Urine Glucose (UA) 3+ (Normal) H 04/26/24 16:59 Urine Ketones Trace (Negative) 04/26/24 16:59 Urine Blood Negative (Negative) 04/26/24 16:59 Urine Nitrate Negative (Negative) 04/26/24 16:59 Urine Bilirubin Negative (Negative) 04/26/24 16:59 Urine Urobilinogen 0.2 mg/dL (Negative) 04/26/24 16:59 Ur Leukocyte Esterase Negative (Negative) 04/26/24 16:59 Urine RBC 0-2 /hpf (0-2) 04/26/24 16:59 Urine WBC 0-5 /hpf (0-5) 04/26/24 16:59 Ur Squamous Epith Cells 0-5 /hpf (0-5) 04/26/24 16:59 Amorphous Sediment Not Reportable 04/26/24 16:59 Urine Bacteria None seen /hpf (NONE) 04/26/24 16:59 Hyaline Casts 0.81 /lpf 04/26/24 16:59 Coronavirus (PCR) Negative (Negative) 04/26/24 16:58 Influenza A (PCR) Negative (Negative) 04/26/24 16:58 Influenza Type B (PCR) Negative (Negative) 04/26/24 16:58 RSV (PCR) Negative (Negative) 04/26/24 16:58 All radiology interpretation(s) finalized by discharge Discharge Plan Discharge Patient Disposition: Home Condition: Stable Prescriptions: No Action omeprazole 20 mg capsule,delayed release(DR/EC) 20 mg PO DAILY sertraline [Zoloft] 100 mg tablet 200 mg PO DAILY albuterol sulfate 90 mcg/actuation HFA aerosol inhaler 2 puff inhalation Q6H PRN (Reason: Shortness Of Breath Or Wheezing) budesonide-formoterol [Symbicort] 80-4.5 mcg/actuation HFA aerosol inhaler 2 puff inhalation BID simvastatin 20 mg tablet 20 mg PO QPM Qty: 90 3RF amiodarone [Pacerone] 200 mg tablet 400 mg PO DAILY Qty: 180 3RF lisinopril 5 mg tablet 5 mg PO DAILY Qty: 90 3RF aspirin [Avelino Low Dose Aspirin] 81 mg Tablet,Delayed Release (Dr/Ec) 81 mg PO DAILY buspirone 10 mg tablet 10 mg PO TID PRN (Reason: Anxiety) Eliquis 5 mg tablet 5 mg PO BID Qty: 60 0RF ropinirole 3 mg tablet 1.5 mg PO TID spironolactone 25 mg tablet 12.5 mg PO DAILY tamsulosin 0.4 mg capsule 0.4 mg PO DAILY amoxicillin-pot clavulanate 500-125 mg tablet 1 tab PO Q8H Discharge Orders: Discharge ED (Routine); Ordered 04/26/24 Ordered By: Shalini Fitzgerald Referrals: Senia Hansen FNP [Primary Care Provider] - Patient Instructions: Opioid Safety, Pain Management Print Language: [place] Islander Coding Level of Care Code ED Physical Fitness Teacher for Chg Fwd Related Data Home Medications ?Medication ?Instructions ?Recorded ?Confirmed omeprazole 20 mg capsule,delayed 20 mg PO DAILY 03/25/19 04/26/24 release aspirin 81 mg tablet,delayed 81 mg PO DAILY 11/23/20 04/26/24 release (Avelino Low Dose Aspirin) sertraline 100 mg tablet (Zoloft) 200 mg PO DAILY 03/27/23 04/26/24 buspirone 10 mg tablet 10 mg PO TID PRN Anxiety 07/23/23 04/26/24 albuterol sulfate 90 mcg/actuation 2 puff inhalation Q6H PRN 04/10/24 04/26/24 aerosol inhaler Shortness Of Breath Or Wheezing budesonide-formoterol HFA 80 2 puff inhalation BID 04/10/24 04/26/24 mcg-4.5 mcg/actuation aerosol inhaler (Symbicort) amoxicillin 500 mg-potassium 1 tab PO Q8H 04/26/24 04/26/24 clavulanate 125 mg tablet ropinirole 3 mg tablet 1.5 mg PO TID 04/26/24 04/26/24 spironolactone 25 mg tablet 12.5 mg PO DAILY 04/26/24 04/26/24 tamsulosin 0.4 mg capsule 0.4 mg PO DAILY 04/26/24 04/26/24 Previous Rx's ?Medication ?Instructions ?Recorded simvastatin 20 mg tablet 20 mg PO QPM #90 tabs 10/11/23 apixaban 5 mg tablet (Eliquis) 5 mg PO BID #60 tabs 11/06/23 amiodarone 200 mg tablet (Pacerone) 400 mg (2 x 200 mg) PO DAILY #180 12/11/23 tabs lisinopril 5 mg tablet 5 mg PO DAILY #90 tabs 03/09/24 Allergies Allergy/AdvReac Type Severity Reaction Status Date / Time No Known Allergies Allergy Verified 04/10/24 09:42
--- NOTE | 2024-04-26 16:43 | ECG_ITS ---
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1960 Requested By: Eric Roberts Order Number: [id number] Antony MD: TODD DENNIS Measurements Intervals Start Rate: 69 P: 110 KS: 216 QRS: -69 QRSD: 152 T: 101 QT: 425 QTc: 457 Interpretive Statements ELECTRONIC ATRIAL PACEMAKER LEFT AXIS DEVIATION [QRS AXIS < -30] INTRAVENTRICULAR CONDUCTION DELAY [130+ ms QRS DURATION] Compared to ECG 02/17/2024 15:51:55 Left-axis deviation now present Indeterminate axis no longer present Electronically Signed On 04-26-2024 20:46:25 BURLAP BAG SEWER by TODD DENNIS [id number]
[2024-04-26 16:55] VITALS: BP 112/71; PULSE 75; O2SAT 95
[2024-04-26 17:09] LABS: Bilirubin Urine Negative (Negative); Blood Urine Negative (Negative); Glucose Urine UA 3+ (Normal); Ketones Urine Trace (Negative); Leukocyte Esterase Urine Negative (Negative); Nitrate Urine Negative (Negative); Protein Urine Trace (Negative); Urine Appearance Clear (CLEAR); Urine Color Yellow (Yellow); Urobilinogen Urine 0.2 mg/dL (Negative); pH Urine 5.5 (5-7)
[2024-04-26 17:15] LABS: Add Urine Microscopic? YES; Bacteria Urine None Seen /hpf; Hyaline Casts Urine 0.81 /lpf; RBC Urine 0-2 /hpf (0-2); Specific Gravity, Urine 1.036 (1.005-1.030); Squamous Epithelial Cell Urine 0-5 /hpf (0-5); WBC Urine 0-5 /hpf (0-5)
[2024-04-26 17:43] LABS: Covid PCR NEGATIVE (Negative); Influenza A NEGATIVE (Negative); Influenza B NEGATIVE (Negative); Respiratory Syncytial Virus Ce NEGATIVE (Negative)
== END 2024-04-26 18:06 | disposition home or self-care (01) ==
PROVIDERS: Emergency Medicine; Emergency Provider Emergency Medicine; PCP Nurse Practitioner Family
DX: R10.9 Unspecified abdominal pain (principal); Z11.52 Encounter for screening for COVID-19; Z79.01 Long term (current) use of anticoagulants; Z79.82 Long term (current) use of aspirin
CPT/HCPCS: 36415; 71045; 80053; 81001; 83735; 83880; 85025; 87637; 93005; 99285

== ENCOUNTER 2024-08-19 22:18 | Emergency (ER) | payer BC, MEDICAID, SELFPAY ==
[2024-08-19] VITALS (10 sets, daily range): BP systolic 91–108; BP diastolic 53–71; PULSE 70–96; RESP 14–20; TEMP 36.8; O2SAT 92–98; BMI 21.4
--- NOTE | 2024-08-19 22:24 | ECG_ITS ---
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1960 Requested By: Chaz Lincoln Order Number: [id number] Antony MD: TODD DENNIS Measurements Intervals [place] Rate: 62 P: 159 AK: 232 QRS: 266 QRSD: 197 T: 71 QT: 490 QTc: 498 Interpretive Statements ELECTRONIC ATRIAL PACEMAKER RIGHT AXIS DEVIATION [QRS AXIS > 100] INTRAVENTRICULAR CONDUCTION DELAY [130+ ms QRS DURATION] Compared to ECG 04/26/2024 16:43:03 Right-axis deviation now present Left-axis deviation no longer present Electronically Signed On 08-19-2024 22:52:33 CDT by TODD DENNIS [id number]
--- NOTE | 2024-08-19 22:48 | CTR_ITS ---
PROCEDURE INFORMATION: Exam: CTA Chest With Contrast Exam date and time: 08/19/2024 11:50 PM Age: 63 years old Clinical indication: Shortness of breath TECHNIQUE: Imaging protocol: Computed tomographic angiography of the chest with contrast. Exam focused on the arteries. 3D rendering (Not supervised by radiologist): MIP and/or 3D reconstructed images were created by the technologist. Radiation optimization: All CT scans at this facility use at least one of these dose optimization techniques: automated exposure control; mA and/or kV adjustment per patient size (includes targeted exams where dose is matched to clinical indication); or iterative reconstruction. Contrast material: OMNI 350; Contrast volume: 100 ml; Contrast route: INTRAVENOUS (IV); COMPARISON: CT angio chest PE protcl [id number] 11/04/2023 9:27 AM RADIATION DOSE METRICS: Total DLP (mGy-cm): 231.7 FINDINGS: Tubes, catheters and devices: A defibrillator device is present, and its leads are in appropriate position. Pulmonary arteries: Normal. No pulmonary emboli. Aorta: Unremarkable. No aortic aneurysm. No aortic dissection. Lungs: Moderate centrilobular emphysematous changes are present. There is a 7 mm nodule in the right middle lobe (series 6, image 404) and a 3 mm nodule in the right lower lobe (series 6, image 358). There is no evidence of focal pulmonary consolidation. Pleural spaces: Unremarkable. No pneumothorax. No pleural effusion. Heart: The heart is enlarged. Lymph nodes: Unremarkable. No enlarged lymph nodes. Bones/joints: Mild curvature of the thoracic spine convex to the right. The thoracic spine demonstrates moderate degenerative changes at multiple levels. Soft tissues: Unremarkable. Other findings: The vasculature demonstrates diffuse mild atherosclerotic calcification. CT/CT angio chest PE protcl [id number] IMPRESSION: 1. No pulmonary embolism. 2. No acute infiltrates. 3. Multiple pulmonary nodules measuring up to 7 mm in the right middle lobe. For patients at low risk (minimal or absent history of smoking and of other known risk factors), recommend CT Chest at 3-6 months, then consider CT Chest at 18-24 months. For patients at high risk (history of smoking or of other known risk factors), recommend CT Chest at 3-6 months, then CT Chest at 18-24 months. (Reference: Meghan) References: MacMahon H, et al. Guidelines for Management of Incidental Pulmonary Nodules Detected on CT Images: From the Fleischner Society 2017. Radiology. 2017;284(1):228-243. COMMENTS: The presence of pulmonary emphysema on CT is an independent risk factor for lung cancer. In the absence of a history or active diagnosis of lung cancer, it is recommended that this patient with emphysema be evaluated for enrollment in a low dose CT lung cancer screening program.
[2024-08-19 22:57] LABS: Basophils % 0.1 %; Eosinophils # 0.1 10^3/uL (0.0-0.8); Eosinophils % 1.4 %; Hematocrit 37.7 % (37-53); Lymphocytes # 0.8 10^3/uL (0.8-4.8); Lymphocytes % 10.4 %; Mean Corpuscular Volume 76.6 fl (82-101); Mean Platelet Volume 10.2 fL (7.4-10.4); Monocytes # 0.5 10^3/uL (0.2-0.9); Monocytes % 6.9 %; Neutrophils # 5.97 10^3/uL (1.8-7.7); Neutrophils % 80.8 %; Nucleated Red Blood Cells % 0 %; Platelet Count 221 10^3/cmm (157-399); Red Blood Count 4.92 10^6/uL (3.85-5.65); Red Cell Distribution Width 17.3 % (12.1-15.1); White Blood Count 7.39 10^3/uL (3.29-11.43)
[2024-08-19 23:08] LABS: Troponin(5th) Baseline 19 ng/L (0-15)
[2024-08-19 23:11] LABS: Alanine Aminotransferase 71 U/L (0-41); Albumin Level 3.9 g/dL (3.5-5.2); Alkaline Phosphatase 50 U/L (40-130); Aspartate Amino Transferase 44 U/L (0-40); Blood Urea Nitrogen 25 mg/dL (8-23); Calcium 8.6 mg/dL (8.5-10.5); Carbon Dioxide 25 mmol/L (22-29); Chloride 102 mmol/L (98-107); Creatinine Clr Calc Pharmacy 82.7286; Globulin 2.5 g/dL (1.3-4.6); Glomerular Filtration Rate 85.5 mL/min (90-130); Glucose 113 mg/dL (65-115); Osmolality Calculated 289 mOsm/kg (285-295); Sodium 137 mmol/L (136-145); Total Bilirubin 0.5 mg/dL (0.15-1.2); Total Protein 6.4 g/dL (6.6-8.7)
[2024-08-19 23:12] LABS: Lactic Sepsis W/Reflex 0.6 mmol/L (0.5-2.2)
[2024-08-19] MEDS: ipratropium-albuterol 3 mL Neb 9 ML INHALATION (23:16)
[2024-08-19] MEDS: sodium chloride 0.9% 1,000 ML 999 ML IV (23:22)
[2024-08-19] MEDS: iohexol 350 mg/mL 500 mL Btl (per mL) IV (23:52)
[2024-08-20] VITALS (12 sets, daily range): BP systolic 84–121; BP diastolic 56–77; PULSE 66–84; RESP 16–24; O2SAT 92–97
--- NOTE | 2024-08-20 00:42 | W.ED.SOB ---
HPI - SOB/Dyspnea General: Chief Complaint: Shortness of Breath/Dyspnea Stated Complaint: SOB Time Seen by Provider: 08/19/24 22:28 History of Present Illness: HPI Narrative: Patient is a 63-year-old male from home accompanied by family by EMS seen for shortness of breath and cough and generalized weakness. He denies chest pain associated with it. He was recently diagnosed with pneumonia and hospitalized but has been home for roughly 1 month since then. There are no other sick contacts in the home. He notes frequent cough which is productive of clear sputum. He also endorses sinus pressure and mild sore throat. He has oxygen at home to be worn as needed and states that he has required it for the last few days much more so than usual. Related Data Home Medications ?Medication ?Instructions ?Recorded ?Confirmed omeprazole 20 mg capsule,delayed 20 mg PO DAILY 03/25/19 08/14/24 release sertraline 100 mg tablet (Zoloft) 200 mg PO DAILY 03/27/23 08/14/24 buspirone 10 mg tablet 10 mg PO TID PRN Anxiety 07/23/23 08/14/24 albuterol sulfate 90 mcg/actuation 2 puff inhalation Q6H PRN 04/10/24 08/14/24 aerosol inhaler Shortness Of Breath Or Wheezing budesonide-formoterol HFA 80 2 puff inhalation BID 04/10/24 08/14/24 mcg-4.5 mcg/actuation aerosol inhaler (Symbicort) ropinirole 3 mg tablet 1.5 mg PO TID 04/26/24 08/14/24 tamsulosin 0.4 mg capsule 0.4 mg PO DAILY 04/26/24 08/14/24 empagliflozin 10 mg tablet 10 mg PO DAILY 04/27/24 08/14/24 (Jardiance) sacubitril 24 mg-valsartan 26 mg 1 tab PO BID 04/27/24 08/14/24 tablet (Entresto) spironolactone 25 mg tablet 25 mg PO DAILY 04/27/24 08/14/24 (Aldactone) cephalexin 500 mg capsule mg PO 06/09/24 08/14/24 furosemide 20 mg tablet mg PO 06/09/24 08/14/24 mupirocin 2 % topical ointment topical 06/09/24 08/14/24 Previous Rx's ?Medication ?Instructions ?Recorded simvastatin 20 mg tablet 20 mg PO QPM #90 tabs 10/11/23 apixaban 5 mg tablet (Eliquis) 5 mg PO BID #60 tabs 11/06/23 amiodarone 200 mg tablet (Pacerone) 400 mg (2 x 200 mg) PO DAILY #180 12/11/23 tabs Allergies Allergy/AdvReac Type Severity Reaction Status Date / Time No Known Allergies Allergy Verified 08/14/24 07:18 PFS ED PFSH: Medical History Hypertension Depression with anxiety BPH (benign prostatic hyperplasia) COPD (chronic obstructive pulmonary disease) History of cardioversion Acute dyspnea New onset a-fib Cardiomyopathy Sleep apnea Heart failure GERD (gastroesophageal reflux disease) Dyslipidemia Smoker Surgical History History of colon resection Dr. Álvarez History of inguinal hernia repair 20+ years ago AICD (automatic cardioverter/defibrillator) present Family History Sister Heart disease Father Myocardial infarct Social History Smoking and tobacco/nicotine status: former use of tobacco/nicotine Alcohol intake: former Substance/Drug Use: current Substance/Drug use frequency: daily Physical Exam Const: COMMON NORMALS: no acute distress, patient oriented x3 and alert HENMT: COMMON NORMALS: normocephalic and atraumatic HEAD & SCALP: normocephalic and atraumatic Eye: COMMON NORMALS: Equal, round and reactive pupils present, EOMs intact bilaterally and no scleral icterus PUPIL: Yes Equal, round and reactive pupils present Resp: OTHER: Mild tachypnea, moderate wheezes in all lung clark, prolonged expiratory phase. Cardio: COMMON NORMALS: regular rate, regular rhythm and No murmurs present (Cardio) RATE: regular rate RHYTHM: regular rhythm GI: COMMON NORMALS: Normal to inspection, nondistended, normoactive bowel sounds present, Soft to palpation and non-tender PALPATION: Yes Soft to palpation Neuro: COMMON NORMALS: patient oriented x3 SENSORIUM/ORIENTATION: Yes alert Skin: COMMON NORMALS: no rashes or lesions noted GENERAL SKIN EXAM: no rashes or lesions noted Course Vital Signs: Vital signs: Vital Signs Temperature 98.2 F 08/19/24 22:19 Pulse Rate 66 08/20/24 02:45 Respiratory Rate 18 08/20/24 02:15 Blood Pressure 110/68 08/20/24 02:45 Pulse Oximetry 95 08/20/24 02:45 Oxygen Delivery Me thod Room Air 08/19/24 23:36 Oxygen Flow Rate 3 08/19/24 23:15 MDM - SOB/Dyspnea Medical Decision Making Patient had moderate wheezes in all lung clark on arrival but work of breathing decreased significantly after repeat DuoNeb treatments. He received 1 dose of Ativan as he was somewhat anxious. CT of the chest does not show evidence of PE, pneumonia, or other abnormality. Respiratory pathogen panel is positive for rhinovirus which I suspect is causing bronchitis leading to COPD exacerbation. He has plenty of bronchodilators at home and wishes to go home. I feel this is reasonable. He knows that he should return to the emergency department if symptoms get worse but otherwise will continue breathing treatments and inhaled steroids at home. Lab Data 08/19/24 22:34 08/19/24 22:34 Labs/Radiology: Radiology Impressions Chest CTA 08/19/24 22:48 IMPRESSION: 1. No pulmonary embolism. 2. No acute infiltrates. 3. Multiple pulmonary nodules measuring up to 7 mm in the right middle lobe. For patients at low risk (minimal or absent history of smoking and of other known risk factors), recommend CT Chest at 3-6 months, then consider CT Chest at 18-24 months. For patients at high risk (history of smoking or of other known risk factors), recommend CT Chest at 3-6 months, then CT Chest at 18-24 months. (Reference: Meghan) References: Meghan Salinas et al. Guidelines for Management of Incidental Pulmonary Nodules Detected on CT Images: From the Fleischner Society 2017. Radiology. 2017;284(1):228-243. COMMENTS: The presence of pulmonary emphysema on CT is an independent risk factor for lung cancer. In the absence of a history or active diagnosis of lung cancer, it is recommended that this patient with emphysema be evaluated for enrollment in a low dose CT lung cancer screening program. Laboratory Results WBC 7.39 10^3/uL (3.29-11.43) 08/19/24 22:34 RBC 4.92 10^6/uL (3.85-5.65) 08/19/24 22:34 Hgb 11.30 g/dL (11.27-16.99) 08/19/24:34 Hct 37.7 % (37-53) 08/19/24: MCV 76.6 fl (82-101) L 08/19/24: MCH 23.0 pg (27-33) L 08/19/24: MCHC 30.0 g/dL (30-55) 08/19/24: RDW 17.3 % (12.1-15.1) H 08/19/24:34 Plt Count 221 10^3/cmm (157-399) 08/19/24: MPV 10.2 fL (7.4-10.4) 08/19/24: Neut % (Auto) 80.8 % 08/19/24:34 Lymph % (Auto) 10.4 % 08/19/24:34 Shackelford % (Auto) 6.9 % 08/19/24:34 Eos % (Auto) 1.4 % 08/19/24:34 Baso % (Auto) 0.1 % 08/19/24: Neut # (Auto) 5.97 10^3/uL (1.8-7.7) 08/19/24: Lymph # (Auto) 0.8 10^3/uL (0.8-4.8) 08/19/24:34 Shackelford # (Auto) 0.5 10^3/uL (0.2-0.9) 08/19/24: Eos # (Auto) 0.1 10^3/uL (0.0-0.8) 08/19/24: Baso # (Auto) 0.0 10^3/uL (0.0-0.1) 08/19/24: Nucleated RBC % (auto) 0 % 08/19/24: Nucleated RBCs # 0.0 /100WBC 08/19/24 22:34 Specimen Type Arterial 08/20/24 01:15 Sample Site Radial, left 08/20/24 01:15 ABG pH 7.38 (7.35-7.45) 08/20/24 01:15 ABG pCO2 43.8 mmHg (35-45) 08/20/24 01:15 ABG pO2 72.8 mmHg (80.0-100.0) L 08/20/24 01:15 ABG PO2/FiO2 Ratio 242 08/20/24 01:15 ABG HCO3 25.7 mmol/L (22-26) 08/20/24 01:15 ABG Base Excess 0.2 mmol/L (-2.0-2.0) 08/20/24 01:15 Osiel Test Pos 08/20/24 01:15 Hematocrit 35.0 % (42-52) L 08/20/24 01:15 O2 Delivery Device Nc 08/20/24 01:15 O2 Liters/Min 2.5 % 08/20/24 01:15 FiO2 30.0 % 08/20/24 01:15 [employer] Retailer Sales Consultant ID [email or web address] 08/20/24 01:15 Sodium 137 mmol/L (136-145) 08/19/24 22:34 Potassium 4.0 mmol/L (3.5-5.1) 08/19/24 22:34 Chloride 102 mmol/L (98-107) 08/19/24 22:34 Carbon Dioxide 25 mmol/L (22-29) 08/19/24 22:34 Anion Gap 14.0 (5-19) 08/19/24 22:34 BUN 25 mg/dL (8-23) H 08/19/24 22:34 Creatinine 0.9 mg/dL (0.7-1.2) 08/19/24 22:34 GFR Calculation 85.5 mL/min (90-130) L 08/19/24 22:34 Glucose 113 mg/dL (65-115) 08/19/24 22:34 Calculated Osmolality 289 mOsm/kg (285-295) 08/19/24 22:34 Lactic Acid 0.6 mmol/L (0.5-2.2) 08/19/24 22:34 Calcium 8.6 mg/dL (8.5-10.5) 08/19/24 22:34 Total Bilirubin 0.5 mg/dL (0.15-1.2) 08/19/24 22:34 AST 44 U/L (0-40) H 08/19/24 22:34 ALT 71 U/L (0-41) H 08/19/24 22:34 Alkaline Phosphatase 50 U/L (40-130) 08/19/24 22:34 Troponin T Baseline 19 ng/L (0-15) H 08/19/24 22:34 Troponin T 120 Minute 19.58 ng/L (0-15) H 08/20/24 00:40 Delta Troponin T 0.58 ABS# (0-10) 08/20/24 00:40 Total Protein 6.4 g/dL (6.6-8.7) L 08/19/24 22:34 Albumin 3.9 g/dL (3.5-5.2) 08/19/24 22:34 Globulin 2.5 g/dL (1.3-4.6) 08/19/24 22:34 Adenovirus (PCR) Not detected (NOT DETECT) 08/19/24 23:11 C. pneumoniae DNA (PCR) Not detected (NOT DETECT) 08/19/24 23:11 Coronavirus 229E (PCR) Not detected (NOT DETECT) 08/19/24 23:11 Human Metapneumovir PCR Not detected (NOT DETECT) 08/19/24 23:11 Influenza A (H1) PCR Not detected (NOT DETECT) 08/19/24 23:11 Influ A (H1/09) PCR Not detected (NOT DETECT) 08/19/24 23:11 Influenza A (H3) PCR Not detected (NOT DETECT) 08/19/24 23:11 Influenza Type A (PCR) Not detected (NOT DETECT) 08/19/24 23:11 Influenza Type B (PCR) Not detected (NOT DETECT) 08/19/24 23:11 M. pneumoniae (PCR) Not detected (NOT DETECT) 08/19/24 23:11 Parainfluenza 1 (PCR) Not detected (NOT DETECT) 08/19/24 23:11 Parainfluenza 2 (PCR) Not detected (NOT DETECT) 08/19/24 23:11 Parainfluenza 3 (PCR) Not detected (NOT DETECT) 08/19/24 23:11 Parainfluenza 4 (PCR) Not detected (NOT DETECT) 08/19/24 23:11 RSV Type A (PCR) Not detected (NOT DETECT) 08/19/24 23:11 RSV Type B (PCR) Not detected (NOT DETECT) 08/19/24 23:11 Entero/Rhino (PCR) Detected (NOT DETECT) A 08/19/24 23:11 SARS-CoV-2 (PCR) Not detected (NOT DETECT) 08/19/24 23:11 All radiology interpretation(s) finalized by discharge EKG Data EKG 1: Interpretation: Time?2222?atrial paced rhythm, rate of 62, wide QRS complexes with negative Sgarbossa criteria, no T wave inversions, bifascicular block pattern. QTc = 494. Discharge Plan Discharge Patient Disposition: Home Clinical Impression: Acute bronchitis due to Rhinovirus, Acute exacerbation of chronic obstructive pulmonary disease Condition: Stable Prescriptions: No Action omeprazole 20 mg capsule,delayed release(DR/EC) 20 mg PO DAILY sertraline [Zoloft] 100 mg tablet 200 mg PO DAILY albuterol sulfate 90 mcg/actuation HFA aerosol inhaler 2 puff inhalation Q6H PRN (Reason: Shortness Of Breath Or Wheezing) budesonide-formoterol [Symbicort] 80-4.5 mcg/actuation HFA aerosol inhaler 2 puff inhalation BID Jardiance 10 mg tablet 10 mg PO DAILY sacubitril-valsartan [Entresto] 24-26 mg tablet 1 tab PO BID spironolactone [Aldactone] 25 mg tablet 25 mg PO DAILY furosemide 20 mg tablet PO cephalexin 500 mg capsule PO mupirocin 2 % ointment topical simvastatin 20 mg tablet 20 mg PO QPM Qty: 90 3RF amiodarone [Pacerone] 200 mg tablet 400 mg PO DAILY Qty: 180 3RF buspirone 10 mg tablet 10 mg PO TID PRN (Reason: Anxiety) Eliquis 5 mg tablet 5 mg PO BID Qty: 60 0RF ropinirole 3 mg tablet 1.5 mg PO TID tamsulosin 0.4 mg capsule 0.4 mg PO DAILY Discharge Orders: Discharge ED (Routine); Ordered 08/20/24 Ordered By: Chaz Dixon Referrals: Senia Hansen FNP [Primary Care Provider, Nurse Practitioner] Discharge Diet: Usual diet Discharge Activity: Increase activity as tolerated Activity Restrictions/Additional Instructions: As we discussed, please not hesitate to return to the emergency department if your work of breathing increases such that you do not feel safe at home. Frequent breathing treatments can help keep the wheezing and shortness of breath minimized. There is no evidence of pneumonia or blood clot in your lungs and your heart is safe. Your white blood cell count is normal. Symptoms should get better over the next few days with symptomatic treatment Print Language: Swedish Coding Level of Care Code ED Maintenance Apprentice for Pardeep Vargas
[2024-08-20] MEDS: LORazepam 1 MG/0.5 ML injection 0.5 MG IVP (01:02)
[2024-08-20 01:09] LABS: Adenovirus Not Detected (NOT DETECT); Chlamydia Pneumoniae Not Detected (NOT DETECT); Coronavirus 229E,HKU1,NL63,OC4 Not Detected (NOT DETECT); Human Metapneumovirus Not Detected (NOT DETECT); Human Rhinovirus/Enterovirus Detected (NOT DETECT); Influenza A Not Detected (NOT DETECT); Influenza A H1 Not Detected (NOT DETECT); Influenza A H1-2009 Not Detected (NOT DETECT); Influenza A H3 Not Detected (NOT DETECT); Influenza B Not Detected (NOT DETECT); Mycoplasma Pneumoniae Not Detected (NOT DETECT); Parainfluenza Virus Type 1 Not Detected (NOT DETECT); Parainfluenza Virus Type 2 Not Detected (NOT DETECT); Parainfluenza Virus Type 3 Not Detected (NOT DETECT); Parainfluenza Virus Type 4 Not Detected (NOT DETECT); Respiratory Syncytial Virus A Not Detected (NOT DETECT); Respiratory Syncytial Virus B Not Detected (NOT DETECT); SARS-COV-2 Not Detected (NOT DETECT)
[2024-08-20 01:20] LABS: Troponin 5 2HR 19.58 ng/L (0-15); Troponin 5 2HR Delta 0.58 ABS# (0-10)
[2024-08-20 01:27] LABS: ABG PCO2 43.8 mmHg (35-45); ABG PH Result 7.38 (7.35-7.45); Base Excess ABG 0.2 mmol/L (-2.0-2.0); Blood Gas Allen Test Pos; Blood Gas Operator Identificat gerca; Blood Gas Sample Site Radial, left; Blood Gas Sample Type Arterial; HCO3 ABG 25.7 mmol/L (22-26); Oxygen Device NC; PO2 ABG 72.8 mmHg (80.0-100.0)
[2024-08-20 01:28] LABS: Blood Gas LPM 2.5 %; PO2 FiO2 Ratio Arterial Blood 242
== END 2024-08-20 02:50 | disposition home or self-care (01) ==
PROVIDERS: Emergency Provider Student in an Organized Health Care Education/Training Program; PCP Nurse Practitioner Family
DX: J20.6 Acute bronchitis due to rhinovirus (principal); J44.1 Chronic obstructive pulmonary disease with (acute) exacerbation; Z11.52 Encounter for screening for COVID-19; Z79.01 Long term (current) use of anticoagulants; Z87.891 Personal history of nicotine dependence; E78.5 Hyperlipidemia, unspecified; I11.0 Hypertensive heart disease with heart failure; I50.9 Heart failure, unspecified
CPT/HCPCS: 36600; 71275; 80053; 82803; 83605; 84484; 85025; 87040; 87070; 87205; 87486; 87581; 87633; 93005; 94640; 96361; 96374; 99285; J2060; J7030; J9999

== ENCOUNTER → 2024-10-08 11:31 | Outpatient (BNVA) | payer BC, MEDICAID, SELFPAY | PROVIDERS: PCP Nurse Practitioner Family; Visit Provider Nurse Practitioner Family | DX: I42.0 Dilated cardiomyopathy (principal) | CPT/HCPCS: 36415; 80048; 83880; 85025 ==

== ENCOUNTER 2024-10-21 11:14 | Observation (INO) | payer BC, MEDICAID, SELFPAY ==
[2024-10-21] VITALS (26 sets, daily range): BP systolic 79–115; BP diastolic 44–90; PULSE 57–75; RESP 10–20; TEMP 36.6; O2SAT 90–99; BMI 22.1; BMI 22.3
--- OUTSIDE RECORDS SUMMARY | 2024-10-21 11:22 | XMS_ITS | Encounter Summary ---
Author Organization [facility] Address [address] [place] [address] Care Team Providers Care Teletypewriter Operator Name Role Phone Unavailable Primary Care Provider Unavailabl e Reason for Visit * Reason Comments Office Visit: Converted Data Conversion Encounter Details Date Type Department Care Team (Late Contact Info) Description 09/24/2023 Dental Interim Note [facility] [address] [place] [address] [facility] [place] Social History Tobacco Use Types Packs/Day Years Used Date Smoking Tobacco: Never Assessed Social Connections Answer Date Recorded Social Connections and Isolation 0 07/10/2023 Financial Resource Strain Answer Date R ecorded Financial Resource Strain 0 2023 Stress Answer Date Recorded Stress 0 07/10/2023 Physical Activity Answer Date Recorded Physical Activity 0 07/10/2023 Food Insecurity Answer Date Recorded Food 0 07/10/2023 Transportation Needs Answer Date Record ed Transportation 0 07/10/2023 Housing Stability Answer Date Recorded Housing 0 07/10/2023 Safety and Environment Answer Date Zeke rded Safety 0 07/10/2023 Utilities Answer Date Recorded Utilities 0 07/10/2023 Employment Answer Date Recorded Employment 0 07/10/2023 Sex and Gender Information Value Date Recorded Sex Assigned at Not on file Legal Sex Male 6:54 PM PDT Gender Identity Male 09/06/2023 4:47 PM PDT Sexual Orientation Straight 09/06/2023 4: 47 PM PDT documented as of this encounter Plan of Treatment Upcoming Encounters Date Type Department Care Team (Late Contact Info) Description 01/01/2025 4:00 PM CDT Office Visit [facility] [address] [place] [address] Kendra Pedro [address] [place] [id number] documented as of this encounter Visit Diagnoses Not on filedocumented in this encounter
--- OUTSIDE RECORDS SUMMARY | 2024-10-21 11:22 | XMS_ITS | Encounter Summary ---
Author Organization [facility] Address [address] [place] [address] Care Team Providers Care Radio Division Lieutenant Name Role Phone Unavailable Primary Care Provider Unavailabl e Encounter Details Date Type Department Care Team (Late st Contact Info) Description 09/26/2023 [facility] [address] [place] [address] Kendra Pedro [address] [place] [address] Social History Tobacco Use Types Packs/Day Years [...] Encounters Date Type Department Care Team (Late st Contact Info) Description 01/01/2025 4:00 PM CDT [facility] [address] [place] [phone] Kendra Pedro [address] [place] [address] documented as of this encounter Procedures Procedure Name Priority Date/Time Associated Diagnosis Comments 21 MODB(V) RESIN COMPOS - FOUR OR MORE SURFACES POSTERIOR Routine 05/31/2023 12:00 AM CDT 28 (V)L RESIN COMPOS - FOUR OR MORE SURFACES POSTERIOR Routine 01/24/2023 12:00 AM GOLF BALL COVER TREATER 14 MB(V)L(V) RESIN-BASED COMPOSITE - THREE SURFACES POSTERIOR Routine 01/24/2023 12:00 AM GOLF BALL COVER TREATER 9 DF(V) RESIN-BASED COMPOSITE TWO SURFACES ANTERIOR Routine 01/24/2023 12:00 AM GOLF BALL COVER TREATER 5 MOD RESIN-BASED COMPOSITE - THREE SURFACES POSTERIOR Routine 10/29/2022 12:00 AM CDT 3 MOB RESIN-BASED COMPOSITE - THREE SURFACES POSTERIOR Routine 10/29/2022 12:00 AM CDT 28 DO RESIN-BASED COMPOSITE - TWO SURFACES POSTERIOR Routine 03/08/2021 12:00 AM GOLF BALL COVER TREATER 23 F(V) RESIN-BASED COMPOSITE ONE SURFACE ANTERIOR Routine 02/22/2021 12:00 AM GOLF BALL COVER TREATER documented in this encounter Visit Diagnoses Not on filedocumented in this encounter
--- OUTSIDE RECORDS SUMMARY | 2024-10-21 11:22 | XMS_ITS | Encounter Summary ---
Author Organization [facility] Address [address] [place] [address] Care Team Providers Care Search Marketing Analyst Name Role Phone Unavailable Primary Care Provider Unavailabl e Encounter Details Date Type Department Care Team (Late st Contact Info) Description 10/20/2024 External Device Data [facility] ABSTRACTION Provider, Abstract NO ADDRESS ON FILE Social History Tobacco Use Types Packs/Day Years Used Date Smoking Tobacco: Former Cigarettes Alcohol Use Standard Drinks/Week Comments Not Currently 0 (1 standard drink = 0.6 oz pur e alcohol) Sex and Gender Information Value Date Recorded Sex Assigned at Not on file Legal Sex Male 1:13 PM CDT Gender Identity Not on file Sexual Orientation Not on file documented as of this encounter Plan of Treatment Not on file documented as of this encounter Visit Diagnoses Not on filedocumented in this encounter
--- OUTSIDE RECORDS SUMMARY | 2024-10-21 11:22 | XMS_ITS | Clinical Summary ---
Author Organization [facility] Address [address] [facility] [address] [place] [address] Phone Care Team Providers Care Teacher Physically Impaired Name Role Phone Unavailable Primary Care Provider Unavailabl e Allergies No known active allergies Medications amiodarone (CORDARONE) 200 mg tablet Take 2 Tablets by mouth daily. 5 Active Eliquis 5 mg tablet Take 5 mg by mouth 2 times daily. 5 Active Symbicort 160-4.5 mcg/actuation HFA Aerosol Inhaler Take 1 Puff by inhalation 2 times daily. 4 Active busPIRone (BUSPAR) 10 mg tablet Take 1 Tablet by mouth 3 times daily. 5 Active furosemide (LASIX) 20 mg tablet Take 20 mg by mouth daily. 5 Active rOPINIRole (REQUIP) 1 mg tablet Take 1 Tablet by mouth 2 times daily. 4 Active sertraline (ZOLOFT) 100 mg tablet Take 2 Tablets by mouth daily. 5 Active simvastatin (ZOCOR) 20 mg tablet Take 20 mg by mouth late in the day. 5 Active tamsulosin (FLOMAX) 0.4 mg capsule Take 1 Capsule by mouth daily. 5 Active empagliflozin (JARDIANCE) 10 mg tablet Take 1 Tablet (10 mg) by mouth daily in the morning. 90 Tablet 2 5 Active sacubitriL-vals wilda (ENTRESTO) 24-26 mg Tablet Take ONE-HALF Tablet by mouth 2 times daily. 90 Tablet 2 5 Active spironolactone (ALDACTONE) 25 mg tablet Take ONE-HALF Tablet (12.5 mg) by mouth daily. 90 Tablet Active Ventolin HFA 90 mcg/actuation inhaler take 1-2 puffs via spacer EVERY 6 HOURS NEEDED for WHEEZING, difficulty breathing, FOR SHORTNESS OF BREATH, UNTIL SYMPTOMS improve Active omeprazole (PriLOSEC) 20 mg Capsule, Delayed Release(E.C.) Take 1 Capsule by mouth daily. Active Active Problems Problem Noted Date Diagnosed Date Hypotension due to drugs 04/21/2024 Cardiac arrest 04/21/2024 Acute respiratory failure with hypoxia and hyper capnia 04/19/2024 HFrEF (heart failure with reduced ejection fract ion) 04/19/2024 COPD with exacerbation 04/19/2024 Pneumonia 04/19/2024 Shock 04/19/2024 Encounters Date Type Department Care Team Description 10/20/2024 External Device Data [facility] ABSTRACTION Provider, Abstract 10/20/2024 External Device Data [facility]STRA[facility] Provider, Abstract 09/30/2024 External Device Data [facility] Provider, Abstract 09/29/2024 External Device Data [facility] Provider, Abstract 09/22/2024 Telephone [place] [address] [place] [phone] Radha Lopez NP Question 09/11/2024 6:36 AM CDT - 09/11/2024 11:59 PM CDT Hospital Encounter [facility] [address] [place] [phone] Radha Lopez NP Discharge Disposition: Home or Self Care 09/11/2024 Telephone [facility] [address] [place] [phone] Camille Ureña, RN Results 09/11/2024 Telephone [place] [address] [place] [phone] Camille Ureña, RN Results 09/02/2024 External Device Data [facility] ABSTRACTION Provider, Abstract 09/01/2024 External Device Data [facility] ABSTRACTION Provider, Abstract 08/06/2024 External Device Data [facility] ABSTRACTION Provider, Abstract 08/05/2024 External Device Data [facility] ABSTRA[facility] Provider, Abstract 08/04/2024 External Device Data [facility] ABSTRACTION Provider, Abstract 07/22/2024 10:20 AM CDT Office Visit [facility] [address] [place] [phone] Radha Lopez NP HFrEF (heart failure with reduced ejection fraction) (CMS/HCC) (Primary Dx); Nonischemic cardiomyopathy (CMS/HCC); Acute respiratory failure with hypoxia and hypercapnia (CMS/HCC); Benign hypertension; Mixed hyperlipidemia 07/21/2024 External Device Data [facility] ABSTRACTION Provider, Abstract from Last 3 Months Immunizations Immunization Administration Dates Next Due (PREVNAR 20)(6 WKS UP) PNEUM OCOCCAL CONJUGATE VACCINE 20-VALENT (PCV20), POLYSACCHARIDE [id number] CONJUGATE, ADJUVANT 0.5 ML (PF) IM 04/24/2024 Social History Tobacco Use Types Packs/Day Years Used Date Smoking Tobacco: Former Cigarettes Tobacco Cessation:Counseling Given: Not Answered Alcohol Use Standard Drinks/Week Comments Not Currently 0 (1 standard drink = 0.6 oz pur e alcohol) Sex and Gender Information Value Date Recorded Sex Assigned at Not on file Legal Sex Male 1:13 PM CDT Gender Identity Not on file Sexual Orientation Not on file Last Filed Vital Signs Vital Sign Reading Time Taken Comments Blood Pressure 80/42 07/22/2024 10:55 AM CDT Pulse 61 07/22/2024 10:55 AM CDT Temperature 36.9 C (98.5 F) 04/24/2024 8:13 AM CLASSIFIED AD TAKER Respiratory Rate 18 04/24/2024 9:01 AM CLASSIFIED AD TAKER Oxygen Saturation 90% 07/22/2024 10:55 AM CDT Inhaled Oxygen Concentration - - Weight 72.7 kg (160 lb 3.2 oz) 07/22/2024 10:55 AM CDT Height 175.3 cm (5' 9 ) 07/22/2024 10:55 AM CDT Body Mass Index 23.66 07/22/2024 10:55 AM CDT Plan of Treatment Health Maintenance Due Date Last Done Comments DTAP/TDAP/TD VACCINES (1 - Tdap) 1980 COLORECTAL SCREENING 2006 Colorectal Cancer Screening 2006 FIT-DNA Q 3 years 2006 FIT/FOBT Q 1 year 2006 Flex Sig/CT Colonography Q 5 years 2006 ZOSTER VACCINE (1 of 2) 10/24/2011 RSV VACCINE (60+ or ) (1 - Risk 60-74 years 1-dose series) 2021 COVID-19 Vaccine ( season) 2023 04/28/2021, 07/29/2020, 07/01/2020 INFLUENZA VACCINE (#1) 2024 Procedures Procedure Name Priority Date/Time Associated Diagnosis Comments BLOOD CULTURE Routine 09/11/2024 1:41 PM CDT Aortic valve disease BLOOD CULTURE Routine 09/11/2024 1:39 PM CDT Aortic valve disease ECHO COMPLETE Routine 09/11/2024 8:34 AM CDT HFrEF (heart failure with reduced ejection fraction) (CMS/HCC) UT ECG ROUTINE ECG W/LEAST 12 LDS W/I&R Routine 07/22/2024 11:15 AM CDT Benign hypertension from Last 3 Months Results * BLOOD CULTURE (09/11/2024 1:41 PM CDT) Only the most recent of2 resultswithin the time period is included. BLOOD CULTURE SEE NOTE [facility] Comment: CULTURE, BLOOD Micro Number: [id number] Test Status: Final Specimen Source: Blood, left arm Specimen Quality: Adequate Result: No growth after 5 days TRANSPORT MEDIA: Aerobic and anaerobic bottle received. Test Performed at: [facility] [address] [place] [address] Rhianna Cardoso MD Blood (Peripheral) 09/11/2024 1:41 PM CDT 09/11/2024 1:42 PM CDT us Vijay Beth MD MICROBIOLOGY - GENERAL ORDERABL ES Final Result [facility] [phone] [facility] [address] [place] [address] * ECHO COMPLETE - CONTRAST AND STRAIN IF INDICATED (09/11/2024 8:34 AM CDT) EJECTION FRACTION 22 INTERFACE SYSTEM 09/11/2024 7:15 AM CDT Narrative INTERFACE SYSTEM - 09/11/2024 9:11 AM CDT [facility] [address] [place] [id number] Transthoracic Echocardiography Patient: Anurag Diaz Study ECHO COMPLETE - Kamari ID: Gender: Isabelle : 1960 Age: 63 Room: [facility] Study 09/11/2024 Pt Outpatient Date: Status: Study 07:15:57 AM CSN #: [id number] Time: Ordering:Radha Lopez Pick Up Worker: Juan Hansen Indications and History: Dx: HFrEF (heart failure with reduced ejection fraction) (CMS/[facility]) [I50.20 (ICD-10-CM)]. Summary and Conclusion: - Left ventricle: The cavity size is severely dilated. Wall thickness is normal. Global systolic function is severely reduced. For Epic reporting: the left ventricular ejection fraction is 22%. There is diffuse hypokinesis. Interventricular septum shows abnormal bouncy motion. Moderate diastolic dysfunction (grade II, pseudonormal filling pattern), suggestive of elevated LV filling pressures. The longitudinal strain is -9.1% (Normal range is -18 to -25). - Right ventricle: The cavity size is dilated. Pacer wire or catheter noted in right ventricle. Systolic function is reduced. Systolic pressure is moderately increased. The estimated peak pressure is 60mm Hg. - Left atrium: The atrium is severely dilated. - Right atrium: The atrium is severely dilated. - Atrial septum: There is a possible patent foramen ovale. - Aortic valve: The valve is trileaflet. The leaflets are thickened with possible small echodensity (etiology and significance unclear). Velocity is minimally increased. There is no stenosis. There is trace regurgitation. - Mitral valve: The annulus is mildly calcified. The leaflets are thickened. There is moderate regurgitation. - Tricuspid valve: There is mild regurgitation. - Pulmonic valve: There is mild regurgitation. Comparison: Compared to the prior study, there has been no significant interval change. Procedure information: Comparison is made to the study of 04/20/2024. Study status: Routine. Procedure: A transthoracic echocardiogram was performed. Image quality was adequate. Scanning was performed from the parasternal, apical, subcostal, and suprasternal notch acoustic windows. Study components: M-mode, 2D, complete spectral Doppler, and color Doppler. Height: 175.3cm. Height: 69in. Weight: 72.7kg. Weight: 160.2lb. BMI: 23.6kg/m^2. BSA: 1.89m^2. Blood pressure: 80/42 Study date: 09/11/2024. Study time: 07:15 AM. Location: Echo laboratory. Cardiac Anatomy: LEFT VENTRICLE: The cavity size is severely dilated. Wall thickness is normal. Global systolic function is severely reduced. For Epic reporting: the left ventricular ejection fraction is 22%. There is diffuse hypokinesis. Interventricular septum shows abnormal bouncy motion. The longitudinal strain is -9.1% (Normal range is -18 to -25). Moderate diastolic dysfunction (grade II, pseudonormal filling pattern), suggestive of elevated LV filling pressures. RIGHT VENTRICLE: The cavity size is dilated. Pacer wire or catheter noted in right ventricle. Systolic function is reduced. Systolic pressure is moderately increased. The estimated peak pressure is 60mm Hg. LEFT ATRIUM: The atrium is severely dilated. RIGHT ATRIUM: The atrium is severely dilated. ATRIAL SEPTUM: There is a possible patent foramen ovale. AORTIC VALVE: The valve is trileaflet. The leaflets are thickened with possible small echodensity (etiology and significance unclear). Mobility is not restricted. Velocity is minimally increased. There is no stenosis. There is trace regurgitation. MITRAL VALVE: The annulus is mildly calcified. The leaflets are thickened. Mobility is not restricted. No evidence for prolapse. There is no evidence for stenosis. There is moderate regurgitation. TRICUSPID VALVE: Structurally normal valve. Mobility is unrestricted. There is no evidence for stenosis. There is mild regurgitation. PULMONIC VALVE: Not well visualized. The valve appears to be grossly normal. There is no evidence for stenosis. There is mild regurgitation. PERICARDIUM: There is no pericardial effusion. AORTA: Aortic root: The root is not dilated. Aortic arch: The vessel is not dilated. Measurements Left ventricle Value Left atrium continued Value GLS, 2D -9.1 % Vol, ES, A/L 136 ml SATHISH, LAX 6.9 cm Vol/bsa, ES, A/L 72 ml/m^2 ESD, LAX 5.3 cm SATHISH/bsa, LAX 3.6 cm/m^2 Right atrium Value ESD/bsa, LAX 2.8 cm/m^2 Area, ES 33 cm^2 FS, LAX 22 % Area, ES, A4C 33 cm^2 FS, LAX chord 22 % IVS, ED 0.6 cm Aortic valve Value ESD 5.3 cm Peak v, S 190.45 cm/sec ESD/bsa 2.8 cm/m^2 Peak grad, S 15 mm Hg FS 22 % PW, ED 0.7 cm Mitral valve Value IVS/PW, ED 0.85 Mean v, D 85.27 cm/sec EF, 1-p A2C 35 % Peak E 123.92 cm/sec E', lat olivia, TDI 8.9 cm/sec Peak A 64.45 cm/sec E/e', lat olivia, TDI 18 VTI leaflet coapt 47.5 cm E', med olivia, TDI 3.1 cm/sec Decel slope 699.32 cm/s^2 E/e', med olivia, TDI 41 Decel time 177 ms E', avg, TDI 5.4 cm/sec Mean grad, D 4 mm Hg E/e', avg, TDI 23 Peak grad, D 9 mm Hg Peak E/A ratio 1.92 Right ventricle Value Vena contracta width 3.8 cm SATHISH, LAX 3.8 cm SATHISH, SAX 3.7 cm Tricuspid valve Value SATHISH minor ax, A4C 3.7 cm TR peak v 356.11 cm/sec SATHISH 3.8 cm Peak RV-RA grad, S 51 mm Hg TAPSE, 2D 2.5 cm TAPSE, MM 2.5 cm Aortic root Value S' lateral 11.8 cm/sec Root diam 3.4 cm Root diam/bsa 1.8 cm/m^2 Left atrium Value AP dim, ES 5.4 cm Ascending aorta Value AP dim index, ES 2.9 cm/m^2 AAo AP diam, S 3.9 cm SI dim, A4C 7.1 cm AAo AP diam/bsa, S 2.0 cm/m^2 Area ES, A4C 34 cm^2 Vol, ES, 1-p A4C 131 ml Inferior vena cava Value Vol/bsa, ES, 1-p A4C 69 ml/m^2 Diam 1.8 cm Legend: (L) and (H) haleigh values outside specified reference range. [facility] are accredited with the Intersocietal Accreditation Commission - Echocardiography. Prepared and Electronically Authenticated Vijay Beth Confirmed 09/11/2024 09:10 Procedure Note Vijay Beth MD - 09/11/2024 [facility] [address] [place] [id number] Transthoracic Echocardiography Patient: Anurag Diaz Study CHRISTA Benites ID: Gender: M : 1960 Age: 63 Room: [facility] Study 09/11/2024 PtOutpatient Date: Status: Study 07:15:57 AM CSN #: [id number] Time: Ordering:Radha Lopez Pick Up Worker: Juan Hansen Indications and History: Dx: HFrEF (heart failure with reducedejection fraction) (CMS/[facility]) [I50.20 (ICD-10-CM)]. Summary and Conclusion: - Left ventricle: The cavity size is severely dilated. Wall thickness is normal. Global systolic function is severely reduced. For Epicreporting: the left ventricular ejection fraction is 22%. There is diffusehypokinesis. Interventricular septum shows abnormal bouncy motion. Moderatediastolic dysfunction (grade II, pseudonormal filling pattern), suggestive ofelevated LV filling pressures. The longitudinal strain is -9.1% (Normal range is-18 to -25). - Right ventricle: The cavity size is dilated. Pacer wire or catheternoted in right ventricle. Systolic function is reduced. Systolic pressure is moderately increased. The estimated peak pressure is 60mm Hg. - Left atrium: The atrium is severely dilated. - Right atrium: The atrium is severely dilated. - Atrial septum: There is a possible patent foramen ovale. - Aortic valve: The valve is trileaflet. The leaflets are thickened with possible small echodensity (etiology and significance unclear). Velocityis minimally increased. There is no stenosis. There is traceregurgitation. - Mitral valve: The annulus is mildly calcified. The leaflets arethickened. There is moderate regurgitation. - Tricuspid valve: There is mild regurgitation. - Pulmonic valve: There is mild regurgitation. Comparison: Compared to the prior study, there has been no significant interval change. Procedure information: Comparison is made to the study of 04/20/2024.Study status: Routine. Procedure: A transthoracic echocardiogram wasperformed. Image quality was adequate. Scanning was performed from the parasternal, apical, subcostal, and suprasternal notch acoustic windows.Study components: M-mode, 2D, complete spectral Doppler, and color Doppler. Height: 175.3cm. Height: 69in. Weight: 72.7kg. Weight: 160.2lb.BMI: 23.6kg/m^2. BSA: 1.89m^2. Blood pressure: 80/42 Study date: 09/11/2024. Study time: 07:15 AM. Location: Echo laboratory. Cardiac Anatomy: LEFT VENTRICLE: The cavity size is severely dilated. Wall thickness is normal. Global systolic function is severely reduced. For Epic reporting:the left ventricular ejection fraction is 22%. There is diffuse hypokinesis. Interventricular septum shows abnormal bouncy motion. The longitudinalstrain is -9.1% (Normal range is -18 to -25). Moderate diastolic dysfunction(grade II, pseudonormal filling pattern), suggestive of elevated LV filling pressures. RIGHT VENTRICLE: The cavity size is dilated. Pacer wire or catheter notedin right ventricle. Systolic function is reduced. Systolic pressure ismoderately increased. The estimated peak pressure is 60mm Hg. LEFT ATRIUM: The atrium is severely dilated. RIGHT ATRIUM: The atrium is severely dilated. ATRIAL SEPTUM: There is a possible patent foramen ovale. AORTIC VALVE: The valve is trileaflet. The leaflets are thickened with possible small echodensity (etiology and significance unclear). Mobilityis not restricted. Velocity is minimally increased. There is no stenosis.There is trace regurgitation. MITRAL VALVE: The annulus is mildly calcified. The leaflets arethickened. Mobility is not restricted. No evidence for prolapse. There is noevidence for stenosis. There is moderate regurgitation. TRICUSPID VALVE: Structurally normal valve. Mobility isunrestricted. There is no evidence for stenosis. There is mild regurgitation. PULMONIC VALVE: Not well visualized. The valve appears to be grosslynormal. There is no evidence for stenosis. There is mild regurgitation. PERICARDIUM: There is no pericardial effusion. AORTA: Aortic root: The root is not dilated. Aortic arch: The vessel is not dilated. Measurements Left ventricle Value Left atrium continued Value GLS, 2D -9.1 % Vol, ES, A/L 136 ml SATHISH, LAX 6.9 cm Vol/bsa, ES, A/L 72ml/m^2 ESD, LAX 5.3 cm SATHISH/bsa, LAX 3.6 cm/m^2 Right atrium Value ESD/bsa, LAX 2.8 cm/m^2 Area, ES 33 cm^2 FS, LAX 22 % Area, ES, A4C 33 cm^2 FS, LAX chord 22 % IVS, ED 0.6 cm Aortic valve Value ESD 5.3 cm Peak v, S 190.45cm/sec ESD/bsa 2.8 cm/m^2 Peak grad, S 15 mm Hg FS 22 % PW, ED 0.7 cm Mitral valve Value IVS/PW, ED 0.85 Mean v, D 85.27cm/sec EF, 1-p A2C 35 % Peak E 123.92cm/sec E', lat olivia, TDI 8.9 cm/sec Peak A 64.45cm/sec E/e', lat olivia, TDI 18 VTI leaflet coapt 47.5 cm E', med olivia, TDI 3.1 cm/sec Decel slope 699.32cm/s^2 E/e', med olivia, TDI 41 Decel time 177 ms E', avg, TDI 5.4 cm/sec Mean grad, D 4 mm Hg E/e', avg, TDI 23 Peak grad, D 9 mm Hg Peak E/A ratio 1.92 Right ventricle Value Vena contracta width 3.8 cm SATHISH, LAX 3.8 cm SATHISH, SAX 3.7 cm Tricuspid valve Value SATHISH minor ax, A4C 3.7 cm TR peak v 356.11cm/sec SATHISH 3.8 cm Peak RV-RA grad, S 51 mm Hg TAPSE, 2D 2.5 cm TAPSE, MM 2.5 cm Aortic root Value S' lateral 11.8 cm/sec Root diam 3.4 cm Root diam/bsa 1.8cm/m^2 Left atrium Value AP dim, ES 5.4 cm Ascending aorta Value AP dim index, ES 2.9 cm/m^2 AAo AP diam, S 3.9 cm SI dim, A4C 7.1 cm AAo AP diam/bsa, S 2.0cm/m^2 Area ES, A4C 34 cm^2 Vol, ES, 1-p A4C 131 ml Inferior vena cava Value Vol/bsa, ES, 1-p A4C 69 ml/m^2 Diam 1.8 cm Legend: (L) and (H) haleigh values outside specified reference range. [facility] are accredited with theIntersocietal Accreditation Commission - Echocardiography. Prepared and Electronically Authenticated Vijay Beth Confirmed 09/11/2024 09:10 us Radha Lopez NP US ORDERABLES Final Result INTERFACE SYSTEM Refer to clinic/hospital department * UT ECG ROUTINE ECG W/LEAST 12 LDS W/I&R (07/22/2024 11:15 AM CDT) Narrative [facility] - 07/22/2024 11:15 AM CDT Radha Lopez NP 07/22/2024 11:15 AM Paced rhythm LBBB LAD Procedure Note Radha Lopez NP - 07/22/2024 11:15 AM CDT Paced rhythm LBBB LAD us Radha Lopez NP ECG ORDERABLES Final Result [facility] CLIA [id number] [address] [place] [address], [place] [phone] from Last 3 Months Insurance [facility] RX INFOCROSSING Medicaid Advance Directives For more information, please contact: [phone] * Full Code (Latest Code Status on File) Date Activated Date Inactivated Comments 04/19/2024 8:49 PM 04/24/2024 2:35 PM * Default Full Code - Needs Discussion Date Activated Date Inactivated Comments 04/19/2024 6:57 PM 04/19/2024 8:49 PM
--- OUTSIDE RECORDS SUMMARY | 2024-10-21 11:22 | XMS_ITS | Clinical Summary ---
Author Organization [facility] Address [address] [place] [address] Care Team Providers Care Oil Rig Driller Name Role Phone Unavailable Primary Care Provider Unavailabl e Source Comments PLEASE NOTE, if this patient is a minor, it may be UNLAWFUL to discuss sensitive information that is contained in these records (such as FAMILY PLANNING, MENTAL HEALTH or SUBSTANCE ABUSE) with the minor patient's parent or other person without the patient's specific authorization.[facility] Active Problems Problem Noted Date Diagnosed Date Dental caries 02/22/2021 Social History Tobacco Use Types Packs/Day Years Used Date Smoking Tobacco: Never Assessed Social Connections Answer Date Recorded Connectedness 0 12/02/2023 Financial Resource Strain Answer Date R ecorded Financial Resource Strain 0 2023 Stress Answer Date Recorded Stress 0 07/10/2023 Physical Activity Answer Date Recorded Physical Activity 0 07/10/2023 Food Insecurity Answer Date Recorded Food 0 12/12/2023 Transportation Needs Answer Date Record ed Transportation 0 07/10/2023 Housing Stability Answer Date Recorded Housing 0 07/10/2023 Safety and Environment Answer Date Zeke rded Safety 0 07/10/2023 Utilities Answer Date Recorded Utilities 0 07/10/2023 Employment Answer Date Recorded Stress 0 12/02/2023 Sex and Gender Information Value Date Recorded Sex Assigned at Not on file Legal Sex Male 6:54 PM PDT Gender Identity Male 09/06/2023 4:47 PM PDT Sexual Orientation Straight 09/06/2023 4: 47 PM PDT Last Filed Vital Signs Vital Sign Reading Time Taken Comments Blood Pressure 116/85 02/22/2021 9:01 AM GROCERY BAGGER Pulse - - Temperature - - Respiratory Rate - - Oxygen Saturation - - Inhaled Oxygen Concentration - - Weight - - Height - - Body Mass Index - - Plan of Treatment Upcoming Encounters Date Type Department Care Team (Late st Contact Info) Description 01/01/2025 4:00 PM CDT [facility] [address] [place] [address] Ronald Pedrolana [address] [place] [address] Health Maintenance Due Date Last Done Comments Anxiety Screening 1960 Diabetes Screening 1960 Hepatitis C Screening 1960 Lipid Screening 1960 Tobacco Screening [address] Colonography 2006 Colonoscopy 2006 Colorectal Cancer Screening 2006 FIT/gFOBT 2006 Fecal DNA 2006 Flexible Sigmoidoscopy 2006 Imm-Zoster, Recombinant (1 of 2) 10/24/2011 Hypertension Screening (#1) 02/22/2022 [id number] (4 - 2023- season) 2023 04/28/2021, 07/29/2020, 07/01/2020 Alcohol and Drug Screen 03/18/2024 Depression Annual Screen 03/18/2024 Imm-Influenza (#1) 2024 12/25/2023, 1 , 12/12/2021, Additional history exists Imm-DTaP/Tdap/Td (4 - Td or Tdap) 11/30/2032 11/30/2022, 11/24/2021, 01/08/2019 Imm-Pneumococcal 50+ Completed 04/24/2024 Insurance [employer]
--- OUTSIDE RECORDS SUMMARY | 2024-10-21 11:22 | XMS_ITS | Encounter Summary ---
Author Organization [facility] Address [address] [place] [address] Care Team Providers Care Cloth Examiner Name Role Phone Unavailable Primary Care Provider [...]
--- NOTE | 2024-10-21 11:36 | XR_ITS ---
WS: [id number] XR chest 1V portable [id number] REASON FOR EXAM: dyspnea/cough FINDINGS: Compared to the examination of 04/26/2024, there is parabronchial cuffing and reticular interstitial and horizontal linear opacities in the right lower lung field. Minimal blunting of the right costophrenic angle. There is moderate tortuosity and ectasia of the thoracic aorta and moderate cardiomegaly. Cardiac device of the left chest with trans left subclavian vein leads to the right atrium and right ventricular apex. Moderate degenerative spondylosis in the thoracic spine. XR/XR chest 1V portable [id number] IMPRESSION: Changes in the right lower lung of unknown chronicity but compatible with acute /subacute pulmonary edema/congestive heart failure. Less likely pneumonitis.
--- NOTE | 2024-10-21 11:53 | ECG_ITS ---
[facility] Test Date: 2024-10-21 Pat Name: Anurag Diaz Department: Room: Gender: Male Payroll Professional: : 1960 Requested By: Enmanuel Au Order Number: [id number] Antony MD: [place] Vines M.D. Measurements Intervals [place] Rate: 63 P: 141 VT: 256 QRS: -86 QRSD: 198 T: 70 QT: 495 QTc: 507 Interpretive Statements ELECTRONIC ATRIAL PACEMAKER LEFT AXIS DEVIATION [QRS AXIS < -30] LEFT BUNDLE BRANCH BLOCK [120+ ms QRS DURATION, 80+ ms Q/S IN V1/V2, 85+ ms R IN I/aVL/V5/V6] Compared to ECG 08/19/2024 22:23:45 Left-axis deviation now present Left bundle-branch block now present Right-axis deviation no longer present Intraventricular conduction delay no longer present Electronically Signed On 10-21-2024 22:49:19 CDT by [place] Vines M.D. [email or web address]
[2024-10-21 12:00] LABS: Glucose Urine UA 3+ (Normal); Nitrate Urine Negative (Negative); Specific Gravity, Urine 1.019 (1.005-1.030)
[2024-10-21 12:00] LABS: Hematocrit 36.2 % (37-53); Hemoglobin 10.70 g/dL (11.27-16.99); Mean Corpuscular HGB Conc 29.6 g/dL (30-55); Mean Corpuscular Hemoglobin 23.0 pg (27-33); Mean Corpuscular Volume 77.7 fl (82-101); Nucleated Red Blood Cells % 0 %; Platelet Count 196 10^3/cmm (157-399); Red Blood Count 4.66 10^6/uL (3.85-5.65); White Blood Count 8.19 10^3/uL (3.29-11.43)
[2024-10-21 12:05] LABS: Add Urine Microscopic? YES
--- NOTE | 2024-10-21 12:08 | W.ED.GENADLT ---
HPI - General Adult General: Chief complaint: General Medical Stated complaint: falls asleep out of no where Time Seen by Provider: 10/21/24 11:35 History of Present Illness: 64-year-old male presents to the emergency room with near syncopal episodes. He says he intermittently will just feel like he is going to fall asleep yesterday woke up on the ground. He has had swelling in his lower legs. Has not had any episodes of chest pain did not strike his head he does not recall any aura to these episodes. No fever sweats chills no abdominal pain Associated symptoms: Deny chest pain, dyspnea or rash Related Data Home Medications ?Medication ?Instructions ?Recorded ?Confirmed omeprazole 20 mg capsule,delayed 20 mg PO DAILY 03/25/19 10/21/24 release sertraline 100 mg tablet (Zoloft) 200 mg PO DAILY 03/27/23 10/21/24 buspirone 10 mg tablet 10 mg PO TID PRN Anxiety 07/23/23 10/21/24 albuterol sulfate 90 mcg/actuation 2 puff inhalation Q6H PRN 04/10/24 10/21/24 aerosol inhaler Shortness Of Breath Or Wheezing budesonide-formoterol HFA 80 2 puff inhalation BID 04/10/24 10/21/24 mcg-4.5 mcg/actuation aerosol inhaler (Symbicort) ropinirole 3 mg tablet 1.5 mg PO TID 04/26/24 10/21/24 tamsulosin 0.4 mg capsule 0.4 mg PO DAILY 04/26/24 10/21/24 empagliflozin 10 mg tablet 10 mg PO DAILY 04/27/24 10/21/24 (Jardiance) sacubitril 24 mg-valsartan 26 mg 1 tab PO BID 04/27/24 10/21/24 tablet (Entresto) Held on 10/22/24. Instructions: Resume on 11/05/24. please hold until follow up with PCP furosemide 20 mg tablet 20 mg PO DAILY PRN Edema 10/21/24 10/21/24 metoprolol succinate 25 mg 12.5 mg PO DAILY 10/21/24 10/21/24 tablet,extended release 24 hr simvastatin 20 mg tablet 20 mg PO QPM 10/21/24 10/21/24 Held on 10/22/24. Instructions: Resume on 10/22/24. Previous Rx's ?Medication ?Instructions ?Recorded apixaban 5 mg tablet (Eliquis) 5 mg PO BID #60 tabs 11/06/23 amiodarone 200 mg tablet (Pacerone) 400 mg (2 x 200 mg) PO DAILY #180 12/11/23 tabs tizanidine 4 mg tablet 2 mg (1/2 x 4 mg) PO TID PRN 10/22/24 Spasms 7 days #20 tabs Allergies Allergy/AdvReac Type Severity Reaction Status Date / Time No Known Allergies Allergy Verified 10/08/24 09:30 Review of Systems Const: Denies: fever(s) or chills Card: Denies: chest pain Resp: Denies: dyspnea GI: Denies: abdominal pain : Denies: dysuria, urinary frequency or urinary urgency Musc: Denies: neck pain or back pain Skin/Breast: Denies: rash PFSH ED PFSH: Medical History Hypertension Depression with anxiety BPH (benign prostatic hyperplasia) COPD (chronic obstructive pulmonary disease) History of cardioversion Acute dyspnea New onset a-fib Cardiomyopathy Sleep apnea Heart failure GERD (gastroesophageal reflux disease) Dyslipidemia Smoker Surgical History History of colon resection Dr. Álvarez History of inguinal hernia repair 20+ years ago AICD (automatic cardioverter/defibrillator) present Family History Sister Heart disease Father Myocardial infarct Social History Smoking and tobacco/nicotine status: former use of tobacco/nicotine (last tobacco use 4+ years) Alcohol intake: former Substance/Drug Use: current Substance/Drug use frequency: daily Physical Exam Const: GENERAL APPEARANCE: cooperative and comfortable ORIENTATION/CONSCIOUSNESS: Yes awake, Yes oriented to person, Yes oriented to place and Yes oriented to time HENMT: COMMON NORMALS: normocephalic, atraumatic and hearing grossly normal bilaterally HEAD & SCALP: normocephalic and atraumatic Resp: COMMON NORMALS: normal respiratory effort, No retractions, No use of accessory muscles and clear to auscultation bilaterally AUSCULTATION: clear to auscultation bilaterally Cardio: COMMON NORMALS: regular rate, regular rhythm and No murmurs present (Cardio) RATE: regular rate RHYTHM: regular rhythm GI: COMMON NORMALS: Soft to palpation and No hepatosplenomegaly present AUSCULTATION: Yes normoactive bowel sounds PALPATION: Yes Soft to palpation, No Tenderness to palpation present (GI), No Guarding due to palpation present (GI) and Yes No hepatosplenomegaly present Extremity: COMMON NORMALS: normal to inspection, capillary refill normal, no clubbing, cyanosis or edema, no calf tenderness and no pedal edema Neuro: SENSORIUM/ORIENTATION: Yes oriented to person, Yes oriented to place and Yes oriented to time Skin: COMMON NORMALS: no rashes or lesions noted GENERAL SKIN EXAM: no rashes or lesions noted Course Vital Signs: Vital signs: Vital Signs Temperature 97.7 F 10/22/24 09:30 Pulse Rate 69 10/22/24 18:26 Respiratory Rate 16 10/22/24 13:39 Blood Pressure 102/63 10/22/24 18:26 Pulse Oximetry 100 10/22/24 18:26 Oxygen Delivery Me thod Room Air 10/22/24 16:00 MDM - General Adult Medical Decision Making Changes in the right lower lung possible congestive heart failure x-ray of the knee does not show any acute fracture. Will admit for syncope intermittent atrial fibrillation nonischemic cardiomyopathy. Patient has daytime somnolence some of this may be related to sleep apnea. He is significantly hypotensive we will admit to ICU. Patient has a history of cardiomyopathy with an EF of 28%. Discussed with hospitalist orders written Medical Records I reviewed the patient's medical records. Lab Data I reviewed the patient's lab results. 10/22/24 02:47 10/22/24 02:47 Radiology Impressions Chest X-Ray 10/21/24 11:36 IMPRESSION: Changes in the right lower lung of unknown chronicity but compatible with acute/subacute pulmonary edema/congestive heart failure. Less likely pneumonitis. Knee X-Ray 10/21/24 12:18 IMPRESSION: Joint effusion without identifiable acute bone or joint abnormality. Cervical Spine X-Ray 10/21/24 15:49 IMPRESSION: Limited examination. No acute abnormality identified. Laboratory Results WBC 8.19 10^3/uL (3.29-11.43) 10/21/24 11:53 RBC 4.66 10^6/uL (3.85-5.65) 10/21/24 11:53 Hgb 10.70 g/dL (11.27-16.99) L 10/21/24 11:53 Hct 36.2 % (37-53) L 10/21/24 11:53 MCV 77.7 fl (82-101) L 10/21/24 11:53 MCH 23.0 pg (27-33) L 10/21/24 11:53 MCHC 29.6 g/dL (30-55) L 10/21/24 11:53 RDW 19.3 % (12.1-15.1) H 10/21/24 11:53 Plt Count 196 10^3/cmm (157-399) 10/21/24 11:53 MPV 9.0 fL (7.4-10.4) 10/21/24 11:53 Neut % (Auto) 81.2 % 10/21/24 11:53 Lymph % (Auto) 9.5 % 10/21/24 11:53 Door % (Auto) 7.6 % 10/21/24 11:53 Eos % (Auto) 1.1 % 10/21/24 11:53 Baso % (Auto) 0.2 % 10/21/24 11:53 Neut # (Auto) 6.65 10^3/uL (1.8-7.7) 10/21/24 11:53 Lymph # (Auto) 0.8 10^3/uL (0.8-4.8) 10/21/24 11:53 Door # (Auto) 0.6 10^3/uL (0.2-0.9) 10/21/24 11:53 Eos # (Auto) 0.1 10^3/uL (0.0-0.8) 10/21/24 11:53 Baso # (Auto) 0.0 10^3/uL (0.0-0.1) 10/21/24 11:53 Nucleated RBC % (auto) 0 % 10/21/24 11:53 Nucleated RBCs # 0.0 /100WBC 10/21/24 11:53 Specimen Type Arterial 10/21/24 12:12 Sample Site Radial, left 10/21/24 12:12 ABG pH 7.43 (7.35-7.45) 10/21/24 12:12 ABG pCO2 42.1 mmHg (35-45) 10/21/24 12:12 ABG pO2 71.8 mmHg (80.0-100.0) L 10/21/24 12:12 ABG PO2/FiO2 Ratio 341 10/21/24 12:12 ABG HCO3 27.6 mmol/L (22-26) H 10/21/24 12:12 ABG O2 Saturation 93.0 10/21/24 12:12 ABG Base Excess 2.9 mmol/L (-2.0-2.0) H 10/21/24 12:12 Osiel Test Pos 10/21/24 12:12 A-a O2 Gradient 3.5 mmHg (5-10) L 10/21/24 12:12 Hematocrit 33.4 % (42-52) L 10/21/24 12:12 Hgb O2 Saturation 90.7 % (95-100) L 10/21/24 12:12 Carboxyhemoglobin 1.6 %THgb (0.4-20.1) 10/21/24 12:12 Methemoglobin 0.9 % (0.4-1.5) 10/21/24 12:12 Total Hemoglobin 10.9 g/dL (14-18) L 10/21/24 12:12 Sodium 138.0 mmol/L (131-143) 10/21/24 12:12 Potassium 3.7 mmol/L (3.5-5.0) 10/21/24 12:12 Glucose 106.0 mg/dL (70-115) 10/21/24 12:12 Ionized Calcium 1.1 mmol/L (1.1-1.4) 10/21/24 12:12 O2 Delivery Device Room air 10/21/24 12:12 FiO2 21.0 % 10/21/24 12:12 Account Review Specialist ID [place] 10/21/24 12:12 Sodium 138 mmol/L (136-145) 10/21/24 11:53 Potassium 4.0 mmol/L (3.5-5.1) 10/21/24 11:53 Chloride 101 mmol/L (98-107) 10/21/24 11:53 Carbon Dioxide 28 mmol/L (22-29) 10/21/24 11:53 Anion Gap 13.0 (5-19) 10/21/24 11:53 BUN 22 mg/dL (8-23) 10/21/24 11:53 Creatinine 1.0 mg/dL (0.7-1.2) 10/21/24 11:53 GFR Calculation 75.7 mL/min (90-130) L 10/21/24 11:53 Glucose 108 mg/dL (65-115) 10/21/24 11:53 Calculated Osmolality 290 mOsm/kg (285-295) 10/21/24 11:53 Calcium 8.5 mg/dL (8.5-10.5) 10/21/24 11:53 Total Bilirubin 0.4 mg/dL (0.15-1.2) 10/21/24 11:53 AST 29 U/L (0-40) 10/21/24 11:53 ALT 29 U/L (0-41) 10/21/24 11:53 Alkaline Phosphatase 51 U/L (40-130) 10/21/24 11:53 NT-Pro-B Natriuret Pep 748 pg/mL (0-125) H 10/21/24 11:53 Total Protein 6.2 g/dL (6.6-8.7) L 10/21/24 11:53 Albumin 3.7 g/dL (3.5-5.2) 10/21/24 11:53 Globulin 2.5 g/dL (1.3-4.6) 10/21/24 11:53 Urine Color Yellow (Yellow) 10/21/24 11:24 Urine Appearance Clear (CLEAR) 10/21/24 11:24 Urine pH 5.5 (5-7) 10/21/24 11:24 Ur Specific [place] 1.019 (1.005-1.030) 10/21/24 11:24 Urine Protein Negative (Negative) 10/21/24 11:24 Urine Glucose (UA) 3+ (Normal) H 10/21/24 11:24 Urine Ketones Negative (Negative) 10/21/24 11:24 Urine Blood Negative (Negative) 10/21/24 11:24 Urine Nitrate Negative (Negative) 10/21/24 11:24 Urine Bilirubin Negative (Negative) 10/21/24 11:24 Urine Urobilinogen 1.0 mg/dL (Negative) 10/21/24 11:24 Ur Leukocyte Esterase Negative (Negative) 10/21/24 11:24 Urine RBC 0-2 /hpf (0-2) 10/21/24 11:24 Urine WBC 0-5 /hpf (0-5) 10/21/24 11:24 Ur Squamous Epith Cells 0-5 /hpf (0-5) 10/21/24 11:24 Amorphous Sediment Not Reportable 10/21/24 11:24 Urine Bacteria None seen /hpf (NONE) 10/21/24 11:24 Hyaline Casts 0-4 /lpf H 10/21/24 11:24 All radiology interpretation(s) finalized by discharge EKG Data EKG 1: Interpretation: EKG paced. No acute changes rate of 63 Computer generated interpretation: Chest X-Ray 10/21/24 11:36 IMPRESSION: Changes in the right lower lung of unknown chronicity but compatible with acute/subacute pulmonary edema/congestive heart failure. Less likely pneumonitis. Knee X-Ray 10/21/24 12:18 IMPRESSION: Joint effusion without identifiable acute bone or joint abnormality. Cervical Spine X-Ray 10/21/24 15:49 IMPRESSION: Limited examination. No acute abnormality identified. Discharge Plan Discharge Patient Disposition: Admitted As Inpatient Admit Provider: Denise Booker Clinical Impression: Intermittent atrial fibrillation, COPD (chronic obstructive pulmonary disease), Nonischemic congestive cardiomyopathy, Syncope Condition: Stable Coding Level of Care Code ED Hide Tanner for Pardeep Vargas
--- NOTE | 2024-10-21 12:18 | XR_ITS ---
WS: [id number] XR knee RT 3V* [id number] REASON FOR EXAM: trauma FINDINGS: Moderate joint effusion. No acute fracture identified. Patella and tibial plateaus appear intact. Moderate osteoarthritis. XR/XR knee RT 3V* [id number] IMPRESSION: Joint effusion without identifiable acute bone or joint abnormality.
[2024-10-21 12:23] LABS: ABG PCO2 42.1 mmHg (35-45); ABG PH Result 7.43 (7.35-7.45); Alveolar-Arterial Oxygen Gradi 3.5 mmHg (5-10); Arterial Blood Gas Hematocrit 33.4 % (42-52); Blood Gas Allen Test Pos; Blood Gas Operator Identificat WALCI; Blood Gas Sample Site Radial, left; Blood Gas Sample Type Arterial; Carboxyhemoglobin 1.6 %THgb (0.4-20.1); Glucose Level-ABG 106.0 mg/dL (70-115); HCO3 ABG 27.6 mmol/L (22-26); Ionized Calcium Level - ABG 1.1 mmol/L (1.1-1.4); Methemoglobin 0.9 % (0.4-1.5); Oxygen Saturation ABG 93.0; PO2 ABG 71.8 mmHg (80.0-100.0); PO2 FiO2 Ratio Arterial Blood 341; Potassium Level - ABG 3.7 mmol/L (3.5-5.0); Sodium Level - ABG 138.0 mmol/L (131-143)
[2024-10-21 12:32] LABS: Alanine Aminotransferase 29 U/L (0-41); Albumin Level 3.7 g/dL (3.5-5.2); Alkaline Phosphatase 51 U/L (40-130); Anion Gap 13.0 (5-19); Aspartate Amino Transferase 29 U/L (0-40); Blood Urea Nitrogen 22 mg/dL (8-23); Calcium 8.5 mg/dL (8.5-10.5); Carbon Dioxide 28 mmol/L (22-29); Chloride 101 mmol/L (98-107); Creatinine Clr Calc Pharmacy 75.4386; Globulin 2.5 g/dL (1.3-4.6); Glucose 108 mg/dL (65-115); NT Pro B Type Natriuretic Pept 748 pg/mL (0-125); Osmolality Calculated 290 mOsm/kg (285-295); Potassium 4.0 mmol/L (3.5-5.1); Sodium 138 mmol/L (136-145); Total Protein 6.2 g/dL (6.6-8.7)
--- NOTE | 2024-10-21 15:49 | XR_ITS ---
WS: [id number] XR cervical spine 3V* [id number] REASON FOR EXAM: assess for fracture FINDINGS: Anterior plate and screw fixation with interbody fusion device C5-C6. No acute fracture identified. Old avulsion fracture from the spinous process of C5. The C6 and C7 vertebral bodies are not clearly imaged on the lateral view. No abnormality on the AP view. Normal alignment of the facet joints. Posterior spinal laminar line intact. XR/XR cervical spine 3V* [id number] IMPRESSION: Limited examination. No acute abnormality identified.
--- NOTE | 2024-10-21 16:00 | PM.HP ---
Providers/Chief Complaint Admitting Physician: Denise Booker MD Primary Care Provider: EFRAÍN Granda Chief Complaint: falls asleep out of no where History of Present Illness Anurag Diaz Jr is a 63 year old male with PMH COPD, A fib, marijuana use who presnted to the ER with c/o multiple episodes of increased somnolence over the past 2-3 weeks. Patient states that he has been feeling tired. Today he went to the kitchen to fix a meal however bent over and then slept on the kitchn counter. this eventually resulted in him slipping off the counter and falling to the ground resulting in bruising to the right knee. He estimated he has had at least 4 weeks in the past few weeks due to falling asleep. He does not think he lost consciousness, no post ictal confusion afterwards. No incontinence, no precedding chest pain dyspnea or palpitations. HE has a h/o sleep apnea, however states he missed the [place] to qualify for a Cpap. He has Copd and uses oxygen and inhalers prn. Review of Systems General: Reports: 10 or more systems reviewed and unremarkable except in HPI and below Const: Denies: fever(s), chills or body aches Eyes: Denies: change in vision, blurry vision or photophobia ENMT: Reports: hoarseness; Denies: throat pain, enlarged tonsils, odynophagia or nasal congestion Card: Denies: chest pain, palpitations, irregular heart rhythm, edema, swelling of feet/ankles, lightheadedness, pre-syncope, dyspnea on exertion or orthopnea Resp: Denies: dyspnea, productive cough, non-productive cough, wheezing, stridor, pain on inspiration, change in phlegm color, hemoptysis or chest congestion GI: Denies: abdominal pain, nausea, vomiting, hematemesis, coffee ground emesis, dysphagia, heartburn, diarrhea, constipation, GI cramping, change in stool character, hematochezia or melena : Denies: flank pain, dysuria, urinary frequency, urinary urgency, urinary hesitancy or hematuria Musc: Denies: neck pain, back pain, extremity pain, joint swelling, joint warmth or deformity Neuro: Denies: headache(s), numbness in extremities, weakness in extremities, sensory changes, difficulty walking, frequent falls, dizziness, vertigo, behavioral changes, Slurred speech present or seizure-like activity Psych: Denies: anxiety, depression, suicidal ideation or homicidal ideation Endo: Denies: polyuria, polydipsia, tired all the time, cold intolerance or hot flashes Dwight/Lymph: Denies: easy bruising or easy bleeding Medications/Allergies Home Medications ?Medication ?Instructions ?Recorded ?Confirmed ?Last Taken ?Type omeprazole 20 mg capsule,delayed 20 mg PO DAILY 03/25/19 10/21/24 10/21/24 History release sertraline 100 mg tablet (Zoloft) 200 mg PO DAILY 03/27/23 10/21/24 10/21/24 History buspirone 10 mg tablet 10 mg PO TID PRN Anxiety 07/23/23 10/21/24 10/21/24 History apixaban 5 mg tablet (Eliquis) 5 mg PO BID #60 tabs 11/06/23 10/21/24 10/21/24 Rx amiodarone 200 mg tablet (Pacerone) 400 mg (2 x 200 mg) PO DAILY #180 12/11/23 10/21/24 10/21/24 Rx tabs albuterol sulfate 90 mcg/actuation 2 puff inhalation Q6H PRN 04/10/24 10/21/24 Unknown History aerosol inhaler Shortness Of Breath Or Wheezing budesonide-formoterol HFA 80 2 puff inhalation BID 04/10/24 10/21/24 10/21/24 History mcg-4.5 mcg/actuation aerosol inhaler (Symbicort) ropinirole 3 mg tablet 1.5 mg PO TID 04/26/24 10/21/24 10/21/24 History tamsulosin 0.4 mg capsule 0.4 mg PO DAILY 04/26/24 10/21/24 10/21/24 History empagliflozin 10 mg tablet 10 mg PO DAILY 04/27/24 10/21/24 10/21/24 History (Jardiance) sacubitril 24 mg-valsartan 26 mg 1 tab PO BID 04/27/24 10/21/24 10/21/24 History tablet (Entresto) furosemide 20 mg tablet 20 mg PO DAILY PRN Edema 10/21/24 10/21/24 10/21/24 History metoprolol succinate 25 mg 12.5 mg PO DAILY 10/21/24 10/21/24 10/21/24 History tablet,extended release 24 hr simvastatin 20 mg tablet 20 mg PO QPM 10/21/24 10/21/24 10/20/24 History spironolactone 25 mg tablet 12.5 mg (1/2 x 25 mg) PO DAILY #45 10/22/24 Unknown Rx (Aldactone) tabs Allergies Allergy/AdvReac Type Severity Reaction Status Date / Time No Known Allergies Allergy Verified 10/08/24 09:30 PFSH Acute PFSH: Medical History Hypertension Depression with anxiety BPH (benign prostatic hyperplasia) COPD (chronic obstructive pulmonary disease) History of cardioversion Acute dyspnea New onset a-fib Cardiomyopathy Sleep apnea Heart failure GERD (gastroesophageal reflux disease) Dyslipidemia Smoker Surgical History History of colon resection Dr. Álvarez History of inguinal hernia repair 20+ years ago AICD (automatic cardioverter/defibrillator) present Family History Sister Heart disease Father Myocardial infarct Social History Smoking and tobacco/nicotine status: former use of tobacco/nicotine (last tobacco use 4+ years) Alcohol intake: former Substance/Drug Use: current Substance/Drug use frequency: daily Vitals/I&O/Wt Last Vital Signs Temp 97.9 F 10/21/24 20:00 Pulse 70 10/21/24 22:00 Resp 16 10/21/24 20:35 BP 98/70 10/21/24 19:30 Pulse Ox 94 10/21/24 21:58 O2 Del Method Room Air 10/21/24 21:58 10/21/24 10/21/24 10/22/24 14:59 22:59 06:59 Intake Total 1000 / 1000 Output Total 600 / 600 Balance 400 / 400 Weight last 48 hrs Weight 68.5 kg Weight 68.039 kg Physical Exam Narrative: General: No acute distress, AO x3 HEENT: PERRLA, pupils bilaterally equal and reactive, pallors not present Chest: wheezing to auscultation B/L CVS: S1-S2 regular, no murmurs, no tachycardia, no gallops, no rubs Abdomen: Soft, nontender, no organomegaly, bowel sounds present Neuro: No focal deficits, no facial deformity, AO x3, power 5/5 in all limbs Data 10/22/24 02:47 10/22/24 02:47 Other Labs: Radiology Impressions Chest X-Ray 10/21/24 11:36 IMPRESSION: Changes in the right lower lung of unknown chronicity but compatible with acute/subacute pulmonary edema/congestive heart failure. Less likely pneumonitis. Knee X-Ray 10/21/24 12:18 IMPRESSION: Joint effusion without identifiable acute bone or joint abnormality. Cervical Spine X-Ray 10/21/24 15:49 IMPRESSION: Limited examination. No acute abnormality identified. Laboratory Results WBC 8.19 10^3/uL (3.29-11.43) 10/21/24 11:53 RBC 4.66 10^6/uL (3.85-5.65) 10/21/24 11:53 Hgb 10.70 g/dL (11.27-16.99) L 10/21/24 11:53 Hct 36.2 % (37-53) L 10/21/24 11:53 MCV 77.7 fl (82-101) L 10/21/24 11:53 MCH 23.0 pg (27-33) L 10/21/24 11:53 MCHC 29.6 g/dL (30-55) L 10/21/24 11:53 RDW 19.3 % (12.1-15.1) H 10/21/24 11:53 Plt Count 196 10^3/cmm (157-399) 10/21/24 11:53 MPV 9.0 fL (7.4-10.4) 10/21/24 11:53 Neut % (Auto) 81.2 % 10/21/24 11:53 Lymph % (Auto) 9.5 % 10/21/24 11:53 [place] % (Auto) 7.6 % 10/21/24 11:53 Eos % (Auto) 1.1 % 10/21/24 11:53 Baso % (Auto) 0.2 % 10/21/24 11:53 Neut # (Auto) 6.65 10^3/uL (1.8-7.7) 10/21/24 11:53 Lymph # (Auto) 0.8 10^3/uL (0.8-4.8) 10/21/24 11:53 [place] # (Auto) 0.6 10^3/uL (0.2-0.9) 10/21/24 11:53 Eos # (Auto) 0.1 10^3/uL (0.0-0.8) 10/21/24 11:53 Baso # (Auto) 0.0 10^3/uL (0.0-0.1) 10/21/24 11:53 Nucleated RBC % (auto) 0 % 10/21/24 11:53 Nucleated RBCs # 0.0 /100WBC 10/21/24 11:53 Specimen Type Arterial 10/21/24 12:12 Sample Site Radial, left 10/21/24 12:12 ABG pH 7.43 (7.35-7.45) 10/21/24 12:12 ABG pCO2 42.1 mmHg (35-45) 10/21/24 12:12 ABG pO2 71.8 mmHg (80.0-100.0) L 10/21/24 12:12 ABG PO2/FiO2 Ratio 341 10/21/24 12:12 ABG HCO3 27.6 mmol/L (22-26) H 10/21/24 12:12 ABG O2 Saturation 93.0 10/21/24 12:12 ABG Base Excess 2.9 mmol/L (-2.0-2.0) H 10/21/24 12:12 Osiel Test Pos 10/21/24 12:12 A-a O2 Gradient 3.5 mmHg (5-10) L 10/21/24 12:12 Hematocrit 33.4 % (42-52) L 10/21/24 12:12 Hgb O2 Saturation 90.7 % (95-100) L 10/21/24 12:12 Carboxyhemoglobin 1.6 %THgb (0.4-20.1) 10/21/24 12:12 Methemoglobin 0.9 % (0.4-1.5) 10/21/24 12:12 Total Hemoglobin 10.9 g/dL (14-18) L 10/21/24 12:12 Sodium 138.0 mmol/L (131-143) 10/21/24 12:12 Potassium 3.7 mmol/L (3.5-5.0) 10/21/24 12:12 Glucose 106.0 mg/dL (70-115) 10/21/24 12:12 Ionized Calcium 1.1 mmol/L (1.1-1.4) 10/21/24 12:12 O2 Delivery Device Room air 10/21/24 12:12 FiO2 21.0 % 10/21/24 12:12 Health Science Specialist ID Walci 10/21/24 12:12 Sodium 138 mmol/L (136-145) 10/21/24 11:53 Potassium 4.0 mmol/L (3.5-5.1) 10/21/24 11:53 Chloride 101 mmol/L (98-107) 10/21/24 11:53 Carbon Dioxide 28 mmol/L (22-29) 10/21/24 11:53 Anion Gap 13.0 (5-19) 10/21/24 11:53 BUN 22 mg/dL (8-23) 10/21/24 11:53 Creatinine 1.0 mg/dL (0.7-1.2) 10/21/24 11:53 GFR Calculation 75.7 mL/min (90-130) L 10/21/24 11:53 Glucose 108 mg/dL (65-115) 10/21/24 11:53 Calculated Osmolality 290 mOsm/kg (285-295) 10/21/24 11:53 Calcium 8.5 mg/dL (8.5-10.5) 10/21/24 11:53 Total Bilirubin 0.4 mg/dL (0.15-1.2) 10/21/24 11:53 AST 29 U/L (0-40) 10/21/24 11:53 ALT 29 U/L (0-41) 10/21/24 11:53 Alkaline Phosphatase 51 U/L (40-130) 10/21/24 11:53 NT-Pro-B Natriuret Pep 748 pg/mL (0-125) H 10/21/24 11:53 Total Protein 6.2 g/dL (6.6-8.7) L 10/21/24 11:53 Albumin 3.7 g/dL (3.5-5.2) 10/21/24 11:53 Globulin 2.5 g/dL (1.3-4.6) 10/21/24 11:53 Urine Color Yellow (Yellow) 10/21/24 11:24 Urine Appearance Clear (CLEAR) 10/21/24 11:24 Urine pH 5.5 (5-7) 10/21/24 11:24 Ur Specific [place] 1.019 (1.005-1.030) 10/21/24 11:24 Urine Protein Negative (Negative) 10/21/24 11:24 Urine Glucose (UA) 3+ (Normal) H 10/21/24 11:24 Urine Ketones Negative (Negative) 10/21/24 11:24 Urine Blood Negative (Negative) 10/21/24 11:24 Urine Nitrate Negative (Negative) 10/21/24 11:24 Urine Bilirubin Negative (Negative) 10/21/24 11:24 Urine Urobilinogen 1.0 mg/dL (Negative) 10/21/24 11:24 Ur Leukocyte Esterase Negative (Negative) 10/21/24 11:24 Urine RBC 0-2 /hpf (0-2) 10/21/24 11:24 Urine WBC 0-5 /hpf (0-5) 10/21/24 11:24 Ur Squamous Epith Cells 0-5 /hpf (0-5) 10/21/24 11:24 Amorphous Sediment Not Reportable 10/21/24 11:24 Urine Bacteria None seen /hpf (NONE) 10/21/24 11:24 Hyaline Casts 0-4 /lpf H 10/21/24 11:24 A&P Assessment and plan 1. Nonischemic congestive cardiomyopathy: 2. Syncope: 3. Intermittent atrial fibrillation: 4. Somnolence, daytime: Plan: 63-year-old male with past medical history as listed above presenting to the hospital today with increased somnolence symptoms during the daytime. Differentials are broad at this time. Based on his description, I am concerned these may be somnolence episodes versus syncopal episodes. He is noted to be hypotensive today with systolic blood pressure of 79 mmHg. He will be closely monitored in the ICU. Telemetry monitoring to assess for any underlying arrhythmias which may be contributing. Check carotid Doppler, echocardiogram to assess for any interval change. Patient appears to be clinically dehydrated, however would hold off on any further IV fluids at this time as he does have a history of cardiomyopathy with an ejection fraction of 28%. Will hold diuretics at this time. Holding additionally her spironolactone and Entresto in view of hypotension. Continue low-dose metoprolol and closely monitor. Continue amiodarone 200 mg p.o. daily. Monitor for any syncopal episodes while in the hospital. Alternate differentials include narcolepsy versus absnece seizures check CK and TSH h/o COPD but no signs of hypercapnea on ABG. states that outpatient sleep study 1 year ago did not qualify him for a CPAP. We are unable to perform a sleep study here in the hospital. Will opt for an overnight oximetry study at this time. PDMP PDMP Reviewed: Not Reviewed Attestations Medical Necessity Statement*: Less than 2 midnight stay currently anticipated Coding Level of Care Code Acute Code for Chg Fwd High MDM includes number and complexity of problems actively addressed during encounter, amount and/or complexity of data reviewed/ordered and described risk of complication, morbidity or mortality of management as documented Diagnoses Nonischemic congestive cardiomyopathy I42.0 Syncope R55 Intermittent atrial fibrillation I48.0 Somnolence, daytime R40.0
--- NOTE | 2024-10-21 17:10 | USCV_ITS ---
Anurag Diaz Age: 63 Gender: M : 1960 Exam Date: 10/21/2024 21:20 Ordering Phys: Denise Booker MD Technologist: ZA [place]am [place] [facility] [place]ication: worsening dyspnea, history of CHF, HTN, COPD, history of Afib s/p cardioversion, smoker, history ischemic CM BP: 93 / 63 HR: 62 Rhythm: Paced rhythm with atrial fibrillation Technical Quality: Adequate MEASUREMENTS (Male / Female) Normal Values 2D ECHO LV Diastolic Diameter PLAX 5.9 cm 4.2 - 5.9 / 3.9 - 5.3 cm IVS Diastolic Thickness 1.2 cm 0.6 - 1.0 / 0.6 - 0.9 cm IVS Systolic Thickness 1.3 cm LVPW Diastolic Thickness 1.1 cm 0.6 - 1.0 / 0.6 - 0.9 cm LVPW Systolic Thickness 1.8 cm LVOT Diameter 2.2 cm LV Ejection Fraction 2D Teich 35.5 % LV Ejection Fraction MOD 4C 33.9 % LV Ejection Fraction MOD 2C 32.8 % LV Ejection Fraction 2C AL 31.8 % LA Diameter 4.1 cm Aorta at Sinotubular Diameter 3.8 cm IVC Diameter 3.0 cm M-MODE LA Ao Ratio MM 1.7 AV Cusp Separation MM 2.1 cm DOPPLER AV Peak Velocity 162.0 cm/s LVOT Peak Velocity 84.0 cm/s AV Area Cont Eq vti 1.9 cm squared AV Area Cont Eq pk 2.0 cm squared MV Peak Velocity 159.0 cm/s MV Area PHT 3.3 cm squared Mitral E to A Ratio 769.0 TV Peak Velocity 281.7 cm/s TR Peak Velocity 306.0 cm/s TR Peak Gradient 37.5 mmHg TV Peak E Velocity 59.0 cm/s PV Peak Velocity 114.0 cm/s FINDINGS Left Ventricle Moderately increased left ventricular cavity size. Severely decreased left ventricular systolic function. Global left ventricular hypokinesis. Left ventricular ejection fraction is estimated at 35 %. Grade III/IV diastolic dysfunction (restrictive filling pattern), severely elevated filling pressures. Right Ventricle The right ventricle is normal in size and function. Right Atrium The right atrium is normal in size. Left Atrium Moderately increased left atrial size. Mitral Valve Mildly thickened mitral valve. No mitral valve stenosis. Moderate mitral valve regurgitation. Aortic Valve Moderate aortic valve calcification. No aortic valve stenosis. Trace aortic valve regurgitation. Tricuspid Valve Moderate tricuspid valve regurgitation. Pulmonic Valve Mild pulmonary valve regurgitation. Pericardium Normal pericardium without effusion. Aorta Normal ascending aorta dimension. IVC Dilated IVC. CONCLUSIONS Moderately increased left ventricular cavity size. Severely decreased left ventricular systolic function. Global left ventricular hypokinesis. Left ventricular ejection fraction is estimated at 35 %. Grade III/IV diastolic dysfunction (restrictive filling pattern), severely elevated filling pressures. Moderately increased left atrial size. Mildly thickened mitral valve. No mitral valve stenosis. Moderate mitral valve regurgitation. Moderate tricuspid valve regurgitation. There is no pericardial effusion. Right atrial pressure is around 15 mm of mercury. Sha Lewis MD (Electronically Signed) Final Date: 22 October 2024 13:29 S
--- NOTE | 2024-10-21 17:33 | USCV_ITS ---
Joe Anurag Age: 63 Gender: M : 1960 Exam Date: 10/21/2024 20:54 Ordering Phys: Denise Booker MD Technologist: ZA Exam Location: [facility] – [place] Indication: syncope, HTN, COPD, smoker, history of Afib, s/p cardioverison, history of ischemic CM Risk Factors: syncope, HTN, COPD, smoker, history of Afib, s/p cardioverison, history of ischemic CM Previous Vascular Surgery: None Right Brachial BP: 93 / 63 Left Brachial BP: / Right Left Velocity (cm/s) Spectral Plaque Velocity (cm/s) Spectral Plaque Syst/Diast Broadening Syst/Diast Broadening 93.80/ 18.90 Min Homo Prox CCA 105.50/ 30.00 Min Homo 93.20/ 15.40 Mod Hetro Mid CCA 88.20 / 17.00 Mod Hetro 60.60/ 16.70 Mod Van Distal CCA 64.80 / 9.70 Mod Van 56.50/ 20.50 Mod Van Prox ICA 54.40 / 16.80 Min Van 56.50/ 17.90 Min Hetro Mid ICA 61.70 / 20.50 None Hetro 58.40/ 22.90 Min Homo Distal ICA 60.50 / 16.80 Min Homo 73.30 Min Hetro ECA 78.70 Min Van 1.00 ICA/CCA 1.00 Antegrade Vertebral Antegrade 22.70/ 8.20 cm/s 61.70/ 19.30 cm/s Tri Subclavian Tri 127.2 133.5 0 0 CONCLUSIONS Right ICA stenosis <50%. Moderate atheromatous plaque right carotid bulb/ICA. Left ICA stenosis <50%. Moderate atheromatous plaque left carotid bulb/ICA. Intimal thickening in the common carotid arteries and internal carotid arteries bilaterally. Normal antegrade Doppler flow noted in the right vertebral artery. Normal antegrade Doppler flow noted in the left vertebral artery. Nikhil Curry MD (Electronically Signed) Final Date: 22 October 2024 16:50 S
--- NOTE | 2024-10-21 19:39 | PC.NURSE ---
home meds Dr Garrido contacted per request of patient in regards of restarting home medications. Dr Garrido advised he would look through patients chart and look in to restarting home medications.
--- NOTE | 2024-10-21 22:00 | PC.RESP ---
pox overnightpox placed on pt at this time, sats 94% ra
[2024-10-22] VITALS (43 sets, daily range): BP systolic 87–123; BP diastolic 60–79; PULSE 56–81; RESP 13–24; TEMP 36.5; O2SAT 94–100
[2024-10-22 03:32] LABS: Hematocrit 37.9 % (37-53); Hemoglobin 11.50 g/dL (11.27-16.99); Mean Corpuscular HGB Conc 30.3 g/dL (30-55); Mean Corpuscular Hemoglobin 23.3 pg (27-33); Mean Corpuscular Volume 76.9 fl (82-101); Nucleated Red Blood Cells % 0 %; Platelet Count 198 10^3/cmm (157-399); Red Blood Count 4.93 10^6/uL (3.85-5.65); White Blood Count 8.42 10^3/uL (3.29-11.43)
[2024-10-22 03:56] LABS: Alanine Aminotransferase 36 U/L (0-41); Albumin Level 3.9 g/dL (3.5-5.2); Alkaline Phosphatase 55 U/L (40-130); Anion Gap 14.3 (5-19); Aspartate Amino Transferase 44 U/L (0-40); Blood Urea Nitrogen 19 mg/dL (8-23); Calcium 8.8 mg/dL (8.5-10.5); Carbon Dioxide 25 mmol/L (22-29); Chloride 105 mmol/L (98-107); Creatinine Clr Calc Pharmacy 84.0426; Globulin 2.6 g/dL (1.3-4.6); Glucose 99 mg/dL (65-115); Magnesium 2.2 mg/dL (1.7-2.3); Osmolality Calculated 292 mOsm/kg (285-295); Potassium 4.3 mmol/L (3.5-5.1); Sodium 140 mmol/L (136-145); Total Protein 6.5 g/dL (6.6-8.7)
[2024-10-22 06:53] LABS: PCP Screen Urine Negative (Negative)
[2024-10-22] MEDS: metoprolol succinate ER (24 HR) 25 mg Tablet 12.5 MG PO (08:30)
[2024-10-22 09:57] LABS: Thyroid Stimulating Hormone 6.60 uIU/mL (0.27-4.20)
[2024-10-22 10:59] LABS: Free T4 Free Thyroxine 1.29 ng/dL (0.82-1.77)
--- NOTE | 2024-10-22 17:23 | P.DS_ITS ---
Discharge Providers Date of Admission: 10/21/24 12:50 Date of Discharge: October 22, 2024 Attending Provider at Admission: Denise Booker MD Attending Provider at Discharge: Denise Booker MD Primary Care Provider: EFRAÍN Granda Reason for Visit Reason for Visit: falls asleep out of no where Hospital Course Hospital Course Patient is a 63-year-old male who presented to the hospital with chief complaints of episodes of falling asleep suddenly on multiple occasions over the past 2 to 3 weeks. He did not have any preceding symptoms such as dizziness chest pain nausea or vomiting. He was also noted to be hypotensive upon admission. There was concern that this symptoms may be syncopal in nature. Due to concern for true somnolence episodes versus syncope, patient was admitted to the hospital in observation. He was monitored on telemetry, no arrhythmia was encountered. Patient has a history of COPD, however did not have any evidence of hypercapnia or respiratory acidosis to explain his somnolence episodes. He states he had had a sleep study over a year ago but did not qualify for a CPAP based on the parameters. Overnight oximetry study was completed here in the hospital which showed that patient had overall 11 minutes of desaturation. Lowest recorded value was at 78%. His O2 saturation remained satisfactory for 93% of the study. Patient was recommended to wear supplemental oxygen at nighttime. He states he already has a concentrator at home and uses oxygen as a as needed. He did not have any daytime desaturation episodes noted. He remained on room air during his awake time. There were no seizure episodes encountered. Patient was hypotensive upon arrival with systolic blood pressure down to 79 systolic. This resolved quickly with holding his Entresto and spironolactone. Patient does take daily Lasix at home, this was changed to as needed at the time of discharge. He was found to have evidence of rhabdomyolysis with elevated CK at 900. Simvastatin was held for this reason. Suspect that rhabdomyolysis may be related to dehydration and overdiuresis therefore Lasix was changed to as need ed. Patient was encouraged to increase his daily fluid intake limit to 2 L/day. Follow-up is recommended with neurology for further assessment for possible narcolepsy versus absence seizure's. No syncopal events were encountered in the hospital. Carotid Doppler was negative for any carotid artery stenosis. Echocardiogram showed an ejection fraction of 35% with grade 3 diastolic dysfunction,. This is an improvement over previously known ejection fraction of 28%. TSH was noted to be mildly elevated at 6.6, however with a normal free T3 and T4. Patient is eager to be discharged home today to be able to celebrate his birthday with his family tomorrow. Physical Exam Narrative: General: No acute distress, AO x3 HEENT: PERRLA, pupils bilaterally equal and reactive, pallors not present Chest: Normal vesicular breath sounds, no added sounds, equal good air entry bilaterally CVS: S1-S2 regular, no murmurs, no tachycardia, no gallops, no rubs Abdomen: Soft, nontender, no organomegaly, bowel sounds present Neuro: No focal deficits, no facial deformity, AO x3, power 5/5 in all limbs Discharge Data Studies Completed and Pending Completed Studies During Hospitalization Category Date Time Status XR cervical spine 3V* [id number] Routine Exams 10/21/24 15:49 Completed XR chest 1V portable [id number] Stat Exams 10/21/24 11:36 Completed XR knee RT 3V* [id number] Stat Exams 10/21/24 12:18 Completed CV carotid duplex BI* [id number] Routine Ultrasound 10/21/24 17:33 Completed CV. echo complete* [id number] Routine Ultrasound 10/21/24 17:10 Completed Radiology Impressions Chest X-Ray 10/21/24 11:36 IMPRESSION: Changes in the right lower lung of unknown chronicity but compatible with acute/subacute pulmonary edema/congestive heart failure. Less likely pneumonitis. Knee X-Ray 10/21/24 12:18 IMPRESSION: Joint effusion without identifiable acute bone or joint abnormality. Cervical Spine X-Ray 10/21/24 15:49 IMPRESSION: Limited examination. No acute abnormality identified. Laboratory Results WBC 8.42 10^3/uL (3.29-11.43) 10/22/24 02:47 RBC 4.93 10^6/uL (3.85-5.65) 10/22/24 02:47 Hgb 11.50 g/dL (11.27-16.99) 10/22/24 02:47 Hct 37.9 % (37-53) 10/22/24 02:47 MCV 76.9 fl (82-101) L 10/22/24 02:47 MCH 23.3 pg (27-33) L 10/22/24 02:47 MCHC 30.3 g/dL (30-55) 10/22/24 02:47 RDW 19.5 % (12.1-15.1) H 10/22/24 02:47 Plt Count 198 10^3/cmm (157-399) 10/22/24 02:47 MPV 9.3 fL (7.4-10.4) 10/22/24 02:47 Neut % (Auto) 79.0 % 10/22/24 02:47 Lymph % (Auto) 11.5 % 10/22/24 02:47 [place] % (Auto) 7.2 % 10/22/24 02:47 Eos % (Auto) 1.3 % 10/22/24 02:47 Baso % (Auto) 0.4 % 10/22/24 02:47 Neut # (Auto) 6.65 10^3/uL (1.8-7.7) 10/22/24 02:47 Lymph # (Auto) 1.0 10^3/uL (0.8-4.8) 10/22/24 02:47 [place] # (Auto) 0.6 10^3/uL (0.2-0.9) 10/22/24 02:47 Eos # (Auto) 0.1 10^3/uL (0.0-0.8) 10/22/24 02:47 Baso # (Auto) 0.0 10^3/uL (0.0-0.1) 10/22/24 02:47 Nucleated RBC % (auto) 0 % 10/22/24 02:47 Nucleated RBCs # 0.0 /100WBC 10/22/24 02:47 Specimen Type Arterial 10/21/24 12:12 Sample Site Radial, left 10/21/24 12:12 ABG pH 7.43 (7.35-7.45) 10/21/24 12:12 ABG pCO2 42.1 mmHg (35-45) 10/21/24 12:12 ABG pO2 71.8 mmHg (80.0-100.0) L 10/21/24 12:12 ABG PO2/FiO2 Ratio 341 10/21/24 12:12 ABG HCO3 27.6 mmol/L (22-26) H 10/21/24 12:12 ABG O2 Saturation 93.0 10/21/24 12:12 ABG Base Excess 2.9 mmol/L (-2.0-2.0) H 10/21/24 12:12 Osiel Test Pos 10/21/24 12:12 A-a O2 Gradient 3.5 mmHg (5-10) L 10/21/24 12:12 Hematocrit 33.4 % (42-52) L 10/21/24 12:12 Hgb O2 Saturation 90.7 % (95-100) L 10/21/24 12:12 Carboxyhemoglobin 1.6 %THgb (0.4-20.1) 10/21/24 12:12 Methemoglobin 0.9 % (0.4-1.5) 10/21/24 12:12 Total Hemoglobin 10.9 g/dL (14-18) L 10/21/24 12:12 Sodium 138.0 mmol/L (131-143) 10/21/24 12:12 Potassium 3.7 mmol/L (3.5-5.0) 10/21/24 12:12 Glucose 106.0 mg/dL (70-115) 10/21/24 12:12 Ionized Calcium 1.1 mmol/L (1.1-1.4) 10/21/24 12:12 O2 Delivery Device Room air 10/21/24 12:12 FiO2 21.0 % 10/21/24 12:12 Vehicle Fuel Systems Converter ID [employer] 10/21/24 12:12 Sodium 140 mmol/L (136-145) 10/22/24 02:47 Potassium 4.3 mmol/L (3.5-5.1) 10/22/24 02:47 Chloride 105 mmol/L (98-107) 10/22/24 02:47 Carbon Dioxide 25 mmol/L (22-29) 10/22/24 02:47 Anion Gap 14.3 (5-19) 10/22/24 02:47 BUN 19 mg/dL (8-23) 10/22/24 02:47 Creatinine 0.9 mg/dL (0.7-1.2) 10/22/24 02:47 GFR Calculation 85.5 mL/min (90-130) L 10/22/24 02:47 Glucose 99 mg/dL (65-115) 10/22/24 02:47 Calculated Osmolality 292 mOsm/kg (285-295) 10/22/24 02:47 Calcium 8.8 mg/dL (8.5-10.5) 10/22/24 02:47 Magnesium 2.2 mg/dL (1.7-2.3) 10/22/24 02:47 Total Bilirubin 0.4 mg/dL (0.15-1.2) 10/22/24 02:47 AST 44 U/L (0-40) H 10/22/24 02:47 ALT 36 U/L (0-41) 10/22/24 02:47 Alkaline Phosphatase 55 U/L (40-130) 10/22/24 02:47 Creatine Kinase 908 U/L (39-308) H* 10/22/24 02:47 NT-Pro-B Natriuret Pep 748 pg/mL (0-125) H 10/21/24 11:53 Total Protein 6.5 g/dL (6.6-8.7) L 10/22/24 02:47 Albumin 3.9 g/dL (3.5-5.2) 10/22/24 02:47 Globulin 2.6 g/dL (1.3-4.6) 10/22/24 02:47 TSH 6.60 uIU/mL (0.27-4.20) H 10/22/24 02:47 Free T4 1.29 ng/dL (0.82-1.77) 10/22/24 02:47 Free T3 3.5 PG/ML (2.0-4.4) 10/22/24 02:47 Urine Color Yellow (Yellow) 10/21/24 11:24 Urine Appearance Clear (CLEAR) 10/21/24 11:24 Urine pH 5.5 (5-7) 10/21/24 11:24 Ur Specific [place] 1.019 (1.005-1.030) 10/21/24 11:24 Urine Protein Negative (Negative) 10/21/24 11:24 Urine Glucose (UA) 3+ (Normal) H 10/21/24 11:24 Urine Ketones Negative (Negative) 10/21/24 11:24 Urine Blood Negative (Negative) 10/21/24 11:24 Urine Nitrate Negative (Negative) 10/21/24 11:24 Urine Bilirubin Negative (Negative) 10/21/24 11:24 Urine Urobilinogen 1.0 mg/dL (Negative) 10/21/24 11:24 Ur Leukocyte Esterase Negative (Negative) 10/21/24 11:24 Urine RBC 0-2 /hpf (0-2) 10/21/24 11:24 Urine WBC 0-5 /hpf (0-5) 10/21/24 11:24 Ur Squamous Epith Cells 0-5 /hpf (0-5) 10/21/24 11:24 Amorphous Sediment Not Reportable 10/21/24 11:24 Urine Bacteria None seen /hpf (NONE) 10/21/24 11:24 Hyaline Casts 0-4 /lpf H 10/21/24 11:24 Urine Opiates Screen Negative ng/mL (Negative) 10/22/24 06:20 Ur Barbiturates Screen Negative ng/mL (Negative) 10/22/24 06:20 Ur Phencyclidine Scrn Negative ng/mL (Negative) 10/22/24 06:20 Ur Amphetamines Screen Negative ng/mL (Negative) 10/22/24 06:20 U Benzodiazepines Scrn Negative ng/mL (Negative) 10/22/24 06:20 Urine Cocaine Screen Negative ng/mL (Negative) 10/22/24 06:20 U Marijuana (THC) Screen Positive ng/mL (Negative) H 10/22/24 06:20 Vitals Last Vital Signs Temp 97.7 F 10/22/24 09:30 Pulse 69 10/22/24 15:30 Resp 16 10/22/24 13:39 BP 102/63 10/22/24 16:00 Pulse Ox 100 10/22/24 16:00 O2 Del Method Room Air 10/22/24 16:00 Discharge Plan Discharge Patient Disposition: Home Condition: Stable Prescriptions: New tizanidine 4 mg Tablet 2 mg PO TID PRN (Reason: Spasms) 7 Days Qty: 20 0RF Continued omeprazole 20 mg capsule,delayed release(DR/EC) 20 mg PO DAILY sertraline [Zoloft] 100 mg tablet 200 mg PO DAILY albuterol sulfate 90 mcg/actuation HFA aerosol inhaler 2 puff inhalation Q6H PRN (Reason: Shortness Of Breath Or Wheezing) budesonide-formoterol [Symbicort] 80-4.5 mcg/actuation HFA aerosol inhaler 2 puff inhalation BID Jardiance 10 mg tablet 10 mg PO DAILY amiodarone [Pacerone] 200 mg tablet 400 mg PO DAILY Qty: 180 3RF buspirone 10 mg tablet 10 mg PO TID PRN (Reason: Anxiety) Eliquis 5 mg tablet 5 mg PO BID Qty: 60 0RF ropinirole 3 mg tablet 1.5 mg PO TID tamsulosin 0.4 mg capsule 0.4 mg PO DAILY metoprolol succinate 25 mg tablet extended release 24 hr 12.5 mg PO DAILY furosemide 20 mg tablet 20 mg PO DAILY PRN (Reason: Edema) Held sacubitril-valsartan [Entresto] 24-26 mg tablet 1 tab PO BID Hold Instructions: Resume on 11/05/24. please hold until follow up with PCP simvastatin 20 mg tablet 20 mg PO QPM Hold Instructions: Resume on 10/22/24. Discontinued spironolactone [Aldactone] 25 mg tablet 12.5 mg PO DAILY Qty: 45 3RF Discharge Order = DC NOW: Discharge Order (Routine); Ordered 10/22/24 Ordered By: Denise Booker Referrals: Hoda Lance NP [Nurse Practitioner, Cardiology] Referral Note: Please book with first available nurse practitioner. Hospital discharge follow-up. Entresto, spironolactone and atorvastatin have been placed on hold for hypotension and rhabdomyolysis. These medications need to be reassessed as outpatient. Kyle Murcia MD [Physician, Neurology] - 2 weeks Referral Note: acute sleeping spells not otherwise explained by sleep apnea. Concern for narcolepsy vs absence seizures Senia Hansen FNP [Primary Care Provider, Nurse Practitioner] - 4-7 days Referral Note: entresto and Aldactone placed on hold due to hypotension. Please reassess with BP chart Patient Instructions: Opioid Safety, Patient Portal & Fede Instructions Activity Restrictions/Additional Instructions: Please maintain a blood pressure chart at home by checking your blood pressure twice a day. Take this chart to your PCP on your follow-up appointment so that timing of resuming Entresto and spironolactone can be ascertained. You have been given a follow-up with neurology due to concerns for possible narcolepsy. Please utilize nighttime oxygen at 2 L/min supplemental. You have been diagnosed with rhabdomyolysis therefore simvastatin has been placed on hold. Please recheck CK with your primary care doctor in 1 week to reassess if this medication can be safely resumed. Discharge Attestations Time Spent in Discharge Care*: greater than 30 min Status at Discharge: Cognitive status at discharge: cognitively intact , Behavioral status at discharge: cooperative , Quality Metrics Clinical Quality Measures [ No reported AMI, CVA or VTE this stay] Coding Level of Care Code Acute Code for Chg Sam
--- NOTE | 2024-10-22 18:27 | PC.NURSE ---
Patient's IV was taken out. All discharge instructions were given along with all prescriptions. Patient was stable during discharge. Patient was given all follow up appointments.
== END 2024-10-22 18:15 | disposition home or self-care (01) ==
LOC: ER 12:10 → ER IP 14:54 → ICU 15:50
PROVIDERS: Family Medicine; Admitting Provider Student in an Organized Health Care Education/Training Program; Emergency Provider Family Medicine; PCP Nurse Practitioner Family; Visit Provider Student in an Organized Health Care Education/Training Program
DX: R55 Syncope and collapse (principal); R40.0 Somnolence; I95.9 Hypotension, unspecified; J44.9 Chronic obstructive pulmonary disease, unspecified; Z99.81 Dependence on supplemental oxygen; K21.9 Gastro-esophageal reflux disease without esophagitis; Z79.01 Long term (current) use of anticoagulants; F12.91 Cannabis use, unspecified, in remission; I10 Essential (primary) hypertension; F41.8 Other specified anxiety disorders; G47.30 Sleep apnea, unspecified; E78.5 Hyperlipidemia, unspecified; I42.0 Dilated cardiomyopathy; I48.0 Paroxysmal atrial fibrillation; M79.89 Other specified soft tissue disorders
CPT/HCPCS: 36415; 36600; 71045; 72040; 73562; 80051; 80053; 80306; 81001; 82330; 82550; 82805; 83735; 83880; 84439; 84443; 84481; 85025; 93005; 93306; 93880; 94640; 99285; G0378; J7030; J7626; J9999

== ENCOUNTER → 2024-10-27 15:52 | Outpatient (BNVA) | payer BC, MEDICAID, SELFPAY | PROVIDERS: PCP Nurse Practitioner Family; Visit Provider Nurse Practitioner Family | DX: I49.9 Cardiac arrhythmia, unspecified (principal); E78.5 Hyperlipidemia, unspecified; I48.91 Unspecified atrial fibrillation | CPT/HCPCS: 36415; 80048; 83880; 85025 ==